=== PATIENT | male | born 1965 | race Caucasian/White ===

== ENCOUNTER 2017-08-28 10:12 | Outpatient (CLI) | payer MEDICARE ==
--- NOTE | 2017-08-28 11:58 | RAD ---
PA AND LATERAL CHEST: History: Hypertension. Date: 08-28-17 Comparison: 04-25-11 FINDINGS: The lungs are well aerated. No evidence of active intrathoracic disease seen. No evidence of effusio ns, pneumonia, or pneumothorax is seen. IMPRESSION: Normal two views chest. POS: [facility]
== END 2017-08-28 10:13 | disposition home or self-care (01) ==
LOC: RAD-FRANK 10:12
PROVIDERS: ATTEND Nurse Practitioner Family
DX: I10 Essential (primary) hypertension (principal)
CPT/HCPCS: 71020

== ENCOUNTER 2017-08-30 19:36 | Inpatient (IN) | payer MEDICARE ==
[~2017-08-30 19:36] MED LIST: ISOVUE-370 76%-LOCM 1 ML ONE
[2017-08-30 20:10] LABS: #Basophils 0.1 thou/uL (0.0-0.2); #Eosinphils 0.1 thou/uL (0.0-0.7); #Lymphocytes 1.5 thou/uL (1.20-3.40); #Monocytes 0.8 thou/uL (0.11-0.59); %Basophils 0.9 % (0.0-1.0); %Eosinophils 0.8 % (0.0-10.0); %Lymphocytes 17.5 % (21.0-51.0); %Monocytes 9.9 % (0.0-10.0); Hematocrit 47.3 % (42.0-52.0); Mean Platelet Volume 6.8 fL (7.4-10.4); Red Blood Cell (RBC) Count 5.05 mill/uL (4.70-6.10); White Blood Cell (WBC) Count 8.5 thou/uL (4.8-10.8)
[2017-08-30 20:23] LABS: Lactic Acid - Sepsis 2.8 mmol/L (0.5-2.2)
[2017-08-30 20:30] LABS: ALT (SGPT) 33 U/L (8-55); AST (SGOT) 36 U/L (5-34); Alkaline Phosphatase 67 U/L (40-150); Anion Gap 16 mmol/L (10-20); BUN (Urea Nitrogen) 12 mg/dL (8.4-25.7); Bilirubin, Total 1.2 mg/dL (0.2-1.2); Calc. Creatinine Clearance 0 mL/min (70-130); Calcium 9.1 mg/dL (7.8-10.44); Carbon Dioxide 24 mmol/L (22-29); Chloride 95 mmol/L (98-107); Estimated GFR-MDRD 61; Protein, Total 8.2 g/dL (6.0-8.3)
[2017-08-30] MEDS ORDERED: cefTRIAXone\\ROCEPHIN 1 GM VIAL ONE (20:38)
[2017-08-30] MEDS ORDERED: Azithromycin 500 MG VIAL ONE (20:38)
[2017-08-30] MEDS ORDERED: Sodium Chloride 0.9% 100 ML ONE (20:39)
[2017-08-30] MEDS ORDERED: Diltiazem HCl 125 MG, Admixture Fee 1 EACH in Sodium Chloride 0.9% 100 ML SLOW IVP SCH (21:00)
[2017-08-30] MEDS ORDERED: Acetaminophen 500 MG TAB ONE (21:13)
--- NOTE | 2017-08-30 21:55 | RAD ---
RADIOGRAPH CHEST 1 VIEW: HISTORY: A 52-year-old male with acute chest pain and chest congestion. FINDINGS: There is cardiomegaly. There is no evidence of air space density, pulmonary edema, or pneumothorax. The lateral costophrenic angles are sharp. IMPRESSION: 1) No acute pulmonary findings. 2) Cardiomegaly without congestive heart failure. riri [] POS: [facility]
[2017-08-30] MEDS ORDERED: Enoxaparin Sodium 100 MG/ML SYRINGE ONE (21:59)
[2017-08-30] MEDS ORDERED: Enoxaparin Sodium 40 MG/0.4 ML SYRINGE ONE (21:59)
[2017-08-30] MEDS ORDERED: Albuterol Sulfate 2.5 mg/3 ml Neb ONE (21:59)
[2017-08-30] MEDS ORDERED: Acetaminophen 325 MG TAB PO PRN (22:07)
[2017-08-30] MEDS ORDERED: Dextrose 50% Abboject 50 ML SYRINGE SLOW IVP PRN (22:11)
[2017-08-30] MEDS ORDERED: Dextrose 5% in Water 1,000 ML IV PRN (22:11)
--- NOTE | 2017-08-30 22:38 | HP ---
PRIMARY CARE PROVIDER: AYLIN Mahajan. CHIEF COMPLAINT: Shortness of breath. HISTORY OF PRESENT ILLNESS: Mr. Bradley is a pleasant 52-year-old gentleman, who was seen at [facility] on 08/30/2017 for shortness of breath. He reports that his symptoms star bethany yesterday. He had cough that was productive of woods sputum, fever, and wheezing. He also repor ts left-sided chest pain that was sharp, nonradiating, worse with coughing, not worse with exertion, associated with shortness of breath and fever. He reports that the chest pain has resolved. He denies any recent travel. He denies any sick contacts. He denies any nausea, vomiting or diarrhea. He denies any abdominal pain. REVIEW OF SYSTEMS: The following complete review of systems was negative, unless otherwise mentione d in the HPI or below: Constitutional: Weight loss or gain, sense of well-being, ability to conduct usual activities, exer cise tolerance. Skin/Breast: Rash, itching, changes in hair growth or loss, nail changes, breast lumps, tenderness, swelling, nipple discharge. Eyes: Vision, double vision, tearing, blind spots, pain. ENT/Mouth: Headaches (location, time of onset, duration, precipitating factors), vertigo, lighthead edness, injury. Vision, double vision, tearing, blind spots, pain, nose bleeding, colds, obstruction , discharge, dental difficulties, gingival bleeding, dentures, neck stiffness, pain, tenderness, mas ses in thyroid or other areas. Cardiovascular: Precordial pain, substernal distress, palpitations, syncope, dyspnea on exertion, o rthopnea, nocturnal paroxysmal dyspnea, edema, cyanosis, hypertension, heart murmurs, varicosities, phlebitis, claudication. Respiratory: Pain, shortness of breath, wheezing, stridor, cough, hemoptysis, fever or night sweats . Gastrointestinal: Poor appetite, dysphagia, indigestion, abdominal pain, heartburn, eructation, nick sea, vomiting, hematemesis, jaundice, constipation, or diarrhea, abnormal stools (soha-colored, micheal y, bloody, greasy, foul smelling), flatulence, hemorrhoids, recent changes in bowel habits. Genitourinary: Urgency, frequency, dysuria, nocturia, hematuria, polyuria, oliguria, unusual (or ch taya in) color of urine, stones, hesitancy, change in size of stream, dribbling, acute retention or incontinence, libido, potency. Musculoskeletal: Pain, swelling, redness or heat of muscles or joints, limitation, of motion, muscu lar weakness, atrophy, cramps. Neurologic/Psychiatric: Convulsions, paralyses, tremor, incoordination, paresthesias, difficulties with memory of speech, sensory or motor disturbances, or muscular coordination (ataxia, tremor), emo tional problems, anxiety, depression, previous psychiatric care, unusual perceptions, hallucinations . Allergy/Immunologic: Skin rash, anemia, bleeding tendency, polydipsia, polyuria, intolerance to hea t or cold. PAST MEDICAL HISTORY: Significant for diabetes mellitus, gout, hypertension, obstructive sleep apne a syndrome, for which he is not using a CPAP. PAST SURGICAL HISTORY: None. ALLERGIES: No known drug allergies. CURRENT MEDICATIONS: Metformin 500 mg daily, glipizide 5 mg daily, lisinopril/hydrochlorothiazide 2 0/12.5 mg daily, carvedilol 6.25 mg 2 times a day, Robitussin p.r.n. SOCIAL HISTORY: The patient denies tobacco use, alcohol use or recreational drug use. FAMILY HISTORY: Significant for hypertension and gout. PHYSICAL EXAMINATION: GENERAL: On examination, Mr. Bradley is awake and alert, in moderate respiratory distress. He is ob rubia. VITAL SIGNS: He is currently afebrile, although he had a temperature of 101.4 degrees Fahrenheit wh en he presented to the emergency room. Blood pressure is 98/81, pulse is 102, he is breathing at ra te of 27 and saturating 98% on nonrebreather mask. EYES: No scleral icterus. No conjunctival pallor. ENT: Moist mucosal membranes, no oropharyngeal erythema or exudates. NECK: Supple, nontender, normal range of movement. Trachea is midline. RESPIRATORY: Accessory muscles of breathing are active. Chest wall movements are symmetric bilater ally. He has diffuse expiratory wheezing. CARDIOVASCULAR: S1 and S2 are heard, tachycardic, irregular. Peripheral pulses are palpable. No c arotid bruit, no pericardial rub. ABDOMEN: Distended, nontender, bowel sounds heard, no hepatomegaly, no splenomegaly. MUSCULOSKELETAL: Power is 5/5 in all 4 extremities. Normal range of movement at all major extremit y joints. SKIN: No rashes or subcutaneous nodules. Extremities are cool. PSYCHIATRIC: The patient appears anxious, oriented to person, place and time. LYMPHATIC: No cervical lymphadenopathy. LABORATORY DATA AND IMAGING: Mr. Bradley's labs and investigations were reviewed. I reviewed his est x-ray, which appears to show perihilar infiltrates. I also reviewed his electrocardiogram, whic h shows atrial fibrillation with rapid ventricular response. No ST changes to suggest an acute danielle nary syndrome. Laboratory investigations show an unremarkable CBC, decreased sodium of 131, normal potassium, normal creatinine, elevated lactic acid of 2.8, elevated AST of 36. ASSESSMENT AND PLAN: Mr. Bradley is a pleasant 52-year-old gentleman who was seen at [facility] on 08/30/2017. His problem list includes: 1. Acute respiratory failure: Etiology unclear, most likely secondary to respiratory tract infecti on. The patient was briefly treated with bilevel positive airway pressure, but is currently on a no nrebreather mask. We will admit him to the hospital for further management. 2. Respiratory tract infection: Minimal infiltrates on chest x-ray, could be bronchitis. The deb ent has received intravenous antibiotics in the form of ceftriaxone and azithromycin, we will contin ue the same. 3. Atrial fibrillation with rapid ventricular response: He is currently on a diltiazem drip, which I will continue. Monitor for hypotension. He may need digoxin if he develops hypotension. 4. Diabetes mellitus. Start Accu-Cheks, insulin sliding scale. 5. Hyponatremia: Mild, likely asymptomatic, we will recheck. He is currently awaiting a CT scan to rule out pulmonary embolism. LEVEL OF RISK: High. LEVEL OF COMPLEXITY: High. Many thanks for allowing me to participate in your patient's care. Please feel free to contact me w ith any questions or concerns.
--- NOTE | 2017-08-30 23:43 | CT ---
CTA THORAX WITH CONTRAST: 08/30/2017 (Computed Tomographic Angiography, chest (noncoronary) with contrast material, and image post proces sing) (PE protocol) HISTORY: A 52-year-old male with severe dyspnea, fever, chest pain, and wheezing. TECHNIQUE: IV injection of iodinated contrast: Isovue. Scan acquisition timing attempted to coincide with iodinated contrast bolus reaching maximal density in pulmonary arteries. 3D MIP reconstructions. FINDINGS: There are numerous significantly enlarged mediastinal lymph nodes, especially in the subcarinal manoj on, but also in the right paratracheal region. There was milder mediastinal lymphadenopathy previou sly on a CT of 11/08/2014, and this has worsened. There is also a new finding of bilateral hilar ly mphadenopathy. There is a few finding of an approximately 2.5 x 2.5 x 5 cm soft tissue density lesi on in the superior segment of the right lower lobe (this is hidden by the enlarged right hilum on th e frontal chest radiograph obtained earlier today, and therefore, difficult to appreciate). This is surrounded by haziness and ground glass changes. Therefore, this is favored to represent a pneumoni a rather than primary lung cancer. There is no evidence of pulmonary thromboembolism. No thoracic aneurysm or dissection. No pleural effusion. Cardiomegaly. Mild hazy interstitial densities bilat erally. Trachea and bilateral mainstem bronchi are patent. Diffusely low hepatic attenuation repres ents fatty liver. Enlargement of the liver. IMPRESSION: 1. Focal consolidation in the superior segment of the right lower lobe is evidence for pneumonia. 2. Recommend follow-up CT in one month to exclude the possibility of an underlying primary lung can cer. 3. Mediastinal and bilateral hilar lymphadenopathy 4. Hepatomegaly and hepatic steatosis. 5. No pulmonary thromboembolism. 6. Cardiomegaly. riri[] POS: [facility]
[2017-08-31 00:13] VITALS: BMI 43.4
[2017-08-31] MEDS: HumaLOG 300 UNITS/3 ML VIAL SC PRN ×5 (00:51→20:51)
[2017-08-31 04:25] LABS: #Eosinphils 0.1 thou/uL (0.0-0.7); #Lymphocytes 2.2 thou/uL (1.20-3.40); #Monocytes 0.8 thou/uL (0.11-0.59); #Neutrophils 5.1 thou/uL (1.40-6.50); %Basophils 0.5 % (0.0-1.0); %Eosinophils 1.6 % (0.0-10.0); %Lymphocytes 26.5 % (21.0-51.0); %Monocytes 9.5 % (0.0-10.0); Hematocrit 41.5 % (42.0-52.0); Red Blood Cell (RBC) Count 4.36 mill/uL (4.70-6.10); White Blood Cell (WBC) Count 8.2 thou/uL (4.8-10.8)
[2017-08-31] MEDS ORDERED: Sodium Chloride 0.9% 1,000 ML IV SCH (04:30)
[2017-08-31 04:52] LABS: Anion Gap 15 mmol/L (10-20); BUN (Urea Nitrogen) 11 mg/dL (8.4-25.7); Calc. Creatinine Clearance 162 mL/min (70-130); Calcium 7.7 mg/dL (7.8-10.44); Carbon Dioxide 22 mmol/L (22-29); Chloride 102 mmol/L (98-107); Estimated GFR-MDRD 78
[2017-08-31] MEDS ORDERED: Furosemide 20 MG/2 ML VIAL SLOW IVP SCH (08:00)
--- NOTE | 2017-08-31 08:06 | PDOC.PN ---
- Subjective Encounter Start Date: 08/31/17 Encounter Start Time: 08:03 Mr. Bradley says he is breathing a little better this morning. He denies any chest pain at this time. - Objective MAR Reviewed: Yes Vital Signs & Weight: Vital Signs (12 hours) Temp Pulse Resp Pulse Ox 08/31/17 07:15 111 H 08/31/17 07:14 120 H 24 H 100 08/31/17 07:13 99.8 F H 111 H 16 100 08/31/17 04:00 98.8 F 08/31/17 01:17 109 H 08/31/17 01:15 112 H 27 H 100 08/31/17 00:00 99.5 F 111 H 23 H 100 08/30/17 23:40 99.5 F Weight Weight 294 lb 8 oz Most Recent Monitor Data Heart Rate from ECG 111 NIBP 154/110 NIBP BP-Mean 135 Respiration from ECG 28 SpO2 100 I&O: 08/30/17 08/31/17 09/01/17 06:59 06:59 06:59 Intake Total 292 261 Output Total 250 0 Balance 42 261 Result Diagrams: 08/31/17 03:44 08/31/17 03:44 Additional Labs: Accuchecks 08/31/17 08/31/17 04:40 00:47 POC Glucose 197 H 225 H Phys Exam - Physical Examination HEENT: PERRLA Respiratory: wheezing present + bilateral wheezing, Cardiovascular: irregular Tachycardic Gastrointestinal: soft, non-tender, positive bowel sounds Musculoskeletal: edema present trace pedal edema Dx/Plan (1) Acute respiratory failure Code(s): J96.00 - ACUTE RESPIRATORY FAILURE, UNSP W HYPOXIA OR HYPERCAPNIA Status: Acute (2) Acute on chronic systolic heart failure Code(s): I50.23 - ACUTE ON CHRONIC SYSTOLIC (CONGESTIVE) HEART FAILURE Status : Acute (3) Atrial fibrillation with RVR Code(s): I48.91 - UNSPECIFIED ATRIAL FIBRILLATION Status: Acute (4) Hypertension Code(s): I10 - ESSENTIAL (PRIMARY) HYPERTENSION Status: Acute (5) Lung mass Code(s): R91.8 - OTHER NONSPECIFIC ABNORMAL FINDING OF LUNG FIELD Status: Acute (6) Diabetes mellitus type 2 in obese Code(s): E11.69 - TYPE 2 DIABETES MELLITUS WITH OTHER SPECIFIED COMPLICATION; E66.9 - OBESITY, UNSPECIFIED Status: Acute (7) BRANDON (obstructive sleep apnea) Code(s): G47.33 - OBSTRUCTIVE SLEEP APNEA (ADULT) (PEDIATRIC) Status: Acute - Plan * Acute Respiratory failure on BiPAP- this is likey multi- factoral . Due to Upper Respiratory infection, AFIB with RVR, and acute on chronic systolic heart failure * Will continue BiPAP, * Continue Rocephin, and Azithromycin IV * In review of his previous records he has a history of heart failure, with an EF at that time, 2014, of around 25%. He also refused to undergo bth non- invasive, as well as invasive evaluation for ischemia.- will Diurese, and repeat his Echo * AFIB- he has a history of AFIB in 2014. at that time he opted for rate control only, and did not want to take coumadin or any of the new agents, due to cost. He says he may re-think this and consider full anticoagulation- will treat with full dose Lovenox for now. * Continue Cardizem drip, and will re-start Coreg * Cardiology has been consulted * HTN- blood pressure is elevated- -re-start Lisinopril, and titrate dose * Lung mass, and mediastinal adenopathy- Pulmonary Consult
[2017-08-31] MEDS ORDERED: Furosemide 100 MG/10 ML VIAL SLOW IVP SCH (08:15)
[2017-08-31] MEDS: Enoxaparin Sodium 120 MG/0.8 ML SYRINGE SC SCH ×2 (08:37→20:51)
[2017-08-31] MEDS: glipiZIDE 5 MG TAB PO SCH ×2 (08:39→20:51)
[2017-08-31] MEDS ORDERED: Lisinopril 2.5 MG TAB PO SCH (09:00)
[2017-08-31] MEDS ORDERED: Enoxaparin Sodium 40 MG/0.4 ML SYRINGE SC SCH (09:00)
[2017-08-31] MEDS ORDERED: Cefdinir 300 MG CAP PO SCH (11:30)
[2017-08-31] MEDS ORDERED: predniSONE 20 MG TAB PO SCH (11:30)
--- NOTE | 2017-08-31 14:42 | CON ---
DATE OF CONSULTATION: 08/31/2017 SERVICE: Pulmonary medicine. HISTORY OF PRESENT ILLNESS: The patient is a 52-year-old white male with past medical history signi ficant for atrial fibrillation. For the past several weeks, he has had slowly increasing dyspnea wi th exertion. Recently got the influenza vaccination. Multiple friends around him were sick recentl y with upper respiratory tract infections. He has a known obstructive sleep apnea, but is not curre ntly on any CPAP therapy. For the last 2-3 nights, he has been having significant dyspnea on exerti on, orthopnea, as well as paroxysmal nocturnal dyspnea. The last day, he started coughing up green sputum. He denies any current fevers, chills, nausea or vomiting. His appetite is poor; however. There have been no changes to his bowel habits. He presented to the emergency department and was di scovered to be in atrial fibrillation with a rapid rate. He was also hypotensive, prompting 5 liter s of fluid to be administered to him. He developed increasing difficulty in breathing and required BiPAP. He was tucked into the ICU. Overnight, his blood pressure improved after his heart rate was controlled. At that time, a dose of Lasix was provided and he has already had 2 liters out. He is starting to feel much improved. PAST MEDICAL HISTORY: 1. Atrial fibrillation. 2. Type 2 diabetes mellitus. 3. Hypertension. 4. Obstructive sleep apnea. 5. Gout. PAST SURGICAL HISTORY: None. ALLERGIES: No known drug allergies. MEDICATIONS: List of his inpatient medications were reviewed. Couple of small updates was made. SOCIAL HISTORY: Negative for alcohol, tobacco or illicit drug use. He denies any exposure to chemi cals, dust asbestos or tuberculosis. FAMILY HISTORY: Noncontributory. REVIEW OF SYSTEMS: General, head, ears, eyes, nose, throat, cardiovascular, respiratory, GI, , mu sculoskeletal, neurologic and skin is negative except as mentioned in the HPI. PHYSICAL EXAMINATION: VITAL SIGNS: Afebrile with a T-max of 99.8, pulse 122, blood pressure 134/90, respirations 30, satu ration 98% on 2 liters nasal cannula. GENERAL: The patient is awake and alert. No apparent distress. LUNGS: Excellent air entry. There is no prolonged expiratory phase. Crackles are present everywhe re. There is decreased air entry at the bibasilar region. There is inspiratory and expiratory whee zing present. HEART: Normal rate. Tachycardic, irregular. ABDOMEN: Soft. Distended. Nontender. Bowel sounds are positive. No rebound or guarding. MUSCULOSKELETAL: No cyanosis or clubbing. There is 1-2+ pitting throughout. GENITOURINARY: Powell catheter in place. NEUROLOGIC: Grossly nonfocal. LABORATORY DATA: WBC 8.2, hemoglobin 14.1, platelets 218,000. Creatinine down trained 1.01, sodium 134, potassium 4.7. Basic metabolic profile is otherwise unremarkable. Lactate has cleared to 1.9 . Blood cultures x2 is unremarkable. Influenza A and B are both negative. IMAGING: CT of the chest demonstrates no evidence of a pulmonary embolism. There is an infiltrate in the superior segment of the right lower lobe. I cannot really see the takeoff of the airway thou gh much at that segment is open. There could be an endobronchial lesion there, but my suspicion, we are just dealing with some mucus/plugging. The left atrium is enlarged and the left ventricle is g enerous. The right ventricle is fairly small. There is minimal reflux of contrast into the inferio r vena cava. ASSESSMENT: 1. Acute hypoxic respiratory failure. 2. Atrial fibrillation with rapid ventricular response. 3. Acute on chronic diastolic heart failure at the very least. 4. Acute bronchitis. 5. Community-acquired pneumonia. PLAN: We will switch over his antibiotics to p.o. medication. We will continue a daily dose of Las ix for the time being. Frequent nebulized medications will be provided. I will give him a 5-day co urse of steroids to help with his acute episode of bronchitis, likely exacerbated from volume overlo ad, and his pneumonia. He will remain in the ICU for the next 24 hours. Ultimately on discharge fr the hospital, he will need to follow up with me in the outpatient setting, so that we can get him arranged for a sleep study. I agree with echocardiogram.
[2017-08-31] MEDS: Carvedilol 6.25 MG TAB PO SCH ×2 (14:43→20:51)
--- NOTE | 2017-08-31 14:50 | CON ---
DATE OF CONSULTATION: 08/31/2017 REASON FOR CONSULTATION: Atrial fibrillation with rapid ventricular response. HISTORY OF PRESENT ILLNESS: Mr. Bradley is a 52-year-old gentleman who I saw and evaluated 2 years a go. He has been lost to follow up. He recently presented with increasing shortness of breath in ad dition to productive cough. No other ameliorating, exacerbating, or precipitating factors present e xcept for sharp discomfort that was worse with cough. He was found to be in AFIB with RVR. He was last seen and evaluated 2 years ago for similar symptoms. He converted to sinus rhythm prior to dis charge. PAST MEDICAL HISTORY: As above including diabetes, hypertension, BRANDON, gout. ALLERGIES: None. MEDICATIONS: Metformin, carvedilol, glipizide, lisinopril/hydrochlorothiazide. FAMILY HISTORY: Negative for CAD. SOCIAL HISTORY: No current tobacco or alcohol use. REVIEW OF SYSTEMS: Ten point review of systems is reviewed and is as above negative. PHYSICAL EXAMINATION: PHYSICAL EXAMINATION: GENERAL: He is morbidly obese. VITAL SIGNS: Heart rate 119, blood pressure 161/101, respirations 20. NEUROLOGIC: The patient is alert and oriented times 3 with no focal neurologic deficits. HEENT: Sclerae without icterus. Mouth has moist mucous membranes with normal pallor. NECK: No JVD. Carotid upstroke brisk. No bruits bilaterally. LUNGS: Coarse rhonchi and rales bilaterally. BACK: No scoliosis or kyphosis. CARDIAC: Irregularly irregular, tachycardic. ABDOMEN: Soft, nontender, nondistended. No peritoneal signs present. No hepatosplenomegaly. No a bnormal striae. EXTREMITIES: There is 1-2+ pitting edema. SKIN: No gross abnormalities. PERTINENT LABORATORY DATA: Hemoglobin 14.1 and creatinine 1.01. IMPRESSION: 1. Atrial fibrillation with rapid ventricular rate, 2. Pneumonia. 3. Obesity. 4. Diabetes mellitus. RECOMMENDATIONS: 1. Continue IV Cardizem. 2. Add Lovenox 3. Supplement with p.o. Cardizem in hopes of decreasing IV Cardizem. 4. Continue antibiotic therapy.
[2017-08-31] MEDS ORDERED: Carvedilol 6.25 MG TAB PO SCH (17:00)
[2017-08-31] MEDS ORDERED: cefTRIAXone\\ROCEPHIN 1 GM in Sodium Chloride 0.9% 100 ML IVPB SCH (20:00)
[2017-08-31] MEDS ORDERED: Azithromycin 500 MG in Sodium Chloride 0.9% 250 ML 250 ML IVPB SCH (21:00)
[2017-09-01 04:50] LABS: #Monocytes 0.7 thou/uL (0.11-0.59); #Neutrophils 7.6 thou/uL (1.40-6.50); %Basophils 0.2 % (0.0-1.0); %Eosinophils 0.2 % (0.0-10.0); %Lymphocytes 18.9 % (21.0-51.0); %Monocytes 7.2 % (0.0-10.0); Mean Platelet Volume 6.8 fL (7.4-10.4); Red Blood Cell (RBC) Count 4.43 mill/uL (4.70-6.10); White Blood Cell (WBC) Count 10.3 thou/uL (4.8-10.8)
[2017-09-01 05:56] LABS: Calcium 8.1 mg/dL (7.8-10.44); Chloride 101 mmol/L (98-107)
[2017-09-01 05:58] LABS: Anion Gap 19 mmol/L (10-20); Carbon Dioxide 17 mmol/L (22-29)
[2017-09-01 06:00] LABS: Calc. Creatinine Clearance 160 mL/min (70-130); Estimated GFR-MDRD 77
[2017-09-01 06:01] LABS: BUN (Urea Nitrogen) 17 mg/dL (8.4-25.7)
[2017-09-01] MEDS: Furosemide 40 MG/4 ML VIAL SLOW IVP SCH (06:21)
--- NOTE | 2017-09-01 07:45 | PDOC.PN ---
- Subjective Encounter Start Date: 09/01/17 Encounter Start Time: 07:43 Mr. Bradley appears dyspneic, but he says he feels fine. He denies feeling short of breath, and denies chest pain. He denies abdominal pain or distention, and says his abdomen is about the same size as it usually is. - Objective MAR Reviewed: Yes Vital Signs & Weight: Vital Signs (12 hours) Temp Pulse Resp BP Pulse Ox 09/01/17 07:35 92 L 09/01/17 07:33 110 H 24 H 92 L 09/01/17 07:19 98.5 F 108 H 19 94 L 09/01/17 07:00 98.5 F 09/01/17 04:00 98.4 F 09/01/17 00:22 80 14 93 L 09/01/17 00:00 98.6 F 08/31/17 20:51 161/101 H 08/31/17 20:00 98.5 F 100 21 H 92 L Weight Weight 293 lb 10.491 oz Most Recent Monitor Data Heart Rate from ECG 112 NIBP 154/94 NIBP BP-Mean 116 Respiration from ECG 29 SpO2 92 I&O: 08/31/17 09/01/17 09/02/17 06:59 06:59 06:59 Intake Total 292 1117.2 Output Total 250 4255 350 Balance 42 -3137.8 -350 Result Diagrams: 09/02/17 04:19 09/02/17 04:19 Additional Labs: Accuchecks 08/31/17 08/31/17 08/31/17 20:51 15:55 11:36 POC Glucose 224 H 245 H 219 H Phys Exam - Physical Examination HEENT: PERRLA Respiratory: wheezing present Cardiovascular: RRR, no significant murmur Gastrointestinal: soft, non-tender, positive bowel sounds Musculoskeletal: edema present Trace edema Neurological: non-focal Dx/Plan (1) Acute respiratory failure Code(s): J96.00 - ACUTE RESPIRATORY FAILURE, UNSP W HYPOXIA OR HYPERCAPNIA Status: Acute (2) Acute on chronic systolic heart failure Code(s): I50.23 - ACUTE ON CHRONIC SYSTOLIC (CONGESTIVE) HEART FAILURE Status : Acute (3) Atrial fibrillation with RVR Code(s): I48.91 - UNSPECIFIED ATRIAL FIBRILLATION Status: Acute (4) Hypertension Code(s): I10 - ESSENTIAL (PRIMARY) HYPERTENSION Status: Acute (5) Lung mass Code(s): R91.8 - OTHER NONSPECIFIC ABNORMAL FINDING OF LUNG FIELD Status: Acute (6) Diabetes mellitus type 2 in obese Code(s): E11.69 - TYPE 2 DIABETES MELLITUS WITH OTHER SPECIFIED COMPLICATION; E66.9 - OBESITY, UNSPECIFIED Status: Acute (7) BRANDON (obstructive sleep apnea) Code(s): G47.33 - OBSTRUCTIVE SLEEP APNEA (ADULT) (PEDIATRIC) Status: Acute - Plan * Acute on chronic systolic and diastolic heart failure- Patient is responding to Lasix well * Will increase Lisinopril, and monitor his potassium level closely * AFIB- heart rate is better, continue to wean the Cardizem drip as tolerated * Continue Lovenox for CVA prevention * DM- blood gucose is stable * HTN- blood pressure is trending down * Pneumonia- Community acquired- his antibiotics have been changed to Omnicef and Azithomycin oral- steroids have been added.
[2017-09-01] MEDS: predniSONE 20 MG TAB PO SCH (07:53)
[2017-09-01] MEDS: Cefdinir 300 MG CAP PO SCH (08:35)
[2017-09-01] MEDS: Azithromycin 250 MG TAB PO SCH (08:36)
[2017-09-01] MEDS: Carvedilol 6.25 MG TAB PO SCH ×3 (08:37→21:18)
[2017-09-01] MEDS: glipiZIDE 5 MG TAB PO SCH ×2 (08:39→21:18)
[2017-09-01] MEDS ORDERED: Azithromycin 250 MG TAB PO SCH (08:45)
[2017-09-01] MEDS: Enoxaparin Sodium 120 MG/0.8 ML SYRINGE SC SCH ×2 (08:49→21:18)
[2017-09-01] MEDS: Lisinopril 5 MG TAB PO SCH (08:51)
[2017-09-01] MEDS: HumaLOG 300 UNITS/3 ML VIAL SC PRN ×2 (10:54→18:16)
--- NOTE | 2017-09-01 11:22 | PRG ---
DATE OF SERVICE: 09/01/2017 SERVICE: Pulmonary Medicine. INTERVAL HISTORY: The patient indicates feeling much improved today. He still has a rhonchorous co ugh and went cough. It started to breakup and able to produce a significant amount of yellow sputum . He currently denies any current fevers, chills, nausea, vomiting or chest discomfort. His breath ing is much improved. He is yet to be out of bed. PHYSICAL EXAMINATION: VITAL SIGNS: Afebrile, pulse 98, blood pressure 132/90, respirations 28, saturation 92% on 4 liters nasal cannula. GENERAL: Patient is awake, alert, in no apparent distress. LUNGS: Decent air entry. Rhonchi and crackles are both present. There is a minimal expiratory whe ezing and a slightly prolonged expiratory phase. HEART: Normal rate, regular. ABDOMEN: Soft, nontender, nondistended. Bowel sounds positive. MUSCULOSKELETAL: No cyanosis or clubbing. There is trace pitting in the bilateral lower extremitie s. GENITOURINARY: Powell catheter in place. NEUROLOGIC: Grossly nonfocal. LABORATORY DATA: WBC 10.3, hemoglobin of 14.3, platelets 230,000. Neutrophil count is stable. Pot assium is 5.3, sodium 132 and roughly stable. Basic metabolic profile is otherwise unremarkable wit h stable creatinine of 1.02. Blood cultures x2 and Influenza A and B are unremarkable. IMAGING: Echocardiogram demonstrates 45% ejection fraction with likely diastolic dysfunction. Left atrium is moderately dilated. ASSESSMENT: 1. Acute hypoxic respiratory failure. 2. Atrial fibrillation with rapid ventricular response. 3. Acute on chronic systolic and diastolic heart failure. 4. Acute bronchitis. 5. Community-acquired pneumonia. PLAN: We will continue his p.o. antibiotics as well as steroids and nebulized medications. Daily d oses of Lasix will be provided until he returns to euvolemia. From my perspective, if we can get hi m off the drip, he will be stable for transition out of the hospital to the telemetry unit. I will continue to follow while he remains inhouse. We will work on mobilization efforts today on getting him out of bed into a chair.
--- NOTE | 2017-09-01 16:40 | PRG ---
DATE OF SERVICE: 09/01/2017 SUBJECTIVE: Mr. Bradley is doing better. He states he had less shortness of breath. His heart rate is better controlled off of IV Cardizem. PHYSICAL EXAMINATION: VITAL SIGNS: Blood pressure 141/93, pulse 101, respirations 20, temperature 98. LUNGS: Rhonchi, rales bilaterally. CARDIAC: irregularly irregular. No new rubs, murmurs, or gallops. ABDOMEN: Distended. EXTREMITIES: 1+ pitting edema. PERTINENT LABORATORY DATA: Hemoglobin 14.3 and creatinine 1.02. IMPRESSION: 1. Atrial fibrillation with rapid ventricular response. 2. Noncompliance. 3. Pneumonia. RECOMMENDATIONS: 1. Continue p.o. Cardizem. 2. Antibiotic therapy. 3. CPAP. 4. Quality Assurance Qa Lab Analyst on importance of compliance.
[2017-09-02 04:43] LABS: #Lymphocytes 2.8 thou/uL (1.20-3.40); #Monocytes 0.9 thou/uL (0.11-0.59); #Neutrophils 6.1 thou/uL (1.40-6.50); %Basophils 0.5 % (0.0-1.0); %Eosinophils 0.5 % (0.0-10.0); %Monocytes 8.6 % (0.0-10.0); Hematocrit 44.1 % (42.0-52.0); Mean Platelet Volume 6.7 fL (7.4-10.4); Red Blood Cell (RBC) Count 4.63 mill/uL (4.70-6.10); White Blood Cell (WBC) Count 9.8 thou/uL (4.8-10.8)
[2017-09-02] MEDS: Furosemide 40 MG/4 ML VIAL SLOW IVP SCH (05:00)
[2017-09-02 05:02] LABS: Anion Gap 13 mmol/L (10-20); BUN (Urea Nitrogen) 19 mg/dL (8.4-25.7); Calc. Creatinine Clearance 197 mL/min (70-130); Calcium 8.5 mg/dL (7.8-10.44); Carbon Dioxide 27 mmol/L (22-29); Chloride 97 mmol/L (98-107); Estimated GFR-MDRD Greater than 90
[2017-09-02] MEDS: HumaLOG 300 UNITS/3 ML VIAL SC PRN ×4 (05:07→21:42)
[2017-09-02] MEDS: Cefdinir 300 MG CAP PO SCH (08:54)
[2017-09-02] MEDS: Azithromycin 250 MG TAB PO SCH (08:55)
[2017-09-02] MEDS: predniSONE 20 MG TAB PO SCH (08:55)
[2017-09-02] MEDS: glipiZIDE 5 MG TAB PO SCH ×2 (08:57→20:08)
[2017-09-02] MEDS: Lisinopril 5 MG TAB PO SCH (08:57)
[2017-09-02] MEDS: Enoxaparin Sodium 120 MG/0.8 ML SYRINGE SC SCH (08:58)
[2017-09-02] MEDS: Carvedilol 3.125 MG TAB PO SCH ×3 (09:04→20:08)
--- NOTE | 2017-09-02 11:12 | PDOC.PN ---
- Subjective Encounter Start Date: 09/02/17 Encounter Start Time: 11:10 Mr. Bradley does not have any complaints. He says he is breathing better, and has not had any chest pain. - Objective MAR Reviewed: Yes Vital Signs & Weight: Vital Signs (12 hours) Temp Pulse Resp BP BP Pulse Ox 09/02/17 08:58 105 H 09/02/17 08:57 105 H 09/02/17 08:04 95 09/02/17 08:02 105 H 18 97 09/02/17 07:29 97.7 F 109 H 20 134/81 95 09/02/17 04:34 98.4 F 90 20 131/88 96 09/02/17 02:35 95 09/02/17 01:02 99 18 95 09/02/17 00:43 98.4 F 90 20 124/88 96 Weight Weight 291 lb 12.8 oz Most Recent Monitor Data Heart Rate from ECG 95 NIBP 127/86 NIBP BP-Mean 96 Respiration from ECG 23 SpO2 90 I&O: 09/01/17 09/02/17 09/03/17 06:59 06:59 06:59 Intake Total 1117.2 1158 Output Total 4255 1120 Balance -3137.8 38 Result Diagrams: 09/02/17 04:19 09/02/17 04:19 Additional Labs: Accuchecks 09/02/17 09/02/17 09/01/17 10:42 05:06 21:21 POC Glucose 308 H 194 H 243 H 09/01/17 17:17 POC Glucose 313 H Phys Exam - Physical Examination HEENT: PERRLA + wheezing bilaterally no rales Cardiovascular: irregular Gastrointestinal: soft, non-tender, positive bowel sounds Musculoskeletal: edema present trace edema Dx/Plan (1) Acute respiratory failure Code(s): J96.00 - ACUTE RESPIRATORY FAILURE, UNSP W HYPOXIA OR HYPERCAPNIA Status: Acute (2) Acute on chronic systolic heart failure Code(s): I50.23 - ACUTE ON CHRONIC SYSTOLIC (CONGESTIVE) HEART FAILURE Status : Acute (3) Atrial fibrillation with RVR Code(s): I48.91 - UNSPECIFIED ATRIAL FIBRILLATION Status: Acute (4) Hypertension Code(s): I10 - ESSENTIAL (PRIMARY) HYPERTENSION Status: Acute (5) Lung mass Code(s): R91.8 - OTHER NONSPECIFIC ABNORMAL FINDING OF LUNG FIELD Status: Acute (6) Diabetes mellitus type 2 in obese Code(s): E11.69 - TYPE 2 DIABETES MELLITUS WITH OTHER SPECIFIED COMPLICATION; E66.9 - OBESITY, UNSPECIFIED Status: Acute (7) BRANDON (obstructive sleep apnea) Code(s): G47.33 - OBSTRUCTIVE SLEEP APNEA (ADULT) (PEDIATRIC) Status: Acute - Plan * AFIB with RVR- patient is now off the Cardizem drip. and his heart rate has been right at 100. * Pneumonia- continue Omnicef and Azithromycin * CVA prophylaxis- this was discussed again. He now has Medicare Insurance, but does not have the Prescription benefit. However this is the enrollment period, and he plans to enroll. The risks and benefits of coumadin vs. the newer agents were discussed. He has decided on Eliquis, and a 30 day coupon was given * HTN- blood pressure is stable * DM- blood glucose is stable.
[2017-09-02] MEDS: Apixaban 5 MG TAB PO SCH (20:08)
--- NOTE | 2017-09-02 20:43 | PRG ---
DATE OF SERVICE: 09/02/2017 SUBJECTIVE: Mr. Bradley appears to be improving. His heart is controlled off of IV Cardizem. He is continued antibiotic therapy. OBJECTIVE: VITAL SIGNS: Blood pressure 116/71, pulse 104, temperature 97.6. LUNGS: Rhonchi and rales bilaterally. HEART: Irregular, irregular. ABDOMEN: Soft, nontender, nondistended. EXTREMITIES: 1+ pitting edema. LABORATORY DATA: Hemoglobin 14.9, creatinine 0.82. IMPRESSION: 1. Atrial fibrillation with rapid ventricular response. 2. Pneumonia. 3. Obesity. 4. Noncompliance. RECOMMENDATIONS: 1. Decrease Coreg due to rales and rhonchi. We will increase p.o. calcium channel blockade if need ed. 2. Continue antibiotic therapy. 3. Counseled on the importance of continuing medical therapy.
[2017-09-03] MEDS: Furosemide 40 MG/4 ML VIAL SLOW IVP SCH (05:24)
[2017-09-03] MEDS: Cefdinir 300 MG CAP PO SCH (09:03)
[2017-09-03] MEDS: Lisinopril 5 MG TAB PO SCH (09:03)
[2017-09-03] MEDS: Carvedilol 3.125 MG TAB PO SCH ×3 (09:04→20:12)
[2017-09-03] MEDS: Apixaban 5 MG TAB PO SCH ×2 (09:04→20:12)
[2017-09-03] MEDS: glipiZIDE 5 MG TAB PO SCH ×2 (09:04→20:12)
[2017-09-03] MEDS: predniSONE 20 MG TAB PO SCH (09:04)
[2017-09-03] MEDS: Azithromycin 250 MG TAB PO SCH (09:04)
--- NOTE | 2017-09-03 10:02 | PDOC.PN ---
- Subjective Encounter Start Date: 09/03/17 Encounter Start Time: 10:00 Mr. Bradley does not have any complaints. However his nurse notes that his heart rate was reaching close to 150's when he was up to go to the bathroom. He has also been hovering in the 110-120's at rest. He also appeared dyspneic and wheezy. - Objective MAR Reviewed: Yes Vital Signs & Weight: Vital Signs (12 hours) Temp Pulse Resp BP Pulse Ox 09/03/17 07:35 97.9 F 74 20 153/95 H 97 09/03/17 07:08 95 09/03/17 07:06 63 16 95 09/03/17 03:54 97.5 F L 90 28 H 148/76 H 92 L 09/03/17 00:55 88 16 94 L 09/03/17 00:01 98.4 F 83 24 H 106/78 94 L Weight Weight 286 lb 1.6 oz Most Recent Monitor Data Heart Rate from ECG 95 NIBP 127/86 NIBP BP-Mean 96 Respiration from ECG 23 SpO2 90 I&O: 09/02/17 09/03/17 09/04/17 06:59 06:59 06:59 Intake Total 1158 2340 Output Total 1120 Balance 38 2340 Result Diagrams: 09/02/17 04:19 09/02/17 04:19 Additional Labs: Accuchecks 09/03/17 09/02/17 09/02/17 05:25 21:23 17:12 POC Glucose 142 H 311 H 437 H 09/02/17 10:42 POC Glucose 308 H Phys Exam - Physical Examination HEENT: PERRLA Respiratory: wheezing present Wheezing throughout both lung rojas Cardiovascular: irregular Gastrointestinal: soft, non-tender, positive bowel sounds Musculoskeletal: edema present trace pedal edema Dx/Plan (1) Acute respiratory failure Code(s): J96.00 - ACUTE RESPIRATORY FAILURE, UNSP W HYPOXIA OR HYPERCAPNIA Status: Acute (2) Acute on chronic systolic heart failure Code(s): I50.23 - ACUTE ON CHRONIC SYSTOLIC (CONGESTIVE) HEART FAILURE Status : Acute (3) Atrial fibrillation with RVR Code(s): I48.91 - UNSPECIFIED ATRIAL FIBRILLATION Status: Acute (4) Hypertension Code(s): I10 - ESSENTIAL (PRIMARY) HYPERTENSION Status: Acute (5) Lung mass Code(s): R91.8 - OTHER NONSPECIFIC ABNORMAL FINDING OF LUNG FIELD Status: Acute (6) Diabetes mellitus type 2 in obese Code(s): E11.69 - TYPE 2 DIABETES MELLITUS WITH OTHER SPECIFIED COMPLICATION; E66.9 - OBESITY, UNSPECIFIED Status: Acute (7) BRANDON (obstructive sleep apnea) Code(s): G47.33 - OBSTRUCTIVE SLEEP APNEA (ADULT) (PEDIATRIC) Status: Acute - Plan * Acute respiratory failure- slowly improving * AFIB with RVR- he had been placed back on a Cardizem drip, and Cardiology has been notified * Continue Eliquis for CVA prevention * DM- blood glucose is elevated- likely from steroids * Community Acquired Pneumonia- continue Omnicef and Azithromycin
--- NOTE | 2017-09-03 10:46 | PRG ---
DATE OF SERVICE: 09/02/2017 SERVICE: Pulmonary Medicine. INTERVAL HISTORY: The patient is doing absolutely outstanding from a cardiovascular and respiratory perspective. He denies any current shortness of breath or chest discomfort. He has been weaned do wn to 1 liter nasal cannula and maintaining saturations quite well. Otherwise, there has been no in terval change to his condition. PHYSICAL EXAMINATION: VITAL SIGNS: Afebrile. Pulse 105, blood pressure 129/86, respirations 19, and saturation 96% on 1 liter nasal cannula. GENERAL: Patient is awake, alert, in no apparent distress. LUNGS: Decreased air entry with no prolonged expiratory phase, wheezing, rhonchi or crackles. HEART: Normal rate and regular. ABDOMEN: Soft, nontender, and nondistended. Bowel sounds are positive. MUSCULOSKELETAL: No cyanosis or clubbing. There is no pitting in the bilateral lower extremities. NEUROLOGIC: Grossly nonfocal. LABORATORY DATA: WBC 9.8, hemoglobin 14.9, and platelets 252,000. Sodium 133. Chloride 97. Basic metabolic profile is otherwise unremarkable. Blood sugar ranges from 142-437. Blood cultures x2 a nd influenza A and B are unremarkable. ASSESSMENT: 1. Acute hypoxic respiratory failure, persisting. 2. Atrial fibrillation with rapid ventricular response. 3. Acute on chronic systolic and diastolic heart failure. 4. Acute bronchitis. 5. Community-acquired pneumonia. PLAN: We will continue antibiotics, steroids, and nebulized medications, as well as other supportiv e care. I will have him get up and start walking around much more today. Hopefully, in the next 24 hours, the patient will be off of oxygen altogether and we can consider him for discharge home. An tibiotics can be discontinued after 5 and 7 days. I will continue to follow up for the time being kim sanchez he remains inhouse. Ultimately on discharge, he will need reevaluation for sleep apnea and a r epeat chest x-ray in 4-6 weeks to make certain the infiltrate resolves.
[2017-09-03] MEDS: HumaLOG 300 UNITS/3 ML VIAL SC PRN ×3 (11:24→21:02)
--- NOTE | 2017-09-03 14:57 | PRG ---
DATE OF SERVICE: 09/03/2017 SERVICE: Pulmonary Medicine. INTERVAL HISTORY: The patient actually looks quite poor today. He is diaphoretic. He does not hav e significant shortness of breath and he indicates that he is feeling a little bit better. That julian quintana said, he does not have very good color either. There were no significant events overnight so far as I am aware. He was put back on oxygen, however. PHYSICAL EXAMINATION: VITAL SIGNS: Afebrile, pulse increased to 109, blood pressure 149/74, respirations 22, and saturati on 92% on 3 liters nasal cannula. GENERAL: Patient is awake, alert, no apparent distress. LUNGS: There is slightly prolonged expiratory phase. Crackles are present throughout bilateral jose g rojas. Expiratory wheezing is minimal. Rhonchi are present and unchanged with cough. HEART: Normal rate, regular. ABDOMEN: Soft, nontender, nondistended. Bowel sounds are positive. MUSCULOSKELETAL: No cyanosis or clubbing. No pitting in the bilateral lower extremities. NEUROLOGIC: Grossly nonfocal. LABORATORY DATA: Blood sugars ranged from 142-437. Blood cultures x2 and influenza are unremarkabl e. ASSESSMENT: 1. Acute hypoxic respiratory failure. 2. Community-acquired pneumonia. 3. Acute bronchitis. 4. Acute on chronic systolic and diastolic heart failure. 5. Atrial fibrillation with rapid ventricular rate. 6. Obstructive sleep apnea. PLAN: Because the patient is diaphoretic, we will watch his vital signs fairly closely. Repeat CBC and basic metabolic profile will be done in the morning. I will get a 2-view chest x-ray at this t santa to make certain this infiltrate is not getting worse and/or an effusion has not developed. If s o, additional diagnostic studies may be considered. Ultimately on discharge, he will need reevaluat ion for sleep apnea and a chest x-ray to be performed in 4-6 weeks. I will continue to follow while the patient remains in the hospital for the time being.
[2017-09-03] MEDS ORDERED: Furosemide 20 MG/2 ML VIAL IVP SCH (17:30)
--- NOTE | 2017-09-03 17:43 | PRG ---
DATE OF SERVICE: 09/03/2017 SUBJECTIVE: Mr. Bradley last evening developed worsening shortness of breath. His heart rate increa sed. He required being placed back on IV Cardizem at 10 mg per hour. He states he currently has no issues except for mild shortness of breath. PHYSICAL EXAMINATION: VITAL SIGNS: Blood pressure 129/81, pulse 85, temperature 98.2. LUNGS: Rhonchi and rales noted bilaterally. HEART: Irregularly irregular. ABDOMEN: Soft, nontender, and nondistended. He is obese. EXTREMITIES: 1+ pitting edema. LABORATORY DATA: Pertinent laboratory data; hemoglobin 14.9, creatinine 0.8. IMPRESSION: 1. Atrial fibrillation. 2. Pneumonia. 3. Noncompliance. RECOMMENDATIONS: 1. Gave one dose of Lasix to 20 mg IV. 2. Increase p.o. Cardizem to 360 q.a.m. We will give an additional 180 now. 3. Decrease IV Cardizem to 5 mg per hour.
--- NOTE | 2017-09-03 20:12 | RAD ---
PA AND LATERAL CHEST X-RAY: 09/03/17 HISTORY: Follow up pneumonia. COMPARISON: 08/30/17. FINDINGS: The cardiac silhouette is magnified by projection but does appear mildly enlarged. Pulmonary vascula ture is within normal limits. A parenchymal opacity within the superior segment of the right lower l obe is less well appreciated on this exam due to overlying hilar structures on the frontal projectio n and overlying structures on the lateral projection but does appear less prominent than on the rece nt CTA chest on 08/30/17, but probably persists. Lungs are otherwise clear. No other interval change . IMPRESSION: Improvement in area of consolidation in most medial aspect of superior segment right lower lobe. Thi s is likely related to improvement in pneumonia. POS: TATIANA
[2017-09-04 05:21] LABS: #Basophils 0.1 thou/uL (0.0-0.2); #Eosinphils 0.1 thou/uL (0.0-0.7); #Monocytes 1.2 thou/uL (0.11-0.59); #Neutrophils 7.5 thou/uL (1.40-6.50); %Basophils 0.8 % (0.0-1.0); %Eosinophils 0.4 % (0.0-10.0); %Lymphocytes 25.5 % (21.0-51.0); %Monocytes 10.2 % (0.0-10.0); Hematocrit 45.3 % (42.0-52.0); Mean Platelet Volume 6.8 fL (7.4-10.4); Red Blood Cell (RBC) Count 4.78 mill/uL (4.70-6.10); White Blood Cell (WBC) Count 11.9 thou/uL (4.8-10.8)
[2017-09-04] MEDS: Furosemide 40 MG/4 ML VIAL SLOW IVP SCH (05:21)
[2017-09-04] MEDS: HumaLOG 300 UNITS/3 ML VIAL SC PRN ×4 (05:21→20:32)
[2017-09-04 05:47] LABS: Anion Gap 12 mmol/L (10-20); BUN (Urea Nitrogen) 20 mg/dL (8.4-25.7); Calc. Creatinine Clearance 183 mL/min (70-130); Calcium 8.7 mg/dL (7.8-10.44); Carbon Dioxide 31 mmol/L (22-29); Chloride 95 mmol/L (98-107); Estimated GFR-MDRD Greater than 90
[2017-09-04] MEDS: predniSONE 20 MG TAB PO SCH (09:29)
[2017-09-04] MEDS: Apixaban 5 MG TAB PO SCH ×2 (09:30→20:32)
[2017-09-04] MEDS: Azithromycin 250 MG TAB PO SCH (09:30)
[2017-09-04] MEDS: Cefdinir 300 MG CAP PO SCH (09:31)
[2017-09-04] MEDS: Carvedilol 3.125 MG TAB PO SCH (09:31)
[2017-09-04] MEDS: glipiZIDE 5 MG TAB PO SCH ×2 (09:33→20:32)
[2017-09-04] MEDS: Lisinopril 5 MG TAB PO SCH (09:33)
[2017-09-04] MEDS ORDERED: Diltiazem HCl SR 60 mg Capsule PO SCH (12:15)
--- NOTE | 2017-09-04 12:35 | PRG ---
DATE OF SERVICE: 09/04/2017 Mr. Bradley states he is doing better. He continues to be on IV Cardizem. I decreased his Cardizem from 10 mg IV to 5 mg IV. He is currently on p.o. Cardizem at 240 q.a.m. in addition to carvedilol 3.125 one p.o. t.i.d. PHYSICAL EXAMINATION: VITAL SIGNS: Blood pressure 116/81, pulse 97, temperature 97.6. LUNGS: Lungs are improved with decreased rales and rhonchi. HEART: Irregularly irregular. ABDOMEN: Obese, soft, nontender, nondistended. EXTREMITIES: 1+ pitting edema. IMPRESSION: 1. Atrial fibrillation with rapid ventricular response. 2. Pneumonia. RECOMMENDATIONS: 1. Increased Cardizem with additional dose today. 2. Decrease IV Cardizem to 2.5 mg per hour. 3. Hopefully discontinue IV Cardizem tomorrow in anticipation of potential discharge tomorrow or ov er the weekend.
--- NOTE | 2017-09-04 12:44 | PDOC.PN ---
- Subjective Encounter Start Date: 09/04/17 Encounter Start Time: 07:20 Pt seen for followup re: atrial fibrillation with rvr. Denies chest pain. Dyspnea is better. Cough is better. No nausea or vomiting. - Objective Vital Signs & Weight: Vital Signs (12 hours) Temp Pulse Resp BP Pulse Ox 09/04/17 11:20 97.6 F 97 20 116/81 92 L 09/04/17 08:50 98 F 101 H 26 H 92 L 09/04/17 08:00 98 F 101 H 26 H 143/89 H 92 L 09/04/17 07:49 48 L 18 95 09/04/17 03:53 98.3 F 94 22 H 124/84 97 09/04/17 00:46 109 H 18 93 L Weight Weight 290 lb Most Recent Monitor Data Heart Rate from ECG 95 NIBP 127/86 NIBP BP-Mean 96 Respiration from ECG 23 SpO2 90 I&O: 09/03/17 09/04/17 09/05/17 06:59 06:59 06:59 Intake Total 2340 2977 Output Total 1400 Balance 2340 1577 Result Diagrams: 09/04/17 04:41 09/04/17 04:41 Additional Labs: Accuchecks 09/04/17 09/04/17 09/03/17 10:48 05:21 20:23 POC Glucose 256 H 203 H 328 H 09/03/17 17:02 POC Glucose 277 H Phys Exam - Physical Examination Obese HEENT: moist MMs, oral pharynx no lesions Respiratory: no wheezing, no rales, no rhonchi, clear to auscultation bilateral Cardiovascular: no rub, irregular Gastrointestinal: soft, positive bowel sounds distended Neurological: moves all 4 limbs Psychiatric: normal affect Skin: no rash Dx/Plan (1) Atrial fibrillation with RVR Code(s): I48.91 - UNSPECIFIED ATRIAL FIBRILLATION Status: Acute (2) Acute on chronic systolic heart failure Code(s): I50.23 - ACUTE ON CHRONIC SYSTOLIC (CONGESTIVE) HEART FAILURE Status : Acute (3) Diabetes mellitus type 2 in obese Code(s): E11.69 - TYPE 2 DIABETES MELLITUS WITH OTHER SPECIFIED COMPLICATION; E66.9 - OBESITY, UNSPECIFIED Status: Chronic (4) Hypertension Code(s): I10 - ESSENTIAL (PRIMARY) HYPERTENSION Status: Chronic - Plan plan discussed w/ family, continue antibiotics, PT/OT, out of bed/ambulate * . Continue apixaban, cardizem (currently on drip). Continue furosemide. Continue cefdinir. Pt still on supplemental oxygen. Polysomnography as outpt. Monitor vital signs, titrate antihypertensives as needed. Review of Systems - Review of Systems Constitutional: negative: Fever, Chills, Sweats, Weakness, Malaise Respiratory: Cough, SOB with Excertion. negative: Dry, Shortness of Breath, Hemoptysis, Pleuritic Pain, Sputum, Wheezing Cardiovascular: negative: Chest Pain, Palpitations, Orthopnea, Paroxysmal Noc. Dyspnea, Edema, Light Headedness - Medications/Allergies Allergies/Adverse Reactions: Allergies Allergy/AdvReac Type Severity Reaction Status Date / Time No Known Drug Allergies Allergy Verified 01/10/15 22:44 Medications: Current Medications Acetaminophen (Tylenol) 650 mg PO Q4H PRN PRN Reason: Headache/Fever or Pain Albuterol/Ipratropium (Duoneb) 3 ml NEB Q6H PRN PRN Reason: SOB &/or Wheezing Albuterol/Ipratropium (Duoneb) 3 ml NEB [id number] Last Admin: 09/04/17 07:49 Dose: 3 ml Apixaban (Eliquis) 5 mg PO BID [facility] Last Admin: 09/04/17 09:30 Dose: 5 mg Cefdinir (Omnicef) 600 mg PO DAILY [facility] Stop: 09/07/17 09:01 Last Admin: 09/04/17 09:31 Dose: 600 mg Dextrose/Water (Dextrose 50%) 25 gm SLOW IVP PRN PRN PRN Reason: Hypoglycemia Diltiazem HCl (Cardizem Cd) 360 mg PO DAILY [facility] Diltiazem HCl (Cardizem Sr) 60 mg PO NOW [facility] Stop: 09/04/17 14:15 Last Admin: 09/04/17 12:32 Dose: 60 mg Furosemide (Lasix) 40 mg SLOW IVP 0600 [facility] Last Admin: 09/04/17 05:21 Dose: 40 mg Glipizide (Glucotrol) 5 mg PO BID [facility] Last Admin: 09/04/17 09:33 Dose: 5 mg Glucagon (Glucagon) 1 mg IM PRN PRN PRN Reason: Hypoglycemia Dextrose/Water (D5w) 1,000 mls @ 0 mls/hr IV .Q0M PRN; As Directed PRN Reason: Hypoglycemia Diltiazem HCl 125 mg/ Sodium (Chloride) 125 mls @ 2.5 mls/hr IVPB INF LEEANN PRN Reason: Protocol Insulin Human Lispro (Humalog) 0 units SC .MILD SLIDING SCALE PRN PRN Reason: Mild Correctional Scale Last Admin: 09/04/17 12:30 Dose: 6 unit Lisinopril (Zestril) 5 mg PO DAILY [facility] Last Admin: 09/04/17 09:33 Dose: 5 mg Metoprolol Tartrate (Lopressor) 25 mg PO BID [facility] Sodium Chloride (Flush - Normal Saline) 10 ml IVF Q12HR [facility] Last Admin: 09/04/17 09:38 Dose: Not Given Sodium Chloride (Flush - Normal Saline) 10 ml IVF PRN PRN PRN Reason: Saline Flush
--- NOTE | 2017-09-04 14:55 | PRG ---
DATE OF SERVICE: 09/04/2017 SERVICE: Pulmonary Medicine. INTERVAL HISTORY: The patient is actually doing quite well today. He denies any recurrent fevers, chills, nausea or vomiting. His dyspnea with exertion is much improved. He is on 1 liter nasal can nula and satting 92%. Otherwise, there has been no interval change to his condition. His diaphores is that was so apparent yesterday, has now resolved. PHYSICAL EXAMINATION: VITAL SIGNS: Afebrile, pulse 97, blood pressure 116/81, respirations 20, saturation 96% on 1 liter nasal cannula. GENERAL: Patient is awake, alert, in no apparent distress. LUNGS: Decreased air entry bilaterally. This is actually much improved. There is still a slightly prolonged expiratory phase and I heard both crackles, and expiratory wheezes present, particularly with forced exhalation at this time. HEART: Normal rate, irregular. ABDOMEN: Soft, nontender, nondistended. Bowel sounds positive. MUSCULOSKELETAL: No cyanosis or clubbing. No pitting in the bilateral lower extremities. NEUROLOGIC: Grossly nonfocal. LABORATORY DATA: WBC 11.9, hemoglobin 15.4, platelets 326,000. Potassium 135 and improving, potass ium 3.2. Basic metabolic profile is otherwise unremarkable. Bicarbonate is likely into the normal range of 31. Creatinine is stable at 0.88. Blood cultures x2 and Influenza A and B are unremarkabl e. IMAGING: Chest x-ray demonstrates interval improvement in the infiltrate. ASSESSMENT: 1. Acute hypoxic respiratory failure. 2. Community-acquired pneumonia. 3. Acute bronchitis, improving. 4. Atrial fibrillation with rapid ventricular response. 5. Acute on chronic systolic and diastolic heart failure. 6. Obstructive sleep apnea. PLAN: We will continue to wean oxygen as tolerated. P.o. antibiotics will be continued to finish a total duration of 7 days. Pulmonary Critical Care will continue to follow. Ultimately, on dischar , we will need a repeat chest x-ray in 4-6 weeks. I will continue to follow while the patient rem ains in the hospital for the time being.
[2017-09-04] MEDS: Potassium Chloride 20 MEQ TAB PO SCH ×2 (15:28→17:45)
[2017-09-04] MEDS: Metoprolol Tartrate 25 MG TAB PO SCH (20:32)
[2017-09-05] MEDS: Furosemide 40 MG/4 ML VIAL SLOW IVP SCH (05:45)
[2017-09-05 05:48] LABS: Anion Gap 14 mmol/L (10-20); BUN (Urea Nitrogen) 19 mg/dL (8.4-25.7); Calc. Creatinine Clearance 174 mL/min (70-130); Calcium 9.1 mg/dL (7.8-10.44); Carbon Dioxide 31 mmol/L (22-29); Chloride 93 mmol/L (98-107); Estimated GFR-MDRD 86
[2017-09-05] MEDS: HumaLOG 300 UNITS/3 ML VIAL SC PRN ×4 (05:48→21:23)
[2017-09-05 06:17] LABS: Hematocrit 45.5 % (42.0-52.0); Mean Platelet Volume 6.8 fL (7.4-10.4); Neutrophil 59 % (42-75); Reactive Lymphocytes 5 % (0-10); Red Blood Cell (RBC) Count 4.78 mill/uL (4.70-6.10); White Blood Cell (WBC) Count 13.3 thou/uL (4.8-10.8)
[2017-09-05] MEDS: Apixaban 5 MG TAB PO SCH ×2 (07:58→20:03)
[2017-09-05] MEDS: Cefdinir 300 MG CAP PO SCH (07:58)
[2017-09-05] MEDS: Metoprolol Tartrate 25 MG TAB PO SCH ×2 (08:01→20:03)
[2017-09-05] MEDS: Lisinopril 5 MG TAB PO SCH (08:01)
[2017-09-05] MEDS: glipiZIDE 5 MG TAB PO SCH ×2 (08:01→20:02)
--- NOTE | 2017-09-05 08:39 | PRG ---
DATE OF SERVICE: 09/05/2017 Mr. Bradley's heart rate continues to be elevated. He is currently on Cardizem 2.5 mg IV per hour. He is also on Cardizem 360 q.a.m. in addition to metoprolol. He states his breathing has markedly i mproved. PHYSICAL EXAMINATION: VITAL SIGNS: Blood pressure 120/68, pulse 80s to 100s, temperature afebrile. LUNGS: Mild rhonchi and rales, although improved. HEART: Irregularly irregular. ABDOMEN: Obese, soft, nontender, nondistended. EXTREMITIES: 1+ pitting edema. PERTINENT LABORATORY: Hemoglobin 15.5, creatinine 0.92. IMPRESSION: 1. Atrial fibrillation with rapid ventricular response. 2. Pneumonia. 3. Obesity. 4. Noncompliance. RECOMMENDATIONS: I am a little reluctant to go up further on his beta-contreras and calcium channel-b locker. I will stop his IV Cardizem and see how he progresses. I would anticipate as his pneumonia improves so will his rhythm. Continue Eliquis. Continue antibiotic therapy.
--- NOTE | 2017-09-05 12:00 | PDOC.PN ---
- Subjective Encounter Start Date: 09/05/17 Encounter Start Time: 07:20 Pt seen for followup re: hans leonard with rvr. No nausea, vomiting or diarrhea. Cough better, brown sputum+ - Objective MAR Reviewed: Yes Vital Signs & Weight: Vital Signs (12 hours) Temp Pulse Resp BP Pulse Ox 09/05/17 08:01 101 H 09/05/17 08:00 98.2 F 101 H 16 126/88 92 L 09/05/17 06:48 95 09/05/17 06:44 101 H 16 09/05/17 04:19 97.5 F L 88 22 H 128/68 98 09/05/17 01:07 95 Weight Weight 288 lb 11.2 oz Most Recent Monitor Data Heart Rate from ECG 95 NIBP 127/86 NIBP BP-Mean 96 Respiration from ECG 23 SpO2 90 I&O: 09/04/17 09/05/17 09/06/17 06:59 06:59 06:59 Intake Total 2977 2650 Output Total 1400 2750 Balance 1577 -100 Result Diagrams: 09/05/17 05:03 09/05/17 05:03 Additional Labs: Accuchecks 09/05/17 09/05/17 09/04/17 11:21 05:48 20:28 POC Glucose 199 H 196 H 378 H 09/04/17 17:20 POC Glucose 396 H EKG Reviewed by me: Yes (Tele: Hans LEONARD) Phys Exam - Physical Examination Constitutional: NAD HEENT: moist MMs Neck: no JVD, supple Respiratory: no wheezing, no rales, no rhonchi, clear to auscultation bilateral Cardiovascular: no rub, irregular Gastrointestinal: soft, non-tender Musculoskeletal: pulses present Neurological: moves all 4 limbs Psychiatric: normal affect Skin: no rash Dx/Plan (1) Atrial fibrillation with RVR Code(s): I48.91 - UNSPECIFIED ATRIAL FIBRILLATION Status: Acute (2) Acute on chronic systolic heart failure Code(s): I50.23 - ACUTE ON CHRONIC SYSTOLIC (CONGESTIVE) HEART FAILURE Status : Acute (3) Diabetes mellitus type 2 in obese Code(s): E11.69 - TYPE 2 DIABETES MELLITUS WITH OTHER SPECIFIED COMPLICATION; E66.9 - OBESITY, UNSPECIFIED Status: Chronic (4) Hypertension Code(s): I10 - ESSENTIAL (PRIMARY) HYPERTENSION Status: Chronic - Plan continue antibiotics, out of bed/ambulate * . Off of supplemental oxygen. Continue cefdinir. Still on Cardizem drip at 2.5 mg/hr. Continue apixaban. Review of Systems - Review of Systems Constitutional: negative: Fever, Chills, Sweats, Weakness, Malaise Respiratory: negative: Cough, Dry, Shortness of Breath, Hemoptysis, SOB with Excertion, Pleuritic Pain, Sputum, Wheezing Cardiovascular: negative: Chest Pain, Palpitations, Orthopnea, Paroxysmal Noc. Dyspnea, Edema, Light Headedness - Medications/Allergies Allergies/Adverse Reactions: Allergies Allergy/AdvReac Type Severity Reaction Status Date / Time No Known Drug Allergies Allergy Verified 01/10/15 22:44 Medications: Current Medications Acetaminophen (Tylenol) 650 mg PO Q4H PRN PRN Reason: Headache/Fever or Pain Albuterol/Ipratropium (Duoneb) 3 ml NEB Q6H PRN PRN Reason: SOB &/or Wheezing Albuterol/Ipratropium (Duoneb) 3 ml NEB [id number] [facility] Last Admin: 09/05/17 06:44 Dose: 3 ml Apixaban (Eliquis) 5 mg PO BID [facility] Last Admin: 09/05/17 07:58 Dose: 5 mg Cefdinir (Omnicef) 600 mg PO DAILY [facility] Stop: 09/07/17 09:01 Last Admin: 09/05/17 07:58 Dose: 600 mg Dextrose/Water (Dextrose 50%) 25 gm SLOW IVP PRN PRN PRN Reason: Hypoglycemia Diltiazem HCl (Cardizem Cd) 360 mg PO DAILY [facility] Last Admin: 09/05/17 08:01 Dose: 360 mg Furosemide (Lasix) 40 mg SLOW IVP 0600 [facility] Last Admin: 09/05/17 05:45 Dose: 40 mg Glipizide (Glucotrol) 5 mg PO BID [facility] Last Admin: 09/05/17 08:01 Dose: 5 mg Glucagon (Glucagon) 1 mg IM PRN PRN PRN Reason: Hypoglycemia Dextrose/Water (D5w) 1,000 mls @ 0 mls/hr IV .Q0M PRN; As Directed PRN Reason: Hypoglycemia Diltiazem HCl 125 mg/ Sodium (Chloride) 125 mls @ 2.5 mls/hr IVPB INF LEEANN PRN Reason: Protocol Insulin Human Lispro (Humalog) 0 units SC .MILD SLIDING SCALE PRN PRN Reason: Mild Correctional Scale Last Admin: 09/05/17 05:48 Dose: 2 unit Lisinopril (Zestril) 5 mg PO DAILY [facility] Last Admin: 09/05/17 08:01 Dose: 5 mg Metoprolol Tartrate (Lopressor) 25 mg PO BID [facility] Last Admin: 09/05/17 08:01 Dose: 25 mg Sodium Chloride (Flush - Normal Saline) 10 ml IVF Q12HR [facility] Last Admin: 09/05/17 08:01 Dose: Not Given Sodium Chloride (Flush - Normal Saline) 10 ml IVF PRN PRN PRN Reason: Saline Flush
--- NOTE | 2017-09-05 13:39 | PRG ---
DATE OF SERVICE: 09/05/2017 SERVICE: Pulmonary Medicine. INTERVAL HISTORY: The patient is doing fantastic from a cardiovascular and respiratory standpoint. He actually feels like he is returning to his usual state. He has been up and now walking the schwartz ways without great difficulty. He is on room air and saturations are fantastic. He is recovering v imani nicely from his pneumonia. PHYSICAL EXAMINATION: VITAL SIGNS: Afebrile, pulse 86, blood pressure 121/78, respirations 18, and saturation 92% on room air. GENERAL: The patient is awake and alert, in no apparent distress. LUNGS: Excellent air entry with no prolonged expiratory phase, wheezing, rhonchi, or crackles. HEART: Normal rate, regular. ABDOMEN: Soft, nontender, nondistended. Bowel sounds positive. MUSCULOSKELETAL: No cyanosis or clubbing. No pitting in the bilateral lower extremities. NEUROLOGIC: Grossly nonfocal. LABORATORY DATA: WBC 13.3, hemoglobin 15.5, and platelets 369,000. Creatinine 0.92, sodium 134. B asic metabolic profile is otherwise unremarkable. Blood cultures x2 were negative. ASSESSMENT: 1. Acute hypoxic respiratory failure. 2. Community-acquired pneumonia. 3. Obstructive sleep apnea, in need of repeat outpatient polysomnography. 4. Acute bronchitis, resolved. 5. Atrial fibrillation with rapid ventricular response, return to normal sinus rhythm. 6. Acute on chronic systolic and diastolic heart failure. 7. Obstructive sleep apnea. PLAN: The patient is doing absolutely fantastic from a respiratory and infectious standpoint. He w ill continue his antibiotics to complete a total duration of 7 days. Pulmonary will continue to fol low while he remains in house. Ultimately, he will need to be seen in the outpatient setting to arr taya for an outpatient polysomnogram. A chest x-ray also needs to be done in 4-6 weeks in the outpa tient setting to verify his infiltrate has resolved.
[2017-09-06] MEDS: Furosemide 40 MG/4 ML VIAL SLOW IVP SCH ×2 (05:41→05:57)
[2017-09-06] MEDS: Apixaban 5 MG TAB PO SCH (08:24)
[2017-09-06] MEDS: glipiZIDE 5 MG TAB PO SCH (08:24)
[2017-09-06] MEDS: Cefdinir 300 MG CAP PO SCH (08:24)
[2017-09-06] MEDS: Lisinopril 5 MG TAB PO SCH (08:25)
[2017-09-06] MEDS: Metoprolol Tartrate 25 MG TAB PO SCH (08:26)
--- NOTE | 2017-09-06 11:03 | PDOC.PN ---
- Subjective Encounter Start Date: 09/06/17 Encounter Start Time: 07:40 Pt seen for followup re: michelleAlan leonard with rvr. Denies chest pain, shortness of breath, fevers or chills. - Objective MAR Reviewed: Yes Vital Signs & Weight: Vital Signs (12 hours) Temp Pulse Resp BP BP Pulse Ox 09/06/17 08:25 101 H 141/77 H 09/06/17 08:00 97.8 F 101 H 18 09/06/17 07:37 97.8 F 77 18 141/77 H 88 L 09/06/17 06:24 92 L 09/06/17 06:22 81 16 09/06/17 03:51 98.1 F 93 20 138/84 94 L 09/06/17 00:15 98.1 F 95 26 H 133/100 H 92 L 09/05/17 23:36 92 L Weight Weight 287 lb 12.8 oz Most Recent Monitor Data Heart Rate from ECG 95 NIBP 127/86 NIBP BP-Mean 96 Respiration from ECG 23 SpO2 90 I&O: 09/05/17 09/06/17 09/07/17 06:59 06:59 06:59 Intake Total 2650 1000 300 Output Total 2750 1100 Balance -100 -100 300 Result Diagrams: 09/05/17 05:03 09/05/17 05:03 Additional Labs: Accuchecks 09/06/17 09/05/17 09/05/17 05:50 20:39 17:13 POC Glucose 161 H 363 H 240 H 09/05/17 11:21 POC Glucose 199 H EKG Reviewed by me: Yes (Tele: michelleAlan horacio with rvr) Phys Exam - Physical Examination Obese HEENT: moist MMs, oral pharynx no lesions Neck: supple Respiratory: clear to auscultation bilateral Cardiovascular: no rub, irregular Gastrointestinal: soft, positive bowel sounds Musculoskeletal: pulses present Neurological: moves all 4 limbs Psychiatric: normal affect Skin: no rash Dx/Plan (1) Atrial fibrillation with RVR Code(s): I48.91 - UNSPECIFIED ATRIAL FIBRILLATION Status: Acute (2) Acute on chronic systolic heart failure Code(s): I50.23 - ACUTE ON CHRONIC SYSTOLIC (CONGESTIVE) HEART FAILURE Status : Acute (3) Diabetes mellitus type 2 in obese Code(s): E11.69 - TYPE 2 DIABETES MELLITUS WITH OTHER SPECIFIED COMPLICATION; E66.9 - OBESITY, UNSPECIFIED Status: Chronic (4) Hypertension Code(s): I10 - ESSENTIAL (PRIMARY) HYPERTENSION Status: Chronic - Plan continue antibiotics, out of bed/ambulate * . Pt on oral diltiazem and metoprolol. Will give additional 25 mg metoprolol. Lasix changed to oral. Continue antibiotics. Monitor vital signs and titrate antihypertensives as needed. Review of Systems - Review of Systems Constitutional: negative: Fever, Chills, Sweats, Weakness, Malaise Respiratory: negative: Cough, Dry, Shortness of Breath, Hemoptysis, SOB with Excertion, Pleuritic Pain, Sputum, Wheezing Cardiovascular: negative: Chest Pain, Palpitations, Orthopnea, Paroxysmal Noc. Dyspnea, Edema, Light Headedness - Medications/Allergies Allergies/Adverse Reactions: Allergies Allergy/AdvReac Type Severity Reaction Status Date / Time No Known Drug Allergies Allergy Verified 01/10/15 22:44 Medications: Current Medications Acetaminophen (Tylenol) 650 mg PO Q4H PRN PRN Reason: Headache/Fever or Pain Albuterol/Ipratropium (Duoneb) 3 ml NEB Q6H PRN PRN Reason: SOB &/or Wheezing Albuterol/Ipratropium (Duoneb) 3 ml NEB [id number] [facility] Last Admin: 09/06/17 06:22 Dose: 3 ml Apixaban (Eliquis) 5 mg PO BID [facility] Last Admin: 09/06/17 08:24 Dose: 5 mg Cefdinir (Omnicef) 600 mg PO DAILY [facility] Stop: 09/07/17 09:01 Last Admin: 09/06/17 08:24 Dose: 600 mg Dextrose/Water (Dextrose 50%) 25 gm SLOW IVP PRN PRN PRN Reason: Hypoglycemia Diltiazem HCl (Cardizem Cd) 360 mg PO DAILY [facility] Last Admin: 09/06/17 08:26 Dose: 360 mg Furosemide (Lasix) 40 mg PO 0600,1400 [facility] Glipizide (Glucotrol) 5 mg PO BID [facility] Last Admin: 09/06/17 08:24 Dose: 5 mg Glucagon (Glucagon) 1 mg IM PRN PRN PRN Reason: Hypoglycemia Dextrose/Water (D5w) 1,000 mls @ 0 mls/hr IV .Q0M PRN; As Directed PRN Reason: Hypoglycemia Insulin Human Lispro (Humalog) 0 units SC .MILD SLIDING SCALE PRN PRN Reason: Mild Correctional Scale Last Admin: 09/05/17 21:23 Dose: 10 unit Lisinopril (Zestril) 5 mg PO DAILY [facility] Last Admin: 09/06/17 08:25 Dose: 5 mg Metoprolol Tartrate (Lopressor) 25 mg PO BID [facility] Last Admin: 09/06/17 08:26 Dose: 25 mg Sodium Chloride (Flush - Normal Saline) 10 ml IVF Q12HR [facility] Last Admin: 09/06/17 08:26 Dose: Not Given Sodium Chloride (Flush - Normal Saline) 10 ml IVF PRN PRN PRN Reason: Saline Flush
[2017-09-06] MEDS ORDERED: Metoprolol Tartrate 25 MG TAB PO SCH (11:15)
[2017-09-06] MEDS: HumaLOG 300 UNITS/3 ML VIAL SC PRN (11:49)
[2017-09-06 12:22] VITALS: BP 123/77; TEMP 98
[2017-09-06] MEDS ORDERED: Furosemide 40 MG TAB PO SCH (14:00)
--- NOTE | 2017-09-06 14:22 | PRG ---
DATE OF SERVICE: 09/06/2017 SUBJECTIVE: Vitor Bradley, this morning, he is better, less shortness of breath, less cough, wheezin g. OBJECTIVE: VITAL SIGNS: Sats are 91%, blood pressure 140/70, temperature 98, pulse 90. CHEST: Decreased breath sounds. No wheezing. CARDIAC: Normal S1 and S2. ABDOMEN: Soft, no masses. IMPRESSION: Morbidly obese, respiratory failure, pneumonia, and probably sleep apnea. Improved, he could be discharged home to follow up with Dr. Alonso for outpatient sleep study. In the meantime, continue antibiotics.
[2017-09-06] MEDS ORDERED: Potassium Chloride 20 MEQ TAB PO SCH (17:00)
--- NOTE | 2017-09-06 20:07 | PDOC.CTH ---
Cardiology Progress Note - Subjective Doing well. No new issues or concerns. - Objective Vital Signs Temp Pulse Resp BP BP Pulse Ox 09/06/17 13:43 94 16 09/06/17 11:11 98 F 90 18 123/77 91 L 09/06/17 08:25 101 H 141/77 H Weight 287 lb 12.8 oz 09/05/17 09/06/17 09/07/17 06:59 06:59 06:59 Intake Total 2650 1000 1540 Output Total 2750 1100 Balance -100 -100 1540 - Physical Examination General/Neuro: alert & oriented x3, NAD Neck: no JVD present Lungs: unlabored respirations Heart: other: (irreg) Abdomen: NT/ND Extremities: + edema B (trace) - Telemetry Telemetry Rhythm: Afib HR 80-105 - Labs Result Diagrams: 09/05/17 05:03 09/05/17 05:03 - Assessment/Plan 1. Afib RVR 2. Pneumonia PLAN: - Continue rate control - Eliquis for stroke prophylaxis. - march discharge home. Follow up with Sabina Villagomez in 2-4 weeks.
[2017-09-06] MEDS ORDERED: Metoprolol Tartrate 50 MG TAB PO SCH (21:00)
--- NOTE | 2017-09-06 21:38 | DIS ---
DATE OF ADMISSION: 08/30/2017 DATE OF DISCHARGE: 09/06/2017 PRIMARY CARE PROVIDER: AYLIN Mahajan. DISCHARGE DIAGNOSES: 1. Acute hypoxic respiratory failure. 2. Acute on chronic systolic congestive heart failure. 3. Atrial fibrillation with rapid ventricular response. CONDITION OF PATIENT AT THE TIME OF DISCHARGE: Stable. I assessed Mr. Bradley on the day of discharge. Please refer to my daily hospitalist progress note from 09/06/2017, for further details regarding this [id number] encounter. DISCHARGE MEDICATIONS: Apixaban 5 mg 2 times a day, Omnicef 600 mg daily for 2 more days, Cardizem CD 360 mg daily, Lasix 40 mg daily, Robitussin p.r.n., lisinopril dose increased to 5 mg daily, metoprolol 50 mg 2 times a day, potassium chloride 10 mEq daily, glipizide 5 mg 2 times a day, metformin 1000 mg 2 times a day. Carvedilol and aspirin have been discontinued. HOSPITAL COURSE: Mr. Bradley is a pleasant 52-year-old gentleman who was admitted to [facility] on 08/30/2017, for acute respiratory failure. He was briefly treated with bilevel positive airway pressure. He was also found to have pneumonia on CT angiogram of the chest on 08/30/2017, in the right lower lobe. He was seen by Pulmonology Service. He was also seen by Cardiology Service because of atrial fibrillation with rapid ventricular response. A 2D echocardiogram on 08/31/2017 was a technically difficult study, showing ejection fraction usually estimated at 45% to 50%. Diastolic function could not be assessed. He had mild mitral regurgitation, mild tricuspid regurgitation and moderately dilated left atrium. He was initially treated with a Cardizem drip, subsequently switched over to oral Cardizem. He was also started on metoprolol during this hospitalization and his carvedilol was discontinued. He was also started on apixaban for anticoagulation. He will need a sleep study as an outpatient. According to Pulmonology Service, he will also need a chest x-ray in 4-6 weeks in the outpatient setting to verify his infiltrate has resolved. On 09/05/2017, Mr. Bradley had sodium 134, potassium 3.5, creatinine 0.92. White count 13,300, hemoglobin 15.5 and platelet count 369,000. BNP was 42.9 on 09/06/2017. The side effects of the medications were discussed with him, and he expressed understanding. Many thanks for allowing me to participate in your patient's care. Please feel free to contact me with any questions or concerns. DISCHARGE DESTINATION: Home. TOTAL AMOUNT OF TIME SPENT COORDINATING THIS DISCHARGE: 38 minutes. ADDENDUM: Mr. Bradley was also diagnosed with acute on chronic systolic congestive heart failure. He was started on diuretics as well as potassium supplementation. CONSULTATIONS DURING THIS HOSPITALIZATION: Cardiology, Dr. Villagomez and Pulmonology, Dr. Alonso. MANOLO
[2017-09-07] MEDS ORDERED: Potassium Chloride 10 MEQ TAB PO SCH (08:00)
== END 2017-09-06 18:08 | disposition home or self-care (01) | DRG 189 ==
LOC: ERS 19:36 → CCU 21:25 → 2SE 09-01 14:36
PROVIDERS: ADMIT Internal Medicine; ATTEND Internal Medicine
PROC: 5A09357 Assistance with Respiratory Ventilation, Less than 24 Consecutive Hours, Continuous Positive Airway Pressure (ICD-10-PCS; principal; 2017-08-30)
DX: J96.01 Acute respiratory failure with hypoxia (principal); I50.43 Acute on chronic combined systolic (congestive) and diastolic (congestive) heart failure; J18.9 Pneumonia, unspecified organism; I11.0 Hypertensive heart disease with heart failure; I48.91 Unspecified atrial fibrillation; E87.1 Hypo-osmolality and hyponatremia; Z68.41 Body mass index [BMI] 40.0-44.9, adult; E66.01 Morbid (severe) obesity due to excess calories; E11.9 Type 2 diabetes mellitus without complications; Z79.84 Long term (current) use of oral hypoglycemic drugs; G47.33 Obstructive sleep apnea (adult) (pediatric); M10.9 Gout, unspecified; J20.9 Acute bronchitis, unspecified; Z91.19 Patient's noncompliance with other medical treatment and regimen; R91.8 Other nonspecific abnormal finding of lung field
CPT/HCPCS: 36415; 36416; 71010; 71020; 71275; 80048; 80053; 83605; 83880; 85025; 87040; 93005; 93306; 93798; 94640; 94660; 94760; 96360; 96365; 96367; 96372; 99292; A4216; G8978-GP-CI; G8979-GP-CH; J0456; J0696; J1650; J1940; J7050; J7506; J7611; J7620

== ENCOUNTER 2018-02-27 10:12 | Emergency (ER) | payer MEDICARE ==
[2018-02-27] MEDS ORDERED: predniSONE 20 MG TAB ONE (11:12)
[2018-02-27] MEDS ORDERED: Lidocaine 1% PF 5 ML VIAL FS SCH (11:45)
[2018-02-27] MEDS ORDERED: cefTRIAXone\\ROCEPHIN 1 GM VIAL IM SCH (11:45)
--- NOTE | 2018-02-27 11:48 | RAD ---
RADIOGRAPH CHEST 1 VIEW: Date: 02/27/18 Time: 1108 HOURS HISTORY: 53-year-old male with cough and chest congestion. COMPARISON: 09/03/17. FINDINGS: Again noted is the widening of the cardiomediastinal silhouette without pulmonary vascular engorgemen t or pulmonary edema. There is a small, focal, irregularly shaped, approximately 2.5 cm, nodular dens ity projecting over the left mid lung zone, which appears to represent a change compared to 09/03/17 and 08/30/17. No pneumothorax. Lateral costophrenic angles are sharp. IMPRESSION: 1. Cardiomegaly without congestive heart failure. 2. Focal, irregularly shaped, nodular opacity in the left perihilar lung. Recommend follow-up PA and lateral chest radiograph. If this persists, then a chest CT would be recommended to rule out lung ca ncer. Code T JN [] POS: [facility]
== END 2018-02-27 12:35 | disposition home or self-care (01) ==
LOC: ERS 10:12
DX: J18.9 Pneumonia, unspecified organism (principal); E11.9 Type 2 diabetes mellitus without complications; I10 Essential (primary) hypertension; M10.9 Gout, unspecified; Z79.899 Other long term (current) drug therapy; Z79.84 Long term (current) use of oral hypoglycemic drugs
CPT/HCPCS: 71045; 94640; 96372; J0696; J2001; J7506; J7620

== ENCOUNTER 2018-03-21 05:31 | Inpatient (IN) | payer MEDICARE ==
[2018-03-21] MEDS ORDERED: Furosemide 40 MG/4 ML VIAL ONE (05:44)
[2018-03-21] MEDS ORDERED: Diltiazem 125 MG/25 ML ONE (05:44)
[2018-03-21] MEDS ORDERED: Magnesium Sulfate 2 GM/100 ML BAG ONE (05:44)
[2018-03-21 05:57] LABS: #Basophils 0.1 thou/uL (0.0-0.2); #Eosinphils 0.2 thou/uL (0.0-0.7); #Lymphocytes 3.1 thou/uL (1.20-3.40); #Monocytes 0.9 thou/uL (0.11-0.59); #Neutrophils 8.2 thou/uL (1.40-6.50); %Basophils 0.7 % (0.0-1.0); %Eosinophils 1.5 % (0.0-10.0); %Lymphocytes 25.1 % (21.0-51.0); %Monocytes 6.9 % (0.0-10.0); %Neutrophils 65.8 % (42.0-75.0); Hemoglobin 15.5 g/dL (14.0-18.0); Mean Corpuscular HGB CONC 32.5 g/dL (32.0-36.0); Mean Corpuscular Hemoglobin 31.1 pg (27.0-31.0); Mean Platelet Volume 7.4 fL (7.4-10.4); Platelet Count 261 thou/uL (130-400); RBC Distribution Width 12.8 % (11.5-14.5); Red Blood Cell (RBC) Count 4.97 mill/uL (4.70-6.10); White Blood Cell (WBC) Count 12.4 thou/uL (4.8-10.8)
[2018-03-21] MEDS ORDERED: Ondansetron HCl/PF 4 MG/2 ML Vial IVP PRN (06:00)
[2018-03-21] MEDS ORDERED: Ondansetron ODT 4 MG TAB SL PRN (06:00)
[2018-03-21 06:04] LABS: INR-International Normal Ratio 1.1; PTT 27.3 SEC (22.9-36.1); Prothrombin Time 14.8 SEC (12.0-14.7)
[2018-03-21 06:18] LABS: ALT (SGPT) 40 U/L (8-55); AST (SGOT) 32 U/L (5-34); Albumin 4.4 g/dL (3.5-5.0); Alkaline Phosphatase 93 U/L (40-150); Anion Gap 15 mmol/L (10-20); BUN (Urea Nitrogen) 13 mg/dL (8.4-25.7); Bilirubin, Total 2.1 mg/dL (0.2-1.2); CK (CPK) 92 U/L (30-200); Calc. Creatinine Clearance 0 mL/min (70-130); Carbon Dioxide 28 mmol/L (22-29); Chloride 98 mmol/L (98-107); Estimated GFR-MDRD 67; Globulin 3.2 g/dL (2.4-3.5); Glucose 179 mg/dL (70-105); Lipase 35 U/L (8-78); Potassium 3.8 mmol/L (3.5-5.1); Protein, Total 7.6 g/dL (6.0-8.3); Sodium 137 mmol/L (136-145)
[2018-03-21] MEDS ORDERED: ISOVUE-370 76%-LOCM 1 ML ONE (06:23)
[2018-03-21 06:30] LABS: CKMB 1.8 ng/mL (0-6.6); Troponin I 0.108 ng/mL (< 0.028)
[2018-03-21] MEDS ORDERED: Diltiazem HCl 125 MG, Admixture Fee 1 EACH in Sodium Chloride 0.9% 100 ML IVPB SCH ×2 (06:30→10:00)
[2018-03-21 06:37] LABS: Bilirubin Negative (Negative); Blood, Urine Large (Negative); Clarity CLEAR (Clear); Glucose, Urine (Dipstick) Negative (Negative); Leukocyte Negative (Negative); Nitrite Negative (Negative); Protein, Urine (Dipstick) 30 mg/dL (Neg-Trace); Specific Gravity, Urine 1.015 (1.002-1.036); pH, Urine 5.5 (5.0-9.0)
[2018-03-21 06:39] LABS: Bacteria/HPF None Seen HPF (None Seen); Hyaline Casts/LPF 0-3 HYALINE CAST LPF (0-3 Hyaline); Pathc Cast-AUWi Flag 1.01 (0-2.49); RBC/HPF GREATER THAN 50-TNTC HPF (0-3); Squamous Epithelial None Seen HPF (0-3); WBC/HPF 0-3 HPF (0-3)
[2018-03-21] MEDS ORDERED: Enoxaparin Sodium 100 MG/ML SYRINGE ONE (07:03)
[2018-03-21] MEDS ORDERED: Enoxaparin Sodium 40 MG/0.4 ML SYRINGE ONE (07:03)
[2018-03-21 07:45] LABS: Troponin I 0.119 ng/mL (< 0.028)
[2018-03-21 08:24] VITALS: BMI 44.1
--- NOTE | 2018-03-21 08:52 | RAD ---
PORTABLE CHEST: Date: 03/21/18 HISTORY: Dyspnea. COMPARISON: 02/27/18. FINDINGS: Heart is mildly enlarged. Mild vascular engorgement. There is a small to moderate size right pleural effusion. IMPRESSION: Cardiomegaly with mild vascular engorgement. Right pleural effusion has occurred since the prior stud y. POS: [facility]
--- NOTE | 2018-03-21 09:55 | CT ---
PRELIMINARY REPORT/[facility]/EMERGENCY AFTER HOURS PROCEDURE: EXAM: CT Angiography Chest With Intravenous Contrast CLINICAL HISTORY: The patient is a 53 years male; Signs and symptoms; Shortness of breath and other: Tachycardia; Patient HX: M53 with HX of dm presents to ed C/O "feeling dehydrated". Pt reports not checking his bs . Pt has a HX of irregular heart rhythm at ed. Pt reports last ed visit being dx with pna and put on levaquin. Pt reports new onset ble swelling TECHNIQUE: Axial computed tomographic angiography images of the chest with intravenous contrast using pulmonary embolism protocol. MIP reconstructed images were created and reviewed. COMPARISON: No relevant prior studies available. FINDINGS: Pulmonary arteries: The pulmonary arteries are well opacified to the subsegmental level with no evide nce of filling defect. Aorta: No acute findings. No thoracic aortic aneurysm. Lungs: See below. Pleural space: Moderate volume dependently layering right pleural effusion with associated atelectasis. Small scattered atelectasis on the left. No focal consolidation. The central airways are normal in caliber and patent. Heart: Unremarkable. No cardiomegaly. No significant pericardial effusion. No evidence of RV dysfunct ion. Bones/joints: No acute or aggressive osseous lesion. No dislocation. Soft tissues: Unremarkable. Lymph nodes: Scattered mildly enlarged bilateral mediastinal and hilar nodes measuring up to approxim ately 12 mm in short axis. Upper abdomen: No acute findings. IMPRESSION: 1. No evidence of pulmonary embolism. 2. Moderate volume layering right pleural effusion with associated atelectasis. No evidence of pneumo jovan. 3. Nonspecific mild bilateral mediastinal and hilar adenopathy. Thank you for allowing us to participate in the care of your patient. Dictated and Authenticated by: Manpreet Pisano MD 03/21/2018 7:33 AM Central Time ([place] & [place]) FINAL REPORT CT PULMONARY ANGIO CHEST WITH IV CONTRAST: Date: 03/21/18 Multiplanar reconstruction and 3D postprocessing performed. FINDINGS: Pulmonary arteries are adequately enhanced. No evidence of pulmonary embolus identified. Moderate siz e right pleural effusion. Nonspecific mediastinal lymph nodes. I am in agreement with the preliminary report issued by [facility]. POS: [facility]
[2018-03-21] MEDS ORDERED: Metoprolol Tartrate 50 MG TAB PO SCH ×2 (10:00→21:00)
[2018-03-21 10:15] LABS: Lactic Acid 1.3 mmol/L (0.5-2.2)
[2018-03-21] MEDS ORDERED: Acetaminophen 325 MG TAB PO PRN (10:42)
[2018-03-21] MEDS ORDERED: Guaifenesin DM 100-10/5 ML UDCUP PO PRN (10:42)
[2018-03-21] MEDS ORDERED: HumaLOG 300 UNITS/3 ML VIAL SC PRN (10:42)
[2018-03-21] MEDS ORDERED: Dextrose 50% Abboject 50 ML SYRINGE SLOW IVP PRN (10:42)
[2018-03-21] MEDS ORDERED: Dextrose 5% in Water 1,000 ML IV PRN (10:42)
--- NOTE | 2018-03-21 11:34 | CON ---
DATE OF CONSULTATION: 03/21/2018 PRIMARY FORGE OPERATOR HELPER: Gustabo Villagomez M.D. REASON FOR CONSULTATION: Atrial fibrillation, rapid ventricular response and heart failure. HISTORY OF PRESENT ILLNESS: Mr. Bradley is a pleasant 53-year-old white gentleman who [facility] feeling short of breath. He was seen in the ER and was found to have atrial fibrillation and RVR. He has a history of chronic atrial fibrillation, rate controlled on Eliquis. He was also f ound to have some pulmonary engorgement and pleural effusion on chest x-ray. He was admitted and humera geetha on a Cardizem drip and given some doses of Lasix. He speaks some more now and he is feeling much better now, but his atrial fibrillation is now rate controlled. He states that he has been off of h is diltiazem. He is not sure why. He says that somebody took him off of it. Last note, he is a pat ient of Dr. Villagomez and last note back in September of last year says that he needed to continue Car tia 180. He also stopped taking the Lasix that he was supposed to be on as he noticed that he was pe eing a lot with this, so we decided not to take it as he was feeling so well. Otherwise, Mr. Bradley is doing much better now. He denies any chest pain, tightness, pressure. PAST MEDICAL HISTORY: History of cardiomyopathy, EF at 45%-50% on echo last year. This is compared to an echo back in 2014 when he was first diagnosed with atrial fibrillation. His EF was 25%-30%. PAST MEDICAL HISTORY: 1. Hypertension. 2. Type 2 diabetes. 3. Gout. 4. BRANDON. He is not using any CPAP. PAST SURGICAL HISTORY: None. OUTPATIENT MEDICATIONS: Include; 1. Metformin 1000 mg twice a day. 2. Glipizide 5 mg twice a day. 3. Cartia 180 mg daily. 4. Eliquis 5 mg b.i.d. 5. Metoprolol tartrate 50 mg b.i.d. 6. Potassium chloride 10 mEq a day. 7. Furosemide 40 mg daily. ALLERGIES: No known drug allergies. SOCIAL HISTORY: No alcohol, tobacco or drugs. FAMILY HISTORY: Noncontributory. REVIEW OF SYSTEMS: Twelve point review of systems was done and is all negative unless stated in the history of present illness. PHYSICAL EXAMINATION: VITAL SIGNS: Temperature 97.2, pulse 122, currently at 88, respirations of 18, satting 99% on 2 lite rs, blood pressure 149/77. GENERAL: Awake, alert, oriented x3, in no distress. HEENT: Normocephalic, atraumatic. NECK: Supple. LUNGS: Clear. CARDIOVASCULAR: Irregularly irregular. Heart rate in the 80s. ABDOMEN: Distended but nontender. EXTREMITIES: 2+ edema. SKIN: Warm and dry. There is erythema on the skin which is painless. LABORATORY DATA AND IMAGING DATA: Laboratory work was reviewed. CBC with white count of 12, hemoglo bin 15, hematocrit 47, and platelet count of 261. Coags were reviewed. Chemistries were reviewed un remarkable. GFR was 67. Glucose was 179. Lactic acid of 2.3 down to 1.3 now. Total bilirubin at 2 .1. AST, ALT and alkaline phosphatase are all normal. Troponins were 0.10 and 0.11. BNP of 301. U A was unremarkable except for large blood and greater than 50 red cells. EKG was reviewed, AFIB, RVR. CT of the chest, no pulmonary embolism. ASSESSMENT AND PLAN: 1. Atrial fibrillation with rapid ventricular response: He has chronic atrial fibrillation which malhotra s been rate controlled, but he has been off of his Cartia and his Lasix. RVR is much better controll ed now after addition of diltiazem. We will transition his IV drip to p.o. diltiazem tomorrow. Agre e with continued IV Lasix for at least one more day and then switch to p.o. 2. Acute on chronic systolic heart failure. Continue IV Lasix for now. We will repeat echocardiogr am to make sure that his LV function is not any lower than what it was back in August of last year a s this has been much lower in the distant past. 3. Obstructive sleep apnea. 4. Erythema on the skin on his legs, clinically does not feel like cellulitis as it is completely pa inless, could be just vascular engorgement. Continues to diurese to see if this makes a difference. Thank you for letting us to participate in the care of your patient. We will follow.
[2018-03-21] MEDS: HumaLOG 300 UNITS/3 ML VIAL SC PRN ×2 (12:46→17:23)
[2018-03-21] MEDS: Furosemide 40 MG/4 ML VIAL SLOW IVP SCH (14:52)
[2018-03-21] MEDS: metFORMIN 500 MG TAB PO SCH (17:22)
[2018-03-21] MEDS: glipiZIDE 5 MG TAB PO SCH (17:22)
[2018-03-21] MEDS ORDERED: Furosemide 40 MG/4 ML VIAL SLOW IVP SCH (18:00)
[2018-03-21] MEDS: Docusate 100 MG CAP PO SCH (20:55)
[2018-03-21] MEDS: Famotidine 20 MG TAB PO SCH (20:55)
[2018-03-21] MEDS: Metoprolol Tartrate 50 MG TAB PO SCH (20:56)
[2018-03-21] MEDS: Enoxaparin Sodium 120 MG/0.8 ML SYRINGE SC SCH (20:56)
--- NOTE | 2018-03-21 21:33 | HP ---
REASON FOR ADMISSION: Atrial fibrillation with rapid ventricular response, demand ischemia, and CHF exacerbation. HISTORY OF PRESENTING ILLNESS: The patient gives history of worsening lower extremity swelling from last 3 days. He started developing blistering. He was also unable to urinate and thought he was deh ydrated, hence came to emergency room. He does mention that he has been off medication for the last 2 days and has not been able to refill it. He has a followup appointment with Dr. Sisi Echevarria on Fri. He has no complaints of chest pain or palpitation. He normally ambulates only inside the house . No complaints of cough or expectoration. No complaints of fever. PAST MEDICAL AND SURGICAL HISTORY: History of CHF with ejection fraction of around 45%, history of p aroxysmal atrial fibrillation, likely obstructive sleep apnea, diabetes mellitus type 2, hypertension , and gout. CURRENT MEDICATIONS: Metformin 1000 mg p.o. twice daily, glipizide 5 mg twice daily, Centrum Silver 1 tab daily, Lopressor 50 mg twice daily, Lasix 40 mg daily, and albuterol inhaler q.6 hourly p.r.n. ALLERGIES: No known drug allergies. PERSONAL HISTORY: Does not abuse alcohol or drugs. No history of smoking. FAMILY HISTORY: Mother is living. She has one kidney. She also has hypertension and osteoarthritis . Father in his 60s and has had history of coronary artery disease. REVIEW OF SYSTEMS: The following complete review of systems was negative, unless otherwise mentioned in the HPI or below: Constitutional: Weight loss or gain, ability to conduct usual activities. Skin: Rash, itching. Eyes: Double vision, pain. ENT/Mouth: Nose bleeding, neck stiffness, pain, tenderness. Cardiovascular: Palpitations, dyspnea on exertion, orthopnea. Respiratory: Shortness of breath, wheezing, cough, hemoptysis, fever or night sweats. Gastrointestinal: Poor appetite, abdominal pain, heartburn, nausea, vomiting, constipation, or diarr hea. Genitourinary: Urgency, frequency, dysuria, nocturia. Musculoskeletal: Pain, swelling. Neurologic/Psychiatric: Anxiety, depression. Allergy/Immunologic: Skin rash, bleeding tendency. PHYSICAL EXAMINATION: GENERAL: The patient is a 53-year-old male who is currently not in any acute distress. VITAL SIGNS: Blood pressure 160/140, pulse 156 on arrival and is currently on Cardizem drip with hea rt rate around 90-110 per minute, respiratory rate is 20 per minute, temperature 98.4 degrees Fahrenh eit, saturating 93% on room air. NECK: Supple, no elevated JVD. EYES: Extraocular muscles intact. Pupils reacting to light. ORAL CAVITY: Mucous membranes are dry. No exudates or congestion. CARDIOVASCULAR SYSTEM: S1, S2 heard. Irregular rhythm. RESPIRATORY SYSTEM: Air entry 1+ bilateral. There are rales plus in the infrascapular area. ABDOMEN: Soft, bowel sounds heard. No tenderness, rigidity or guarding. EXTREMITIES: There is 2+ peripheral edema with blistering of both lower extremities. VASCULAR: Peripheral pulses are 1+. No calf tenderness, no ischemic ulcerations or gangrene. CENTRAL NERVOUS SYSTEM: No gross focal deficits seen. Patient is alert, awake, and oriented well. PSYCHIATRIC SYSTEM: The patient's mood is euthymic. No hallucinations or delusions. IMAGING DATA AND LABORATORY DATA: EKG done shows atrial fibrillation with ventricular rate of 136 be ats per minute. There is Q-wave seen in V1 and V2. White count of 12, hemoglobin and hematocrit 15 and 47, platelet count 261 with 65% neutrophils, MCV is 96. INR is 1.1, troponin I is indeterminate peaking up to 0.1, CK-MB 1.8, BNP is 301, BUN 13, creatinine 1.1. Liver enzymes are within normal li mits. Total bilirubin is 2.1, lipase is 35. CLINICAL IMPRESSION AND PLAN: The patient will be admitted to telemetry. He was initially placed in IMCU and can be downgraded to telemetry once his Cardizem drip is down to 5 mg an hour. We will con tinue him on his home medications of Lopressor 50 mg twice daily along with Lasix 40 mg q.12 hourly. We will also continue aspirin and full dose of Lovenox in view of atrial fibrillation at present. M etformin and glipizide for his diabetes. A small dose of lisinopril will be given as well. We will continue to closely monitor him and watch for his blood pressure in view of him being on Lopressor, l isinopril and IV diuresis at present. Cardiology consultation with Dr. Krishnamurthy will be requested. Th e patient appears to be noncompliant with his medications. He also will likely need outpatient sleep studies. He has not had one done. Code status is FULL and this was discussed with patient.
[2018-03-22] MEDS: Furosemide 40 MG/4 ML VIAL SLOW IVP SCH ×2 (05:58→14:00)
[2018-03-22 06:30] LABS: #Basophils 0.1 thou/uL (0.0-0.2); #Eosinphils 0.3 thou/uL (0.0-0.7); #Lymphocytes 2.7 thou/uL (1.20-3.40); #Monocytes 0.8 thou/uL (0.11-0.59); %Basophils 0.9 % (0.0-1.0); %Lymphocytes 31.2 % (21.0-51.0); %Monocytes 8.5 % (0.0-10.0); %Neutrophils 56.4 % (42.0-75.0); Hemoglobin 13.9 g/dL (14.0-18.0); Mean Corpuscular HGB CONC 32.6 g/dL (32.0-36.0); Mean Corpuscular Hemoglobin 31.4 pg (27.0-31.0); Mean Corpuscular Volume 96.3 fl (80.0-94.0); Mean Platelet Volume 7.4 fL (7.4-10.4); Platelet Count 245 thou/uL (130-400); RBC Distribution Width 12.7 % (11.5-14.5); Red Blood Cell (RBC) Count 4.42 mill/uL (4.70-6.10); White Blood Cell (WBC) Count 8.8 thou/uL (4.8-10.8)
[2018-03-22 06:36] LABS: Anion Gap 14 mmol/L (10-20); BUN (Urea Nitrogen) 13 mg/dL (8.4-25.7); Calc. Creatinine Clearance 170 mL/min (70-130); Calcium 8.7 mg/dL (7.8-10.44); Carbon Dioxide 29 mmol/L (22-29); Chloride 98 mmol/L (98-107); Estimated GFR-MDRD 82; Glucose 153 mg/dL (70-105); Potassium 3.9 mmol/L (3.5-5.1); Sodium 137 mmol/L (136-145)
[2018-03-22] MEDS: Famotidine 20 MG TAB PO SCH ×2 (07:42→21:20)
[2018-03-22] MEDS: glipiZIDE 5 MG TAB PO SCH ×2 (07:42→16:43)
[2018-03-22] MEDS: Metoprolol Tartrate 50 MG TAB PO SCH (07:42)
[2018-03-22] MEDS: metFORMIN 500 MG TAB PO SCH ×2 (07:42→16:43)
[2018-03-22] MEDS: Lisinopril 2.5 MG TAB PO SCH (07:42)
[2018-03-22] MEDS: Docusate 100 MG CAP PO SCH ×2 (07:43→21:20)
[2018-03-22] MEDS: Enoxaparin Sodium 120 MG/0.8 ML SYRINGE SC SCH ×2 (07:43→21:21)
[2018-03-22] MEDS: HumaLOG 300 UNITS/3 ML VIAL SC PRN (11:44)
--- NOTE | 2018-03-22 11:48 | PDOC.PN ---
- Subjective Encounter Start Date: 03/22/18 Encounter Start Time: 07:40 Pt seen for followup re: cellulitis. Denies chest pain, shortness of breath, fevers or chills. - Objective Resuscitation Status: Resuscitation Status FULL:Full Resuscitation MAR Reviewed: Yes Vital Signs & Weight: Vital Signs (12 hours) Temp Pulse Resp BP Pulse Ox 03/22/18 11:12 98 03/22/18 07:40 97.6 F 84 16 139/88 99 03/22/18 04:00 98.2 F 81 20 133/72 93 L 03/22/18 00:00 97.8 F 72 20 132/106 H 94 L Weight Weight 297 lb 3 oz I&O: 03/21/18 03/22/18 03/23/18 06:59 06:59 06:59 Intake Total 840 Output Total 2375 Balance -1535 Result Diagrams: 03/22/18 06:08 03/22/18 06:08 Additional Labs: Accuchecks 03/22/18 03/22/18 03/21/18 10:45 05:40 20:17 POC Glucose 175 H 144 H 119 H 03/21/18 03/21/18 16:42 12:37 POC Glucose 234 H 187 H EKG Reviewed by me: Yes (Tele: a. horacio) Phys Exam - Physical Examination Morbid obesity HEENT: moist MMs, sclera anicteric, oral pharynx no lesions, 2+ tonsils Neck: no nodes, no JVD, supple, full ROM Respiratory: no wheezing, no rales, no rhonchi, clear to auscultation bilateral Cardiovascular: no rub S1, S2, irreg Gastrointestinal: soft, non-tender, positive bowel sounds distended Musculoskeletal: edema present Neurological: moves all 4 limbs Psychiatric: normal affect, A&O x 3 Deviation from normal: Erythema over both shins, worse on right, mildly elevated temperature Dx/Plan (1) Cellulitis Code(s): L03.90 - CELLULITIS, UNSPECIFIED Status: Acute Comment: start ancef (2) Atrial fibrillation with RVR Code(s): I48.91 - UNSPECIFIED ATRIAL FIBRILLATION Status: Acute Comment: on Cardizem drip at 5 mg/hr, rate is controlled now (3) Acute on chronic systolic heart failure Code(s): I50.23 - ACUTE ON CHRONIC SYSTOLIC (CONGESTIVE) HEART FAILURE Status : Acute Comment: ACC AHA Class C Continue furosemide (4) Bacteremia Code(s): R78.81 - BACTEREMIA Status: Resolved Comment: with coag negative staph, likely contaminant (5) Diabetes mellitus type 2 in obese Code(s): E11.69 - TYPE 2 DIABETES MELLITUS WITH OTHER SPECIFIED COMPLICATION; E66.9 - OBESITY, UNSPECIFIED Status: Chronic Comment: Continue accuchecks, insulin sliding scale (6) Hypertension Code(s): I10 - ESSENTIAL (PRIMARY) HYPERTENSION Status: Chronic Comment: Monitor vital signs, titrate antihypertensives as needed (7) BRANDON (obstructive sleep apnea) Code(s): G47.33 - OBSTRUCTIVE SLEEP APNEA (ADULT) (PEDIATRIC) Status: Suspected - Plan * . Review of Systems - Review of Systems Constitutional: negative: fever, chills, sweats, weakness, malaise Respiratory: negative: Cough, Shortness of Breath, SOB with Excertion, Pleuritic Pain, Wheezing Cardiovascular: negative: chest pain, palpitations, orthopnea, paroxysmal nocturnal dyspnea, edema, light headedness Gastrointestinal: negative: Nausea, Vomiting, Abdominal Pain, Diarrhea, Constipation, Melena, Hematochezia Genitourinary: negative: Dysuria, Frequency, Incontinence, Hematuria, Retention - Medications/Allergies Allergies/Adverse Reactions: Allergies Allergy/AdvReac Type Severity Reaction Status Date / Time No Known Drug Allergies Allergy Verified 01/10/15 22:44 Medications: Current Medications Acetaminophen (Tylenol) 650 mg PO Q4H PRN PRN Reason: Headache/Fever or Pain Aspirin (Aspirin Chewable) 81 mg PO DAILY [facility] Last Admin: 03/22/18 07:43 Dose: 81 mg Dextrose/Water (Dextrose 50%) 25 gm SLOW IVP PRN PRN PRN Reason: Hypoglycemia Docusate Sodium (Colace) 100 mg PO BID [facility] Last Admin: 03/22/18 07:43 Dose: Not Given Enoxaparin Sodium (Lovenox) 120 mg SC 0900,2100 [facility] Last Admin: 03/22/18 07:43 Dose: 120 mg Famotidine (Pepcid) 20 mg PO BID [facility] Last Admin: 03/22/18 07:42 Dose: 20 mg Furosemide (Lasix) 40 mg SLOW IVP 0600,1400 [facility] Last Admin: 03/22/18 05:58 Dose: 40 mg Glipizide (Glucotrol) 5 mg PO BID-AC [facility] Last Admin: 03/22/18 07:42 Dose: 5 mg Glucagon (Glucagon) 1 mg IM PRN PRN PRN Reason: Hypoglycemia Guaifenesin/Dextromethorphan (Robitussin Dm) 15 ml PO Q4H PRN PRN Reason: Cough Diltiazem HCl 125 mg/Miscellaneous Medication 1 each/ Sodium Chloride 125 mls @ 5 mls/hr IVPB INF [facility] PRN Reason: Protocol Last Admin: 03/21/18 23:55 Dose: 125 mls Dextrose/Water (D5w) 1,000 mls @ 0 mls/hr IV .Q0M PRN; As Directed PRN Reason: Hypoglycemia Insulin Human Lispro (Humalog) 0 units SC .MODERATE SLIDING SC PRN PRN Reason: Moderate Correctional Scale Last Admin: 03/21/18 17:23 Dose: 4 unit Insulin Human Lispro (Humalog) 0 units SC .BEDTIME SLIDING SC PRN PRN Reason: Bedtime Correctional Scale Lisinopril (Zestril) 2.5 mg PO DAILY [facility] Last Admin: 03/22/18 07:42 Dose: 2.5 mg Metformin HCl (Glucophage) 1,000 mg PO BID-[facility] Last Admin: 03/22/18 07:42 Dose: 1,000 mg Metoprolol Tartrate (Lopressor) 50 mg PO BID [facility] Last Admin: 03/22/18 07:42 Dose: 50 mg
[2018-03-22] MEDS ORDERED: CEFAZOLIN 1 GM VIAL SLOW IVP SCH (14:00)
[2018-03-22] MEDS ORDERED: CEFAZOLIN 1 GM in Sodium Chloride 0.9% 100 ML IVPB SCH (14:00)
--- NOTE | 2018-03-22 15:58 | PDOC.CTH ---
Cardiology Progress Note - Subjective He is diuresing well. no chest pain, SOB improving. - Objective Vital Signs Temp Pulse Pulse Pulse Resp BP BP 03/22/18 12:25 71 79 115/75 112/73 03/22/18 11:12 03/22/18 11:00 97.6 F 76 18 03/22/18 07:40 97.6 F 84 16 03/22/18 04:00 98.2 F 81 20 BP Pulse Ox Pulse Ox Pulse Ox 03/22/18 12:25 97 97 03/22/18 11:12 98 03/22/18 11:00 102/76 94 L 03/22/18 07:40 139/88 99 03/22/18 04:00 133/72 93 L Weight 297 lb 3 oz 03/21/18 03/22/18 03/23/18 06:59 06:59 06:59 Intake Total 840 Output Total 2375 Balance -1535 - Physical Examination General/Neuro: alert & oriented x3, NAD Neck: no JVD present Lungs: unlabored respirations Heart: other: (Irreg) Abdomen: NT/ND Extremities: + edema B (2+) - Telemetry Telemetry Rhythm: Afib HR 70's - Labs Result Diagrams: 03/22/18 06:08 03/22/18 06:08 Troponin/CKMB CK-MB (CK-2) 1.8 ng/mL (0-6.6) 03/21/18 05:52 Troponin I 0.119 ng/mL (< 0.028) H 03/21/18 07:08 - Assessment/Plan 1. Afib RVRm rate controlled. 2. Acute on chronic sytolic hear tfailure 3. BRANDON PLAN: - Continue IV lasix - Will stop IV diltiazem and will up titrate PO metoprolol. - Continue full anticoagulation with SQ lovenox.
[2018-03-22] MEDS: Metoprolol Tartrate 100 MG TAB PO SCH (21:20)
[2018-03-22] MEDS: CEFAZOLIN 1 GM, Syringe 2.5 ML in Sterile Water 7.5 ML SLOW IVP SCH (21:21)
[2018-03-23] MEDS: Furosemide 40 MG/4 ML VIAL SLOW IVP SCH ×2 (05:40→14:24)
[2018-03-23] MEDS: CEFAZOLIN 1 GM, Syringe 2.5 ML in Sterile Water 7.5 ML SLOW IVP SCH ×3 (05:40→21:09)
[2018-03-23 05:56] LABS: Hemoglobin 14.4 g/dL (14.0-18.0); Platelet Count 251 thou/uL (130-400)
[2018-03-23] MEDS ORDERED: Iopamidol 370 76% 100 ML VIAL ONE (06:48)
[2018-03-23] MEDS: metFORMIN 500 MG TAB PO SCH ×2 (08:06→16:37)
[2018-03-23] MEDS: Metoprolol Tartrate 100 MG TAB PO SCH ×2 (08:06→21:09)
[2018-03-23] MEDS: Enoxaparin Sodium 120 MG/0.8 ML SYRINGE SC SCH (08:06)
[2018-03-23] MEDS: Lisinopril 2.5 MG TAB PO SCH (08:07)
[2018-03-23] MEDS: glipiZIDE 5 MG TAB PO SCH ×2 (08:07→16:37)
[2018-03-23] MEDS: Famotidine 20 MG TAB PO SCH ×2 (08:07→21:09)
[2018-03-23] MEDS: Docusate 100 MG CAP PO SCH ×2 (08:07→21:09)
[2018-03-23] MEDS ORDERED: Communication Order-Pharmacy FS SCH (09:15)
[2018-03-23] MEDS ORDERED: Sodium Chloride 0.9% 1,000 ML IV SCH ×2 (09:15→13:30)
--- NOTE | 2018-03-23 09:22 | PRG ---
DATE OF SERVICE: 03/23/2018 HISTORY OF PRESENT ILLNESS: Mr. Bradley is doing much better. Less shortness of breath and lower ext remity edema. Mr. Bradley states he has not been taking his Eliquis. He also stopped his Lasix and Cardizem. PHYSICAL EXAMINATION: VITAL SIGNS: Blood pressure 132/75, pulse 80, temperature 98.5. LUNGS: Mild rhonchi and rales bilaterally. CARDIAC: Irregularly irregular. ABDOMEN: Soft, nontender, nondistended. EXTREMITIES: 3+ pitting edema. PERTINENT LABS: Hemoglobin 14.4, creatinine 0.96. IMPRESSION: 1. New onset systolic heart failure. 2. Noncompliance. 3. Diabetes mellitus. RECOMMENDATIONS: Mr. Bradley was scheduled for a noninvasive stress study in 2017. He canceled the a ppointment. I am concerned about his LVEF of 30-35%. His last echo suggested LVEF 40-45%. Given hi s risk factors, would recommend coronary angiography versus a noninvasive stress study. I have discu ssed risks and benefits of both, he decided to proceed with a more aggressive approach. Would procee d with angiography. I discussed in full detail with Mr. Bradley, the risks included, but not limited to the following: , stroke, VT, need for emergency surgery, loss of limb, bleeding, and infecti on, as well as a reaction to the dye causing kidney failure and needing long-term dialysis. I also d iscussed the risks of PCI to include all of the above including coronary dissection and perforation i n addition to acute stent thrombosis and restenosis. All questions about the procedure were answered . Given the above, the patient agreed to proceed with coronary angiography and possible PCI. All questions were answered. Given compliance issues would proceed with a bare metal stent if needed . Depending on the findings on the angio he will likely benefit from a LifeVest. Continue Lasix in addition to rate control. He is off IV Cardizem.
[2018-03-23] MEDS ORDERED: Lidocaine 1% (PF) 30 ML VIAL ONE (09:56)
[2018-03-23] MEDS ORDERED: Nitroglycerin 100MG/250ML BOT 250 ML ONE (12:07)
[2018-03-23] MEDS ORDERED: Verapamil 5 MG/2 ML VIAL ONE (12:07)
[2018-03-23] MEDS ORDERED: Heparin 10,000 UNITS/1 ML VIAL ONE (12:07)
--- NOTE | 2018-03-23 12:52 | PDOC.PN ---
- Subjective Encounter Start Date: 03/23/18 Encounter Start Time: 08:40 Pt seen for followup re: cellulitis. feels better. No chest pain or palpitations. No shortness of breath. - Objective Resuscitation Status: Resuscitation Status FULL:Full Resuscitation MAR Reviewed: Yes Vital Signs & Weight: Vital Signs (12 hours) Temp Pulse Pulse Pulse Resp BP BP 03/23/18 11:42 97.9 F 71 18 03/23/18 09:30 77 89 120/82 103/65 03/23/18 08:07 80 03/23/18 08:00 98.5 F 80 16 03/23/18 07:52 98.5 F 80 16 03/23/18 04:00 98.7 F 92 20 BP BP Pulse Ox Pulse Ox Pulse Ox 03/23/18 11:42 116/80 96 03/23/18 09:30 99 98 03/23/18 08:07 03/23/18 08:00 03/23/18 07:52 123/75 93 L 03/23/18 04:00 117/74 95 Weight Weight 288 lb 6.4 oz I&O: 03/22/18 03/23/18 03/24/18 06:59 06:59 06:59 Intake Total 840 1080 90 Output Total 3484 8704 2007 Balance -1535 -4255 -1480 Result Diagrams: 03/23/18 04:38 03/23/18 04:38 Additional Labs: Accuchecks 03/23/18 03/22/18 03/22/18 11:26 21:13 16:27 POC Glucose 129 H 104 130 H EKG Reviewed by me: Yes (Tele: hans leonard) Phys Exam - Physical Examination Morbid obesity HEENT: moist MMs, sclera anicteric, oral pharynx no lesions, 2+ tonsils Neck: no nodes, supple, full ROM JVD+ Respiratory: no wheezing, no rhonchi Braden crackles Cardiovascular: RRR, no rub S1, S2, reg Gastrointestinal: soft, non-tender, positive bowel sounds distention Musculoskeletal: edema present Neurological: non-focal, moves all 4 limbs Psychiatric: normal affect, A&O x 3 Deviation from normal: Braden barlow cellulitis Dx/Plan (1) Cellulitis Code(s): L03.90 - CELLULITIS, UNSPECIFIED Status: Acute Comment: continue ancef (2) Atrial fibrillation with RVR Code(s): I48.91 - UNSPECIFIED ATRIAL FIBRILLATION Status: Acute Comment: On oral beta contreras now, rate-controlled. Continue anticoagulation. (3) Acute on chronic systolic heart failure Code(s): I50.23 - ACUTE ON CHRONIC SYSTOLIC (CONGESTIVE) HEART FAILURE Status : Acute Comment: ACC AHA Class C Continue IV furosemide (4) Bacteremia Code(s): R78.81 - BACTEREMIA Status: Resolved Comment: with coag negative staph, likely contaminant (5) Diabetes mellitus type 2 in obese Code(s): E11.69 - TYPE 2 DIABETES MELLITUS WITH OTHER SPECIFIED COMPLICATION; E66.9 - OBESITY, UNSPECIFIED Status: Chronic Comment: On accuchecks, insulin sliding scale (6) Hypertension Code(s): I10 - ESSENTIAL (PRIMARY) HYPERTENSION Status: Chronic Comment: titrate antihypertensives as needed (7) BRANDON (obstructive sleep apnea) Code(s): G47.33 - OBSTRUCTIVE SLEEP APNEA (ADULT) (PEDIATRIC) Status: Suspected - Plan * . Review of Systems - Review of Systems Constitutional: negative: fever, chills, sweats, weakness, malaise Cardiovascular: negative: chest pain, palpitations, orthopnea, paroxysmal nocturnal dyspnea, edema, light headedness, other Gastrointestinal: negative: Nausea, Vomiting, Abdominal Pain, Diarrhea, Constipation, Melena, Hematochezia Genitourinary: negative: Dysuria, Frequency, Incontinence, Hematuria, Retention Musculoskeletal: negative: Neck Pain, Shoulder Pain, Arm Pain, Back Pain, Hand Pain, Leg Pain, Foot Pain Skin: Rash Neurological: negative: Weakness, Numbness, Incoordination, Change in Speech, Confusion, Seizures - Medications/Allergies Allergies/Adverse Reactions: Allergies Allergy/AdvReac Type Severity Reaction Status Date / Time No Known Drug Allergies Allergy Verified 01/10/15 22:44 Medications: Current Medications Acetaminophen (Tylenol) 650 mg PO Q4H PRN PRN Reason: Headache/Fever or Pain Aspirin (Aspirin Chewable) 81 mg PO DAILY [facility] Last Admin: 03/23/18 08:07 Dose: 81 mg Dextrose/Water (Dextrose 50%) 25 gm SLOW IVP PRN PRN PRN Reason: Hypoglycemia Docusate Sodium (Colace) 100 mg PO BID [facility] Last Admin: 03/23/18 08:07 Dose: 100 mg Famotidine (Pepcid) 20 mg PO BID [facility] Last Admin: 03/23/18 08:07 Dose: 20 mg Furosemide (Lasix) 40 mg SLOW IVP 0600,1400 [facility] Last Admin: 03/23/18 05:40 Dose: 40 mg Glipizide (Glucotrol) 5 mg PO BID-AC [facility] Last Admin: 03/23/18 08:07 Dose: 5 mg Glucagon (Glucagon) 1 mg IM PRN PRN PRN Reason: Hypoglycemia Guaifenesin/Dextromethorphan (Robitussin Dm) 15 ml PO Q4H PRN PRN Reason: Cough Dextrose/Water (D5w) 1,000 mls @ 0 mls/hr IV .Q0M PRN; As Directed PRN Reason: Hypoglycemia Cefazolin Sodium 1 gm/ Syringe (2.5 ml/ Sterile Water) 10 mls @ 120 mls/hr SLOW IVP Q8HR [facility] Last Admin: 03/23/18 05:40 Dose: 10 mls Sodium Chloride (Normal Saline 0.9%) 1,000 mls @ 100 mls/hr IV .Q10H [facility] Last Admin: 03/23/18 09:33 Dose: 1,000 mls Insulin Human Lispro (Humalog) 0 units SC .MODERATE SLIDING SC PRN PRN Reason: Moderate Correctional Scale Last Admin: 03/22/18 11:44 Dose: 2 unit Insulin Human Lispro (Humalog) 0 units SC .BEDTIME SLIDING SC PRN PRN Reason: Bedtime Correctional Scale Lisinopril (Zestril) 2.5 mg PO DAILY [facility] Last Admin: 03/23/18 08:07 Dose: 2.5 mg Metformin HCl (Glucophage) 1,000 mg PO BID-WM [facility] Last Admin: 03/23/18 08:06 Dose: 1,000 mg Metoprolol Tartrate (Lopressor) 100 mg PO BID [facility] Last Admin: 03/23/18 08:06 Dose: 100 mg Miscellaneous Information (Communication Order-Pharmacy) 0 each FS ASDIR [facility] Sodium Chloride (Flush - Normal Saline) 10 ml IVF Q12HR [facility] Sodium Chloride (Flush - Normal Saline) 10 ml IVF PRN PRN PRN Reason: Saline Flush
[2018-03-23] MEDS ORDERED: Nitroglycerin 0.4 MG TAB (25 Tab Bottle) SL PRN (13:18)
[2018-03-23] MEDS ORDERED: traMADol HCl 50 MG TAB PO PRN (13:18)
[2018-03-23] MEDS ORDERED: Acetaminophen/Codeine 30-300mg Tablet PO PRN ×2 (13:18)
[2018-03-23] MEDS ORDERED: Sodium Chloride 0.9% 200 ML IV PRN (13:30)
[2018-03-24] MEDS: CEFAZOLIN 1 GM, Syringe 2.5 ML in Sterile Water 7.5 ML SLOW IVP SCH (06:36)
[2018-03-24] MEDS: Furosemide 40 MG/4 ML VIAL SLOW IVP SCH ×2 (06:36→15:20)
[2018-03-24] MEDS: Famotidine 20 MG TAB PO SCH ×2 (09:44→20:25)
[2018-03-24] MEDS: Docusate 100 MG CAP PO SCH ×2 (09:44→20:26)
[2018-03-24] MEDS: glipiZIDE 5 MG TAB PO SCH ×2 (09:44→17:34)
[2018-03-24] MEDS: metFORMIN 500 MG TAB PO SCH ×2 (09:44→17:34)
[2018-03-24] MEDS: Lisinopril 2.5 MG TAB PO SCH (09:44)
[2018-03-24] MEDS: Rivaroxaban 10 MG TAB PO SCH (09:45)
[2018-03-24] MEDS: Metoprolol Tartrate 100 MG TAB PO SCH ×2 (09:45→20:26)
[2018-03-24] MEDS ORDERED: Rivaroxaban 10 MG TAB ONE (09:55)
[2018-03-24] MEDS ORDERED: Lisinopril 2.5 MG TAB PO SCH (10:15)
[2018-03-24] MEDS: HumaLOG 300 UNITS/3 ML VIAL SC PRN (12:09)
--- NOTE | 2018-03-24 12:15 | PDOC.PN ---
- Subjective Encounter Start Date: 03/24/18 Encounter Start Time: 07:40 Pt seen for followup re: atrial fibrillation. Denies chest pain, shortness of breath, fevers or chills. - Objective Resuscitation Status: Resuscitation Status FULL:Full Resuscitation MAR Reviewed: Yes Vital Signs & Weight: Vital Signs (12 hours) Temp Pulse Resp BP BP Pulse Ox 03/24/18 12:04 97.7 F 81 18 144/81 H 93 L 03/24/18 10:16 81 03/24/18 08:03 97.9 F 81 18 166/104 H 95 03/24/18 04:00 97.7 F 80 18 130/76 92 L Weight Weight 286 lb 6.4 oz I&O: 03/23/18 03/24/18 03/25/18 06:59 06:59 06:59 Intake Total 1080 1014 Output Total 3040 4880 Balance -7455 -4480 Result Diagrams: 03/23/18 04:38 03/23/18 04:38 Additional Labs: Accuchecks 03/24/18 03/24/18 03/23/18 10:56 05:59 20:14 POC Glucose 181 H 127 H 94 03/23/18 17:09 POC Glucose 159 H EKG Reviewed by me: Yes (Tele: a. horacio) Phys Exam - Physical Examination Morbid obesity HEENT: moist MMs, sclera anicteric, oral pharynx no lesions, 2+ tonsils Neck: supple Respiratory: no wheezing, no rales, no rhonchi, clear to auscultation bilateral Cardiovascular: no rub, irregular S1, S2 Musculoskeletal: edema present Neurological: moves all 4 limbs Psychiatric: normal affect, A&O x 3 Deviation from normal: evelina barlow rash, improving Dx/Plan (1) Cellulitis Code(s): L03.90 - CELLULITIS, UNSPECIFIED Status: Acute Comment: Switch to oral antibiotics (2) Atrial fibrillation with RVR Code(s): I48.91 - UNSPECIFIED ATRIAL FIBRILLATION Status: Acute Comment: Continue metoprolol and rivaroxaban. (3) Acute on chronic systolic heart failure Code(s): I50.23 - ACUTE ON CHRONIC SYSTOLIC (CONGESTIVE) HEART FAILURE Status : Acute Comment: ACC AHA Class C Continue IV furosemide 40 mg daily (4) Diabetes mellitus type 2 in obese Code(s): E11.69 - TYPE 2 DIABETES MELLITUS WITH OTHER SPECIFIED COMPLICATION; E66.9 - OBESITY, UNSPECIFIED Status: Chronic Comment: continue accuchecks, insulin sliding scale (5) Hypertension Code(s): I10 - ESSENTIAL (PRIMARY) HYPERTENSION Status: Chronic Comment: titrate antihypertensives as needed (6) BRANDON (obstructive sleep apnea) Code(s): G47.33 - OBSTRUCTIVE SLEEP APNEA (ADULT) (PEDIATRIC) Status: Suspected (7) Bacteremia Code(s): R78.81 - BACTEREMIA Status: Resolved Comment: with coag negative staph, likely contaminant - Plan * . Pt had cath yesterday, may need Life Vest. Review of Systems - Review of Systems Constitutional: negative: fever, chills, sweats, weakness, malaise Respiratory: negative: Cough, Shortness of Breath, SOB with Excertion, Pleuritic Pain, Wheezing Cardiovascular: negative: chest pain, palpitations, orthopnea, paroxysmal nocturnal dyspnea, edema, light headedness Gastrointestinal: negative: Nausea, Vomiting, Abdominal Pain, Melena, Hematochezia Musculoskeletal: negative: Neck Pain, Shoulder Pain, Arm Pain, Back Pain, Hand Pain, Leg Pain, Foot Pain Neurological: negative: Weakness, Numbness, Incoordination, Change in Speech, Confusion, Seizures - Medications/Allergies Allergies/Adverse Reactions: Allergies Allergy/AdvReac Type Severity Reaction Status Date / Time No Known Drug Allergies Allergy Verified 01/10/15 22:44 Medications: Current Medications Acetaminophen (Tylenol) 650 mg PO Q4H PRN PRN Reason: Headache/Fever or Pain Acetaminophen/Codeine Phosphate (Tylenol #3) 1 tab PO Q4H PRN PRN Reason: Mild Pain (1-3) Acetaminophen/Codeine Phosphate (Tylenol #3) 2 tab PO Q4H PRN PRN Reason: Moderate Pain (4-6) Aspirin (Aspirin Chewable) 81 mg PO DAILY [facility] Last Admin: 03/24/18 09:44 Dose: 81 mg Atorvastatin Calcium (Lipitor) 40 mg PO HS [facility] Dextrose/Water (Dextrose 50%) 25 gm SLOW IVP PRN PRN PRN Reason: Hypoglycemia Docusate Sodium (Colace) 100 mg PO BID [facility] Last Admin: 03/24/18 09:44 Dose: 100 mg Famotidine (Pepcid) 20 mg PO BID [facility] Last Admin: 03/24/18 09:44 Dose: 20 mg Furosemide (Lasix) 40 mg SLOW IVP 0600,1400 [facility] Last Admin: 03/24/18 06:36 Dose: 40 mg Glipizide (Glucotrol) 5 mg PO BID-AC [facility] Last Admin: 03/24/18 09:44 Dose: 5 mg Glucagon (Glucagon) 1 mg IM PRN PRN PRN Reason: Hypoglycemia Guaifenesin/Dextromethorphan (Robitussin Dm) 15 ml PO Q4H PRN PRN Reason: Cough Dextrose/Water (D5w) 1,000 mls @ 0 mls/hr IV .Q0M PRN; As Directed PRN Reason: Hypoglycemia Cefazolin Sodium 1 gm/ Syringe (2.5 ml/ Sterile Water) 10 mls @ 120 mls/hr SLOW IVP Q8HR [facility] Last Admin: 03/24/18 06:36 Dose: 10 mls Sodium Chloride (Normal Saline 0.9%) 200 mls @ 0 mls/hr IV ONE PRN; As Directed PRN Reason: Bolus PRN SBP < 90 mm Hg Stop: 03/26/18 13:31 Insulin Human Lispro (Humalog) 0 units SC .MODERATE SLIDING SC PRN PRN Reason: Moderate Correctional Scale Last Admin: 03/24/18 12:09 Dose: 2 unit Insulin Human Lispro (Humalog) 0 units SC .BEDTIME SLIDING SC PRN PRN Reason: Bedtime Correctional Scale Lisinopril (Zestril) 2.5 mg PO DAILY [facility] Last Admin: 03/24/18 09:44 Dose: 2.5 mg Metformin HCl (Glucophage) 1,000 mg PO BID-WM [facility] Last Admin: 03/24/18 09:44 Dose: 1,000 mg Metoprolol Tartrate (Lopressor) 100 mg PO BID [facility] Last Admin: 03/24/18 09:45 Dose: 100 mg Miscellaneous Information (Communication Order-Pharmacy) 0 each FS ASDIR [facility] Nitroglycerin (Nitrostat) 0.4 mg SL Q5MIN PRN PRN Reason: Chest Pain Rivaroxaban (Xarelto) 20 mg PO DAILY [facility] Last Admin: 03/24/18 09:45 Dose: 20 mg Sodium Chloride (Flush - Normal Saline) 10 ml IVF Q12HR [facility] Last Admin: 03/24/18 09:45 Dose: 10 ml Sodium Chloride (Flush - Normal Saline) 10 ml IVF PRN PRN PRN Reason: Saline Flush Tramadol HCl (Ultram) 50 mg PO Q6H PRN PRN Reason: Moderate Pain (4-6)
--- NOTE | 2018-03-24 14:09 | PDOC.CTH ---
Cardiology Progress Note - Subjective Patient without complaints. Feeling much better. Sitting up in chair. - Objective Vital Signs Temp Pulse Resp BP BP Pulse Ox 03/24/18 12:04 97.7 F 81 18 144/81 H 93 L 03/24/18 10:16 81 03/24/18 08:05 97.7 F 81 18 95 03/24/18 08:03 97.9 F 81 18 166/104 H 95 03/24/18 04:00 97.7 F 80 18 130/76 92 L Weight 286 lb 6.4 oz 03/23/18 03/24/18 03/25/18 06:59 06:59 06:59 Intake Total 1080 1014 Output Total 2321 6060 Balance -5678 -6373 - Physical Examination General/Neuro: alert & oriented x3 Neck: no JVD present Lungs: CTA Heart: other: (IRR) Abdomen: NT/ND Extremities: other: (chronic venous stasis changes bilaterally) - Telemetry Telemetry Rhythm: AF, rate-controlled - Labs Result Diagrams: 03/23/18 04:38 03/23/18 04:38 Troponin/CKMB CK-MB (CK-2) 1.8 ng/mL (0-6.6) 03/21/18 05:52 Troponin I 0.119 ng/mL (< 0.028) H 03/21/18 07:08 - Assessment/Plan 1. Acute on chronic systolic CHF - continue IV lasix and transition to PO with discharge planning. He asked me why he has the swelling to his legs. When I explained it was due to his CHF he proceeded to tell me that's why he watches his fluids so much at home "to make sure I don't have fluid on my heart." Clearly he does not understand his disease or the extent. CHF education ordered. 2. NICMO 3. AF with RVR - improved with resuming meds. On Xarelto. Improved overall, but high risk for readmission and noncompliance.
[2018-03-24] MEDS: Cephalexin 250 MG CAP PO SCH ×2 (17:34→23:18)
[2018-03-24] MEDS: Atorvastatin Calcium 40 MG TAB PO SCH (20:26)
[2018-03-25] MEDS: Furosemide 40 MG/4 ML VIAL SLOW IVP SCH ×2 (05:03→14:57)
[2018-03-25] MEDS: Cephalexin 250 MG CAP PO SCH ×4 (05:03→23:14)
[2018-03-25 05:18] LABS: Hemoglobin 14.3 g/dL (14.0-18.0); Platelet Count 237 thou/uL (130-400)
[2018-03-25 05:44] LABS: Calc. Creatinine Clearance 176 mL/min (70-130); Estimated GFR-MDRD Greater than 90
[2018-03-25] MEDS: glipiZIDE 5 MG TAB PO SCH ×2 (08:37→17:04)
[2018-03-25] MEDS: Docusate 100 MG CAP PO SCH ×2 (08:37→21:07)
[2018-03-25] MEDS: metFORMIN 500 MG TAB PO SCH ×2 (08:37→17:04)
[2018-03-25] MEDS: Famotidine 20 MG TAB PO SCH ×2 (08:37→21:07)
[2018-03-25] MEDS: Lisinopril 2.5 MG TAB PO SCH (08:37)
[2018-03-25] MEDS: Metoprolol Tartrate 100 MG TAB PO SCH ×2 (08:38→21:07)
[2018-03-25] MEDS: Rivaroxaban 10 MG TAB PO SCH (08:38)
--- NOTE | 2018-03-25 11:25 | PDOC.PN ---
- Subjective Encounter Start Date: 03/25/18 Encounter Start Time: 07:40 Pt seen for followup re: cellulitis. Denies chest pain, shortness of breath, fevers or chills. - Objective Resuscitation Status: Resuscitation Status FULL:Full Resuscitation MAR Reviewed: Yes Vital Signs & Weight: Vital Signs (12 hours) Temp Pulse Resp BP Pulse Ox 03/25/18 08:32 97.8 F 77 18 122/74 94 L 03/25/18 08:00 97.8 F 77 18 92 L 03/25/18 04:00 98.4 F 81 18 122/88 93 L 03/25/18 02:51 92 L 03/25/18 00:12 97.9 F 82 18 121/91 H 95 Weight Weight 282 lb I&O: 03/24/18 03/25/18 03/26/18 06:59 06:59 06:59 Intake Total 1014 1480 Output Total 2280 2200 Balance -9176 -720 Result Diagrams: 03/25/18 03:48 03/25/18 03:48 Additional Labs: Accuchecks 03/25/18 03/24/18 03/24/18 06:04 20:39 16:37 POC Glucose 164 H 94 91 EKG Reviewed by me: Yes (Tele: a. horacio) Phys Exam - Physical Examination Morbid obesity HEENT: moist MMs, sclera anicteric, oral pharynx no lesions, 2+ tonsils Neck: no nodes, supple, full ROM JVD Respiratory: no wheezing, no rhonchi Braden crackles Cardiovascular: no rub, irregular S1, S2 Gastrointestinal: soft, non-tender, positive bowel sounds distention Musculoskeletal: edema present Neurological: moves all 4 limbs Psychiatric: normal affect, A&O x 3 Deviation from normal: cellulitis improving Dx/Plan (1) Cellulitis Code(s): L03.90 - CELLULITIS, UNSPECIFIED Status: Acute Comment: On Keflex, improving (2) Atrial fibrillation with RVR Code(s): I48.91 - UNSPECIFIED ATRIAL FIBRILLATION Status: Acute Comment: on metoprolol and rivaroxaban. (3) Acute on chronic systolic heart failure Code(s): I50.23 - ACUTE ON CHRONIC SYSTOLIC (CONGESTIVE) HEART FAILURE Status : Acute Comment: ACC AHA Class C Continue IV furosemide 40 mg daily (4) Diabetes mellitus type 2 in obese Code(s): E11.69 - TYPE 2 DIABETES MELLITUS WITH OTHER SPECIFIED COMPLICATION; E66.9 - OBESITY, UNSPECIFIED Status: Chronic Comment: continue accuchecks, insulin sliding scale (5) Hypertension Code(s): I10 - ESSENTIAL (PRIMARY) HYPERTENSION Status: Chronic Comment: titrate antihypertensives as needed (6) NICM (nonischemic cardiomyopathy) Code(s): I42.8 - OTHER CARDIOMYOPATHIES Status: Chronic Comment: await cardiology recommendations. Minimal CAD on cath. - Plan * . Review of Systems - Review of Systems Respiratory: negative: Cough, Shortness of Breath, SOB with Excertion, Pleuritic Pain, Wheezing Cardiovascular: negative: chest pain, palpitations, orthopnea, paroxysmal nocturnal dyspnea, edema, light headedness Genitourinary: negative: Dysuria, Frequency, Incontinence, Hematuria, Retention Musculoskeletal: negative: Neck Pain, Shoulder Pain, Arm Pain, Back Pain, Hand Pain, Leg Pain, Foot Pain Skin: Rash Neurological: negative: Weakness, Numbness, Incoordination, Change in Speech, Confusion, Seizures - Medications/Allergies Allergies/Adverse Reactions: Allergies Allergy/AdvReac Type Severity Reaction Status Date / Time No Known Drug Allergies Allergy Verified 01/10/15 22:44 Medications: Current Medications Acetaminophen (Tylenol) 650 mg PO Q4H PRN PRN Reason: Headache/Fever or Pain Acetaminophen/Codeine Phosphate (Tylenol #3) 1 tab PO Q4H PRN PRN Reason: Mild Pain (1-3) Acetaminophen/Codeine Phosphate (Tylenol #3) 2 tab PO Q4H PRN PRN Reason: Moderate Pain (4-6) Aspirin (Aspirin Chewable) 81 mg PO DAILY [facility] Last Admin: 03/25/18 08:37 Dose: 81 mg Atorvastatin Calcium (Lipitor) 40 mg PO HS [facility] Last Admin: 03/24/18 20:26 Dose: 40 mg Cephalexin (Keflex) 500 mg PO Q6HR [facility] Last Admin: 03/25/18 05:03 Dose: 500 mg Dextrose/Water (Dextrose 50%) 25 gm SLOW IVP PRN PRN PRN Reason: Hypoglycemia Docusate Sodium (Colace) 100 mg PO BID [facility] Last Admin: 03/25/18 08:37 Dose: 100 mg Famotidine (Pepcid) 20 mg PO BID [facility] Last Admin: 03/25/18 08:37 Dose: 20 mg Furosemide (Lasix) 40 mg SLOW IVP 0600,1400 [facility] Last Admin: 03/25/18 05:03 Dose: 40 mg Glipizide (Glucotrol) 5 mg PO BID-AC [facility] Last Admin: 03/25/18 08:37 Dose: 5 mg Glucagon (Glucagon) 1 mg IM PRN PRN PRN Reason: Hypoglycemia Guaifenesin/Dextromethorphan (Robitussin Dm) 15 ml PO Q4H PRN PRN Reason: Cough Dextrose/Water (D5w) 1,000 mls @ 0 mls/hr IV .Q0M PRN; As Directed PRN Reason: Hypoglycemia Sodium Chloride (Normal Saline 0.9%) 200 mls @ 0 mls/hr IV ONE PRN; As Directed PRN Reason: Bolus PRN SBP < 90 mm Hg Stop: 03/26/18 13:31 Insulin Human Lispro (Humalog) 0 units SC .MODERATE SLIDING SC PRN PRN Reason: Moderate Correctional Scale Last Admin: 03/24/18 12:09 Dose: 2 unit Insulin Human Lispro (Humalog) 0 units SC .BEDTIME SLIDING SC PRN PRN Reason: Bedtime Correctional Scale Lisinopril (Zestril) 2.5 mg PO DAILY [facility] Last Admin: 03/25/18 08:37 Dose: 2.5 mg Metformin HCl (Glucophage) 1,000 mg PO BID[facility] Last Admin: 03/25/18 08:37 Dose: 1,000 mg Metoprolol Tartrate (Lopressor) 100 mg PO BID [facility] Last Admin: 03/25/18 08:38 Dose: 100 mg Miscellaneous Information (Communication Order-Pharmacy) 0 each FS ASDIR [facility] Nitroglycerin (Nitrostat) 0.4 mg SL Q5MIN PRN PRN Reason: Chest Pain Rivaroxaban (Xarelto) 20 mg PO DAILY [facility] Last Admin: 03/25/18 08:38 Dose: 20 mg Sodium Chloride (Flush - Normal Saline) 10 ml IVF Q12HR [facility] Last Admin: 03/25/18 08:38 Dose: 10 ml Sodium Chloride (Flush - Normal Saline) 10 ml IVF PRN PRN PRN Reason: Saline Flush Last Admin: 03/25/18 05:03 Dose: 10 ml Tramadol HCl (Ultram) 50 mg PO Q6H PRN PRN Reason: Moderate Pain (4-6)
--- NOTE | 2018-03-25 13:47 | PDOC.CTH ---
Cardiology Progress Note - Subjective Feels ok. No overnight events. Denies any CP, SOB or GAITAN. Still with TIFFANY. - Objective Vital Signs Temp Pulse Resp BP Pulse Ox 03/25/18 12:28 97.6 F 87 18 121/85 94 L 03/25/18 08:32 97.8 F 77 18 122/74 94 L 03/25/18 08:00 97.8 F 77 18 92 L 03/25/18 04:00 98.4 F 81 18 122/88 93 L 03/25/18 02:51 92 L Weight 282 lb 03/24/18 03/25/18 03/26/18 06:59 06:59 06:59 Intake Total 1014 1480 Output Total 2280 2200 Balance -4497 -836 - Physical Examination General/Neuro: alert & oriented x3 Neck: no JVD present Lungs: CTA Heart: other: (IRR) Extremities: + edema B - Telemetry Telemetry Rhythm: AF - Labs Result Diagrams: 03/25/18 03:48 03/25/18 03:48 Troponin/CKMB CK-MB (CK-2) 1.8 ng/mL (0-6.6) 03/21/18 05:52 Troponin I 0.119 ng/mL (< 0.028) H 03/21/18 07:08 - Assessment/Plan 1. Acute on chronic systolic CHF - improved and still diuresing. Patient ready for discharge. Ok, but discussed LifeVest and risk of SCD. He wants to speak further to a rep about it, but does agree to wear. Will order and then ok for discharge. 2. NICMO - see above. Encouraged compliance with CHF plan. 3. AF with RVR - Rate-controlled. On Xarelto.
[2018-03-25] MEDS: Atorvastatin Calcium 40 MG TAB PO SCH (21:06)
[2018-03-26] MEDS: Cephalexin 250 MG CAP PO SCH ×2 (05:45→11:39)
[2018-03-26] MEDS: Furosemide 40 MG/4 ML VIAL SLOW IVP SCH ×2 (05:45→14:11)
[2018-03-26] MEDS: glipiZIDE 5 MG TAB PO SCH ×2 (07:39→16:42)
[2018-03-26] MEDS: metFORMIN 500 MG TAB PO SCH ×2 (07:39→16:42)
[2018-03-26] MEDS: Docusate 100 MG CAP PO SCH (08:53)
[2018-03-26] MEDS: Famotidine 20 MG TAB PO SCH (08:53)
[2018-03-26] MEDS: Metoprolol Tartrate 100 MG TAB PO SCH (08:54)
[2018-03-26] MEDS: Lisinopril 2.5 MG TAB PO SCH (08:54)
[2018-03-26] MEDS: Rivaroxaban 10 MG TAB PO SCH (08:54)
[2018-03-26 12:09] LABS: %Lymphocytes 25.3 % (21.0-51.0); %Neutrophils 60.4 % (42.0-75.0); Hemoglobin 15.3 g/dL (14.0-18.0); Mean Corpuscular HGB CONC 32.9 g/dL (32.0-36.0); Mean Corpuscular Hemoglobin 31.3 pg (27.0-31.0); Mean Corpuscular Volume 95.2 fl (80.0-94.0); Mean Platelet Volume 7.8 fL (7.4-10.4); Platelet Count 245 thou/uL (130-400); RBC Distribution Width 12.5 % (11.5-14.5); Red Blood Cell (RBC) Count 4.89 mill/uL (4.70-6.10); White Blood Cell (WBC) Count 8.4 thou/uL (4.8-10.8)
[2018-03-26 12:10] LABS: #Basophils 0.1 thou/uL (0.0-0.2); #Eosinphils 0.3 thou/uL (0.0-0.7); #Lymphocytes 2.1 thou/uL (1.20-3.40); #Monocytes 0.8 thou/uL (0.11-0.59); #Neutrophils 5.1 thou/uL (1.40-6.50); %Basophils 0.9 % (0.0-1.0); %Eosinophils 3.4 % (0.0-10.0)
[2018-03-26 12:38] LABS: Anion Gap 16 mmol/L (10-20); BUN (Urea Nitrogen) 17 mg/dL (8.4-25.7); Calc. Creatinine Clearance 159 mL/min (70-130); Calcium 9.7 mg/dL (7.8-10.44); Carbon Dioxide 28 mmol/L (22-29); Chloride 96 mmol/L (98-107); Cholesterol 132 mg/dl (< 200 Desired); Estimated GFR-MDRD 82; Glucose 117 mg/dL (70-105); Potassium 3.8 mmol/L (3.5-5.1); Sodium 136 mmol/L (136-145)
--- NOTE | 2018-03-26 14:58 | DIS ---
DATE OF ADMISSION: 03/21/2018 DATE OF DISCHARGE: 03/26/2018 PRIMARY CARE PROVIDER: AYLIN Mahajan DISCHARGE DIAGNOSES: 1. Atrial fibrillation with rapid ventricular response. 2. Acute on chronic systolic congestive heart failure. 3. Nonischemic cardiomyopathy. 4. Cellulitis. CONDITION OF PATIENT ON THE DAY OF DISCHARGE: Stable. I assessed Mr. Bradley on the day of discharge . He denies any chest pain or shortness of breath. Vital signs are stable. S1 and S2 are heard, ir regular. Lungs are clear to auscultation bilaterally. DISCHARGE MEDICATIONS: Metoprolol succinate 100 mg 2 times a day, patient's metoprolol tartrate was discontinued, potassium chloride 10 mEq daily, rivaroxaban 20 mg daily, Lipitor 40 mg at bedtime, Kef fernando 500 mg every 6 hours for 1 more week, furosemide 40 mg 2 times a day, glipizide 5 mg 2 times a da y, lisinopril 2.5 mg daily, and metformin 1000 mg 2 times a day. CONSULTATIONS DURING THIS HOSPITALIZATION: Cardiology, Dr. Krishnamurthy. HOSPITAL COURSE: Mr. Bradley is a pleasant 53-year-old gentleman who was admitted to [facility] for acute systolic congestive heart failure and atrial fibrillation with rapid vent ricular response on 03/21/2018. He was initially treated with a Cardizem drip, subsequently stepped down to beta blockers. A 2D echocardiogram showed left ventricular ejection fraction of 30%-35%. He also had mild concentric left ventricular hypertrophy, mild mitral regurgitation, mild tricuspid reg urgitation and dilated inferior vena cava. He was started on rivaroxaban. He was also started on st atin. He underwent a cardiac catheterization. At the time of this dictation, catheterization report is not available. He reportedly had minimal coronary artery disease. He will follow up with Cardio logy Service for the cath report. Because of his low ejection fraction, he was also fitted with a LifeVest. He continued to improve clinically. He was also found to have a rash over both his shins. He was initially treated with intravenous Ance f, subsequently stepped down to cephalexin. He has been advised to be compliant with his medications. He has also been advised to follow up with his primary care provider and have his creatinine and electrolytes checked. He will also likely need his fasting lipid profile checked. Random cholesterol level checked during the hospital was 132 on the day of discharge. Many thanks for allowing me to participate in your patient's care. Please feel free to contact me wi th any questions or concerns. On the day of discharge, he has white count 8400, hemoglobin 15.3, platelet count 245,000. Sodium 13 6, potassium 3.8, chloride 96 and creatinine 0.96. DISCHARGE DESTINATION: Home. TOTAL AMOUNT OF TIME SPENT COORDINATING THIS DISCHARGE: 38 minutes.
[2018-03-26 16:00] VITALS: BP 119/83; TEMP 97.4
== END 2018-03-26 17:05 | disposition home or self-care (01) | DRG 286 ==
LOC: ERS 05:31 → IMCU/EMU 06:49 → 2NO 20:52
PROVIDERS: ADMIT Internal Medicine; ATTEND Internal Medicine
PROC: 4A023N7 Measurement of Cardiac Sampling and Pressure, Left Heart, Percutaneous Approach (ICD-10-PCS; principal; 2018-03-24)
PROC: B2111ZZ Fluoroscopy of Multiple Coronary Arteries using Low Osmolar Contrast (ICD-10-PCS; 2018-03-24)
DX: I48.0 Paroxysmal atrial fibrillation (principal); I50.23 Acute on chronic systolic (congestive) heart failure; L03.116 Cellulitis of left lower limb; L03.115 Cellulitis of right lower limb; I11.0 Hypertensive heart disease with heart failure; G47.33 Obstructive sleep apnea (adult) (pediatric); I42.8 Other cardiomyopathies; E11.9 Type 2 diabetes mellitus without complications; Z91.14 Patient's other noncompliance with medication regimen; Z79.84 Long term (current) use of oral hypoglycemic drugs; Z79.899 Other long term (current) drug therapy; I08.1 Rheumatic disorders of both mitral and tricuspid valves; M10.9 Gout, unspecified
CPT/HCPCS: 36415; 36416; 71045; 71275; 76942; 80048; 80053; 81003; 81015; 82465; 82553; 82565; 83605; 83690; 83880; 84484; 85014; 85018; 85025; 85049; 85610; 85730; 87040; 87149; 93005; 93306; 93458; 93798; 94660; 94760; 96365; 96372; 96375; 96376; A4216; C1769; J0690; J1644; J1650; J1940; J2001; J3475; J7050

== ENCOUNTER 2018-12-03 10:29 | Observation (INO) | payer MEDICARE ==
[2018-12-03 11:48] LABS: #Basophils 0.1 thou/uL (0.0-0.2); #Eosinphils 0.2 thou/uL (0.0-0.7); #Lymphocytes 2.7 thou/uL (1.20-3.40); #Monocytes 0.8 thou/uL (0.11-0.59); #Neutrophils 6.4 thou/uL (1.40-6.50); %Basophils 0.8 % (0.0-1.0); %Eosinophils 1.8 % (0.0-10.0); %Lymphocytes 26.4 % (21.0-51.0); %Monocytes 7.9 % (0.0-10.0); %Neutrophils 63.2 % (42.0-75.0); Hemoglobin 14.1 g/dL (14.0-18.0); Mean Corpuscular HGB CONC 33.6 g/dL (32.0-36.0); Mean Corpuscular Hemoglobin 31.2 pg (27.0-31.0); Mean Corpuscular Volume 92.7 fL (78.0-98.0); Mean Platelet Volume 7.6 fL (7.4-10.4); Platelet Count 224 thou/uL (130-400); RBC Distribution Width 12.4 % (11.5-14.5); Red Blood Cell (RBC) Count 4.52 mill/uL (4.70-6.10)
[2018-12-03 11:54] LABS: INR-International Normal Ratio 1.1
[2018-12-03 12:07] LABS: Anion Gap 15 mmol/L (10-20); BUN (Urea Nitrogen) 15 mg/dL (8.4-25.7); Calc. Creatinine Clearance 114 mL/min (70-130); Calcium 8.8 mg/dL (7.8-10.44); Carbon Dioxide 24 mmol/L (22-29); Chloride 97 mmol/L (98-107); Estimated GFR-MDRD 55; Glucose 183 mg/dL (70-105); Potassium 4.2 mmol/L (3.5-5.1); Sodium 132 mmol/L (136-145)
[2018-12-03 12:34] LABS: Prothrombin Time 15.4 SEC (12.0-14.7)
[2018-12-03] MEDS ORDERED: Heparin 10,000 UNITS/1 ML VIAL ONE ×2 (12:36→14:50)
[2018-12-03] MEDS ORDERED: PROPOFOL 200 MG/20 ML VIAL ONE (13:26)
[2018-12-03] MEDS ORDERED: Succinylcholine Chloride 20 MG/ML 10 ml SYRINGE FS ONE (13:26)
[2018-12-03] MEDS ORDERED: Ondansetron PF 4 MG/2 ML Vial ONE (13:26)
[2018-12-03] MEDS ORDERED: Rocuronium Bromide 10 MG/ML (10ML VIAL) ONE (13:26)
[2018-12-03] MEDS ORDERED: Lidocaine 1% PF 5 ML VIAL ONE (13:26)
[2018-12-03] MEDS ORDERED: Glycopyrrolate 0.2 MG/ML 5 ML SYRINGE ONE (13:26)
[2018-12-03] MEDS ORDERED: Dexamethasone 20 MG/5 ML VIAL ONE (13:26)
[2018-12-03] MEDS ORDERED: Fentanyl 100 MCG/2 ML VIAL ONE (13:35)
[2018-12-03] MEDS ORDERED: CEFAZOLIN 1 GM VIAL ONE (14:13)
[2018-12-03] MEDS ORDERED: Protamine Sulfate 50 MG/5 ML VIAL ONE (15:21)
[2018-12-03] MEDS ORDERED: Acetaminophen/Codeine 30-300mg Tablet PO PRN ×2 (16:45)
[2018-12-03] MEDS ORDERED: Atorvastatin Calcium 40 MG TAB PO SCH (21:00)
[2018-12-03] MEDS: Sucralfate 1 GM TAB PO SCH ×2 (21:57→22:50)
--- NOTE | 2018-12-03 22:37 | OP ---
DATE OF PROCEDURE: 12/03/2018 PROCEDURE PERFORMED: Radiofrequency ablation for atrial fibrillation. PREOPERATIVE DIAGNOSIS: Atrial fibrillation. DESCRIPTION OF PROCEDURE: The patient came to the EP lab in the postobstructive state. Informed consent was obtained. A time-out was called. The patient was sedated by member of the anesthesia staff. Once the patient was adequately sedated, the left and right femoral regions as well as internal jugular regions were prepped and draped in the usual sterile fashion. Using a modified Seldinger technique and with ultrasound-guidance access, access was obtained x2 in the right femoral vein, x1 in the left femoral vein, and x1 in the right IJ. A 20-pole catheter was advanced in the right IJ with distal 10 poles placed in the coronary sinus for left atrial pacing and recording. An intracardiac echocardiogram was advanced from the left femoral vein to the right atrium for imaging and procedural guidance. Transseptal puncture was performed x2 in the right femoral vein. A 20-mm 10-pole catheter was advanced as well as F-curve ablation catheter. A 3-dimensional geometry was made with the Carto system and radiofrequency ablation was delivered in the left atrium around the pulmonary veins with target wattage of approximately 40 durand. A total of 38 minutes of RF was required for isolation of pulmonary vein as well as ablation of the posterior wall with titration of energy close to the esophagus being monitored with temperature probe. Heparin was given prior to transseptal puncture. Afterwards, isoproterenol was given and no evidence of pulmonary vein firing or extra pulmonary vein firing. Thus, catheters were removed, sheaths were removed and hemostasis obtained with manual pressures as well as with placement of the Vascade sheath. Prior to discharge of the patient, catheter was advanced to the left ventricle and left ventricular pacing was commenced as was left atrial pacing and His recording was made. The HV interval was approximately 50 milliseconds. The patient tolerated the procedure well and was discharged to the EP lab in stable condition. COMPLICATIONS: None acute. ESTIMATED BLOOD LOSS: Less than 30 mL. CONCLUSIONS: Successful isolation of pulmonary vein through atrial fibrillation. RECOMMENDATIONS: The patient will be at bedrest, will continue with anticoagulant therapy and will follow up with in 4 to 6 weeks. Job ID: [id number]
[2018-12-03] MEDS: metFORMIN 500 MG TAB PO SCH (22:48)
[2018-12-03 22:51] VITALS: BMI 43.5
[2018-12-04 07:58] VITALS: TEMP 97.7
[2018-12-04] MEDS ORDERED: Potassium Chloride 10 MEQ TAB PO SCH (08:00)
[2018-12-04] MEDS: metFORMIN 500 MG TAB PO SCH (08:01)
[2018-12-04] MEDS: Sucralfate 1 GM TAB PO SCH (08:01)
[2018-12-04] MEDS ORDERED: Furosemide 40 MG TAB PO SCH (09:00)
[2018-12-04] MEDS ORDERED: Lisinopril 5 MG TAB PO SCH (09:00)
[2018-12-04] MEDS ORDERED: Rivaroxaban 10 MG TAB PO SCH (09:00)
[2018-12-04 11:45] VITALS: BP 133/68
--- NOTE | 2018-12-04 21:09 | EKG ---
Test Reason : POSTOP Blood Pressure : / mmHG Vent. Rate : 065 BPM Atrial Rate : 065 BPM P-R Int : 216 ms QRS Dur : 110 ms QT Int : 502 ms P-R-T Axes : 026 023 061 degrees QTc Int : 522 ms Sinus rhythm with 1st degree A-V block Low voltage QRS Incomplete left bundle branch block Nonspecific ST and T wave abnormality Abnormal ECG When compared with ECG of 21-MAR-2018 05:40, Sinus rhythm has replaced Atrial fibrillation Vent. rate has decreased BY 71 BPM Incomplete left bundle branch block is now Present Confirmed by Kendell SHAH ([id number]) on 12/04/2018 9:09:03 PM Referred By: KARISHMA Confirmed By:Kendell SHAH
--- NOTE | 2018-12-04 21:14 | EKG ---
Test Reason : Blood Pressure : / mmHG Vent. Rate : 063 BPM Atrial Rate : 063 BPM P-R Int : 224 ms QRS Dur : 100 ms QT Int : 502 ms P-R-T Axes : 092 043 123 degrees QTc Int : 513 ms Electronic atrial pacemaker Prolonged QT Abnormal ECG When compared with ECG of 03-DEC-2018 16:39, (Unconfirmed) Electronic atrial pacemaker has replaced Sinus rhythm T wave inversion now evident in Anterior leads Confirmed by Kendell SHAH ([id number]) on 12/04/2018 9:14:18 PM Referred By: KARISHMA Confirmed By:Kendell SHAH
--- NOTE | 2018-12-05 10:13 | DIS ---
DATE OF ADMISSION: 12/03/2018 DATE OF DISCHARGE: 12/04/2018 SURGEON: Suraj Colón MD DIAGNOSIS: Persistent atrial fibrillation, refractory to amiodarone PROCEDURES PERFORMED: Include a pulmonary venous isolation and electrophysiology study with mapping. HISTORY OF PRESENT ILLNESS: Mr. Bradley is a pleasant 53-year-old gentleman known to our practice for a history of cardiomyopathy with a dual-chamber ICD and also for persistent atrial fibrillation that was diagnosed in March of 2018. He was placed on amiodarone, but his atrial fibrillation has persisted, refractory to amiodarone therapy since that time. He was taken to the EP lab by Dr. Colón for an elective electrophysiology study and atrial fibrillation ablation on 12/03/2018. He received a total of 30 minutes energy delivered. He was noninducible both on and off Isuprel post ablation and underwent successful isolation of pulmonary veins for atrial fibrillation. He has had an uneventful recovery and is ambulating and tolerating p.o. intake well. His Powell has been removed post ablation. SUBJECTIVE: The patient denies heart racing, palpitations, chest pain, pressure, syncope, near syncope, stroke, or stroke-like symptoms. OBJECTIVE: VITAL SIGNS: Most recent vital signs; temperature 97.7, pulse 62, blood pressure 133/68, respirations 18, and oxygen is 95% on room air. Euvolemic by I's and O's. Recorded weight suggestive of 15 pounds of weight gain, which is inaccuracy. The patient shows no signs of fluid overload and weight was verified this morning at 295 pounds. GENERAL: The patient is alert and oriented. Speech is clear. Affect is appropriate. NEUROLOGIC: Grossly intact and nonfocal. NECK: His neck is obese, but supple. Cannot distinguish JVD given his body habitus. There is a dressing over the right IJ area that is clean, dry, and intact. HEART: His heart rate is irregularly irregular with crisp S1 and S2. PMI is nondisplaced. There are no pericardial friction rubs or concern for tamponade. LUNGS: Clear to auscultation bilaterally without wheezes, crackles, or rhonchi. ABDOMEN: Obese and nontender without palpable masses. Hepatojugular reflux could not be assessed given his habitus. EXTREMITIES: Warm and dry to touch without clubbing or cyanosis. There is chronic edema to bilateral lower extremities, which the patient endorses as no worse than his usual amount of edema. It is 1+ pitting to the mid tibia. Gait is stable without any assistive devices. Bilateral groin sites dressings are clean, dry, and intact without any underlying hematoma palpable. DISCHARGE MEDICATIONS: We will resume home medications of; 1. Xarelto 20 mg daily. 2. Potassium chloride 10 mEq daily. 3. Toprol-XL 100 mg p.o. b.i.d. 4. Metformin 1000 mg p.o. b.i.d. 5. Glucotrol 5 mg p.o. b.i.d. 6. Zestril 5 mg p.o. daily. 7. Furosemide 40 mg p.o. b.i.d. 8. Lipitor 40 mg p.o. at bedtime. New prescriptions; 1. Carafate 1 g p.o. q.i.d. x2 weeks. 2. Protonix 40 mg p.o. daily. 3. Potassium chloride 10 mEq p.o. q.a.m. with meals as needed if taking additional Lasix. DISCONTINUED MEDICATIONS: Amiodarone. DISCHARGE INSTRUCTIONS: The patient was given a detailed post ablation discharge instruction packet from [facility]. He understands not to lift more than 5 to 10 pounds the next week and no soaking baths. Light duty for the next 1 week. 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 He will have a followup appointment in 6 weeks. He has an event monitor at home for post ablation monitoring for the next 6 months. He understands not to stop his Xarelto or any medications without discussing with [facility] in the post ablation course. CONDITION AT DISCHARGE: Stable. Job ID: [id number]
== END 2018-12-04 12:53 | disposition home or self-care (01) ==
LOC: CCL 10:29 → 2SW 15:00
PROVIDERS: ADMIT Specialist; ATTEND Specialist
PROC: 02583ZZ Destruction of Conduction Mechanism, Percutaneous Approach (ICD-10-PCS; principal; 2018-12-03)
PROC: 02K83ZZ Map Conduction Mechanism, Percutaneous Approach (ICD-10-PCS; 2018-12-03)
PROC: 4A023FZ Measurement of Cardiac Rhythm, Percutaneous Approach (ICD-10-PCS; 2018-12-03)
PROC: 4A0234Z Measurement of Cardiac Electrical Activity, Percutaneous Approach (ICD-10-PCS; 2018-12-03)
DX: I48.1 Persistent atrial fibrillation (principal); I48.92 Unspecified atrial flutter; I42.8 Other cardiomyopathies; I11.0 Hypertensive heart disease with heart failure; I50.22 Chronic systolic (congestive) heart failure; E11.9 Type 2 diabetes mellitus without complications; G47.30 Sleep apnea, unspecified; E66.01 Morbid (severe) obesity due to excess calories; Z68.41 Body mass index [BMI] 40.0-44.9, adult; Z79.01 Long term (current) use of anticoagulants; Z79.84 Long term (current) use of oral hypoglycemic drugs; Z79.899 Other long term (current) drug therapy; Z95.810 Presence of automatic (implantable) cardiac defibrillator
CPT/HCPCS: 76942; 80048; 82962; 85025; 85347 ×2; 85610; 85730; 93005 ×2; 93613; 93623; 93656; 93662; C1731; C1759; C1769; G0378; 36415; 36416; 93010; J0690; J1100; J1644; J2001; J2405; J2704; J2720; J3010

== ENCOUNTER 2019-11-26 02:17 | Inpatient (IN) | payer MEDICARE ==
[2019-11-26 03:09] LABS: Hemoglobin 12.9 g/dL (14.0-18.0); Mean Corpuscular HGB CONC 34.3 g/dL (32.0-36.0); Mean Corpuscular Hemoglobin 30.7 pg (27.0-31.0); Mean Corpuscular Volume 89.6 fL (78.0-98.0); Mean Platelet Volume 7.6 fL (7.4-10.4); Platelet Count 131 thou/uL (130-400); RBC Distribution Width 11.9 % (11.5-14.5); Red Blood Cell (RBC) Count 4.21 mill/uL (4.70-6.10)
[2019-11-26 03:14] LABS: ALT (SGPT) 43 U/L (8-55); AST (SGOT) 109 U/L (5-34); Albumin 3.4 g/dL (3.5-5.0); Alkaline Phosphatase 67 U/L (40-110); Anion Gap 22 mmol/L (10-20); BUN (Urea Nitrogen) 23 mg/dL (8.4-25.7); Bilirubin, Total 1.5 mg/dL (0.2-1.2); CK (CPK) 3216 U/L (30-200); Calc. Creatinine Clearance 0 mL/min (70-130); Calcium 7.5 mg/dL (7.8-10.44); Carbon Dioxide 15 mmol/L (22-29); Chloride 95 mmol/L (98-107); Estimated GFR-MDRD 22; Globulin 3.3 g/dL (2.4-3.5); Glucose 457 mg/dL (70-105); Potassium 3.8 mmol/L (3.5-5.1); Protein, Total 6.7 g/dL (6.0-8.3); Sodium 128 mmol/L (136-145)
[2019-11-26] MEDS ORDERED: Cefepime 2 GM VIAL ONE (03:16)
[2019-11-26 03:18] LABS: Band 12 % (5-11); Eosinophils 1 % (0-10); Lymphocytes 5 % (21-51); MDiff Complete? YES; Monocytes 6 % (0-10); Neutrophil 76 % (42-75); Platelet Morphology Comment Appears Adequate
[2019-11-26 03:19] LABS: Lactic Acid 4.5 mmol/L (0.5-2.2)
[2019-11-26 03:39] LABS: CKMB 7.5 ng/mL (0-6.6)
[2019-11-26] MEDS ORDERED: NS 0.9% w/ 20 MEQ KCL 1,000 ML IV SCH (04:00)
[2019-11-26] MEDS ORDERED: Insulin Regular 100 units/100 ml in NS IVPB SCH (04:00)
[2019-11-26 04:02] LABS: Bilirubin Negative (Negative); Blood, Urine 3+ (Negative); Clarity Extra Turbid (Clear); Glucose, Urine (Dipstick) Greater than 1000 mg/dL (Negative); Leukocyte Negative Leu/uL (Negative); Nitrite Negative (Negative); Protein, Urine (Dipstick) 100 mg/dL (Neg-Trace); RBC/HPF 0-3 HPF (0-3); Squamous Epithelial 0-3 HPF (0-3); Urobilinogen Normal mg/dL (Less than 2)
[2019-11-26 04:06] LABS: Bacteria/HPF 1+ HPF (None Seen); Unclassified Crystals 2+ HPF (None Seen)
[2019-11-26] MEDS ORDERED: Sodium Chloride 0.9% 1,000 ML IV PRN ×4 (06:09)
[2019-11-26] MEDS ORDERED: Dextrose 5 %-0.45 % NaCl 1,000 ML IV PRN (06:09)
[2019-11-26] MEDS ORDERED: CCU Electrolyte Replacement 1 EACH IVPB ONE (06:09)
[2019-11-26] MEDS ORDERED: NS 0.9% w/ 20 MEQ KCL 1,000 ML IV PRN ×2 (06:09)
[2019-11-26] MEDS ORDERED: PHOS-NAK 1 PKT PACK PO PRN ×2 (06:14)
[2019-11-26] MEDS ORDERED: Potassium Phosphate 15 MMOL in Sodium Chloride 0.9% 250 ML 250 ML IV PRN (06:14)
[2019-11-26] MEDS ORDERED: CCU ELECTROLYTE REPLACEMENT PROTOCOL FS PRN (06:14)
[2019-11-26] MEDS ORDERED: Potassium Chloride 40 MEQ in Premix Bag 1 BAG IVPB PRN (06:14)
[2019-11-26] MEDS ORDERED: Potassium Chloride 40 MEQ in Sodium Chloride 0.9% 250 ML 250 ML IVPB PRN (06:14)
[2019-11-26] MEDS ORDERED: Potassium Phosphate 9 MMOL in Sodium Chloride 0.9% 100 ML IVPB PRN (06:14)
[2019-11-26] MEDS ORDERED: Magnesium Oxide 400 MG TAB PO PRN ×2 (06:14)
[2019-11-26] MEDS ORDERED: Magnesium 2 GM/50 ML 2 GM in Premix Bag 1 BAG IVPB PRN (06:14)
[2019-11-26] MEDS ORDERED: Potassium Chloride 20 MEQ TAB PO PRN (06:14)
[2019-11-26] MEDS ORDERED: Potassium Phosphate 12 MMOL in Sodium Chloride 0.9% 250 ML 250 ML IV PRN (06:14)
--- NOTE | 2019-11-26 06:31 | HP ---
PRIMARY CARE PHYSICIAN: None. PLANETARIUM TECHNICIAN: César Krishnamurthy MD MATERIALS BUYER: Tacos Bravo MD CHIEF COMPLAINT: Altered mental status, immobility, syncope. HISTORY OF PRESENT ILLNESS: This is a 54-year-old male, type 2 diabetic on metformin, coronary artery disease, cardiomyopathy status post AICD, atrial fibrillation, status post prior ablation, hypertension, morbid obesity, dyslipidemia, who was brought into [facility] ER via EMS after having a syncopal episode in the bathroom and lying immobile for several hours. Eventually found by his brother, prompting evaluation. History is limited and obtained from ER physician and from the patient. The patient reports over the past several days, he has been feeling dizzy and weak and lightheaded, and states he fell to the ground, but is unclear if he lost consciousness. He also states he received a call from his principal security architect's office sometime in the last day, stating that his device had discharge, although he does not recall event and was instructed to come to the ER for further evaluation. In the emergency room, the patient was noted to have initial systolic blood pressure in the 70s and was administered multiple IV fluid boluses with improvement in blood pressures to 90s to 100s systolic with MAP greater than 70. Initial chemistry suggested BUN and creatinine 23/2.97 with a GFR of 22, and troponin I of 0.200. Labs revealed anion gap metabolic acidosis with lactic acidosis of 4.5 and elevated beta-hydroxybutyrate levels. The patient was administered IV vancomycin and cefepime, and initiated on IV regular insulin drip. CBC did reveal leukocytosis with bandemia and CPK was elevated at 3216. Urinalysis was negative for nitrites and leukocyte esterase, but did show some bacteria. At bedside, the patient is somnolent, but arousable to verbal stimuli. He is oriented to person and place. He answers questions appropriately, but does not remember all the specific details. He denies any prior history of AICD discharge. He denies any anginal complaints. He does note feeling weak and dizzy for several days. He denies any recent illnesses or antibiotic use. He denies any illicit drug use. PAST MEDICAL HISTORY: Morbid obesity, coronary artery disease per March 2018 cardiac catheterization, cardiomyopathy status post AICD placement, prior ablation for atrial fibrillation, hypertension, dyslipidemia, type 2 diabetes mellitus. PAST SURGICAL HISTORY: AICD placement, EP ablation for atrial fibrillation, cardiac catheterization. SOCIAL HISTORY: The patient lives at home with his mother. He denies tobacco, alcohol, or illicit drug use. ALLERGIES: NONE DOCUMENTED. REVIEW OF SYSTEMS: Pertinent positives as per HPI. Remainder of review of systems negative. MEDICATIONS: Reviewed as per admission medication reconciliation. FAMILY HISTORY: The patient denies any premature family history of sudden cardiac. PHYSICAL EXAMINATION: VITAL SIGNS: T-max 100.4, pulse 115, sinus tachycardia, blood pressure initially 70s systolic with most recent blood pressure 100s/60s. Oxygen saturation 80s to 96%, respirations 20 to 24, labored. GENERAL APPEARANCE: This is a middle-aged, morbidly obese male, who is somnolent, but arousable to verbal stimuli and oriented to person, place, and time. HEENT: Normocephalic, atraumatic. No facial asymmetry. Pupils equally round. Extraocular muscles are intact. Dry oral mucous membranes with chapped lips and tongue noted. NECK: Supple. CARDIOVASCULAR: S1, S2. Tachycardic. No harsh murmurs. No chest wall tenderness to palpation. Left chest wall, AICD pocket noted. LUNGS: Increased work of breathing noted with tachypnea. Bilateral equal air entry on anterior auscultation. No audible wheezing or rales identified. ABDOMEN: Soft, obese, nontender, nondistended. EXTREMITIES: No appreciable edema, cyanosis, or deformities. SKIN: Warm to touch without abrasion or pallor. There is erythematous area overlying face and neck. LABORATORY VALUES: Sodium 128, potassium 3.8, chloride 95, bicarb 15, glucose 457, BUN and creatinine 23/2.97, calcium 7.5, total bilirubin 1.5, AST 109, CK 3216. Lactic acid 4.5, troponin I 0.200. BNP 328.5. Urinalysis reveals extra turbid appearance with proteinuria, glycosuria, ketonuria, hematuria, 11 to 20 white blood cells with 1+ bacteria, and rare amorphous crystals. Beta-hydroxybutyrate levels elevated at 1.87. IMAGING: One view chest x-ray done in the ER; official results, which are still pending. ASSESSMENT: 1. Severe sepsis of unspecified etiology. The patient will be admitted as inpatient status to [facility]. He has received early goal-directed therapy with IV fluid boluses, broad-spectrum antibiotics, and we will await microbiology cultures. We will trend serial lactic acid levels. We will monitor for any occult infection. 2. Diabetic ketoacidosis. The patient has received IV fluid boluses, IV regular insulin drip. We will continue empiric IV antibiotics as well as trend serial cardiac biomarkers to evaluate for any etiology of DKA. We will obtain serial BMP to evaluate for anion gap closure. 3. Possible syncope unspecified etiology. We will need to exclude cardiogenic etiologies. The patient's AICD will need to be interrogated once many factor type is determined. The patient's post splitter will be consulted to help assess this. We will trend serial cardiac biomarkers. Noted mild troponin elevation in the setting of rhabdomyolysis. 4. Acute kidney injury, likely secondary to multifactorial etiologies including rhabdomyolysis. Continue IV fluid resuscitation. Monitor serial BMP to evaluate for improvement in renal function. Avoid nephrotoxin use. 5. Acute rhabdomyolysis. Continue IV fluid resuscitation. The patient was noted to have possible syncopal episode and prolonged immobility on the ground of unspecified duration. Continue IV fluid resuscitation. Monitor renal function and metabolic acidosis. 6. History of cardiomyopathy, status post AICD placement. 7. Coronary artery disease, noted per March 2018 cardiac catheterization. 8. History of atrial fibrillation, requiring ablation in 2019. 9. History of hypertension. The patient is currently hypotensive, but maintaining appropriate mean arterial pressure. 10. Lactic acidosis of unspecified etiology. Possibly infection or secondary to supply demand mismatch from tissue hypoxia. 11. Deep venous thrombosis prophylaxis: Unclear if the patient is anticoagulated at home. We will avoid any chemical anticoagulation. 12. Check a.m. labs. 13. Guarded prognosis. 14. Disposition: Inpatient admission to [facility]. Job ID: [id number]
[2019-11-26 06:33] LABS: Troponin I 0.228 ng/mL (< 0.028)
[2019-11-26 06:38] LABS: Magnesium 0.9 mg/dL (1.6-2.6); Phosphorus 1.2 mg/dL (2.3-4.7)
[2019-11-26 07:14] LABS: Anion Gap 16 mmol/L (10-20); BUN (Urea Nitrogen) 25 mg/dL (8.4-25.7); Calc. Creatinine Clearance 0 mL/min (70-130); Calcium 7.1 mg/dL (7.8-10.44); Carbon Dioxide 18 mmol/L (22-29); Chloride 99 mmol/L (98-107); Estimated GFR-MDRD 20; Glucose 442 mg/dL (70-105); Potassium 3.5 mmol/L (3.5-5.1); Sodium 129 mmol/L (136-145)
[2019-11-26] MEDS ORDERED: Magnesium 2 GM/50 ML BAG (IN WATER) ONE (07:21)
[2019-11-26] MEDS ORDERED: Magnesium 2 GM/50 ML 2 GM in Premix Bag 1 BAG IVPB SCH (08:00)
[2019-11-26] MEDS ORDERED: Potassium Phosphate 15 MMOL in Sodium Chloride 0.9% 250 ML 250 ML IVPB SCH (08:00)
--- NOTE | 2019-11-26 08:51 | RAD ---
CHEST 1 VIEW: COMPARISON: 03/21/2018. HISTORY: Syncope. Hyperglycemia. FINDINGS: Left-sided transvenous defibrillator with lead position in the right atrium and right ventricle. Nor mal cardiac silhouette. The pulmonary vessels and hilum are normal. No masses or consolidation. No pneumothorax or osseous abnormalities. IMPRESSION: No acute cardiopulmonary process. POS: CET
[2019-11-26 08:55] LABS: Actual Bicarbonate (HCO3a) 15.5 mEq/L (22-28); Analyzer IN Cardio ER; Base Excess (BEa) -10.4 mEq/L (-2.0 to +3.0); CO2 Tension 34.4 mmHg (35.0-45.0); Calcium, Ionized 1.03 mmol/L (1.12-1.30); Carboxyhemoglobin (COHb) 0.3 gm% (0.0-3.0); Hemoglobin (Hb) 13.1 g/dL (14.0-18.0); pH, Arterial 7.27 (7.35-7.45)
[2019-11-26 08:56] LABS: Puncture Site RR
[2019-11-26 09:30] LABS: Lactic Acid 4.1 mmol/L (0.5-2.2)
[2019-11-26 09:36] LABS: Troponin I 0.303 ng/mL (< 0.028)
[2019-11-26] MEDS ORDERED: Midazolam HCl 2 mg/2 ml Vial ONE (11:04)
[2019-11-26] MEDS ORDERED: Fentanyl 100 MCG/2 ML VIAL ONE (11:11)
[2019-11-26] MEDS ORDERED: Propofol 1,000 MG/100 ML VIAL IV ONE (11:14)
[2019-11-26] MEDS ORDERED: Fentanyl 100 MCG/2 ML VIAL SLOW IVP SCH (11:15)
[2019-11-26 11:17] LABS: Actual Bicarbonate (HCO3a) 16.8 mEq/L (22-28); Base Excess (BEa) -7.5 mEq/L (-2.0 to +3.0); CO2 Tension 30.2 mmHg (35.0-45.0); Carboxyhemoglobin (COHb) 0.5 gm% (0.0-3.0); Hemoglobin (Hb) 12.3 g/dL (14.0-18.0); O2 Tension (PaO2) 108.5 mmHg (80.0-100.0); pH, Arterial 7.36 (7.35-7.45)
[2019-11-26 11:18] LABS: Puncture Site RRAD
[2019-11-26] MEDS ORDERED: Fentanyl BOLUS 250 ML IVPB PRN (11:28)
[2019-11-26] MEDS ORDERED: DISCONTINUE PREVIOUS NARCOTIC PAIN MEDICATIONS AND BENZODIAZEPINES FS SCH (11:28)
[2019-11-26] MEDS ORDERED: Morphine 2 MG/ML SYRINGE SLOW IVP PRN (11:28)
[2019-11-26] MEDS ORDERED: Propofol BOLUS 1,000 MG/100 ML VIAL IV PRN (11:28)
[2019-11-26] MEDS ORDERED: fentaNYL Citrate/PF 2,000 MCG in Sodium Chloride 0.9% 60 ML IV SCH (11:28)
[2019-11-26] MEDS ORDERED: Ventilator Sedation Protocol 1 EACH FS SCH (11:30)
[2019-11-26 11:33] LABS: Anion Gap 16 mmol/L (10-20); BUN (Urea Nitrogen) 27 mg/dL (8.4-25.7); Calc. Creatinine Clearance 47 mL/min (70-130); Calcium 7.4 mg/dL (7.8-10.44); Carbon Dioxide 19 mmol/L (22-29); Chloride 102 mmol/L (98-107); Estimated GFR-MDRD 19; Glucose 333 mg/dL (70-105); Potassium 4.4 mmol/L (3.5-5.1); Sodium 133 mmol/L (136-145)
[2019-11-26] MEDS ORDERED: Midazolam HCl 2 mg/2 ml Vial IVP SCH (11:42)
--- NOTE | 2019-11-26 12:15 | CON ---
DATE OF CONSULTATION: HISTORY OF PRESENT ILLNESS: Vitor Bradley is a 54-year-old, morbidly obese gentleman, whom we were consulted on the emergency basis. Vitals in the ER, he is 125 kg, presented with syncopal episode, mental status change, confusion at 2 o'clock in the morning. His blood pressure was 76/34, pulse was 124, respiratory rate was 36. He was placed on a noninvasive ventilation. His sats were after that 95%. His temperature is 100.6. I spoke to him briefly, he appeared to be appropriate, but clearly encephalopathic, clearly lethargic. Denies any chest pain, chills, or sweats. He is able to give a history, but somewhat unclear. He has a history in the previous medical records of sleep apnea, but he says he has never been treated. PAST MEDICAL HISTORY: Otherwise, past medical history pertinent for diabetes; SVT, status post AICD; cardiomyopathy; morbid obesity; musculoskeletal problems. He apparently lives at home with his mother. History of gout. Apparently, no alcohol or drug abuse. No tobacco abuse. According to previous notes, he has one kidney. HOME MEDICATIONS: Include; 1. Metformin 1000 twice a day. 2. Glucotrol 5 twice a day. 3. Xarelto 20. 4. Potassium. 5. Protonix 40. 6. Metoprolol 100 twice a day. 7. Zestril. 8. Lasix. 9. Atorvastatin. ALLERGIES: NONE. SOCIAL HISTORY: Otherwise unremarkable. FAMILY HISTORY: Otherwise unremarkable. REVIEW OF SYSTEMS: Otherwise, difficult to get. It was felt he needed to be intubated. Therefore, a 7.5 endotracheal tube was placed about the bronchoscope, bite block in place. He was intubated without difficulty. He was given 2 mg of Versed. His blood gases show severe metabolic acidosis with a pH of 7.16. PHYSICAL EXAMINATION: VITAL SIGNS: Post intubation, pulse 128, blood pressure 113/80, sats are 90%, respirations 33. CHEST: Decreased breath sounds. No wheezing. CARDIAC: Normal S1, S2. No gallop. ABDOMEN: No masses. LABORATORY DATA: His creatinine is 3.2, sodium 129. Lactic acid is elevated at 4. Troponin is mildly elevated. BNP was 328. Chest x-ray shows no acute infiltrates. IMPRESSIONS: 1. Severe metabolic acidosis, rule out sepsis syndrome. 2. Diabetes, respiratory failure, morbid obesity, sleep apnea, renal failure probably appears to be secondary to sepsis syndrome, supraventricular tachycardia. PLAN: Agree with broad-spectrum antibiotics, IV hydration, insulin protocol. Post intubation, neb treatments, supportive care. DVT prophylaxis once his renal function improves. This is a 45-minute critical care time exclusive of the intubation. Brief intubation note. After informed consent for the patient, bite block placed and. 7.5 endotracheal tube was placed with a bronchoscope placed above vocal cords, placed above the fernandez, it was backed. Once the oxygen saturation improved, bronchoscope was repassed again to reinspect both lungs which were inspected without any issues. No blood, pus, or endobronchial disease seen. He has now been placed on low-dose Diprivan sedation protocol. The patient tolerated the procedure well. Job ID: [id number]
[2019-11-26 12:23] LABS: Phosphorus 2.1 mg/dL (2.3-4.7)
[2019-11-26 12:32] LABS: Actual Bicarbonate (HCO3a) 17.2 mEq/L (22-28); Base Excess (BEa) -8.2 mEq/L (-2.0 to +3.0); Carboxyhemoglobin (COHb) 0.4 gm% (0.0-3.0); Hemoglobin (Hb) 12.1 g/dL (14.0-18.0); O2 Tension (PaO2) 62.6 mmHg (80.0-100.0); Potassium - ABG Lab 4.46 mmol/L (3.70-5.30); pH, Arterial 7.31 (7.35-7.45)
[2019-11-26 12:34] LABS: Puncture Site RRAD
[2019-11-26] MEDS: Heparin 5,000 UNITS/ML VIAL SC SCH ×2 (13:15→19:50)
--- NOTE | 2019-11-26 13:33 | CON ---
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 REASON FOR CONSULTATION: CHF. HISTORY OF PRESENT ILLNESS: Mr. Bradley is a very pleasant 54-year-old white gentleman, who comes to the hospital for altered mental status and possibly a syncopal spell. He has a history of nonischemic cardiomyopathy. EF has been as low as 30%. He has an AICD in place from this. He has had a heart catheterization about a year and a half ago which showed just moderate single-vessel disease, not enough to account for the amount of LV dysfunction. Most likely, he had tachycardia-mediated systolic dysfunction. He underwent an atrial fibrillation ablation in November 2018 and has been in sinus ever since, currently in sinus tachycardia. He is sedated and intubated and cannot provide any history, but looking at his records, apparently he came in as he was found down in his bathroom, unclear as to how long he was down, unclear if this was syncope or just him being sick from other situations. His blood pressure was low in the 70s over 50s when he was found and tachycardic. He was given fluid resuscitation and his blood pressure picked up to the 90s to low 100s. He got a total of 3 L. His breathing became an issue, so he had to be intubated for this. PAST MEDICAL HISTORY: 1. Nonischemic cardiomyopathy. 2. Moderate single-vessel coronary artery disease, on heart catheterization in 2017. 3. Chronic atrial fibrillation, status post atrial fibrillation ablation in November 2018, in sinus. 4. AICD in place. 5. Type 2 diabetes. 6. Hyperlipidemia. 7. Hypertension. PAST SURGICAL HISTORY: 1. AICD placement. 2. Atrial fibrillation ablation in November 2018. 3. Cardiac catheterization in March 2018. OUTPATIENT MEDICATIONS: 1. Metformin. 2. Glipizide. 3. Sucralfate. 4. Xarelto 20 mg a day. 5. Potassium chloride. 6. Protonix 40 mg a day. 7. Metoprolol succinate 100 mg a day. 8. Lisinopril. 9. Furosemide 40 mg b.i.d. 10. Atorvastatin 40 mg at bedtime. ALLERGIES: NO KNOWN DRUG ALLERGIES. SOCIAL HISTORY: No alcohol, tobacco, or drugs per chart review. REVIEW OF SYSTEMS: Unobtainable as the patient is sedated and intubated. FAMILY HISTORY: Noncontributory. PHYSICAL EXAMINATION: VITAL SIGNS: Temperature 97.2, respiratory rate 20, saturating 96% on 40% FiO2, blood pressure 96/70, heart rate 118, in sinus tach. GENERAL: Sedated and intubated. LUNGS: Coarse breath sounds bilaterally. CARDIOVASCULAR: S1 and S2. No S3 or S4. Tachycardic in the 110s to 120s. No murmurs. ABDOMEN: Soft. Positive bowel sounds. EXTREMITIES: Trace edema. SKIN: Warm and dry. NECK: Supple. LABORATORY DATA: Laboratory work was reviewed. White count of 6, hemoglobin of 12, hematocrit of 37, platelet count of 131. ABG was reviewed. Chemistries were reviewed. Creatinine at 3.42, up from 2.97. His baseline is certainly not bad. He had a creatinine in November 2018 that was 1.35. Lactic acid was 4.1. TSH was normal. Mag and phos are low. UA; 3+ blood and 1+ bacteria. Beta-hydroxybutyrate was elevated. Flu titers are both negative for A and B. IMAGING STUDIES: Chest x-ray was reviewed. ASSESSMENT: 1. Acute on chronic systolic heart failure. 2. Diabetic ketoacidosis with likely hyperosmotic hyperosmolar ketotic coma. 3. Respiratory insufficiency requiring mechanical ventilation. 4. Nonischemic cardiomyopathy. 5. History of atrial fibrillation, remains in sinus rhythm. 6. Question of recent AICD therapy delivered, we will interrogate the device. PLAN: 1. Interrogate AICD to make sure he is not having any arrhythmias causing him to be hypotensive and passed out and subsequently give him an aspiration pneumonia that may have caused him to have a septic like picture with elevated glucose. 2. Echocardiogram pending. 3. We will discuss with Dr. Ruelas and primary team about the fluid resuscitation. If the LV function remains abnormal, we may have to cut back on some of these fluids. Thank you for letting us participate in the care of your patient. TIME SPENT: 45 minutes was spent of critical care. Job ID: [id number]
[2019-11-26] MEDS ORDERED: Albumin 5% 500 ML ONE (13:39)
[2019-11-26 13:50] LABS: Chloride 104 mmol/L (98-107); Potassium 4.8 mmol/L (3.5-5.1); Sodium 134 mmol/L (136-145)
[2019-11-26 13:51] LABS: Calcium 7.3 mg/dL (7.8-10.44); Glucose 288 mg/dL (70-105)
[2019-11-26 13:53] LABS: Anion Gap 18 mmol/L (10-20); Carbon Dioxide 17 mmol/L (22-29)
[2019-11-26 13:55] LABS: Calc. Creatinine Clearance 43 mL/min (70-130); Estimated GFR-MDRD 17
[2019-11-26 13:56] LABS: BUN (Urea Nitrogen) 28 mg/dL (8.4-25.7)
[2019-11-26] MEDS ORDERED: Vancomycin HCl 1 GM in Premix Bag 1 BAG IVPB SCH (14:00)
[2019-11-26] MEDS: Lorazepam 2 MG/ML VIAL SLOW IVP PRN ×5 (14:11→18:33)
--- NOTE | 2019-11-26 14:28 | PRG ---
DATE OF SERVICE: 11/26/2019 I was called by the ER nurse to come and evaluate the patient who had episode of sudden onset of diaphoresis and increased shortness of breath. In the meantime, he was placed on BiPAP by the emergency room physician who was in there. The patient is currently on BiPAP mask. ABGs are being done. We will discuss the case with sanitation truck cleaner and see whether he recommends intubation at this point after ABGs results are back. Also, we will continue with cardiac enzymes and electrocardiogram and echocardiogram and we will re-evaluate the patient after those results are back. Job ID: [id number]
[2019-11-26 14:30] LABS: Anion Gap 15 mmol/L (10-20); BUN (Urea Nitrogen) 28 mg/dL (8.4-25.7); Calc. Creatinine Clearance 43 mL/min (70-130); Calcium 7.2 mg/dL (7.8-10.44); Carbon Dioxide 20 mmol/L (22-29); Chloride 105 mmol/L (98-107); Estimated GFR-MDRD 17; Glucose 268 mg/dL (70-105); Potassium 4.5 mmol/L (3.5-5.1); Sodium 135 mmol/L (136-145)
[2019-11-26] MEDS: Acetaminophen 650 MG/20.3 ML UDCUP PO PRN (15:43)
--- NOTE | 2019-11-26 15:52 | RAD ---
Portable frontal chest radiograph: 11/26/2019 at 3:43 pm COMPARISON: 11/26/2019 at 2:36 AM HISTORY: Short of breath FINDINGS: Supine imaging is provided, limiting assessment for pneumothorax and pleural fluid. New end otracheal tube and nasogastric tube in proper position. Stable multilead transvenous AICD. Stable prominence of the cardiac silhouette and widening of the superior mediastinum, nonspecific. There is a new right-sided vascular catheter, extending into the neck, distal tip incompletely imaged. Nonspecific hazy increased density in the left perihilar region and left lung base noted which may si gnify infiltrate, volume loss, or aspiration. IMPRESSION: Malpositioned right-sided vascular catheter extending into the neck, incompletely imaged on this exam. Nonspecific opacity in the left perihilar region and left lung base noted.
[2019-11-26] MEDS: Hydrocortisone Sod Succ/PF 100 mg/2 ml Vial IVP SCH ×2 (17:33→23:51)
--- NOTE | 2019-11-26 18:25 | RAD ---
CHEST ONE VIEW: 11/26/19 HISTORY: Central line adjustment. COMPARISON: Radiographs same day. FINDINGS: A wire projects over the SVC/right atrium. IMPRESSION: Wire projects over the right atrium. POS: HOME
--- NOTE | 2019-11-26 18:26 | RAD ---
CHEST ONE VIEW: 11/26/19 HISTORY: Central line adjustment. COMPARISON: Radiograph same day. FINDINGS: Wire and catheter projects over the right atrium. IMPRESSION: Wire projects over the right atrium with catheter projecting in the mid SVC. POS: HOME
--- NOTE | 2019-11-26 18:33 | RAD ---
CHEST ONE VIEW: 11/26/19 HISTORY: Central line adjustment. COMPARISON: Radiograph same day. FINDINGS: The right subclavian central venous catheter tip is poorly seen due to the overlying leads although is directed downward towards the SVC. The remainder of the findings are similar. IMPRESSION: Right subclavian central venous catheter tip projecting downward and likely projecting over the right atrium/inferior SVC although obscured by the overlying extrinsic leads and cardiac leads. POS: HOME
[2019-11-26] MEDS ORDERED: Norepinephrine 8 MG/0.9% NS 250 ML ONE (18:34)
[2019-11-26 18:49] LABS: Anion Gap 14 mmol/L (10-20); BUN (Urea Nitrogen) 30 mg/dL (8.4-25.7); Calc. Creatinine Clearance 39 mL/min (70-130); Calcium 7.2 mg/dL (7.8-10.44); Carbon Dioxide 17 mmol/L (22-29); Chloride 106 mmol/L (98-107); Estimated GFR-MDRD 15; Glucose 266 mg/dL (70-105); Potassium 4.1 mmol/L (3.5-5.1); Sodium 133 mmol/L (136-145)
[2019-11-26] MEDS: Amiodarone HCl 450 MG in Dextrose 5% in Water 250 ML IVPB SCH (19:44)
[2019-11-26] MEDS: Propofol 1,000 MG/100 ML VIAL IV PRN (19:44)
[2019-11-26] MEDS ORDERED: Amiodarone HCl 150 MG in Dextrose 5% in Water 100 ML IVPB SCH (19:45)
--- NOTE | 2019-11-26 20:07 | CON ---
DATE OF CONSULTATION: 11/26/2019 CONSULTING PHYSICIAN: Dr. Donaldson. REASON FOR CONSULTATION: Acute kidney injury. REASON FOR ADMISSION: Altered mentation. HISTORY OF PRESENT ILLNESS: This is a 54-year-old male with history of coronary artery disease, cardiomyopathy, atrial fibrillation, hypertension, CKD, came to the hospital with syncope, lightheadedness, and fall. He is found to have rhabdomyolysis, elevated creatinine, and is currently intubated, seen in ICU, with blood pressure in the 70s and no urine output. Nephrology consulted for acute kidney injury and further management of renal disease. PAST MEDICAL HISTORY: Positive for; 1. Morbid obesity. 2. Coronary artery disease. 3. Cardiomyopathy. 4. Atrial fibrillation. 5. Hypertension. 6. Hyperlipidemia. 7. Type-2 diabetes. PAST SURGICAL HISTORY: 1. AICD placement. 2. EP ablation. 3. Cardiac cath. HOME MEDICATIONS: Reviewed. ALLERGIES: NO KNOWN DRUG ALLERGIES. SOCIAL HISTORY: No smoking, alcohol, or illicit drugs. FAMILY HISTORY: No history of any kidney disease. REVIEW OF SYSTEMS: CONSTITUTIONAL: Negative for weight loss or gain, ability to conduct usual activities. SKIN: Negative for rash, itching. EYES: Negative for double vision, pain. ENT/MOUTH: Negative for nose bleeding, neck stiffness, pain, tenderness. CARDIOVASCULAR: Negative for palpitations, dyspnea on exertion, orthopnea. RESPIRATORY: Negative for shortness of breath, wheezing, cough, hemoptysis, fever or night sweats. GASTROINTESTINAL: Negative for poor appetite, abdominal pain, heartburn, nausea , vomiting, constipation, or diarrhea. GENITOURINARY: Negative for urgency, frequency, dysuria, nocturia. MUSCULOSKELETAL: Negative for pain, swelling. NEUROLOGIC/PSYCHIATRIC: Negative for anxiety, depression. ALLERGY/IMMUNOLOGIC: Negative for skin rash, bleeding tendency. PHYSICAL EXAMINATION: GENERAL: This is an obese male, seen in ICU, intubated. VITAL SIGNS: Temperature 98.6, pulse 122, respiratory rate 20, blood pressure noted HEENT: Intubated. CV: S1, S2 heard. Rate and rhythm regular. RESPIRATORY: Clear. GASTROINTESTINAL: Abdomen is soft. EXTREMITIES: 1+ edema. DERMATOLOGIC: No skin rash. NEUROLOGIC: Intubated. LABORATORY DATA: Potassium is 4.8, BUN is 28, creatinine is 3.7. Creatinine on admission was 1.35. ASSESSMENT AND PLAN: 1. Acute kidney injury with hypotension and oliguric acute kidney injury, most likely ATN. No acute indication for dialysis. We will continue to follow. 2. Anemia. 3. Edema. 4. Acute hypoxic respiratory failure. 5. History of hypertension. 6. Morbid obesity. Prognosis is guarded. No acute indication for dialysis. We will continue to follow. Avoid nephrotoxins, and we will follow the renal function. Job ID: [id number] MTDD
[2019-11-26] MEDS: D5 1/2 NS w/20 mEq KCL 1,000 ML IV PRN ×2 (20:19→23:51)
[2019-11-26] MEDS: HUMULIN R 100 UNITS in Sodium Chloride 0.9% 100 ML IVPB SCH (21:56)
[2019-11-27] MEDS: HUMULIN R 100 UNITS in Sodium Chloride 0.9% 100 ML IVPB SCH ×3 (02:25→09:23)
[2019-11-27] MEDS ORDERED: Cefepime 1 GM in Sodium Chloride 0.9% 100 ML IVPB SCH (03:00)
[2019-11-27 03:54] LABS: Anion Gap 14 mmol/L (10-20); BUN (Urea Nitrogen) 34 mg/dL (8.4-25.7); Calc. Creatinine Clearance 33 mL/min (70-130); Calcium 7.2 mg/dL (7.8-10.44); Carbon Dioxide 15 mmol/L (22-29); Chloride 107 mmol/L (98-107); Estimated GFR-MDRD 13; Glucose 377 mg/dL (70-105); Potassium 4.1 mmol/L (3.5-5.1); Sodium 132 mmol/L (136-145)
[2019-11-27] MEDS: Propofol 1,000 MG/100 ML VIAL IV PRN ×4 (04:25→23:45)
[2019-11-27 04:30] LABS: Band 21 % (5-11); Hemoglobin 11.6 g/dL (14.0-18.0); Lymphocytes 4 % (21-51); MDiff Complete? YES; Mean Corpuscular HGB CONC 33.9 g/dL (32.0-36.0); Mean Corpuscular Hemoglobin 30.5 pg (27.0-31.0); Mean Platelet Volume 8.9 fL (7.4-10.4); Metamyelocyte 1 % (0-0); Monocytes 1 % (0-10); Neutrophil 73 % (42-75); Platelet Count 98 thou/uL (130-400); Platelet Morphology Comment Appears Decreased; RBC Distribution Width 12.3 % (11.5-14.5); RBC Morphology Normal; Red Blood Cell (RBC) Count 3.79 mill/uL (4.70-6.10); White Blood Cell (WBC) Count 14.7 thou/uL (4.8-10.8)
[2019-11-27] MEDS: Amiodarone HCl 450 MG in Dextrose 5% in Water 250 ML IVPB SCH ×2 (04:40→17:52)
[2019-11-27] MEDS ORDERED: D5 1/2 NS w/20 mEq KCL 1,000 ML IV PRN (05:29)
[2019-11-27] MEDS ORDERED: Dextrose 5 %-0.45 % NaCl 1,000 ML IV SCH (05:30)
[2019-11-27] MEDS: Hydrocortisone Sod Succ/PF 100 mg/2 ml Vial IVP SCH ×2 (06:03→19:56)
[2019-11-27 06:48] LABS: Actual Bicarbonate (HCO3a) 15.9 mEq/L (22-28); Base Excess (BEa) -9.7 mEq/L (-2.0 to +3.0); CO2 Tension 33.8 mmHg (35.0-45.0); Calcium, Ionized 1.03 mmol/L (1.12-1.30); Carboxyhemoglobin (COHb) 0.8 gm% (0.0-3.0); Hemoglobin (Hb) 12.2 g/dL (14.0-18.0); O2 Tension (PaO2) 71.6 mmHg (80.0-100.0); Potassium - ABG Lab 4.03 mmol/L (3.70-5.30); pH, Arterial 7.29 (7.35-7.45)
[2019-11-27] MEDS: Heparin 5,000 UNITS/ML VIAL SC SCH ×3 (07:36→19:56)
--- NOTE | 2019-11-27 08:13 | RAD ---
XR Chest 1 View Portable History: Ventilated patient Comparison: Radiograph prior day Findings: Patient is intubated endotracheal tube tip 3 cm above the fernandez. Subclavian central venous catheter tip projects over the right atrium. Heart size is enlarged. Mild pulmonary edema. Enteric tube tip below diaphragm although out of field of view. Impression: Similar examination of the chest.
[2019-11-27] MEDS ORDERED: FLU VACC QS2019-20(6MOS UP)/PF 60 MCG/0.5 ML SYRINGE IM ONE (09:00)
[2019-11-27] MEDS: Norepinephrine 8 MG/0.9% NS 250 ML IVPB SCH (09:13)
[2019-11-27] MEDS ORDERED: Albumin 25% 25 GM/100 ML BOT IVPB SCH (10:16)
[2019-11-27] MEDS: Lorazepam 2 MG/ML VIAL SLOW IVP PRN ×3 (10:52→20:50)
--- NOTE | 2019-11-27 11:00 | PRG ---
DATE OF SERVICE: 11/27/2019 SUBJECTIVE: This morning, he is intubated on the vent. He is sedated with Diprivan. He is on amiodarone for SVT as well as Levophed. OBJECTIVE: VITAL SIGNS: Blood pressure remains low at 92/74, pulse 134, saturations 96%, respiratory rate 23. His I's and O's have been consistently ahead. NEUROLOGIC: He is sedated. CHEST: Decreased breath sounds. No wheezing. CARDIAC: Normal S1 and S2. No gallops. ABDOMEN: No masses. LABORATORY DATA: Blood sugar is slightly elevated. IMAGING STUDIES: X-ray shows no acute infiltrates. IMPRESSION: Respiratory failure, sepsis syndrome, renal failure. PLAN: Antibiotics adjusted for his renal failure. PT, supportive care. At this stage, he is not weanable. We will follow. One-half hour of critical time. Job ID: [id number]
--- NOTE | 2019-11-27 12:28 | PDOC.CPN ---
- Subjective Date: 11/27/19 Time: 12:26 Interval history: Remains sedated intubated. - Review of Systems ROS unobtainable: due to endotracheal tube - Objective Allergies/Adverse Reactions: Allergies Allergy/AdvReac Type Severity Reaction Status Date / Time No Known Drug Allergies Allergy Verified 11/26/19 22:51 Visit Medications: Current Medications Acetaminophen (Tylenol Elixir) 1,000 mg PO Q6H PRN PRN Reason: Headache/Fever or Pain Last Admin: 11/26/19 15:43 Dose: 1,000 mg Albumin Human (Albumin 25%) 25 gm IVPB NOW LEEANN Stop: 11/27/19 14:00 Albuterol/Ipratropium (Duoneb) 3 ml NEB [id number] LEEANN Last Admin: 11/27/19 12:07 Dose: 3 ml Famotidine (Pepcid) 20 mg SLOW IVP DAILY [facility] Heparin Sodium (Porcine) (Heparin) 5,000 units SC TID [facility] Last Admin: 11/27/19 07:36 Dose: 5,000 units Hydrocortisone Sodium Succinate (Solu-Cortef) 25 mg IVP BID [facility] Cefepime HCl 1 gm/ Sodium (Chloride) 100 mls @ 200 mls/hr IVPB Q24HR LEEANN Last Admin: 11/27/19 02:25 Dose: 100 mls Insulin Human Regular 100 (units/ Sodium Chloride) 101 mls @ 0 mls/hr IVPB INF LEEANN; Protocol Last Admin: 11/27/19 09:23 Dose: 101 mls Dextrose/Sodium Chloride (D5 1/2 Ns) 1,000 mls @ 250 mls/hr IV .Q4H PRN; Protocol PRN Reason: Step 4 of DKA Protocol Sodium Chloride (Normal Saline 0.9%) 1,000 mls @ 500 mls/hr IV .Q2H PRN; Protocol PRN Reason: Step 1 of DKA Protocol Sodium Chloride (Normal Saline 0.9%) 1,000 mls @ 1,000 mls/hr IV .Q1H PRN; Protocol PRN Reason: Step 1 of DKA Protocol Sodium Chloride (Normal Saline 0.9%) 1,000 mls @ 250 mls/hr IV .Q4H PRN; Protocol PRN Reason: SEE STEP 3 OF DKA PROTOCOL Sodium Chloride (Normal Saline 0.9%) 1,000 mls @ 500 mls/hr IV .Q2H PRN; Protocol PRN Reason: Step 2 of DKA Protocol Potassium Chloride/Sodium Chloride (Ns 0.9% W/ 20 Meq Kcl) 1,000 mls @ 500 mls/ hr IV .Q2H PRN; Protocol PRN Reason: Step 2 of DKA Protocol Potassium Chloride/Sodium Chloride (Ns 0.9% W/ 20 Meq Kcl) 1,000 mls @ 250 mls/ hr IV .Q4H PRN; Protocol PRN Reason: SEE STEP 3 OF DKA PROTOCOL Potassium Chloride 40 meq/ (Sodium Chloride) 270 mls @ 135 mls/hr IVPB ASDIR PRN PRN Reason: FOR SERUM K+ 2.5 - 3.5 Potassium Chloride 40 meq/ (Device) 100 mls @ 50 mls/hr IVPB ASDIR PRN PRN Reason: FOR SERUM K+ 2.5 - 3.5 Magnesium Sulfate 1 gm/ Sodium (Chloride) 102 mls @ 102 mls/hr IV PRN PRN PRN Reason: MAG LEVEL 1.4 - 2.0 Magnesium Sulfate 2 gm/ Device 50 mls @ 50 mls/hr IVPB ASDIR PRN PRN Reason: MAGNESIUM < 1.4 Potassium Phosphate 9 mmol/ (Sodium Chloride) 103 mls @ 25.75 mls/hr IVPB ASDIR PRN PRN Reason: Phosphate 1.0-1.8 Potassium Phosphate 12 mmol/ (Sodium Chloride) 254 mls @ 63.5 mls/hr IV ASDIR PRN PRN Reason: Serum phosphate 0.5-0.9 Potassium Phosphate 15 mmol/ (Sodium Chloride) 255 mls @ 63.75 mls/hr IV ASDIR PRN PRN Reason: Serum Phos < 0.5 Fentanyl Citrate 2,000 mcg/ (Sodium Chloride) 100 mls @ 0 mls/hr IV INF LEEANN; Protocol Stop: 12/26/19 11:28 Fentanyl Citrate (Fentanyl Bolus) 250 mls @ 0 mls/hr IVPB PRN PRN PRN Reason: Breakthrough pain/agitation Stop: 12/26/19 11:28 Vancomycin HCl 2 gm/ Sodium (Chloride) 500 mls @ 250 mls/hr IVPB 1400 LEEANN Amiodarone HCl 450 mg/Miscellaneous Medication 1 each/ Dextrose/Water 259 mls @ 0 mls/hr IVPB INF LEEANN; Protocol Last Admin: 11/27/19 04:40 Dose: 259 mls Norepinephrine Bitartrate (Levophed) 250 mls @ 0 mls/hr IVPB INF LEEANN; Protocol Last Admin: 11/27/19 09:13 Dose: 250 mls Insulin Glargine 10 units/ (Miscellaneous Medication) 0.1 mls @ 0 mls/hr SC BID LEEANN Sodium Chloride (Normal Saline 0.9%) 1,000 mls @ 100 mls/hr IV .Q10H LEEANN Lorazepam (Ativan) 2 mg SLOW IVP Q1H PRN PRN Reason: Breakthrough agitation Stop: 12/26/19 11:28 Last Admin: 11/27/19 10:52 Dose: 2 mg Magnesium Oxide (Magnesium Oxide) 400 mg PO BIDPRN PRN PRN Reason: FOR SERUM MAG 1.4 - 2.0 Magnesium Oxide (Magnesium Oxide) 800 mg PO PRN PRN PRN Reason: FOR SERUM MAG < 1.4 Miscellaneous Medication (Phos-Nak) 1 pkt PO TIDPRN PRN PRN Reason: FOR PHOS LEVEL 1.0 - 1.8 Miscellaneous Medication (Phos-Nak) 2 pkt PO TIDPRN PRN PRN Reason: FOR PHOS LEVEL 0.5 - 1.0 Miscellaneous Medication (Pharmacy To Dose) 1 each IVPB PRN PRN PRN Reason: Pharmacy to dose Morphine Sulfate (Morphine) 2 mg SLOW IVP Q1H PRN PRN Reason: BREAKTHROUGH PAIN/Agitation Stop: 12/26/19 11:28 Ccu Electrolyte (Replacement Protocol) 0 each FS PRN PRN PRN Reason: FOR ELECTROLYTE REPLACEMENT Discontinue Previous Narcotic Pain Medications And Benzodiazepines 1 each FS .ONE LEEANN Stop: 12/26/19 11:28 Potassium Chloride (K-Dur) 40 meq PO ASDIR PRN PRN Reason: FOR SERUM K+ 2.5 - 3.5 Potassium Chloride (Klor-Con) 40 meq PER TUBE ASDIR PRN PRN Reason: FOR SERUM K+ 2.5-3.5 Propofol (Diprivan) 1,000 mg IV INF PRN; Protocol PRN Reason: TO ACHIEVE GOAL RASS Stop: 12/26/19 11:28 Last Admin: 11/27/19 09:13 Dose: 1,000 mg Propofol (Diprivan Bolus) 20 mg IV Q5MIN PRN PRN Reason: BREAKTHROUGH AGITATION Stop: 12/26/19 11:28 Vital Signs & Weight: Vital Signs Temp Pulse Resp Pulse Ox 11/27/19 12:07 119 H 31 H 99 11/27/19 11:05 130 H 11/27/19 07:49 100 F H 11/27/19 07:03 26 H 96 11/27/19 07:00 100 F H 11/27/19 06:59 121 H 11/27/19 06:58 112 H 27 H 96 11/27/19 05:54 28 H 11/27/19 04:00 97.6 F 28 H 11/27/19 03:50 144 H 11/27/19 02:00 28 H 11/27/19 00:47 120 H 29 H 99 11/27/19 00:45 120 H Admit Weight 295 lb Weight 295 lb 6.711 oz - Physical Exam General: other (S/I) HEENT: mucus membranes moist Neck: supple neck Cardiac: irregularly regular, tachycardia Lungs: scattered rhonchi Neuro: no lateralizing findings Abdomen: active bowel sounds Extremities: 1+ LE edema Skin: clear Musculoskeletal: no pain - Labs Result Diagrams: 11/28/19 04:00 11/28/19 04:00 Troponin/CKMB CK-MB (CK-2) 7.5 ng/mL (0-6.6) H* 11/26/19 02:47 Troponin I 0.303 ng/mL (< 0.028) H* 11/26/19 09:00 - Telemetry Supraventricular conduction: atrial fibrillation - Assessment/Plan Assessment/Plan: 1. Acute on chronic systolic CHF 2. Hyperglycemia 3. Sepsis 4. Non ischemic CM 5. Partoxysmal afib, currently sinus tach. 6. AICD in place PLAN; - EF at 40-45% - Continue amiodarone for now. HR improved. - Continue supportive care. - Will need CELIA eventually to evaluate AICD for endocarditis. - No tachy arrhythmias prior to admisison on monitor - Critical Care Time Critical care time (mins): 30
[2019-11-27] MEDS: Sodium Chloride 0.9% 1,000 ML IV SCH ×2 (13:03→16:53)
--- NOTE | 2019-11-27 13:47 | PRG ---
DATE OF SERVICE: 11/27/2019 SUBJECTIVE: The patient is seen at bedside. Orally intubated. Family also present in the room. The patient is currently on pressors and on sedation. SYSTEMIC REVIEW: Could not be obtained due to the patient's condition. OBJECTIVE: VITAL SIGNS: Blood pressure 91/70, pulse 110, and oxygen saturation 99%. GENERAL: The patient is orally intubated, nonverbal, and noncommunicative. HEENT: Conjunctivae normal. Oral mucosa dry. CHEST: Decreased air entry in bilateral lower lung rojas. Heart rate 110. ABDOMEN: Mildly distended. EXTREMITIES: Bilaterally had mild edema of feet positive. No rash. No cyanosis. LABORATORY DATA: CBC unremarkable with a white blood cell 14.7 and hemoglobin 11.6. Blood glucose 157. BMP unremarkable except creatinine of 4.86 and sodium 132. UA white blood cells 11 to 20. Beta-hydroxybutyrate 1.87, high on admission. Blood culture positive for Staph aureus. Urine culture negative for growth. DIAGNOSTIC DATA: Chest x-ray; heart size is enlarged, mild pulmonary edema, enteric tube tip below the diaphragm through out of field of view. Echocardiogram, ejection fraction 40% to 45%, septal bounce, pacer wire visualized in the right ventricle , mild mitral regurgitation, mild tricuspid regurgitation. IMPRESSION: 1. Acute hypoxemic respiratory failure, status post intubation, possibly secondary to fluid overload with acute on chronic systolic congestive heart failure. Continue vent management per ICU team. The patient is currently on pressors and sedations. 2. Acute renal failure, possible secondary to acute tubular necrosis with Nephrology on board. Creatinine 4.86 today. May need the patient temporary dialysis to observe kidney function improvement. 3. Acute on chronic systolic congestive heart failure, status post automated implantable cardioverter-defibrillator placement. Cardiology on board. Echo with ejection fraction 40% to 45%. 4. Atrial fibrillation with rapid ventricular response, on amiodarone. 5. Possible severe sepsis secondary to Staph bacteremia and blood culture positive for staph. Infection Disease consulted. Continue currently broad-spectrum antibiotics. 6. HTN Continue monitoring blood pressure. 7. Possible syncope. The patient was found on the floor of the house. Pending AICD interrogation. 8. Deep venous thrombosis and gastrointestinal prophylaxis. Plan discussed with the daughter who is present at bedside and nursing staff. Job ID: [id number] [facility]
--- NOTE | 2019-11-27 16:27 | CON ---
DATE OF CONSULTATION: 11/27/2019 REASON FOR CONSULTATION: Bacteremia. HISTORY OF PRESENT ILLNESS: A 54-year-old with history of type 1 diabetes mellitus, obesity, ischemic cardiomyopathy, and atrial fibrillation, who had a previous ablation and then AICD placed. The AICD was inserted a few months ago. Since then, he has noticed improvement in his overall functional capacity and was doing well until about 2 or 3 days before admission when he noticed a general malaise. On the day of admission, he was found unconscious in the bathroom by his brother. EMS was called and was admitted and in the emergency room, he reported weakness. He did not have any headaches. No vomiting or cough. No chest pain. No back pain. No genitourinary symptoms. His initial findings included a temperature 100.6, pulse 124, and BP 76/34. He appeared diaphoretic and abdomen was moderately distended. Heart and lung examination was described as normal. In the emergency room, he developed respiratory failure, had to be intubated and admitted to the ICU. His initial findings included white cell count 16,000 with 12% bands and hemoglobin 12.9 and initial creatinine was 2.97, bilirubin 1.5, AST 109, ALT 43, and alkaline phosphatase 67. BNP was 328. Cortisol 22. Initial imaging study on admission, the right subclavian central venous catheter, cardiomegaly, the AICD wire, some interstitial markings at the bases. The patient was started on cefepime and vancomycin and now 2 out of 2 sets of blood cultures with methicillin-sensitive Staph aureus identified. The patient is orotracheally intubated and sedated. PAST MEDICAL HISTORY: Type 1 diabetes, obesity, cardiomyopathy probably ischemic with AICD, and atrial fibrillation status post ablation. He had a cardiac catheterization performed in 2018, which showed a 60% proximal LAD lesion. The other arteries were normal. The patient has a history of sleep apnea as well. SOCIAL HISTORY: Lives in [place] mother. Has one child. Never smoker. No drug use. No alcoholic beverage use. ALLERGIES: NONE. FAMILY HISTORY: Type 2 diabetes. PHYSICAL EXAMINATION: VITAL SIGNS: T-max 100.9 and currently 99.5, blood pressure 113/78, pulse 128, respirations 34, and O2 saturation 96. SKIN: The patient has a right subclavian central line, areas of intertriginous maceration in the groin, has a Powell catheter. Output is minimal with positive balance of 4000 and 2600 over the past 2 days. HEENT: Not able to test ocular movements. Pupils are as expected constricted and equal. Orotracheal intubation. LUNGS: Symmetric air entry. Diminished breath sounds at the bases. HEART: S1 and S2 without obvious murmurs, AICD pocket site is normal. ABDOMEN: Protuberant abdomen, but soft. No guarding. EXTREMITIES: The right knee has a space between the patella and the suprapatellar notch almost as if the tendon was not intact, but there is no evidence of knee effusion in any of the joints that was examined. 1+ edema in lower extremities. Pulses 1+ in dorsalis pedis. Could not test his motility or cognitive function due to sedation. LABORATORY STUDIES: White cell count down to 14.7, hemoglobin 11.6, and platelets 98. Creatinine is up to 4.86. Urinalysis with 11 to 20 wbc's. Microbiology as noted with MSSA. Two sets of blood cultures, influenza A and B was negative. Urine culture, no growth at 36 hours. Echocardiogram with EF of 40% to 45%, mild mitral regurg, mild tricuspid regurg. ASSESSMENT: 1. Diabetes mellitus type 2 or 1 not clear since he did have an episode of DKA in the past. 2. Cardiomyopathy with 60% left anterior descending in 2018, but no interventions. 3. Atrial fibrillation with ablation and automatic implantable cardioverter-defibrillator placed recently. 4. Staph aureus bacteremia, methicillin-susceptible Staphylococcus aureus of uncertain primary site. DISCUSSION: The differential diagnosis includes colonization of the automatic implantable cardioverter-defibrillator lead as the main concern. Other sites of involvement including lungs not ruled out yet. Switch him to oxacillin. We will eventually need a transesophageal echocardiography to rule out involvement of the leads. If there is a clear-cut vegetation, then the lead would have to be removed with the automatic implantable cardioverter-defibrillator. If not, then treat with a beta-lactam and antimicrobial for 6 weeks. Areas to be concerned with include spine and lungs, in addition to the valves and the automatic implantable cardioverter-defibrillator leads. Other bone and joint sites not apparently involved at this moment. The patient has developed acute renal failure and hopefully will turn around and recover his function but may need dialytic replacement. Job ID: [id number]
[2019-11-27] MEDS: Oxacillin 2 GM in Sodium Chloride 0.9% 100 ML IVPB SCH ×2 (16:53→19:55)
[2019-11-27 17:06] LABS: Puncture Site RRAD
[2019-11-27] MEDS: Insulin Glargine 10 UNITS in Pre-Filled Syringe 1 EACH SC SCH (19:56)
[2019-11-28] MEDS: Oxacillin 2 GM in Sodium Chloride 0.9% 100 ML IVPB SCH ×6 (00:46→20:04)
[2019-11-28] MEDS: HUMULIN R 100 UNITS in Sodium Chloride 0.9% 100 ML IVPB SCH (01:51)
[2019-11-28] MEDS: Norepinephrine 8 MG/0.9% NS 250 ML IVPB SCH (01:51)
[2019-11-28 04:37] LABS: Anion Gap 16 mmol/L (10-20); BUN (Urea Nitrogen) 44 mg/dL (8.4-25.7); Band 11 % (5-11); Calc. Creatinine Clearance 25 mL/min (70-130); Calcium 7.5 mg/dL (7.8-10.44); Carbon Dioxide 17 mmol/L (22-29); Chloride 108 mmol/L (98-107); Estimated GFR-MDRD 9; Glucose 220 mg/dL (70-105); Hemoglobin 11.3 g/dL (14.0-18.0); Lymphocytes 8 % (21-51); MDiff Complete? YES; Mean Corpuscular Hemoglobin 30.4 pg (27.0-31.0); Mean Corpuscular Volume 89.4 fL (78.0-98.0); Mean Platelet Volume 9.7 fL (7.4-10.4); Monocytes 4 % (0-10); Neutrophil 77 % (42-75); Platelet Count 98 thou/uL (130-400); Platelet Morphology Comment Appears Decreased; Potassium 4.3 mmol/L (3.5-5.1); RBC Distribution Width 12.7 % (11.5-14.5); RBC Morphology Normal; Red Blood Cell (RBC) Count 3.72 mill/uL (4.70-6.10); Sodium 137 mmol/L (136-145); Vacuoles SLIGHT; White Blood Cell (WBC) Count 12.8 thou/uL (4.8-10.8)
[2019-11-28] MEDS: Propofol 1,000 MG/100 ML VIAL IV PRN ×2 (05:02→21:53)
[2019-11-28] MEDS: Sodium Chloride 0.9% 1,000 ML IV SCH ×2 (05:02→15:12)
[2019-11-28 06:41] LABS: Actual Bicarbonate (HCO3a) 14.4 mEq/L (22-28); Base Excess (BEa) -10.2 mEq/L (-2.0 to +3.0); Calcium, Ionized 1.03 mmol/L (1.12-1.30); Carboxyhemoglobin (COHb) 0.2 gm% (0.0-3.0); Hemoglobin (Hb) 10.8 g/dL (14.0-18.0); O2 Tension (PaO2) 112.7 mmHg (80.0-100.0); pH, Arterial 7.33 (7.35-7.45)
[2019-11-28 06:49] LABS: Puncture Site RRAD
[2019-11-28] MEDS: Famotidine/PF 20 mg/2ml Vial SLOW IVP SCH (07:22)
[2019-11-28] MEDS: Hydrocortisone Sod Succ/PF 100 mg/2 ml Vial IVP SCH ×2 (07:23→20:06)
[2019-11-28] MEDS: Heparin 5,000 UNITS/ML VIAL SC SCH ×3 (07:25→20:03)
[2019-11-28] MEDS: Insulin Glargine 10 UNITS in Pre-Filled Syringe 1 EACH SC SCH (07:25)
--- NOTE | 2019-11-28 08:34 | RAD ---
XR Chest 1 View Portable History: Ventilated patient Comparison: Radiograph prior day Findings: Heart size is enlarged. AICD/pacer is similar. Endotracheal tube tip is above the fernandez ap proximately 3.3 cm. Enteric tube tip below diaphragm although out of field of view. Pulmonary edema is slightly improving. Right subclavian central venous catheter is similar. Impression: Slight interval improvement of pulmonary edema.
--- NOTE | 2019-11-28 09:33 | PRG ---
DATE OF SERVICE: 11/28/2019 SUBJECTIVE: Kirk remains intubated on the vent, sedated on Diprivan. OBJECTIVE: VITAL SIGNS: Pulse 119, blood pressure 118/58, saturations 90%, respiratory rate 16, NEUROLOGIC: He is sedated. CHEST: Decreased breath sounds. Minimal rhonchi. CARDIAC: Normal S1 and S2. No gallops. ABDOMEN: No masses. LABORATORY DATA: PO2 is 112, pCO2 of 20%, 40%, PEEP of 5, glucose 151. Staph aureus, it is not MRSA. Sensitive to present antibiotics. Renal function is somewhat worse with a creatinine elevated at 6.53. His white count has improved and platelet count is low at 98,000. IMPRESSION: 1. Supraventricular tachycardia. 2. Respiratory failure. 3. Staphylococcus sepsis. 4. Hypertension. 5. Acute renal failure. 6. Morbid obesity. 7. Probably sleep apnea. PLAN: Switch over to Diabetisource. As his blood sugar is elevated, increase his Lantus to 20 twice a day. Otherwise, continue slow hydration, PT, supportive care. One half hour critical time. Job ID: [id number]
[2019-11-28] MEDS: Amiodarone HCl 450 MG in Dextrose 5% in Water 250 ML IVPB SCH (10:40)
[2019-11-28] MEDS: Lorazepam 2 MG/ML VIAL SLOW IVP PRN ×2 (10:40→12:52)
--- NOTE | 2019-11-28 12:15 | PRG ---
DATE OF SERVICE: 11/28/2019 SUBJECTIVE: The patient was seen and examined daughter was at the bedside and updated about the situation. The patient is not making any urine. Remains intubated and fluid overloaded, but blood pressure is slightly better. OBJECTIVE: GENERAL: Obese male, seen in ICU, intubated. VITAL SIGNS: Temperature 100.4, pulse 133, respiratory rate 33, blood pressure 120/91. HEENT: Intubated. CV: S1, S2 heard. RESPIRATORY: Clear. GI: Abdomen is obese. MUSCULOSKELETAL: 1 to 2+ edema. DERMATOLOGIC: No skin rash. NEUROLOGICAL: Intubated. LABORATORY DATA: Potassium 4.3, bicarb 17, BUN is 44, creatinine is 6.5, pH is 7.33. ASSESSMENT AND PLAN: 1. Acute kidney injury on chronic kidney disease stage 3. Renal parameters continue to get worse, but no acute indication for dialysis, but if it continues to worse with no significant urine output, might need dialysis may be in next 24 to 48 hours. 2. Acute hypoxic respiratory failure. 3. Septic shock and anemia. 4. Morbid obesity. 5. Edema. 6. Fluid overload. 7. Acute tubular necrosis. No significant improvement in renal function with . Anticipated renal replacement therapy in next 24 to 48 hours. We will follow. Job ID: [id number]
--- NOTE | 2019-11-28 12:37 | PDOC.CPN ---
- Subjective Date: 11/28/19 Time: 12:35 Interval history: Remains intubated sedated. - Review of Systems ROS unobtainable: due to endotracheal tube - Objective Allergies/Adverse Reactions: Allergies Allergy/AdvReac Type Severity Reaction Status Date / Time No Known Drug Allergies Allergy Verified 11/26/19 22:51 Visit Medications: Current Medications Acetaminophen (Tylenol Elixir) 1,000 mg PO Q6H PRN PRN Reason: Headache/Fever or Pain Last Admin: 11/26/19 15:43 Dose: 1,000 mg Albumin Human (Albumin 5%) 12.5 gm IVPB NOW LEEANN Stop: 11/28/19 13:00 Last Admin: 11/28/19 09:32 Dose: 12.5 gm Albuterol/Ipratropium (Duoneb) 3 ml NEB [id number] [facility] Last Admin: 11/28/19 06:48 Dose: 3 ml Famotidine (Pepcid) 20 mg SLOW IVP DAILY [facility] Last Admin: 11/28/19 07:22 Dose: 20 mg Heparin Sodium (Porcine) (Heparin) 5,000 units SC TID [facility] Last Admin: 11/28/19 07:25 Dose: 5,000 units Hydrocortisone Sodium Succinate (Solu-Cortef) 25 mg IVP BID [facility] Last Admin: 11/28/19 07:23 Dose: 25 mg Insulin Human Regular 100 (units/ Sodium Chloride) 101 mls @ 0 mls/hr IVPB INF LEEANN; Protocol Last Admin: 11/28/19 01:51 Dose: 101 mls Dextrose/Sodium Chloride (D5 1/2 Ns) 1,000 mls @ 250 mls/hr IV .Q4H PRN; Protocol PRN Reason: Step 4 of DKA Protocol Sodium Chloride (Normal Saline 0.9%) 1,000 mls @ 500 mls/hr IV .Q2H PRN; Protocol PRN Reason: Step 1 of DKA Protocol Sodium Chloride (Normal Saline 0.9%) 1,000 mls @ 1,000 mls/hr IV .Q1H PRN; Protocol PRN Reason: Step 1 of DKA Protocol Sodium Chloride (Normal Saline 0.9%) 1,000 mls @ 250 mls/hr IV .Q4H PRN; Protocol PRN Reason: SEE STEP 3 OF DKA PROTOCOL Sodium Chloride (Normal Saline 0.9%) 1,000 mls @ 500 mls/hr IV .Q2H PRN; Protocol PRN Reason: Step 2 of DKA Protocol Potassium Chloride/Sodium Chloride (Ns 0.9% W/ 20 Meq Kcl) 1,000 mls @ 500 mls/ hr IV .Q2H PRN; Protocol PRN Reason: Step 2 of DKA Protocol Potassium Chloride/Sodium Chloride (Ns 0.9% W/ 20 Meq Kcl) 1,000 mls @ 250 mls/ hr IV .Q4H PRN; Protocol PRN Reason: SEE STEP 3 OF DKA PROTOCOL Potassium Chloride 40 meq/ (Sodium Chloride) 270 mls @ 135 mls/hr IVPB ASDIR PRN PRN Reason: FOR SERUM K+ 2.5 - 3.5 Potassium Chloride 40 meq/ (Device) 100 mls @ 50 mls/hr IVPB ASDIR PRN PRN Reason: FOR SERUM K+ 2.5 - 3.5 Magnesium Sulfate 1 gm/ Sodium (Chloride) 102 mls @ 102 mls/hr IV PRN PRN PRN Reason: MAG LEVEL 1.4 - 2.0 Magnesium Sulfate 2 gm/ Device 50 mls @ 50 mls/hr IVPB ASDIR PRN PRN Reason: MAGNESIUM < 1.4 Potassium Phosphate 9 mmol/ (Sodium Chloride) 103 mls @ 25.75 mls/hr IVPB ASDIR PRN PRN Reason: Phosphate 1.0-1.8 Potassium Phosphate 12 mmol/ (Sodium Chloride) 254 mls @ 63.5 mls/hr IV ASDIR PRN PRN Reason: Serum phosphate 0.5-0.9 Potassium Phosphate 15 mmol/ (Sodium Chloride) 255 mls @ 63.75 mls/hr IV ASDIR PRN PRN Reason: Serum Phos < 0.5 Fentanyl Citrate 2,000 mcg/ (Sodium Chloride) 100 mls @ 0 mls/hr IV INF LEEANN; Protocol Stop: 12/26/19 11:28 Fentanyl Citrate (Fentanyl Bolus) 250 mls @ 0 mls/hr IVPB PRN PRN PRN Reason: Breakthrough pain/agitation Stop: 12/26/19 11:28 Amiodarone HCl 450 mg/Miscellaneous Medication 1 each/ Dextrose/Water 259 mls @ 0 mls/hr IVPB INF LEEANN; Protocol Last Admin: 11/28/19 10:40 Dose: 259 mls Norepinephrine Bitartrate (Levophed) 250 mls @ 0 mls/hr IVPB INF LEEANN; Protocol Last Admin: 11/28/19 01:51 Dose: 250 mls Sodium Chloride (Normal Saline 0.9%) 1,000 mls @ 100 mls/hr IV .Q10H [facility] Last Admin: 11/28/19 05:02 Dose: 1,000 mls Oxacillin Sodium 2 gm/ Sodium (Chloride) 100 mls @ 200 mls/hr IVPB Q4HR [facility] Last Admin: 11/28/19 07:49 Dose: 100 mls Insulin Glargine 20 units/ (Miscellaneous Medication) 0.2 mls @ 0 mls/hr SC Q12HR [facility] Lorazepam (Ativan) 2 mg SLOW IVP Q1H PRN PRN Reason: Breakthrough agitation Stop: 12/26/19 11:28 Last Admin: 11/28/19 10:40 Dose: 2 mg Magnesium Oxide (Magnesium Oxide) 400 mg PO BIDPRN PRN PRN Reason: FOR SERUM MAG 1.4 - 2.0 Magnesium Oxide (Magnesium Oxide) 800 mg PO PRN PRN PRN Reason: FOR SERUM MAG < 1.4 Miscellaneous Medication (Phos-Nak) 1 pkt PO TIDPRN PRN PRN Reason: FOR PHOS LEVEL 1.0 - 1.8 Miscellaneous Medication (Phos-Nak) 2 pkt PO TIDPRN PRN PRN Reason: FOR PHOS LEVEL 0.5 - 1.0 Morphine Sulfate (Morphine) 2 mg SLOW IVP Q1H PRN PRN Reason: BREAKTHROUGH PAIN/Agitation Stop: 12/26/19 11:28 Ccu Electrolyte (Replacement Protocol) 0 each FS PRN PRN PRN Reason: FOR ELECTROLYTE REPLACEMENT Discontinue Previous Narcotic Pain Medications And Benzodiazepines 1 each FS .ONE LEEANN Stop: 12/26/19 11:28 Potassium Chloride (K-Dur) 40 meq PO ASDIR PRN PRN Reason: FOR SERUM K+ 2.5 - 3.5 Potassium Chloride (Klor-Con) 40 meq PER TUBE ASDIR PRN PRN Reason: FOR SERUM K+ 2.5-3.5 Propofol (Diprivan) 1,000 mg IV INF PRN; Protocol PRN Reason: TO ACHIEVE GOAL RASS Stop: 12/26/19 11:28 Last Admin: 11/28/19 05:02 Dose: 1,000 mg Propofol (Diprivan Bolus) 20 mg IV Q5MIN PRN PRN Reason: BREAKTHROUGH AGITATION Stop: 12/26/19 11:28 Vital Signs & Weight: Vital Signs Temp Pulse Pulse Resp BP BP BP 11/28/19 10:21 146 H 11/28/19 09:05 116 H 118/78 115/81 11/28/19 09:00 100.4 F H 11/28/19 08:00 100.4 F H 11/28/19 07:10 27 H 11/28/19 06:48 123 H 19 11/28/19 06:32 117 H 11/28/19 06:00 28 H 11/28/19 04:00 98.9 F 28 H 11/28/19 02:59 130 H 114/75 11/28/19 01:57 29 H Pulse Ox 11/28/19 10:21 11/28/19 09:05 11/28/19 09:00 11/28/19 08:00 11/28/19 07:10 99 11/28/19 06:48 99 11/28/19 06:32 11/28/19 06:00 11/28/19 04:00 11/28/19 02:59 11/28/19 01:57 Admit Weight 295 lb Weight 295 lb 6.711 oz - Physical Exam General: other (S/I) HEENT: normocephaly Neck: midline trachea Cardiac: irregularly regular Lungs: normal breath sounds Neuro: no lateralizing findings Abdomen: active bowel sounds Extremities: 1+ LE edema Skin: clear Musculoskeletal: no pain - Labs Result Diagrams: 11/28/19 04:00 11/28/19 04:00 Troponin/CKMB CK-MB (CK-2) 7.5 ng/mL (0-6.6) H* 11/26/19 02:47 Troponin I 0.303 ng/mL (< 0.028) H* 11/26/19 09:00 - Telemetry Supraventricular conduction: atrial fibrillation - Assessment/Plan Assessment/Plan: 1. Acute on chronic systolic CHF 2. Hyperglycemia 3. Sepsis, MSSA bacteremia. 4. Non ischemic CM 5. Paroxysmal afib 6. AICD in place PLAN; - EF at 40-45% - Continue amiodarone drip. - Continue supportive care. - Will need CELIA eventually to evaluate AICD for endocarditis. - Normal AICD interrogation other than afib with this admission. - Critical Care Time Critical care time (mins): 30
--- NOTE | 2019-11-28 12:59 | PRG ---
DATE OF SERVICE: 11/28/2019 SUBJECTIVE: The patient is seen at bedside, orally intubated. Daughter is also present in the room. Systemic review could not be obtained due to the patient's condition. OBJECTIVE: VITAL SIGNS: Blood pressure 146/82, pulse 130, and oxygen saturation 97%. LABORATORY DATA: BMP unremarkable except creatinine of 6.53, bicarb of 17, calcium of 7.5, blood glucose of 178 on Gluco Cheks. ABG; 7.33, 28, and 112. CBC unremarkable except white blood cells of 12.8 and hemoglobin of 11.3. Chest x-ray, slightly interval improvement of pulmonary edema. IMPRESSION: 1. Acute hypoxemic respiratory failure, status post intubation, possible secondary to fluid overload with acute on chronic systolic congestive heart failure. Continue vent management as per ICU team. 2. Acute renal failure. Creatinine is trending up. 6.53 creatinine today. Follow up Nephrology. 3. Acute on chronic systolic congestive heart failure, status post automated implantable cardioverter-defibrillator placement in the past. Cardiology on board. Ejection fraction of 40% to 45%. 4. Atrial fibrillation with rapid ventricular response. Continue on amiodarone. 5. Sepsis secondary to Staphylococcus bacteremia, unclear source. Continue antibiotics as per Infectious Disease. 6. Hypertension. We will continue monitoring blood pressure. 7. Deep venous thrombosis and gastrointestinal prophylaxis. PLAN: Plan discussed with the daughter and the nursing staff. Job ID: [id number]
[2019-11-28] MEDS: Insulin Glargine 20 UNITS in Pre-Filled Syringe 1 EACH SC SCH (20:05)
[2019-11-29] MEDS: Oxacillin 2 GM in Sodium Chloride 0.9% 100 ML IVPB SCH ×6 (00:45→20:13)
[2019-11-29 04:24] LABS: Anion Gap 17 mmol/L (10-20); BUN (Urea Nitrogen) 56 mg/dL (8.4-25.7); Calc. Creatinine Clearance 20 mL/min (70-130); Calcium 7.3 mg/dL (7.8-10.44); Carbon Dioxide 16 mmol/L (22-29); Chloride 109 mmol/L (98-107); Estimated GFR-MDRD 7; Glucose 215 mg/dL (70-105); Potassium 4.9 mmol/L (3.5-5.1); Sodium 137 mmol/L (136-145)
[2019-11-29 04:34] LABS: Band 3 % (5-11); Hemoglobin 10.2 g/dL (14.0-18.0); Hypochromia SLIGHT = 6-15 cells (100X) (0-5/hpf); Lymphocytes 13 % (21-51); MDiff Complete? YES; Mean Corpuscular HGB CONC 34.3 g/dL (32.0-36.0); Mean Corpuscular Volume 90.4 fL (78.0-98.0); Mean Platelet Volume 10.1 fL (7.4-10.4); Monocytes 5 % (0-10); Neutrophil 79 % (42-75); Platelet Count 97 thou/uL (130-400); Platelet Morphology Comment Appears Decreased; Red Blood Cell (RBC) Count 3.27 mill/uL (4.70-6.10); White Blood Cell (WBC) Count 8.6 thou/uL (4.8-10.8)
[2019-11-29] MEDS: Sodium Chloride 0.9% 1,000 ML IV SCH ×3 (04:38→22:38)
[2019-11-29] MEDS: HUMULIN R 100 UNITS in Sodium Chloride 0.9% 100 ML IVPB SCH (04:38)
[2019-11-29] MEDS: Amiodarone HCl 450 MG in Dextrose 5% in Water 250 ML IVPB SCH (04:39)
[2019-11-29] MEDS: Propofol 1,000 MG/100 ML VIAL IV PRN ×2 (04:42→22:36)
[2019-11-29 06:54] LABS: Actual Bicarbonate (HCO3a) 13.4 mEq/L (22-28); Base Excess (BEa) -11.5 mEq/L (-2.0 to +3.0); CO2 Tension 27.6 mmHg (35.0-45.0); Calcium, Ionized 1.04 mmol/L (1.12-1.30); Carboxyhemoglobin (COHb) 0.4 gm% (0.0-3.0); Hemoglobin (Hb) 11.1 g/dL (14.0-18.0); O2 Tension (PaO2) 110.2 mmHg (80.0-100.0)
[2019-11-29 07:24] LABS: Puncture Site RRAD
[2019-11-29] MEDS ORDERED: Albumin 25% 25 GM/100 ML BOT IVPB SCH (08:14)
[2019-11-29] MEDS: Famotidine/PF 20 mg/2ml Vial SLOW IVP SCH (08:17)
[2019-11-29] MEDS: Heparin 5,000 UNITS/ML VIAL SC SCH ×3 (08:18→20:12)
[2019-11-29] MEDS: Insulin Glargine 20 UNITS in Pre-Filled Syringe 1 EACH SC SCH ×2 (08:19→20:12)
[2019-11-29] MEDS: Hydrocortisone Sod Succ/PF 100 mg/2 ml Vial IVP SCH (08:20)
--- NOTE | 2019-11-29 08:29 | RAD ---
FRONTAL RADIOGRAPH OF CHEST: Date: 11/29/2019 COMPARISON: 11/28/2019. HISTORY: Ventilated patient. FINDINGS: Stable endotracheal tube, nasogastric tube, and right vascular catheter. Stable transvenous pacing de vice. There is pulmonary vascular congestion. There is mild increased linear density in both lung bas es, left greater than right, unchanged when compared to the prior exam. IMPRESSION: Stable appearance of the chest as detailed above. POS: [facility]
--- NOTE | 2019-11-29 08:36 | PRG ---
DATE OF SERVICE: 11/29/2019 SUBJECTIVE: A 54-year-old morbidly obese gentleman, who is intubated on the vent. OBJECTIVE: VITAL SIGNS: Pulse 100, blood pressure 84/65, saturations 100%. I's and O's have been 289 in, 58 out. CHEST: Decreased breath sounds. Bilateral rhonchi. CARDIAC: Normal S1, S2. No gallops. ABDOMEN: No masses. LABORATORY DATA: Glucose 199, he is still on insulin drip. For Staph aureus in his blood, seen by Infectious Disease. Otherwise, his creatinine is 7.8, BUN is 56. His white count is 8000, H and H are 10 and 29, platelet count is 97. ASSESSMENT AND PLAN: 1. Multiorgan failure. 2. Sepsis syndrome. 3. Renal failure. 4. Morbid obesity. 5. Diabetes. Continue to slow hydration. Require dialysis. Insulin continue. I am going to discontinue the hydrocortisone, antibiotics, amiodarone and both. One half hour critical time. Job ID: [id number]
--- NOTE | 2019-11-29 08:52 | PRG ---
DATE OF SERVICE: 11/29/2019 SUBJECTIVE: Mr. Bradley is currently intubated and sedated. He was recently admitted for sepsis and pneumonia. He has underlying nonischemic cardiomyopathy. OBJECTIVE: VITAL SIGNS: Blood pressure 96/60, respirations 20. LUNGS: Rhonchi and rales bilaterally. HEART: Irregularly irregular. ABDOMEN: Soft, nontender, and nondistended. He is obese. EXTREMITIES: 3+ pitting edema. PERTINENT LABORATORY DATA: Hemoglobin 10.0, hematocrit 29.6. Creatinine 7.84. IMPRESSION: 1. Sepsis with methicillin-resistant Staphylococcus aureus bacteremia. 2. Renal failure. 3. Nonischemic cardiomyopathy. 4. New onset atrial fibrillation. RECOMMENDATIONS: At this point, we will continue with supportive care. The patient has continued to be in atrial fibrillation over the weekend and continues to be on amiodarone IV. He is also on subcu heparin. The patient will likely need dialysis. Continue antibiotic therapy and pressure support. He is currently on norepinephrine. Prognosis appears guarded. May need a CELIA once the patient is more stable. At this point, may not change current management. Job ID: [id number]
--- NOTE | 2019-11-29 10:50 | PRG ---
DATE OF SERVICE: 11/27/2019 SUBJECTIVE: The patient was seen and examined at bedside. Remains intubated. OBJECTIVE: GENERAL: This is an obese male, intubated, and seen in ICU. VITAL SIGNS: Temperature 100, pulse 101, respiratory rate 38, and blood pressure 91/70. HEENT: Intubated. CV: S1-S2 heard. RESPIRATORY: Clear. GI: Abdomen is distended. Soft. MUSCULOSKELETAL: 1+ edema. DERMATOLOGIC: No skin rash. NEUROLOGIC: Intubated. LABORATORY DATA: Potassium 4.0, BUN is 34, creatinine is 4.8. ASSESSMENT AND PLAN: 1. Acute kidney injury on chronic kidney disease. Creatinine with worsening and no significant urine output. No acute indication for dialysis. 2. HTN 3. EDema 4. Anemia 5. Resp failure We will continue to monitor. Continue supportive care including IV fluids and antibiotics, and we will follow. If no significant improvement in renal function, might need renal replacement in next 24 to 48 hours, we will follow. Job ID: [id number] MTDD
--- NOTE | 2019-11-29 11:11 | PRG ---
DATE OF SERVICE: 11/29/2019 SUBJECTIVE: A 54-year-old gentleman, being seen for acute kidney injury. The patient remains intubated. OBJECTIVE: See above. The patient is resting. VITAL SIGNS: Afebrile, pulse 71, breathing 16, blood pressure 121/81. GENERAL APPEARANCE AND MENTAL STATUS: Fair. HEAD/NECK: Normocephalic. Atraumatic. EYES: EOMI. No deformity. EARS: Clear. No ulcers. NOSE: Intact. No lesions. MOUTH: Clear. No discharge. THROAT: Clear. No exudate. LUNGS: Clear. No crackles. CARDIAC: S1, S2. No rub. ABDOMEN: Benign. Bowel sounds positive. GENITALIA/RECTUM: Powell absent. BACK/EXTREMITIES: Edema 4+. NEUROLOGICAL: The patient is resting. SKIN: LYMPHATICS: LABORATORY DATA: Reviewed. ASSESSMENT AND PLAN: 1. Stage 5 chronic kidney disease with anuria. We will plan renal replacement therapy for uremia. 2. Hypertension, stable. 3. Anemia, stable. 4. Medication based on GFR appropriate. 5. We will plan for dialysis in the morning and we will consult Surgery for catheter placement. Job ID: [id number]
--- NOTE | 2019-11-29 11:19 | OP ---
DATE OF PROCEDURE: 11/26/2019 PREOPERATIVE DIAGNOSES: Sepsis and respiratory failure, poor IV access. POSTOPERATIVE DIAGNOSES: Sepsis and respiratory failure, poor IV access. PROCEDURE PERFORMED: Right subclavian vein triple-lumen catheter. ANESTHESIA: 1% Xylocaine. DESCRIPTION OF PROCEDURE: With the patient at bedside, right periclavicular area, prepared with ChloraPrep and draped in routine fashion. Seldinger technique used to cannulate the right subclavian vein. J-wire threaded with some difficulty. Dilator was placed and removed, and distal port of the triple-lumen catheter was placed over the J-wire and into the subclavian vein, and catheter was secured with 2 interrupted suture 3-0 silk. J-wire was removed. Each port was aspirated with blood and flushed with saline solution. Postoperative chest x-ray revealed line to be in the right IJ. I would recommend using the line as it is. If this is a difficult line placement, it could be repositioned if necessary, but there is no reason it cannot be used as it is. Job ID: [id number]
--- NOTE | 2019-11-29 11:21 | OP ---
DATE OF PROCEDURE: 11/26/2019 PREOPERATIVE DIAGNOSES: Sepsis, respiratory failure, malposition of right subclavian vein central line into the right IJ. POSTOPERATIVE DIAGNOSES: Sepsis, respiratory failure, malposition of right subclavian vein central line into the right IJ. PROCEDURE PERFORMED: Removal the right subclavian vein catheter and replacement. ANESTHESIA: 1% Xylocaine. DESCRIPTION OF PROCEDURE: With the patient at bedside, the dressings were removed from the recently placed subclavian catheter right. Sutures were removed. The catheter was transected sharply after the area was prepared with ChloraPrep and draped in routine fashion. J-wire threaded access. Trocar catheter induced into the subclavian vein again and J-wire threaded and x-ray at bedside taken and J-wire noted to be in the superior vena cava at this time. Seldinger technique used to place a new central line, secured with 3-0 silk suture. Sterile dressing applied. Each port aspirated blood, flushed with saline solution. Final x-rays revealed good line placement. Job ID: [id number]
--- NOTE | 2019-11-29 13:23 | PDOC.HOSPP ---
- Subjective Encounter Date: 11/29/19 Encounter Time: 12:00 Subjective: On vent, tries to move all extremities - Objective Vital Signs & Weight: Vital Signs (12 hours) Temp Pulse Pulse Pulse Resp BP BP 11/29/19 10:53 99.1 F 11/29/19 10:49 120 H 11/29/19 10:25 110 H 115 H 132/87 11/29/19 08:00 100 F H 11/29/19 07:25 104 H 29 H 11/29/19 07:04 25 H 11/29/19 06:43 116 H 11/29/19 05:56 26 H 11/29/19 04:00 99 F 26 H 11/29/19 02:01 107 H 93/67 11/29/19 01:55 30 H BP Pulse Ox Pulse Ox Pulse Ox 11/29/19 10:53 11/29/19 10:49 11/29/19 10:25 99/70 98 96 11/29/19 08:00 11/29/19 07:25 100 11/29/19 07:04 100 11/29/19 06:43 11/29/19 05:56 11/29/19 04:00 11/29/19 02:01 11/29/19 01:55 Weight Admit Weight 295 lb Weight 295 lb 6.711 oz Most Recent Monitor Data Heart Rate from ECG 118 NIBP 113/67 NIBP BP-Mean 82 Respiration from ECG 26 SpO2 97 I&O: 11/28/19 11/29/19 11/30/19 06:59 06:59 06:59 Intake Total 6750 2899.6 0 Output Total 94 58 10 Balance 6656 2841.6 -10 Result Diagrams: 11/29/19 03:50 11/29/19 03:50 Additional Labs: Accuchecks 11/29/19 11/29/19 11/29/19 12:54 11:52 09:55 POC Glucose 124 H 108 124 H 11/29/19 11/29/19 11/29/19 09:06 08:10 06:50 POC Glucose 140 H 149 H 199 H 11/29/19 11/29/19 11/29/19 05:57 05:15 03:55 POC Glucose 216 H 251 H 215 H 11/29/19 11/29/19 11/29/19 02:58 01:55 00:52 POC Glucose 240 H 219 H 180 H 11/28/19 11/28/19 11/28/19 23:53 22:54 21:58 POC Glucose 195 H 158 H 173 H 11/28/19 11/28/19 11/28/19 20:52 20:04 18:51 POC Glucose 123 H 131 H 139 H 11/28/19 11/28/19 11/28/19 17:48 16:56 16:13 POC Glucose 164 H 151 H 161 H 11/28/19 11/28/19 15:05 13:49 POC Glucose 166 H 176 H Hospitalist ROS - Medication Medications: Active Medications Generic Name Dose Route Start Last Admin Trade Name Freq PRN Reason Stop Dose Admin Acetaminophen 1,000 mg 11/26/19 14:59 11/26/19 15:43 Tylenol Elixir PO 1,000 mg Q6H PRN Administration Headache/Fever or Pain Albuterol/Ipratropium 3 ml 11/26/19 13:00 11/29/19 07:25 Duoneb NEB 3 ml [id number] LEEANN Administration Famotidine 20 mg 11/28/19 09:00 11/29/19 08:17 Pepcid SLOW IVP 20 mg DAILY LEEANN Administration Heparin Sodium (Porcine) 5,000 units 11/26/19 15:00 11/29/19 08:18 Heparin SC 5,000 units TID LEEANN Administration Insulin Human Regular 100 101 mls @ 0 mls/hr 11/26/19 06:15 11/29/19 04:38 units/ Sodium Chloride IVPB 101 mls INF LEEANN Administration Protocol Titrate Amiodarone HCl 450 mg/ 259 mls @ 0 mls/hr 11/26/19 19:45 11/29/19 04:39 Miscellaneous Medication 1 IVPB 259 mls each/ Dextrose/Water INF LEEANN Administration Protocol As Directed Norepinephrine Bitartrate 250 mls @ 0 mls/hr 11/26/19 21:20 11/28/19 01:51 Levophed IVPB 250 mls INF LEEANN Administration Protocol Titrate Sodium Chloride 1,000 mls @ 100 mls/hr 11/27/19 10:30 11/29/19 08:28 Normal Saline 0.9% IV 1,000 mls .Q10H LEEANN Administration Oxacillin Sodium 2 gm/ Sodium 100 mls @ 200 mls/hr 11/27/19 17:00 11/29/19 12 :16 Chloride IVPB 100 mls Q4HR LEEANN Administration Insulin Glargine 20 units/ 0.2 mls @ 0 mls/hr 11/28/19 21:00 11/29/19 08:19 Miscellaneous Medication SC 0.2 mls Q12HR LEEANN Administration Lorazepam 2 mg 11/26/19 11:28 11/28/19 12:52 Ativan SLOW IVP 12/26/19 11:28 2 mg Q1H PRN Administration Breakthrough agitation Propofol 1,000 mg 11/26/19 11:28 11/29/19 04:42 Diprivan IV 12/26/19 11:28 1,000 mg INF PRN Administration TO ACHIEVE GOAL RASS Protocol - Exam General Appearance: ill appearing Eye: PERRL, anicteric sclera ENT: no oropharyngeal lesions, moist mucosa Neck: supple, no JVD Heart: no murmur, irregular Respiratory: no wheezes, rales, rhonchi Gastrointestinal: soft, non-tender, non-distended, normal bowel sounds Extremities: no cyanosis, 2+ LE edema Neurological: cranial nerve grossly intact, no focal deficits Hosp A/P (1) MSSA bacteremia Code(s): R78.81 - BACTEREMIA Status: Acute (2) Sepsis Code(s): A41.9 - SEPSIS, UNSPECIFIED ORGANISM Status: Acute Qualifiers: Sepsis type: methicillin susceptible Staphylococcus aureus Sepsis acute organ dysfunction status: with acute organ dysfunction Severe sepsis acute organ dysfunction type: acute renal failure Severe sepsis shock status: unspecified (3) Acute renal failure Status: Acute (4) Acute on chronic systolic heart failure Code(s): I50.23 - ACUTE ON CHRONIC SYSTOLIC (CONGESTIVE) HEART FAILURE Status : Acute (5) Acute respiratory failure Code(s): J96.00 - ACUTE RESPIRATORY FAILURE, UNSP W HYPOXIA OR HYPERCAPNIA Status: Acute Qualifiers: Respiratory failure complication: hypoxia and hypercapnia Qualified Code(s) : J96.01 - Acute respiratory failure with hypoxia; J96.02 - Acute respiratory failure with hypercapnia (6) Atrial fibrillation with RVR Code(s): I48.91 - UNSPECIFIED ATRIAL FIBRILLATION Status: Acute (7) Diabetes mellitus type 2 in obese Code(s): E11.69 - TYPE 2 DIABETES MELLITUS WITH OTHER SPECIFIED COMPLICATION; E66.9 - OBESITY, UNSPECIFIED Status: Chronic (8) Hypertension Code(s): I10 - ESSENTIAL (PRIMARY) HYPERTENSION Status: Chronic Qualifiers: Hypertension type: essential hypertension Qualified Code(s): I10 - Essential (primary) hypertension (9) NICM (nonischemic cardiomyopathy) Code(s): I42.8 - OTHER CARDIOMYOPATHIES Status: Chronic (10) BRANDON (obstructive sleep apnea) Code(s): G47.33 - OBSTRUCTIVE SLEEP APNEA (ADULT) (PEDIATRIC) Status: Suspected - Plan is on oxacillin for bacteremia will start HD once access is obtained, d/w had multiple organ failures, prognosis guarded morbid obesity with bmi of 43 on amiodarone iv, lantus, nebs prognosis guarded is getting PT on bed weaning per pulm adv
[2019-11-29] MEDS: Lorazepam 2 MG/ML VIAL SLOW IVP PRN (13:42)
[2019-11-29] MEDS ORDERED: Dextrose 50% Abboject 50 ML SYRINGE SLOW IVP PRN (13:57)
[2019-11-29] MEDS ORDERED: Dextrose 5% in Water 1,000 ML IV PRN (13:57)
--- NOTE | 2019-11-29 16:51 | PRG ---
DATE OF SERVICE: 11/29/2019 SUBJECTIVE: Mr. Bradley is mildly sedated, intubated in the ICU. He is starting dialysis tomorrow, has a Trialysis catheter inserted in the right groin region. OBJECTIVE: VITAL SIGNS: T-max 100 recently, blood pressure 130/70, and pulse 109. HEENT: Pupils are constricted and symmetric. Sclerae are white. LUNGS: Coarse breath sounds. HEART: S1 and S2. Regular rate. ABDOMEN: Soft, moderately distended. Powell catheter in place. I's and O's positive until today. Indwelling catheter. Urine output is minimal. LABORATORY DATA: White cell count is down to 8.6, hemoglobin 10.2, and platelets 97,000. Creatinine 7.82 and sodium 137. Methicillin sensitive Staph aureus as noted before. Chest x-ray with stable appearance of chest as detailed and pulmonary vascular congestion noted. Linear densities at the bases. ASSESSMENT AND DISCUSSION: Type 2 diabetes, although it could be type 1 with one prior episode of diabetic ketoacidosis. Cardiomyopathy with atrial fibrillation, automatic implantable cardioverter-defibrillator in place, and methicillin-sensitive Staphylococcus aureus bacteremia with concern for an automatic implantable cardioverter-defibrillator colonization/endocarditis. Sepsis syndrome and acute renal failure, currently on oxacillin, and starting dialysis. Eventual transesophageal echocardiography will be required. Continue monitoring for other sites of involvement including lungs, spine, and joints. Job ID: [id number]
[2019-11-29] MEDS: HumaLOG 300 UNITS/3 ML VIAL SC PRN (17:15)
--- NOTE | 2019-11-29 21:44 | OP ---
DATE OF PROCEDURE: 11/29/2019 PREOPERATIVE DIAGNOSIS: Acute renal failure. POSTOPERATIVE DIAGNOSIS: Acute renal failure. PROCEDURE PERFORMED: Placement of right femoral triple-lumen Trialysis catheter for hemodialysis. ANESTHESIA: Local. INDICATIONS FOR PROCEDURE: This is a 54-year-old man, who was admitted with acute renal failure requiring emergent hemodialysis. I was asked to place a temporary dialysis access to facilitate therapeutics. DESCRIPTION OF PROCEDURE: Informed consent was obtained from the patient's power of billing control clerk. The patient was placed in supine position. The right groin sterilely prepped and draped in usual fashion. The right femoral artery was palpated at the groin. Skin medial to this was anesthetized with 1% lidocaine. An 18-gauge introducer needle was used to cannulate the right femoral vein, returning dark venous blood. Guidewire was passed through the needle and advanced into the right femoral vein without resistance. Needle was withdrawn over the guidewire. A stab incision was made adjacent to the guidewire using 11 scalpel. A dilator was passed over the guidewire dilating the subcutaneous tissues. Dilator was removed and a triple-lumen Trialysis catheter was advanced over the guidewire and placed in the right femoral vein without resistance and advanced down to the hub. The guidewire was removed. Dark venous blood was aspirated from all three ports, which were flushed first with saline followed by heparin. The catheter was secured to the right groin using 3-0 nylon suture at two points. Sterile dressings were applied. The patient tolerated procedure without any apparent complication and remains hemodynamically stable following completion of procedure. No hematoma is noted at the site. Job ID: [id number]
[2019-11-30] MEDS: Oxacillin 2 GM in Sodium Chloride 0.9% 100 ML IVPB SCH ×6 (00:36→20:45)
[2019-11-30] MEDS: Amiodarone HCl 450 MG in Dextrose 5% in Water 250 ML IVPB SCH ×2 (00:38→17:07)
[2019-11-30] MEDS: HumaLOG 300 UNITS/3 ML VIAL SC PRN ×5 (00:41→23:46)
[2019-11-30] MEDS: Propofol 1,000 MG/100 ML VIAL IV PRN ×5 (03:05→21:37)
[2019-11-30 04:50] LABS: #Eosinphils 0.1 thou/uL (0.0-0.7); #Lymphocytes 1.2 thou/uL (1.20-3.40); #Monocytes 0.7 thou/uL (0.11-0.59); %Basophils 0.2 % (0.0-1.0); %Eosinophils 0.8 % (0.0-10.0); %Lymphocytes 16.6 % (21.0-51.0); %Monocytes 9.7 % (0.0-10.0); %Neutrophils 72.7 % (42.0-75.0); Hemoglobin 10.1 g/dL (14.0-18.0); Mean Corpuscular HGB CONC 34.5 g/dL (32.0-36.0); Mean Corpuscular Hemoglobin 31.7 pg (27.0-31.0); Mean Corpuscular Volume 91.8 fL (78.0-98.0); Mean Platelet Volume 9.1 fL (7.4-10.4); Platelet Count 105 thou/uL (130-400); RBC Distribution Width 13.2 % (11.5-14.5); Red Blood Cell (RBC) Count 3.19 mill/uL (4.70-6.10); White Blood Cell (WBC) Count 6.9 thou/uL (4.8-10.8)
[2019-11-30 05:11] LABS: Anion Gap 17 mmol/L (10-20); BUN (Urea Nitrogen) 69 mg/dL (8.4-25.7); Calc. Creatinine Clearance 18 mL/min (70-130); Calcium 7.2 mg/dL (7.8-10.44); Carbon Dioxide 15 mmol/L (22-29); Chloride 109 mmol/L (98-107); Estimated GFR-MDRD 6; Glucose 212 mg/dL (70-105); Potassium 5.2 mmol/L (3.5-5.1); Sodium 136 mmol/L (136-145)
[2019-11-30 06:52] LABS: Actual Bicarbonate (HCO3a) 14.1 mEq/L (22-28); Base Excess (BEa) -12.5 mEq/L (-2.0 to +3.0); CO2 Tension 34.8 mmHg (35.0-45.0); Calcium, Ionized 1.02 mmol/L (1.12-1.30); Carboxyhemoglobin (COHb) 0.5 gm% (0.0-3.0); Hemoglobin (Hb) 10.4 g/dL (14.0-18.0); O2 Tension (PaO2) 85.7 mmHg (80.0-100.0); Potassium - ABG Lab 5.27 mmol/L (3.70-5.30)
[2019-11-30 08:08] LABS: Puncture Site RRA; pH, Arterial 7.23 (7.35-7.45)
--- NOTE | 2019-11-30 10:03 | PRG ---
DATE OF SERVICE: 11/30/2019 SUBJECTIVE: A 54-year-old gentleman, being seen for acute kidney injury. The patient remains anuric and intubated. OBJECTIVE: CONSTITUTIONAL: The patient is resting. VITAL SIGNS: Pulse 78, breathing 16, and blood pressure 110/65. GENERAL APPEARANCE AND MENTAL STATUS: Fair. HEAD/NECK: Normocephalic. Atraumatic. EYES: EOMI. No deformity. EARS: Clear. No ulcers. NOSE: Intact. No lesions. MOUTH: Clear. No discharge. THROAT: Clear. No exudate. LUNGS: Clear. No crackles. CARDIAC: S1, S2. No rub. ABDOMEN: Benign. Bowel sounds positive. GENITALIA/RECTUM: Powell absent. BACK/EXTREMITIES: Edema 0+. NEUROLOGICAL: The patient is intubated. SKIN: LYMPHATICS: LABORATORY DATA: Labs reviewed. ASSESSMENT AND PLAN: Chronic kidney disease stage 6, plan dialysis. Acidosis, plan dialysis. Hyperkalemia, plan dialysis. Anuria and volume overload with hypotension, we will hold off on ultrafiltration as blood pressure tolerates. Overall prognosis is poor. This was discussed with the patient's daughter. Job ID: [id number]
[2019-11-30] MEDS: Insulin Glargine 20 UNITS in Pre-Filled Syringe 1 EACH SC SCH ×2 (10:09→20:45)
[2019-11-30] MEDS: Sodium Chloride 0.9% 1,000 ML IV SCH ×2 (10:09→20:11)
[2019-11-30] MEDS: Heparin 5,000 UNITS/ML VIAL SC SCH ×3 (10:09→20:45)
[2019-11-30] MEDS: Famotidine/PF 20 mg/2ml Vial SLOW IVP SCH (10:09)
--- NOTE | 2019-11-30 10:17 | PRG ---
DATE OF SERVICE: 11/30/2019 SUBJECTIVE: This morning, he is sedated, ventilated, worsening renal function. OBJECTIVE: VITAL SIGNS: Temperature 98, pulse 78, blood pressure 110/65, respirations 30. Sats 97%. His I's and O's have been 4041 in and 83 out. Positive balance. He has a generalized anasarca. CHEST: Decreased breath sounds. No wheezing. CARDIAC: Normal S1, S2, no gallops. ABDOMEN: No masses. LABORATORY DATA: Creatinine is 8, potassium 5.2, BUN 65, PO2 is 85, pCO2 34, pH 7.23, rate of 14. White count 6000, platelet count normal. IMPRESSION: Sepsis syndrome, staphylococcus, respiratory failure, renal failure, morbid obesity, sleep apnea, diabetes. PLAN: Antibiotics as per Infectious Disease. He is going to be dialyzed today. Hopefully, we can then slowly wean him off the vent. Otherwise, he is going to require a trach and a PEG. In the meantime, continue nutrition PT. One-half hour of critical time. Job ID: [id number]
[2019-11-30 12:38] LABS: HBSAB Concentration 1.64 mIU/mL; HBSAg Index 0.23 S/CO (0-0.99); Hep B Core Total Ab Non-Reactive (NonReactive); Hep B Core Total Index 0.12 S/CO (0-0.79); Hep B Surf AB Non-Reactive (NonReactive); Hep B Surf Ag Non-Reactive S/CO (NonReactive)
[2019-11-30] MEDS ORDERED: Heparin 10,000 UNITS/ 10 ML VIAL ONE (13:15)
--- NOTE | 2019-11-30 15:11 | PDOC.HOSPP ---
- Subjective Encounter Date: 11/30/19 Encounter Time: 13:00 Subjective: is getting initiated on HD sedated, on vent - Objective Vital Signs & Weight: Vital Signs (12 hours) Temp Pulse Resp BP Pulse Ox 11/30/19 14:00 26 H 11/30/19 12:00 25 H 11/30/19 11:00 98.2 F 11/30/19 10:30 80 104/63 11/30/19 10:00 26 H 11/30/19 08:00 28 H 97 11/30/19 07:00 98.3 F 11/30/19 06:42 81 108/62 11/30/19 06:37 80 30 H 96 11/30/19 06:00 28 H 11/30/19 04:00 98.2 F 26 H Weight Admit Weight 295 lb Weight 298 lb 1.039 oz Most Recent Monitor Data Heart Rate from ECG 83 NIBP 105/65 NIBP BP-Mean 78 Respiration from ECG 26 SpO2 98 I&O: 11/29/19 11/30/19 12/01/19 06:59 06:59 06:59 Intake Total 2899.6 4041 200 Output Total 58 83 25 Balance 2841.6 3958 175 Result Diagrams: 11/30/19 04:00 11/30/19 04:00 Additional Labs: Accuchecks 11/30/19 11/30/19 11/30/19 12:14 05:30 00:43 POC Glucose 224 H 180 H 211 H 11/29/19 17:16 POC Glucose 171 H Hospitalist ROS - Medication Medications: Active Medications Generic Name Dose Route Start Last Admin Trade Name Zehra PRN Reason Stop Dose Admin Acetaminophen 1,000 mg 11/26/19 14:59 11/26/19 15:43 Tylenol Elixir PO 1,000 mg Q6H PRN Administration Headache/Fever or Pain Albuterol/Ipratropium 3 ml 11/26/19 13:00 11/30/19 06:37 Duoneb NEB 3 ml [id number] LEEANN Administration Famotidine 20 mg 11/28/19 09:00 11/30/19 10:09 Pepcid SLOW IVP 20 mg DAILY LEEANN Administration Heparin Sodium (Porcine) 5,000 units 11/26/19 15:00 11/30/19 10:09 Heparin SC 5,000 units TID LEEANN Administration Amiodarone HCl 450 mg/ 259 mls @ 0 mls/hr 11/26/19 19:45 11/30/19 00:38 Miscellaneous Medication 1 IVPB 259 mls each/ Dextrose/Water INF LEEANN Administration Protocol As Directed Norepinephrine Bitartrate 250 mls @ 0 mls/hr 11/26/19 21:20 11/28/19 01:51 Levophed IVPB 250 mls INF LEEANN Administration Protocol Titrate Sodium Chloride 1,000 mls @ 100 mls/hr 11/27/19 10:30 11/30/19 10:09 Normal Saline 0.9% IV 1,000 mls .Q10H LEEANN Administration Oxacillin Sodium 2 gm/ Sodium 100 mls @ 200 mls/hr 11/27/19 17:00 11/30/19 13 :08 Chloride IVPB 100 mls Q4HR LEEANN Administration Insulin Glargine 20 units/ 0.2 mls @ 0 mls/hr 11/28/19 21:00 11/30/19 10:09 Miscellaneous Medication SC 0.2 mls Q12HR LEEANN Administration Insulin Human Lispro 0 units 11/29/19 13:57 11/30/19 12:15 Humalog SC 4 units .MODERATE SLIDING SC PRN Administration Moderate Correctional Scale Lorazepam 2 mg 11/26/19 11:28 11/29/19 13:42 Ativan SLOW IVP 12/26/19 11:28 2 mg Q1H PRN Administration Breakthrough agitation Propofol 1,000 mg 11/26/19 11:28 11/30/19 12:43 Diprivan IV 12/26/19 11:28 1,000 mg INF PRN Administration TO ACHIEVE GOAL RASS Protocol - Exam General Appearance: ill appearing Eye: PERRL, anicteric sclera ENT: no oropharyngeal lesions, moist mucosa Neck: supple, no JVD Heart: RRR, no murmur Respiratory: no wheezes, rales, rhonchi Gastrointestinal: soft, normal bowel sounds, no guarding, no rigidity, distended Extremities: no cyanosis, 2+ LE edema Neurological: cranial nerve grossly intact, no focal deficits Hosp A/P (1) MSSA bacteremia Code(s): R78.81 - BACTEREMIA Status: Acute (2) Sepsis Code(s): A41.9 - SEPSIS, UNSPECIFIED ORGANISM Status: Acute Qualifiers: Sepsis type: methicillin susceptible Staphylococcus aureus Sepsis acute organ dysfunction status: with acute organ dysfunction Severe sepsis acute organ dysfunction type: acute renal failure Severe sepsis shock status: unspecified (3) Acute renal failure Status: Acute (4) Acute on chronic systolic heart failure Code(s): I50.23 - ACUTE ON CHRONIC SYSTOLIC (CONGESTIVE) HEART FAILURE Status : Acute (5) Acute respiratory failure Code(s): J96.00 - ACUTE RESPIRATORY FAILURE, UNSP W HYPOXIA OR HYPERCAPNIA Status: Acute Qualifiers: Respiratory failure complication: hypoxia and hypercapnia Qualified Code(s) : J96.01 - Acute respiratory failure with hypoxia; J96.02 - Acute respiratory failure with hypercapnia (6) Atrial fibrillation with RVR Code(s): I48.91 - UNSPECIFIED ATRIAL FIBRILLATION Status: Acute (7) Diabetes mellitus type 2 in obese Code(s): E11.69 - TYPE 2 DIABETES MELLITUS WITH OTHER SPECIFIED COMPLICATION; E66.9 - OBESITY, UNSPECIFIED Status: Chronic (8) Hypertension Code(s): I10 - ESSENTIAL (PRIMARY) HYPERTENSION Status: Chronic Qualifiers: Hypertension type: essential hypertension Qualified Code(s): I10 - Essential (primary) hypertension (9) NICM (nonischemic cardiomyopathy) Code(s): I42.8 - OTHER CARDIOMYOPATHIES Status: Chronic (10) BRANDON (obstructive sleep apnea) Code(s): G47.33 - OBSTRUCTIVE SLEEP APNEA (ADULT) (PEDIATRIC) Status: Suspected - Plan is on oxacillin for bacteremia Has started on HD, has right femoral trialysis cath has multiple organ failures, prognosis guarded morbid obesity with bmi of 43 on amiodarone iv, lantus, nebs prognosis guarded is getting PT on bed weaning per pulm adv CELIA prior to exutabation to r/o veg on valves/aicd leads.
[2019-12-01] MEDS: Oxacillin 2 GM in Sodium Chloride 0.9% 100 ML IVPB SCH ×6 (00:27→20:19)
[2019-12-01] MEDS: Propofol 1,000 MG/100 ML VIAL IV PRN ×6 (02:20→22:39)
[2019-12-01 03:14] LABS: #Eosinphils 0.2 thou/uL (0.0-0.7); #Lymphocytes 0.7 thou/uL (1.20-3.40); #Monocytes 0.7 thou/uL (0.11-0.59); #Neutrophils 5.4 thou/uL (1.40-6.50); %Basophils 0.6 % (0.0-1.0); %Eosinophils 2.1 % (0.0-10.0); %Lymphocytes 9.5 % (21.0-51.0); %Monocytes 10.1 % (0.0-10.0); %Neutrophils 77.5 % (42.0-75.0); Hemoglobin 9.9 g/dL (14.0-18.0); Mean Corpuscular HGB CONC 34.2 g/dL (32.0-36.0); Mean Corpuscular Volume 90.8 fL (78.0-98.0); Mean Platelet Volume 8.9 fL (7.4-10.4); Platelet Count 146 thou/uL (130-400); RBC Distribution Width 13.6 % (11.5-14.5)
[2019-12-01 03:38] LABS: Anion Gap 20 mmol/L (10-20); BUN (Urea Nitrogen) 66 mg/dL (8.4-25.7); Calc. Creatinine Clearance 20 mL/min (70-130); Calcium 7.5 mg/dL (7.8-10.44); Carbon Dioxide 15 mmol/L (22-29); Chloride 107 mmol/L (98-107); Estimated GFR-MDRD 7; Glucose 179 mg/dL (70-105); Potassium 4.7 mmol/L (3.5-5.1); Sodium 137 mmol/L (136-145)
[2019-12-01] MEDS: Sodium Chloride 0.9% 1,000 ML IV SCH ×3 (04:58→23:39)
[2019-12-01] MEDS: HumaLOG 300 UNITS/3 ML VIAL SC PRN ×2 (05:03→11:40)
[2019-12-01 07:26] LABS: Base Excess (BEa) -9.9 mEq/L (-2.0 to +3.0); CO2 Tension 35.1 mmHg (35.0-45.0); Calcium, Ionized 1.01 mmol/L (1.12-1.30); Carboxyhemoglobin (COHb) 0.5 gm% (0.0-3.0); Hemoglobin (Hb) 10.7 g/dL (14.0-18.0); O2 Tension (PaO2) 79.1 mmHg (80.0-100.0); Potassium - ABG Lab 5.08 mmol/L (3.70-5.30); pH, Arterial 7.28 (7.35-7.45)
[2019-12-01 07:27] LABS: ALV-art Gradient 162.225 (0-20); Puncture Site RRA
[2019-12-01] MEDS: Famotidine/PF 20 mg/2ml Vial SLOW IVP SCH (08:01)
[2019-12-01] MEDS: Insulin Glargine 20 UNITS in Pre-Filled Syringe 1 EACH SC SCH ×2 (08:02→20:18)
[2019-12-01] MEDS: Heparin 5,000 UNITS/ML VIAL SC SCH ×3 (08:02→20:19)
--- NOTE | 2019-12-01 08:05 | RAD ---
Portable frontal chest radiograph: 12/01/2019 COMPARISON: 11/29/2019 HISTORY: Ventilated patient FINDINGS: Stable endotracheal tube, nasogastric tube, and multilead transvenous pacing device. Stable enlargement of the cardiac silhouette. Stable right vascular catheter. Pulmonary vascular congestion is again noted with perihilar linear interstitial density, unchanged. H azy nonspecific left basilar airspace disease again noted. Linear density in the right base persists, which may signify infiltrate or volume loss. IMPRESSION: No significant interval change.
[2019-12-01] MEDS ORDERED: Heparin 10,000 UNITS/ 10 ML VIAL ONE (08:24)
--- NOTE | 2019-12-01 08:36 | PRG ---
DATE OF SERVICE: 12/01/2019 SUBJECTIVE: A 54-year-old gentleman being seen for acute kidney injury. The patient remains anuric. OBJECTIVE: CONSTITUTIONAL: The patient is resting. VITAL SIGNS: Afebrile, pulse 75, breathing 16, blood pressure 130/75. GENERAL APPEARANCE AND MENTAL STATUS: Fair. HEAD/NECK: Normocephalic. Atraumatic. EYES: EOMI. No deformity. EARS: Clear. No ulcers. NOSE: Intact. No lesions. MOUTH: Clear. No discharge. THROAT: Clear. No exudate. LUNGS: Clear. No crackles. CARDIAC: S1, S2. No rub. ABDOMEN: Benign. Bowel sounds positive. GENITALIA/RECTUM: Powell absent. BACK/EXTREMITIES: Edema 0+. NEUROLOGICAL: Alert and motor intact. SKIN: LYMPHATICS: LABORATORY DATA: Hemoglobin 9.5. ASSESSMENT AND PLAN: 1. Stage 6 chronic kidney disease, plan dialysis. 2. Hypertension, stable. 3. Anemia, stable. 4. Medication based on GFR appropriate. 5. Sepsis. The patient is off pressors. Job ID: [id number]
--- NOTE | 2019-12-01 08:54 | PRG ---
DATE OF SERVICE: 12/01/2019 SUBJECTIVE: Vitor Bradley, this morning, remains intubated in the vent, though when his sedation was withheld, nurse said it is appropriate. OBJECTIVE: VITAL SIGNS: Temperature 98, pulse 90, blood pressure 123\76 saturations 100%. I's and O's have been positive with minimal urine output. CHEST: Anterior rhonchi. CARDIAC: Normal S1 and S2. No gallops. ABDOMEN: No masses. LABORATORY DATA: White count 7000, H and H 9 and 29, platelet count is normal. PO2 is 79, pCO2 41 ph7.43. Creatinine is elevated. ASSESSMENT: 1. Acute renal failure. 2. Hypotension, shock. 3. Sepsis. 4. Respiratory failure. 5. Morbid obesity. 6. Sleep apnea. 7. Diabetes. PLAN: Continue aggressive dialysis. Supportive care, Nutrition, PT. Still not weanable, therefore on the vent. We will follow. One-half hour critical time. Job ID: [id number] MTDD
--- NOTE | 2019-12-01 09:33 | PRG ---
DATE OF SERVICE: 12/01/2019 SUBJECTIVE: Mr. Bradley's status is unchanged. He remains intubated sedated. He is not on pressors. Blood pressure and heart rate appear stable. OBJECTIVE: VITAL SIGNS: Blood pressure 126/65, pulse 93, temperature afebrile. LUNGS: Minimal crackles bilaterally. HEART: Regular rate and rhythm. ABDOMEN: Distended. Decreased bowel sounds. EXTREMITIES: 2 to 3+ pitting edema. Mild livedo reticularis present. PERTINENT LABORATORY DATA: Hemoglobin 9.9, creatinine 8.1, which is down from 8.87. IMPRESSION: 1. Sepsis. 2. Nonischemic cardiomyopathy. 3. Renal failure. 4. Respiratory failure. RECOMMENDATIONS: 1. Continue current support. 2. Currently undergoing dialysis. 3. Recommended CELIA when the patient appears more stable. We would recommend CELIA once the patient is close to extubation. 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 4. Continue IV amiodarone; atrial fibrillation likely due to underlying condition. Job ID: [id number]
[2019-12-01] MEDS: Amiodarone HCl 450 MG in Dextrose 5% in Water 250 ML IVPB SCH (10:19)
--- NOTE | 2019-12-01 13:07 | PDOC.HOSPP ---
- Subjective Encounter Date: 12/01/19 Encounter Time: 10:45 Subjective: Patient seen and examined. pt is on ventilator, getting HD,. No overnight events - Objective Vital Signs & Weight: Vital Signs (12 hours) Temp Pulse Resp BP Pulse Ox 12/01/19 12:03 92 127/70 12/01/19 12:00 27 H 12/01/19 11:00 99.0 F 12/01/19 10:00 23 H 12/01/19 08:00 34 H 98 12/01/19 07:00 98.9 F 12/01/19 06:45 86 109/73 12/01/19 06:40 86 26 H 97 12/01/19 06:00 23 H 12/01/19 04:00 98.7 F 25 H 12/01/19 02:00 33 H Weight Admit Weight 295 lb Weight 294 lb 15.656 oz Most Recent Monitor Data Heart Rate from ECG 93 NIBP 127/70 NIBP BP-Mean 89 Respiration from ECG 32 SpO2 96 I&O: 11/30/19 12/01/19 12/02/19 06:59 06:59 06:59 Intake Total 4041 4469.9 130 Output Total 83 120 5 Balance 3958 4349.9 125 Result Diagrams: 12/01/19 03:11 12/01/19 03:11 Additional Labs: Accuchecks 12/01/19 12/01/19 11/30/19 11:41 05:06 23:47 POC Glucose 173 H 173 H 177 H 11/30/19 17:08 POC Glucose 163 H Radiology Reviewed by me: Yes EKG Reviewed by me: Yes Hospitalist ROS - Review of Systems ROS unobtainable: due to endotracheal tube - Medication Medications: Active Medications Generic Name Dose Route Start Last Admin Trade Name Freq PRN Reason Stop Dose Admin Acetaminophen 1,000 mg 11/26/19 14:59 11/26/19 15:43 Tylenol Elixir PO 1,000 mg Q6H PRN Administration Headache/Fever or Pain Albuterol/Ipratropium 3 ml 11/26/19 13:00 12/01/19 06:40 Duoneb NEB 3 ml [id number] LEEANN Administration Famotidine 20 mg 11/28/19 09:00 12/01/19 08:01 Pepcid SLOW IVP 20 mg DAILY LEEANN Administration Heparin Sodium (Porcine) 5,000 units 11/26/19 15:00 12/01/19 08:02 Heparin SC 5,000 units TID LEEANN Administration Amiodarone HCl 450 mg/ 259 mls @ 0 mls/hr 11/26/19 19:45 12/01/19 10:19 Miscellaneous Medication 1 IVPB 259 mls each/ Dextrose/Water INF LEEANN Administration Protocol As Directed Norepinephrine Bitartrate 250 mls @ 0 mls/hr 11/26/19 21:20 11/28/19 01:51 Levophed IVPB 250 mls INF LEEANN Administration Protocol Titrate Sodium Chloride 1,000 mls @ 100 mls/hr 11/27/19 10:30 12/01/19 11:43 Normal Saline 0.9% IV 1,000 mls .Q10H LEEANN Administration Oxacillin Sodium 2 gm/ Sodium 100 mls @ 200 mls/hr 11/27/19 17:00 12/01/19 12 :03 Chloride IVPB 100 mls Q4HR LEEANN Administration Insulin Glargine 20 units/ 0.2 mls @ 0 mls/hr 11/28/19 21:00 12/01/19 08:02 Miscellaneous Medication SC 0.2 mls Q12HR LEEANN Administration Insulin Human Lispro 0 units 11/29/19 13:57 12/01/19 11:40 Humalog SC 2 units .MODERATE SLIDING SC PRN Administration Moderate Correctional Scale Lorazepam 2 mg 11/26/19 11:28 11/29/19 13:42 Ativan SLOW IVP 12/26/19 11:28 2 mg Q1H PRN Administration Breakthrough agitation Propofol 1,000 mg 11/26/19 11:28 12/01/19 10:02 Diprivan IV 12/26/19 11:28 1,000 mg INF PRN Administration TO ACHIEVE GOAL RASS Protocol - Exam General Appearance: NAD General - other findings: intubated Eye: PERRL ENT: normocephalic atraumatic Neck: supple, symmetric Heart: no murmur, irregular Respiratory - other findings: coarse sound Gastrointestinal: soft Gastrointestinal - other findings: morbid obesity+ Extremities: 2+ LE edema Skin: normal turgor Hosp A/P (1) Acute respiratory failure with hypoxia Code(s): J96.01 - ACUTE RESPIRATORY FAILURE WITH HYPOXIA Status: Acute (2) Acute renal failure Status: Acute Qualifiers: Acute renal failure type: with acute tubular necrosis Qualified Code(s): N17.0 - Acute kidney failure with tubular necrosis (3) MSSA bacteremia Code(s): R78.81 - BACTEREMIA Status: Acute (4) Sepsis Code(s): A41.9 - SEPSIS, UNSPECIFIED ORGANISM Status: Acute Qualifiers: Sepsis type: methicillin susceptible Staphylococcus aureus Sepsis acute organ dysfunction status: with acute organ dysfunction Severe sepsis acute organ dysfunction type: acute renal failure Severe sepsis shock status: unspecified (5) Acute on chronic systolic heart failure Code(s): I50.23 - ACUTE ON CHRONIC SYSTOLIC (CONGESTIVE) HEART FAILURE Status : Acute (6) Atrial fibrillation with RVR Code(s): I48.91 - UNSPECIFIED ATRIAL FIBRILLATION Status: Acute (7) Diabetes mellitus type 2 in obese Code(s): E11.69 - TYPE 2 DIABETES MELLITUS WITH OTHER SPECIFIED COMPLICATION; E66.9 - OBESITY, UNSPECIFIED Status: Chronic (8) Hypertension Code(s): I10 - ESSENTIAL (PRIMARY) HYPERTENSION Status: Chronic Qualifiers: Hypertension type: essential hypertension Qualified Code(s): I10 - Essential (primary) hypertension (9) NICM (nonischemic cardiomyopathy) Code(s): I42.8 - OTHER CARDIOMYOPATHIES Status: Chronic (10) BRANDON (obstructive sleep apnea) Code(s): G47.33 - OBSTRUCTIVE SLEEP APNEA (ADULT) (PEDIATRIC) Status: Suspected (11) Anemia, normocytic normochromic Code(s): D64.9 - ANEMIA, UNSPECIFIED Status: Chronic - Plan old records reviewed/req, continue antibiotics, respiratory therapy 12/01/19 HD initiated, today day 2nd continue IV antibiotic for MSSA bacteremia pt is fluid overloaded, remove fluid as tolerated, now off levophed on amiodaron and rate controlled ventilator as per pulmonary medication reviewed and continue to provide symptomatic care and supportive care
[2019-12-01] MEDS ORDERED: Sterile Water 10 ML VIAL IVP SCH (17:45)
[2019-12-01] MEDS ORDERED: Activase 2 MG VIAL CATH SCH (17:45)
--- NOTE | 2019-12-01 18:02 | PRG ---
DATE OF SERVICE: 12/01/2019 SUBJECTIVE: The patient is still intubated in the ICU. OBJECTIVE: VITAL SIGNS: He has been afebrile of late. Blood pressure 117/72, pulse 87, sedated. I's and O's are still quite positive. : Indwelling Powell catheter. HEENT: Periorbital edema. Pupils are constricted. LUNGS: With coarse breath sounds. HEART: S1 and S2. Regular rate. ABDOMEN: Moderately distended. LABORATORY DATA: Chest x-ray with ET tube and NG tube, transvenous pacer device, cardiac silhouette enlargement, pulmonary vascular congestion, hazy left basilar airspace disease. White cell count is down to 7.0, hemoglobin 9.9, platelets 146. Creatinine is up to 8.18. ASSESSMENT AND DISCUSSION: Type 2 diabetes, cardiomyopathy with atrial fibrillation, automatic implantable cardioverter-defibrillator implantation, methicillin-sensitive Staphylococcus aureus bacteremia and concern for automatic implantable cardioverter-defibrillator lead colonization/endocarditis. The patient has started hemodialysis for management of volume overload and uremia in view of his acute renal failure. He will continue on oxacillin, which does not require adjustment for renal function. Hopefully, we will see turnaround in his renal function. Job ID: [id number]
[2019-12-02] MEDS: Amiodarone HCl 450 MG in Dextrose 5% in Water 250 ML IVPB SCH ×2 (01:24→16:01)
[2019-12-02] MEDS: Oxacillin 2 GM in Sodium Chloride 0.9% 100 ML IVPB SCH ×7 (01:24→20:33)
[2019-12-02 04:39] LABS: #Eosinphils 0.3 thou/uL (0.0-0.7); #Monocytes 1.1 thou/uL (0.11-0.59); #Neutrophils 7.3 thou/uL (1.40-6.50); %Basophils 0.5 % (0.0-1.0); %Eosinophils 3.3 % (0.0-10.0); %Lymphocytes 10.6 % (21.0-51.0); %Monocytes 11.3 % (0.0-10.0); %Neutrophils 74.3 % (42.0-75.0); Hemoglobin 10.1 g/dL (14.0-18.0); Mean Corpuscular HGB CONC 34.1 g/dL (32.0-36.0); Mean Corpuscular Hemoglobin 30.8 pg (27.0-31.0); Mean Corpuscular Volume 90.2 fL (78.0-98.0); Mean Platelet Volume 8.4 fL (7.4-10.4); Platelet Count 254 thou/uL (130-400); RBC Distribution Width 13.7 % (11.5-14.5); Red Blood Cell (RBC) Count 3.29 mill/uL (4.70-6.10); White Blood Cell (WBC) Count 9.9 thou/uL (4.8-10.8)
[2019-12-02 05:00] LABS: Anion Gap 21 mmol/L (10-20); BUN (Urea Nitrogen) 65 mg/dL (8.4-25.7); Calc. Creatinine Clearance 22 mL/min (70-130); Calcium 7.6 mg/dL (7.8-10.44); Carbon Dioxide 17 mmol/L (22-29); Chloride 103 mmol/L (98-107); Estimated GFR-MDRD 8; Glucose 161 mg/dL (70-105); Potassium 4.7 mmol/L (3.5-5.1); Sodium 136 mmol/L (136-145)
[2019-12-02] MEDS: Propofol 1,000 MG/100 ML VIAL IV PRN ×3 (05:46→22:05)
[2019-12-02] MEDS: HumaLOG 300 UNITS/3 ML VIAL SC PRN (06:44)
[2019-12-02 07:00] LABS: Actual Bicarbonate (HCO3a) 18.5 mEq/L (22-28); CO2 Tension 37.1 mmHg (35.0-45.0); Calcium, Ionized 0.99 mmol/L (1.12-1.30); Carboxyhemoglobin (COHb) 0.2 gm% (0.0-3.0); Hemoglobin (Hb) 10.4 g/dL (14.0-18.0); O2 Tension (PaO2) 71.7 mmHg (80.0-100.0); Potassium - ABG Lab 4.72 mmol/L (3.70-5.30); pH, Arterial 7.32 (7.35-7.45)
[2019-12-02 07:13] LABS: ALV-art Gradient 167.125 (0-20); Puncture Site RRA
--- NOTE | 2019-12-02 08:14 | RAD ---
XR Chest 1 View Portable HISTORY: Respiratory failure COMPARISON: Previous day FINDINGS: There is minimal improvement in the aeration of the right lung since the previous day's exa m. The remainder the exam is otherwise stable.
--- NOTE | 2019-12-02 09:00 | PRG ---
DATE OF SERVICE: 12/02/2019 SUBJECTIVE: Vitor Bradley remains intubated in the vent, day #6, has been dialyzed. OBJECTIVE: VITAL SIGNS: His pulse is 87, blood pressure 131/71, saturations 100%, and respirations 28. GENERAL: He is sedated. CHEST: Decreased breath sounds. No wheezing. CARDIAC: Normal S1 and S2. No gallops. ABDOMEN: No masses. LABORATORY DATA: White count is 9,000, H and H 10 and 29, and platelet count 254. A pO2 of 71, pCO2 of 30, and pH of 7.32, rate 40%. Creatinine is 7.3. ASSESSMENT: 1. Acute tubular necrosis, sepsis syndrome, and staph. 2. Respiratory failure, morbid obesity, and diabetes. PLAN: Consideration for therapeutic bronchoscopy will be made today. He has had significant amount of coughing spells. Lot of secretions. I am going to add a little bit of Pulmicort to his present neb treatment. Otherwise; nutrition, PT, and supportive care. Hopefully, we can try and wean him off the vent in the next several days. One-half hour of critical care time. Job ID: [id number]
--- NOTE | 2019-12-02 09:16 | PRG ---
DATE OF SERVICE: 12/02/2019 SUBJECTIVE: Mr. Bradley's status is unchanged. He remains intubated and sedated. He is currently undergoing dialysis. OBJECTIVE: VITAL SIGNS: Blood pressure 144/81, pulse 92, and temperature afebrile. LUNGS: Clear to auscultation. HEART: Regular rate and rhythm. ABDOMEN: Obese, decreased bowel sounds. EXTREMITIES: 2 to 3+ pitting edema. PERTINENT LABORATORY DATA: Hemoglobin 10.0. Creatinine 7.34. IMPRESSION: 1. Sepsis. 2. Renal failure. 3. Bacteremia. 4. Nonischemic cardiomyopathy. 5. Status post implantable cardiac defibrillator. RECOMMENDATIONS: 1. Continue supportive care. 2. Recommend CELIA just prior to extubation. We would like to have more fluid withdrawn prior to proceeding with intubation. We would like to assess his leads for infection. Job ID: [id number]
[2019-12-02] MEDS: Sodium Chloride 0.9% 1,000 ML IV SCH ×2 (09:30→17:19)
[2019-12-02] MEDS: Famotidine/PF 20 mg/2ml Vial SLOW IVP SCH (09:43)
[2019-12-02] MEDS: Heparin 5,000 UNITS/ML VIAL SC SCH ×3 (09:44→20:32)
[2019-12-02] MEDS: Insulin Glargine 20 UNITS in Pre-Filled Syringe 1 EACH SC SCH ×2 (09:45→20:32)
--- NOTE | 2019-12-02 10:00 | PRG ---
DATE OF SERVICE: 12/02/2019 SUBJECTIVE: A 54-year-old gentleman, being seen for end-stage renal disease. The patient is intubated. OBJECTIVE: The patient is resting. VITAL SIGNS: Afebrile. Pulse 75, breathing 16, blood pressure 144/81. Awake, alert, in no acute distress. GENERAL APPEARANCE AND MENTAL STATUS: Fair. HEAD/NECK: Normocephalic. Atraumatic. EYES: EOMI. No deformity. EARS: Clear. No ulcers. NOSE: Intact. No lesions. MOUTH: Clear. No discharge. THROAT: Clear. No exudate. LUNGS: Clear. No crackles. CARDIAC: S1, S2. No rub. ABDOMEN: Benign. Bowel sounds positive. GENITALIA/RECTUM: Powell absent. BACK/EXTREMITIES: Edema 0+. NEUROLOGICAL: Alert and motor intact. SKIN: LYMPHATICS: LABORATORY DATA: Hemoglobin 10.1. Bicarb 17. ASSESSMENT AND PLAN: 1. Stage 6 chronic kidney disease, plan dialysis. 2. Volume overload, plan dialysis. 3. Anemia, stable. 4. Metabolic acidosis, plan dialysis. 5. Prognosis is poor. Job ID: [id number]
--- NOTE | 2019-12-02 10:04 | OP ---
DATE OF PROCEDURE: 12/02/2019 PROCEDURE PERFORMED: Bronchoscopy with lavage. INDICATION FOR PROCEDURE: Retained secretions and persistent cough. DESCRIPTION OF PROCEDURE: After informed consent from the daughter, adapter placed on the endotracheal tube. The flexible bronchoscope was passed. Distal trachea was normal. Soraya was sharp. The right lung was inspected initially. There was minimal amount of relatively clear mucoid secretions. No endobronchial disease was seen. There was mild edema of the entire right bronchial tree, but right upper and right lower and middle lobes were all inspected without any obvious endobronchial obstruction or gross pus. The left lung was inspected thereafter which also had mild amount of edema involving the entire left lung without any obvious endobronchial obstruction or gross pus. Minimal mucoid secretion was seen. This was also lavaged until completely clear. The patient tolerated the procedure well. Washings will be sent for Gram stain and HE[facility]IT COORDINATOR. Total amount of lavage 40 mL of saline. Job ID: [id number] MTDD
[2019-12-02] MEDS ORDERED: Heparin 10,000 UNITS/ 10 ML VIAL ONE (11:42)
--- NOTE | 2019-12-02 14:47 | PDOC.HOSPP ---
- Subjective Encounter Date: 12/02/19 Encounter Time: 07:00 Subjective: Patient seen and examined. pt is on ventilator, getting HD, No overnight events - Objective Vital Signs & Weight: Vital Signs (12 hours) Temp Pulse Pulse Pulse Resp BP BP 12/02/19 14:32 100 157/92 H 12/02/19 12:46 99 138/92 H 12/02/19 12:45 100 28 H 12/02/19 11:45 99 100 137/88 12/02/19 11:32 100 172/93 H 12/02/19 11:00 99.1 F 12/02/19 10:00 28 H 12/02/19 08:00 98.6 F 28 H 12/02/19 06:51 82 151/82 H 12/02/19 06:49 82 27 H 12/02/19 06:00 28 H 12/02/19 04:00 98.6 F 29 H BP Pulse Ox Pulse Ox Pulse Ox 12/02/19 14:32 12/02/19 12:46 12/02/19 12:45 97 12/02/19 11:45 156/91 H 96 96 12/02/19 11:32 12/02/19 11:00 12/02/19 10:00 12/02/19 08:00 12/02/19 06:51 12/02/19 06:49 95 12/02/19 06:00 12/02/19 04:00 Weight Admit Weight 295 lb Weight 318 lb 12.615 oz Most Recent Monitor Data Heart Rate from ECG 101 NIBP 172/93 NIBP BP-Mean 119 Respiration from ECG 29 SpO2 97 I&O: 12/01/19 12/02/19 12/03/19 06:59 06:59 06:59 Intake Total 4469.9 4631 Output Total 120 88 23 Balance 4349.9 4543 -23 Result Diagrams: 12/02/19 04:30 12/02/19 04:30 Additional Labs: Accuchecks 12/02/19 12/02/19 12/01/19 11:39 05:48 20:12 POC Glucose 111 H 176 H 128 H 12/01/19 16:52 POC Glucose 136 H Radiology Reviewed by me: Yes EKG Reviewed by me: Yes Hospitalist ROS - Review of Systems ROS unobtainable: due to endotracheal tube - Medication Medications: Active Medications Generic Name Dose Route Start Last Admin Trade Name Freq PRN Reason Stop Dose Admin Acetaminophen 1,000 mg 11/26/19 14:59 11/26/19 15:43 Tylenol Elixir PO 1,000 mg Q6H PRN Administration Headache/Fever or Pain Albuterol/Ipratropium 3 ml 11/26/19 13:00 12/02/19 12:45 Duoneb NEB 3 ml [id number] LEEANN Administration Famotidine 20 mg 11/28/19 09:00 12/02/19 09:43 Pepcid SLOW IVP 20 mg DAILY LEEANN Administration Heparin Sodium (Porcine) 5,000 units 11/26/19 15:00 12/02/19 09:44 Heparin SC 5,000 units TID LEEANN Administration Amiodarone HCl 450 mg/ 259 mls @ 0 mls/hr 11/26/19 19:45 12/02/19 01:24 Miscellaneous Medication 1 IVPB 259 mls each/ Dextrose/Water INF LEEANN Administration Protocol As Directed Norepinephrine Bitartrate 250 mls @ 0 mls/hr 11/26/19 21:20 11/28/19 01:51 Levophed IVPB 250 mls INF LEEANN Administration Protocol Titrate Oxacillin Sodium 2 gm/ Sodium 100 mls @ 200 mls/hr 11/27/19 17:00 12/02/19 13 :32 Chloride IVPB 100 mls Q4HR LEEANN Administration Insulin Glargine 20 units/ 0.2 mls @ 0 mls/hr 11/28/19 21:00 12/02/19 09:45 Miscellaneous Medication SC 0.2 mls Q12HR LEEANN Administration Sodium Chloride 1,000 mls @ 50 mls/hr 12/02/19 08:11 12/02/19 09:30 Normal Saline 0.9% IV Not Given .Q20H LEEANN Insulin Human Lispro 0 units 11/29/19 13:57 12/02/19 06:44 Humalog SC 2 units .MODERATE SLIDING SC PRN Administration Moderate Correctional Scale Lorazepam 2 mg 11/26/19 11:28 11/29/19 13:42 Ativan SLOW IVP 12/26/19 11:28 2 mg Q1H PRN Administration Breakthrough agitation Propofol 1,000 mg 11/26/19 11:28 12/02/19 05:46 Diprivan IV 12/26/19 11:28 1,000 mg INF PRN Administration TO ACHIEVE GOAL RASS Protocol - Exam General Appearance: NAD Eye: PERRL, anicteric sclera Eye - other findings: intubated ENT: normocephalic atraumatic Neck: supple, symmetric, no JVD Heart: no murmur, irregular Respiratory - other findings: coarse breath sound Gastrointestinal: soft, non-distended, normal bowel sounds Extremities: no cyanosis, 2+ LE edema Skin: normal turgor Hosp A/P (1) Acute respiratory failure with hypoxia Code(s): J96.01 - ACUTE RESPIRATORY FAILURE WITH HYPOXIA Status: Acute (2) Acute renal failure Status: Acute Qualifiers: Acute renal failure type: with acute tubular necrosis Qualified Code(s): N17.0 - Acute kidney failure with tubular necrosis (3) MSSA bacteremia Code(s): R78.81 - BACTEREMIA Status: Acute (4) Sepsis Code(s): A41.9 - SEPSIS, UNSPECIFIED ORGANISM Status: Acute Qualifiers: Sepsis type: methicillin susceptible Staphylococcus aureus Sepsis acute organ dysfunction status: with acute organ dysfunction Severe sepsis acute organ dysfunction type: acute renal failure Severe sepsis shock status: unspecified (5) Acute on chronic systolic heart failure Code(s): I50.23 - ACUTE ON CHRONIC SYSTOLIC (CONGESTIVE) HEART FAILURE Status : Acute (6) Atrial fibrillation with RVR Code(s): I48.91 - UNSPECIFIED ATRIAL FIBRILLATION Status: Acute (7) Diabetes mellitus type 2 in obese Code(s): E11.69 - TYPE 2 DIABETES MELLITUS WITH OTHER SPECIFIED COMPLICATION; E66.9 - OBESITY, UNSPECIFIED Status: Chronic (8) Hypertension Code(s): I10 - ESSENTIAL (PRIMARY) HYPERTENSION Status: Chronic Qualifiers: Hypertension type: essential hypertension Qualified Code(s): I10 - Essential (primary) hypertension (9) NICM (nonischemic cardiomyopathy) Code(s): I42.8 - OTHER CARDIOMYOPATHIES Status: Chronic (10) BRANDON (obstructive sleep apnea) Code(s): G47.33 - OBSTRUCTIVE SLEEP APNEA (ADULT) (PEDIATRIC) Status: Suspected (11) Anemia, normocytic normochromic Code(s): D64.9 - ANEMIA, UNSPECIFIED Status: Chronic - Plan old records reviewed/req, continue antibiotics 12/01/19 HD initiated, today day 2nd continue IV antibiotic for MSSA bacteremia pt is fluid overloaded, remove fluid as tolerated, now off levophed on amiodaron and rate controlled ventilator as per pulmonary medication reviewed and continue to provide symptomatic care and supportive care 12/02/19 medication reviewed, examined , continue HD, continue IV antibiotic, s/p bronchoscopy today and BAL for mucus still volume overloaded
[2019-12-02] MEDS: Budesonide 0.5 MG/2 ML NEB INH SCH (18:43)
[2019-12-03] MEDS ORDERED: Aspirin 325 MG TAB ONE (01:47)
[2019-12-03] MEDS: Propofol 1,000 MG/100 ML VIAL IV PRN ×5 (01:52→23:54)
[2019-12-03] MEDS: Oxacillin 2 GM in Sodium Chloride 0.9% 100 ML IVPB SCH ×6 (01:53→20:17)
[2019-12-03 05:12] LABS: #Basophils 0.1 thou/uL (0.0-0.2); #Eosinphils 0.4 thou/uL (0.0-0.7); #Lymphocytes 1.3 thou/uL (1.20-3.40); #Monocytes 1.3 thou/uL (0.11-0.59); #Neutrophils 10.1 thou/uL (1.40-6.50); %Basophils 0.4 % (0.0-1.0); %Lymphocytes 9.8 % (21.0-51.0); %Monocytes 10.1 % (0.0-10.0); %Neutrophils 76.6 % (42.0-75.0); Hemoglobin 9.9 g/dL (14.0-18.0); Mean Corpuscular HGB CONC 33.9 g/dL (32.0-36.0); Mean Corpuscular Hemoglobin 30.5 pg (27.0-31.0); Mean Platelet Volume 7.8 fL (7.4-10.4); Platelet Count 355 thou/uL (130-400); RBC Distribution Width 13.8 % (11.5-14.5); Red Blood Cell (RBC) Count 3.25 mill/uL (4.70-6.10); White Blood Cell (WBC) Count 13.2 thou/uL (4.8-10.8)
[2019-12-03 05:39] LABS: Anion Gap 21 mmol/L (10-20); BUN (Urea Nitrogen) 52 mg/dL (8.4-25.7); Calc. Creatinine Clearance 25 mL/min (70-130); Carbon Dioxide 20 mmol/L (22-29); Chloride 100 mmol/L (98-107); Estimated GFR-MDRD 9; Glucose 128 mg/dL (70-105); Potassium 5.1 mmol/L (3.5-5.1); Sodium 136 mmol/L (136-145)
[2019-12-03 06:38] LABS: Actual Bicarbonate (HCO3a) 19.4 mEq/L (22-28); Base Excess (BEa) -5.5 mEq/L (-2.0 to +3.0); CO2 Tension 35.6 mmHg (35.0-45.0); Calcium, Ionized 0.99 mmol/L (1.12-1.30); Carboxyhemoglobin (COHb) 0.3 gm% (0.0-3.0); Hemoglobin (Hb) 10.1 g/dL (14.0-18.0); Potassium - ABG Lab 5.17 mmol/L (3.70-5.30); pH, Arterial 7.35 (7.35-7.45)
[2019-12-03 06:39] LABS: Puncture Site RRA
[2019-12-03] MEDS: Budesonide 0.5 MG/2 ML NEB INH SCH ×2 (07:24→18:23)
--- NOTE | 2019-12-03 08:49 | PRG ---
DATE OF SERVICE: 12/03/2019 SUBJECTIVE: This morning his sedation is withheld. He has had coughing. He is back on . OBJECTIVE: VITAL SIGNS: Pulse 92, blood pressure 134/92, sats 92%, respiratory rate 23. His I's and O'S 4469 in, 120 out. CHEST: No wheezing, no crackles. CARDIAC: Normal S1, S2. No gallops. ABDOMEN: No masses. LABORATORY DATA: Creatinine is 6.7. X-ray is clear. PO2 is 74, pO2 of 74, pCO2 of 35. PH 7.35, rate 40%. White count 13,000, platelet count normal. IMPRESSION: 1. Respiratory failure, sepsis, Staph. 2. Renal failure. 3. Morbid obesity, probably sleep apnea. 4. diabetes. PLAN: He is still not ready to be weaned off the vent. We will continue nutrition, PT, supportive care. Antibiotics as per Infectious Disease. We will follow. Job ID: [id number]
--- NOTE | 2019-12-03 09:12 | PRG ---
DATE OF SERVICE: 12/03/2019 SUBJECTIVE: Mr. Bradley did have 3 L removed yesterday. He is a little bit more awake, but not following commands. OBJECTIVE: VITAL SIGNS: Blood pressure 148/91, pulse 87, and temperature afebrile. LUNGS: Clear to auscultation. HEART: Regular rate and rhythm. ABDOMEN: Soft, nontender. EXTREMITIES: 2+ pitting edema. PERTINENT LABORATORY DATA: Hemoglobin 9.9, white blood cell count 13.2. IMPRESSION: 1. Sepsis. 2. Nonischemic cardiomyopathy. 3. Renal failure. RECOMMENDATIONS: Mr. Bradley does not appear to be close to extubation. I did discuss with Dr. Joshua Ruelas. He has continued to receive tube feeds. Once he is closer to extubation, we would recommend a CELIA while still intubated. Continue antibiotic therapy. I will be out of the office on Friday. The patient may be ready for extubation by Friday. I still have one my partners to proceed with CELIA on Friday. Otherwise, we will perform CELIA Friday or Friday of next week if needed. We would recommend stopping tube feeds the night before. Job ID: [id number]
[2019-12-03] MEDS ORDERED: Heparin 10,000 UNITS/ 10 ML VIAL ONE (09:34)
--- NOTE | 2019-12-03 09:50 | PRG ---
DATE OF SERVICE: 12/03/2019 SUBJECTIVE: A 54-year-old male, being seen for end-stage renal disease. The patient is intubated. OBJECTIVE: GENERAL: The patient is resting. VITAL SIGNS: Afebrile, pulse 75, breathing 16, blood pressure 160/89. GENERAL APPEARANCE AND MENTAL STATUS: Fair. HEAD/NECK: Normocephalic. Atraumatic. EYES: EOMI. No deformity. EARS: Clear. No ulcers. NOSE: Intact. No lesions. MOUTH: Clear. No discharge. THROAT: Clear. No exudate. LUNGS: Clear. No crackles. CARDIAC: S1, S2. No rub. ABDOMEN: Benign. Bowel sounds positive. GENITALIA/RECTUM: Powell absent. BACK/EXTREMITIES: Edema 0+. NEUROLOGICAL: Alert and motor intact. SKIN: LYMPHATICS: LABORATORY DATA: Reviewed. ASSESSMENT AND PLAN: 1. Stage 6 chronic kidney disease. Plan dialysis. 2. Hypertension, stable. 3. Anemia, stable. 4. Hyperkalemia, stable. Job ID: [id number]
--- NOTE | 2019-12-03 09:51 | RAD ---
PORTABLE CHEST: DATE: 12/03/2019. PROVIDED CLINICAL HISTORY: Respiratory insufficiency. FINDINGS: Comparison 12/02/2019. Significant interval change with respect to the prior examination is not appar ent. IMPRESSION: As above. POS: OFF
--- NOTE | 2019-12-03 09:56 | PDOC.HOSPP ---
- Subjective Encounter Date: 12/03/19 Encounter Time: 09:50 Subjective: Patient seen and examined. On ventilator, getting HD, No overnight events - Objective Vital Signs & Weight: Vital Signs (12 hours) Temp Pulse Resp BP Pulse Ox 12/03/19 09:10 92 12/03/19 07:24 87 148/91 H 12/03/19 06:00 28 H 12/03/19 04:00 98.7 F 30 H 12/03/19 03:23 92 12/03/19 02:00 28 H 12/03/19 01:16 91 135/84 96 12/03/19 00:00 98.7 F 28 H 12/02/19 22:00 29 H Weight Admit Weight 295 lb Weight 315 lb 14.758 oz Most Recent Monitor Data Heart Rate from ECG 91 NIBP 160/89 NIBP BP-Mean 112 Respiration from ECG 29 SpO2 96 I&O: 12/02/19 12/03/19 12/04/19 06:59 06:59 06:59 Intake Total 4631 3438 Output Total 88 156 Balance 4543 3282 Result Diagrams: 12/03/19 05:00 12/03/19 05:00 Additional Labs: Accuchecks 12/02/19 12/02/19 20:30 11:39 POC Glucose 102 111 H Radiology Reviewed by me: Yes EKG Reviewed by me: Yes Hospitalist ROS - Review of Systems ROS unobtainable: due to endotracheal tube - Medication Medications: Active Medications Generic Name Dose Route Start Last Admin Trade Name Freq PRN Reason Stop Dose Admin Acetaminophen 1,000 mg 11/26/19 14:59 11/26/19 15:43 Tylenol Elixir PO 1,000 mg Q6H PRN Administration Headache/Fever or Pain Albuterol/Ipratropium 3 ml 11/26/19 13:00 12/03/19 07:24 Duoneb NEB 3 ml [id number] LEEANN Administration Budesonide 0.5 mg 12/02/19 18:30 12/03/19 07:24 Pulmicort Neb Solution INH 0.5 mg BID-RT LEEANN Administration Famotidine 20 mg 11/28/19 09:00 12/02/19 09:43 Pepcid SLOW IVP 20 mg DAILY LEEANN Administration Heparin Sodium (Porcine) 5,000 units 11/26/19 15:00 12/02/19 20:32 Heparin SC 5,000 units TID LEEANN Administration Amiodarone HCl 450 mg/ 259 mls @ 0 mls/hr 11/26/19 19:45 12/02/19 16:01 Miscellaneous Medication 1 IVPB 259 mls each/ Dextrose/Water INF LEEANN Administration Protocol As Directed Norepinephrine Bitartrate 250 mls @ 0 mls/hr 11/26/19 21:20 11/28/19 01:51 Levophed IVPB 250 mls INF LEEANN Administration Protocol Titrate Oxacillin Sodium 2 gm/ Sodium 100 mls @ 200 mls/hr 11/27/19 17:00 12/03/19 05 :07 Chloride IVPB 100 mls Q4HR LEEANN Administration Insulin Glargine 20 units/ 0.2 mls @ 0 mls/hr 11/28/19 21:00 12/02/19 20:32 Miscellaneous Medication SC Not Given Q12HR LEEANN Sodium Chloride 1,000 mls @ 50 mls/hr 12/02/19 08:11 12/02/19 17:19 Normal Saline 0.9% IV 1,000 mls .Q20H LEEANN Administration Insulin Human Lispro 0 units 11/29/19 13:57 12/02/19 06:44 Humalog SC 2 units .MODERATE SLIDING SC PRN Administration Moderate Correctional Scale Lorazepam 2 mg 11/26/19 11:28 11/29/19 13:42 Ativan SLOW IVP 12/26/19 11:28 2 mg Q1H PRN Administration Breakthrough agitation Propofol 1,000 mg 11/26/19 11:28 12/03/19 06:07 Diprivan IV 12/26/19 11:28 1,000 mg INF PRN Administration TO ACHIEVE GOAL RASS Protocol - Exam General Appearance: NAD Eye: PERRL, anicteric sclera ENT: normocephalic atraumatic Neck: supple, symmetric, no JVD Neck - other findings: intubated, Heart: no gallops, irregular Respiratory: CTAB, no wheezes, no rales Gastrointestinal: soft, normal bowel sounds Extremities: 2+ LE edema Skin: normal turgor Hosp A/P (1) Acute respiratory failure with hypoxia Code(s): J96.01 - ACUTE RESPIRATORY FAILURE WITH HYPOXIA Status: Acute (2) Acute renal failure Status: Acute Qualifiers: Acute renal failure type: with acute tubular necrosis Qualified Code(s): N17.0 - Acute kidney failure with tubular necrosis (3) MSSA bacteremia Code(s): R78.81 - BACTEREMIA Status: Acute (4) Sepsis Code(s): A41.9 - SEPSIS, UNSPECIFIED ORGANISM Status: Acute Qualifiers: Sepsis type: methicillin susceptible Staphylococcus aureus Sepsis acute organ dysfunction status: with acute organ dysfunction Severe sepsis acute organ dysfunction type: acute renal failure Severe sepsis shock status: unspecified (5) Acute on chronic systolic heart failure Code(s): I50.23 - ACUTE ON CHRONIC SYSTOLIC (CONGESTIVE) HEART FAILURE Status : Acute (6) Atrial fibrillation with RVR Code(s): I48.91 - UNSPECIFIED ATRIAL FIBRILLATION Status: Acute (7) Diabetes mellitus type 2 in obese Code(s): E11.69 - TYPE 2 DIABETES MELLITUS WITH OTHER SPECIFIED COMPLICATION; E66.9 - OBESITY, UNSPECIFIED Status: Chronic (8) Hypertension Code(s): I10 - ESSENTIAL (PRIMARY) HYPERTENSION Status: Chronic Qualifiers: Hypertension type: essential hypertension Qualified Code(s): I10 - Essential (primary) hypertension (9) NICM (nonischemic cardiomyopathy) Code(s): I42.8 - OTHER CARDIOMYOPATHIES Status: Chronic (10) BRANDON (obstructive sleep apnea) Code(s): G47.33 - OBSTRUCTIVE SLEEP APNEA (ADULT) (PEDIATRIC) Status: Suspected (11) Anemia, normocytic normochromic Code(s): D64.9 - ANEMIA, UNSPECIFIED Status: Chronic - Plan old records reviewed/req, continue antibiotics 12/01/19 HD initiated, today day 2nd continue IV antibiotic for MSSA bacteremia pt is fluid overloaded, remove fluid as tolerated, now off levophed on amiodaron and rate controlled ventilator as per pulmonary medication reviewed and continue to provide symptomatic care and supportive care 12/02/19 medication reviewed, examined , continue HD, continue IV antibiotic, s/p bronchoscopy today and BAL for mucus still volume overloaded 12/03/19 central line right subclavian, right femoral groin HD catheter care ventilator as per pulmonary HD and remove fluid as tolerated continue amiodaron continue antibiotics as per ID medication reviewed, continue to provide symptomatic care and supportive care
[2019-12-03] MEDS: Heparin 5,000 UNITS/ML VIAL SC SCH ×3 (10:00→20:17)
[2019-12-03] MEDS: Famotidine/PF 20 mg/2ml Vial SLOW IVP SCH (10:00)
[2019-12-03] MEDS: Amiodarone HCl 450 MG in Dextrose 5% in Water 250 ML IVPB SCH ×2 (10:02→23:55)
[2019-12-03] MEDS: Insulin Glargine 20 UNITS in Pre-Filled Syringe 1 EACH SC SCH ×2 (10:04→20:17)
[2019-12-03] MEDS: Sodium Chloride 0.9% 1,000 ML IV SCH (17:15)
[2019-12-03] MEDS: HumaLOG 300 UNITS/3 ML VIAL SC PRN (17:54)
[2019-12-04] MEDS: Oxacillin 2 GM in Sodium Chloride 0.9% 100 ML IVPB SCH ×6 (00:56→20:50)
[2019-12-04] MEDS: Sodium Chloride 0.9% 1,000 ML IV SCH ×2 (01:35→16:52)
[2019-12-04] MEDS: Propofol 1,000 MG/100 ML VIAL IV PRN ×6 (04:04→23:14)
[2019-12-04 04:54] LABS: #Eosinphils 0.3 thou/uL (0.0-0.7); #Lymphocytes 1.3 thou/uL (1.20-3.40); #Monocytes 1.2 thou/uL (0.11-0.59); #Neutrophils 10.5 thou/uL (1.40-6.50); %Basophils 0.4 % (0.0-1.0); %Eosinophils 2.1 % (0.0-10.0); %Lymphocytes 9.6 % (21.0-51.0); %Monocytes 9.1 % (0.0-10.0); %Neutrophils 78.8 % (42.0-75.0); Hemoglobin 9.7 g/dL (14.0-18.0); Mean Corpuscular HGB CONC 35.1 g/dL (32.0-36.0); Mean Corpuscular Hemoglobin 31.8 pg (27.0-31.0); Mean Corpuscular Volume 90.4 fL (78.0-98.0); Mean Platelet Volume 7.5 fL (7.4-10.4); Platelet Count 394 thou/uL (130-400); RBC Distribution Width 13.7 % (11.5-14.5); Red Blood Cell (RBC) Count 3.05 mill/uL (4.70-6.10); White Blood Cell (WBC) Count 13.3 thou/uL (4.8-10.8)
[2019-12-04 05:20] LABS: Anion Gap 20 mmol/L (10-20); BUN (Urea Nitrogen) 51 mg/dL (8.4-25.7); Calc. Creatinine Clearance 28 mL/min (70-130); Calcium 8.2 mg/dL (7.8-10.44); Carbon Dioxide 22 mmol/L (22-29); Chloride 99 mmol/L (98-107); Estimated GFR-MDRD 10; Glucose 172 mg/dL (70-105); Potassium 4.9 mmol/L (3.5-5.1); Sodium 136 mmol/L (136-145)
[2019-12-04] MEDS: HumaLOG 300 UNITS/3 ML VIAL SC PRN ×3 (05:38→20:50)
[2019-12-04 06:46] LABS: Actual Bicarbonate (HCO3a) 21.1 mEq/L (22-28); Base Excess (BEa) -2.8 mEq/L (-2.0 to +3.0); CO2 Tension 33.3 mmHg (35.0-45.0); Calcium, Ionized 1.03 mmol/L (1.12-1.30); Carboxyhemoglobin (COHb) 0.8 gm% (0.0-3.0); Hemoglobin (Hb) 10.1 g/dL (14.0-18.0); O2 Tension (PaO2) 66.1 mmHg (80.0-100.0); Potassium - ABG Lab 5.04 mmol/L (3.70-5.30); pH, Arterial 7.42 (7.35-7.45)
[2019-12-04 06:48] LABS: ALV-art Gradient 177.475 (0-20); Puncture Site RRA
[2019-12-04] MEDS: Budesonide 0.5 MG/2 ML NEB INH SCH ×2 (07:26→18:32)
--- NOTE | 2019-12-04 09:50 | PRG ---
DATE OF SERVICE: 12/04/2019 SUBJECTIVE: This is a 54-year-old gentleman, being seen for acute kidney injury, dialysis dependent. The patient remains intubated. OBJECTIVE: GENERAL: The patient is resting. VITAL SIGNS: Afebrile. Pulse 94, breathing 16, blood pressure 121/82. GENERAL APPEARANCE AND MENTAL STATUS: Fair. HEAD/NECK: Normocephalic. Atraumatic. EYES: EOMI. No deformity. EARS: Clear. No ulcers. NOSE: Intact. No lesions. MOUTH: Clear. No discharge. THROAT: Clear. No exudate. LUNGS: Clear. No crackles. CARDIAC: S1, S2. No rub. ABDOMEN: Benign. Bowel sounds positive. GENITALIA/RECTUM: Powell absent. BACK/EXTREMITIES: 4+ edema. NEUROLOGICAL: The patient is resting. SKIN: LYMPHATICS: LABORATORY DATA: Showed hemoglobin 9.7, creatinine 6.09. ASSESSMENT AND PLAN: 1. Stage 6 chronic kidney disease, plan dialysis. 2. Hypertension, stable. 3. Anemia, stable. 4. Medication based on GFR, appropriate. We will plan dialysis tomorrow as the patient is tachycardic today. Job ID: [id number]
[2019-12-04] MEDS: Famotidine/PF 20 mg/2ml Vial SLOW IVP SCH (10:00)
[2019-12-04] MEDS: Insulin Glargine 20 UNITS in Pre-Filled Syringe 1 EACH SC SCH ×2 (10:00→20:50)
[2019-12-04] MEDS: Heparin 5,000 UNITS/ML VIAL SC SCH ×3 (10:00→20:50)
--- NOTE | 2019-12-04 11:17 | EKG ---
Test Reason : Blood Pressure : / mmHG Vent. Rate : 115 BPM Atrial Rate : 115 BPM P-R Int : 174 ms QRS Dur : 100 ms QT Int : 324 ms P-R-T Axes : 059 032 072 degrees QTc Int : 448 ms Sinus tachycardia Low voltage QRS Nonspecific T wave abnormality Abnormal ECG Confirmed by MARLENE PENA M.D. ([id number]), editorial director JERE MENDOZA ([id number]) on 12/04/2019 11:17:10 AM Referred By: Confirmed By:MARLENE PENA M.D.
--- NOTE | 2019-12-04 12:36 | PDOC.HOSPP ---
- Subjective Encounter Date: 12/04/19 Encounter Time: 10:45 Subjective: Patient seen and examined. on vent, No overnight events - Objective Vital Signs & Weight: Vital Signs (12 hours) Temp Pulse Resp BP 12/04/19 11:19 92 12/04/19 10:00 31 H 12/04/19 08:00 31 H 12/04/19 07:26 94 121/82 12/04/19 06:00 30 H 12/04/19 04:00 98.4 F 29 H 12/04/19 03:40 108 H 145/93 H 12/04/19 02:00 27 H 12/04/19 01:54 88 Weight Admit Weight 295 lb Weight 306 lb 14.135 oz Most Recent Monitor Data Heart Rate from ECG 92 NIBP 163/89 NIBP BP-Mean 113 Respiration from ECG 31 SpO2 96 I&O: 12/03/19 12/04/19 12/05/19 06:59 06:59 06:59 Intake Total 3438 3228 Output Total 156 132 Balance 3282 3096 Result Diagrams: 12/04/19 04:30 12/04/19 04:30 Additional Labs: Accuchecks 12/04/19 12/04/19 12/03/19 05:39 00:19 17:50 POC Glucose 168 H 128 H 155 H 12/03/19 13:25 POC Glucose 135 H Radiology Reviewed by me: Yes EKG Reviewed by me: Yes Hospitalist ROS - Review of Systems ROS unobtainable: due to endotracheal tube - Medication Medications: Active Medications Generic Name Dose Route Start Last Admin Trade Name Freq PRN Reason Stop Dose Admin Acetaminophen 1,000 mg 11/26/19 14:59 11/26/19 15:43 Tylenol Elixir PO 1,000 mg Q6H PRN Administration Headache/Fever or Pain Albuterol/Ipratropium 3 ml 11/26/19 13:00 12/04/19 07:26 Duoneb NEB 3 ml [id number] LEEANN Administration Budesonide 0.5 mg 12/02/19 18:30 12/04/19 07:26 Pulmicort Neb Solution INH 0.5 mg BID-RT LEEANN Administration Famotidine 20 mg 11/28/19 09:00 12/04/19 10:00 Pepcid SLOW IVP 20 mg DAILY LEEANN Administration Heparin Sodium (Porcine) 5,000 units 11/26/19 15:00 12/04/19 10:00 Heparin SC 5,000 units TID LEEANN Administration Amiodarone HCl 450 mg/ 259 mls @ 0 mls/hr 11/26/19 19:45 12/03/19 23:55 Miscellaneous Medication 1 IVPB 259 mls each/ Dextrose/Water INF LEEANN Administration Protocol As Directed Norepinephrine Bitartrate 250 mls @ 0 mls/hr 11/26/19 21:20 11/28/19 01:51 Levophed IVPB 250 mls INF LEEANN Administration Protocol Titrate Oxacillin Sodium 2 gm/ Sodium 100 mls @ 200 mls/hr 11/27/19 17:00 12/04/19 10 :02 Chloride IVPB 100 mls Q4HR LEEANN Administration Insulin Glargine 20 units/ 0.2 mls @ 0 mls/hr 11/28/19 21:00 12/04/19 10:00 Miscellaneous Medication SC 0.2 mls Q12HR LEEANN Administration Sodium Chloride 1,000 mls @ 50 mls/hr 12/02/19 08:11 12/04/19 01:35 Normal Saline 0.9% IV Not Given .Q20H LEEANN Insulin Human Lispro 0 units 11/29/19 13:57 12/04/19 05:38 Humalog SC 2 units .MODERATE SLIDING SC PRN Administration Moderate Correctional Scale Lorazepam 2 mg 11/26/19 11:28 11/29/19 13:42 Ativan SLOW IVP 12/26/19 11:28 2 mg Q1H PRN Administration Breakthrough agitation Propofol 1,000 mg 11/26/19 11:28 12/04/19 12:20 Diprivan IV 12/26/19 11:28 1,000 mg INF PRN Administration TO ACHIEVE GOAL RASS Protocol - Exam General Appearance: NAD Eye: PERRL ENT: normocephalic atraumatic, no oropharyngeal lesions ENT - other findings: intubated Neck: supple, symmetric Heart: RRR, no murmur, no gallops Respiratory: CTAB, no wheezes Gastrointestinal: soft, normal bowel sounds Extremities: no cyanosis, no clubbing, 2+ LE edema Hosp A/P (1) Acute respiratory failure with hypoxia Code(s): J96.01 - ACUTE RESPIRATORY FAILURE WITH HYPOXIA Status: Acute (2) Acute renal failure Status: Acute Qualifiers: Acute renal failure type: with acute tubular necrosis Qualified Code(s): N17.0 - Acute kidney failure with tubular necrosis (3) MSSA bacteremia Code(s): R78.81 - BACTEREMIA Status: Acute (4) Sepsis Code(s): A41.9 - SEPSIS, UNSPECIFIED ORGANISM Status: Acute Qualifiers: Sepsis type: methicillin susceptible Staphylococcus aureus Sepsis acute organ dysfunction status: with acute organ dysfunction Severe sepsis acute organ dysfunction type: acute renal failure Severe sepsis shock status: unspecified (5) Acute on chronic systolic heart failure Code(s): I50.23 - ACUTE ON CHRONIC SYSTOLIC (CONGESTIVE) HEART FAILURE Status : Acute (6) Atrial fibrillation with RVR Code(s): I48.91 - UNSPECIFIED ATRIAL FIBRILLATION Status: Acute (7) Diabetes mellitus type 2 in obese Code(s): E11.69 - TYPE 2 DIABETES MELLITUS WITH OTHER SPECIFIED COMPLICATION; E66.9 - OBESITY, UNSPECIFIED Status: Chronic (8) Hypertension Code(s): I10 - ESSENTIAL (PRIMARY) HYPERTENSION Status: Chronic Qualifiers: Hypertension type: essential hypertension Qualified Code(s): I10 - Essential (primary) hypertension (9) NICM (nonischemic cardiomyopathy) Code(s): I42.8 - OTHER CARDIOMYOPATHIES Status: Chronic (10) BRANDON (obstructive sleep apnea) Code(s): G47.33 - OBSTRUCTIVE SLEEP APNEA (ADULT) (PEDIATRIC) Status: Suspected (11) Anemia, normocytic normochromic Code(s): D64.9 - ANEMIA, UNSPECIFIED Status: Chronic - Plan old records reviewed/req, plan discussed w/ family, continue antibiotics, respiratory therapy 12/01/19 HD initiated, today day 2nd continue IV antibiotic for MSSA bacteremia pt is fluid overloaded, remove fluid as tolerated, now off levophed on amiodaron and rate controlled ventilator as per pulmonary medication reviewed and continue to provide symptomatic care and supportive care 12/02/19 medication reviewed, examined , continue HD, continue IV antibiotic, s/p bronchoscopy today and BAL for mucus still volume overloaded 12/03/19 central line right subclavian, right femoral groin HD catheter care ventilator as per pulmonary HD and remove fluid as tolerated continue amiodaron continue antibiotics as per ID medication reviewed, continue to provide symptomatic care and supportive care 12/04/19 discussed with family bedside and updated plan of care medication reviewed and continue to provide symptomatic care and supportive care continue ventilator support, antibiotics, amiodarone
--- NOTE | 2019-12-04 15:36 | PRG ---
DATE OF SERVICE: 12/04/2019 SUBJECTIVE: Mr. Bradley remains mechanically ventilated. He is sedated for ventilation. OBJECTIVE: VITAL SIGNS: Heart rate is in 80s, blood pressure 143/84, FiO2 is at 40%, respiratory rates in the low 30s to high 20s. LUNGS: Remarkable for coarse equal breath sounds. HEART: Regular rhythm. ABDOMEN: Soft. EXTREMITIES: Without asymmetry. LABORATORY DATA: White count 13.3, hemoglobin 9.7, platelets 394. Sodium 136, potassium 4.9, chloride 99, bicarb 22, BUN 51, creatinine 6.09. PH 7.42, CO2 of 33, PO2 of 66. Chest x-ray yesterday showed no new infiltrates. IMPRESSION: 1. Respiratory failure, currently not weanable. 2. Renal failure for dialysis. 3. Morbid obesity. 4. Probable sleep apnea. 5. Diabetes. PLAN: Continue supportive antimicrobial therapy for two blood cultures that have grown oxacillin sensitive Staph aureus. Job ID: [id number]
[2019-12-04] MEDS: Amiodarone HCl 450 MG in Dextrose 5% in Water 250 ML IVPB SCH (16:37)
--- NOTE | 2019-12-04 16:51 | PRG ---
DATE OF SERVICE: 12/04/2019 SUBJECTIVE: The patient was seen by me today in the intensive care unit. He is still undergoing dialysis on a routine basis. He is still intubated. The patient is somewhat sedated, at least he is calm. He is arousable, but otherwise appears to be relatively comfortable. His family is at the bedside. OBJECTIVE: VITAL SIGNS: Today show at this time the blood pressure of 143/84, heart rate is in the 80s, FiO2 is on 40%, respiratory rate is about 32, and O2 saturation is 96%. GENERAL: He still remains edematous. CARDIOVASCULAR: Regular rate and rhythm at this time. CHEST: Clear anteriorly. ABDOMEN: Distended, it is tympanic. Minimal bowel sounds are present. EXTREMITIES: He is edematous on all 4 extremities. LABORATORY DATA: WBC of 13.3, hemoglobin was 9.7, hematocrit was 27.6, and platelet count was 394,000. His sodium was 136, potassium of 4.9, BUN was 51 with a creatinine of 6.09, and blood sugar was 172. IMPRESSION: 1. Sepsis of uncertain etiology. He is on antibiotics and we will continue this. 2. History of end-stage renal disease, he is on hemodialysis. Acute renal failure, for which he is on dialysis. 3. Nonischemic cardiomyopathy. We will continue his present medications. 4. Respiratory failure, until he is diuresed and more stable. He is not able to be extubated. His white blood cell count actually is elevated more today. 5. He has had some episodes of atrial fibrillation and he is remaining on IV amiodarone. 6. Diabetes. He will continue with insulin sliding scale. 7. Chronic anemia. He feels relatively stable. We will continue to follow the patient with you. He does have what appears to be multiorgan dysfunction and hopefully this will resolve with the antibiotics and dialysis. There was some concern of some question that he may undergo a transesophageal echocardiogram on Friday to determine whether or not there may be vegetations on the valvular structures that may be causing some of this overall sepsis. Job ID: [id number]
[2019-12-05] MEDS: Oxacillin 2 GM in Sodium Chloride 0.9% 100 ML IVPB SCH ×6 (01:06→20:42)
[2019-12-05] MEDS: Propofol 1,000 MG/100 ML VIAL IV PRN ×6 (03:27→22:53)
[2019-12-05] MEDS: Amiodarone HCl 450 MG in Dextrose 5% in Water 250 ML IVPB SCH ×2 (04:31→22:53)
[2019-12-05 06:16] LABS: #Basophils 0.1 thou/uL (0.0-0.2); #Eosinphils 0.3 thou/uL (0.0-0.7); #Lymphocytes 1.3 thou/uL (1.20-3.40); #Monocytes 1.3 thou/uL (0.11-0.59); #Neutrophils 12.1 thou/uL (1.40-6.50); %Basophils 0.6 % (0.0-1.0); %Eosinophils 2.2 % (0.0-10.0); %Lymphocytes 8.3 % (21.0-51.0); %Monocytes 8.8 % (0.0-10.0); %Neutrophils 80.2 % (42.0-75.0); Hemoglobin 9.6 g/dL (14.0-18.0); Mean Corpuscular HGB CONC 34.4 g/dL (32.0-36.0); Mean Corpuscular Hemoglobin 31.6 pg (27.0-31.0); Mean Platelet Volume 7.3 fL (7.4-10.4); Platelet Count 442 thou/uL (130-400); RBC Distribution Width 13.9 % (11.5-14.5); Red Blood Cell (RBC) Count 3.03 mill/uL (4.70-6.10); White Blood Cell (WBC) Count 15.2 thou/uL (4.8-10.8)
[2019-12-05 06:41] LABS: Anion Gap 24 mmol/L (10-20); BUN (Urea Nitrogen) 74 mg/dL (8.4-25.7); Calc. Creatinine Clearance 23 mL/min (70-130); Calcium 8.2 mg/dL (7.8-10.44); Carbon Dioxide 19 mmol/L (22-29); Chloride 98 mmol/L (98-107); Estimated GFR-MDRD 8; Glucose 118 mg/dL (70-105); Potassium 5.6 mmol/L (3.5-5.1); Sodium 135 mmol/L (136-145)
[2019-12-05 06:58] LABS: Actual Bicarbonate (HCO3a) 20.3 mEq/L (22-28); Base Excess (BEa) -3.7 mEq/L (-2.0 to +3.0); Calcium, Ionized 1.01 mmol/L (1.12-1.30); Carboxyhemoglobin (COHb) 0.8 gm% (0.0-3.0); Hemoglobin (Hb) 10.7 g/dL (14.0-18.0); O2 Tension (PaO2) 70.2 mmHg (80.0-100.0); Potassium - ABG Lab 5.66 mmol/L (3.70-5.30); pH, Arterial 7.41 (7.35-7.45)
[2019-12-05 07:02] LABS: Puncture Site RRA
[2019-12-05] MEDS: Budesonide 0.5 MG/2 ML NEB INH SCH ×2 (07:49→18:31)
[2019-12-05] MEDS: Famotidine/PF 20 mg/2ml Vial SLOW IVP SCH (08:40)
[2019-12-05] MEDS: Heparin 5,000 UNITS/ML VIAL SC SCH ×3 (08:41→20:42)
[2019-12-05] MEDS: Insulin Glargine 20 UNITS in Pre-Filled Syringe 1 EACH SC SCH ×2 (08:42→20:41)
[2019-12-05] MEDS ORDERED: Heparin 10,000 UNITS/ 10 ML VIAL ONE (09:32)
--- NOTE | 2019-12-05 12:43 | PRG ---
DATE OF SERVICE: 12/05/2019 OBJECTIVE: Mr. Bradley is afebrile. Blood pressure 148/88, heart rate is in the 90s, FiO2 is at 40%, respiratory rate is in the high 20s to low 30s. LUNGS: Remarkable for distant breath sounds. HEART: Regular rhythm. ABDOMEN: Soft. EXTREMITIES: Without asymmetry. Remarkable for four extremity significant pitting edema. LABORATORY DATA: White count 15.2, hemoglobin 9.6, platelets 442. Sodium 135, potassium 5.6, chloride , bicarb 19, BUN 74, creatinine 7.32. PH 7.41 , CO2 of 33, PO2 of 70. Intake and output, positive 3083 mL. Intake and output shows that he gained 5 pounds from 306 to 311, but intake and output the previous day shows that he went from 315 to 306, so these do not really make sense. IMPRESSION: 1. Volume overload, probably needs daily dialysis for now. 2. Metabolic acidosis. 3. Respiratory failure. He is certainly not weanable with this degree of volume overload. 4. Probable sleep apnea. 5. Diabetes. 6. Nonischemic cardiomyopathy. 7. Anemia of chronic disease. PLAN: We will continue to follow. Critical care time is 35 minutes. Job ID: [id number] MTDD
--- NOTE | 2019-12-05 13:01 | PDOC.HOSPP ---
- Subjective Encounter Date: 12/05/19 Encounter Time: 11:00 Subjective: Patient seen and examined. on vent No overnight events - Objective Vital Signs & Weight: Vital Signs (12 hours) Temp Pulse Resp BP Pulse Ox 12/05/19 11:18 98 148/88 H 12/05/19 11:00 98.5 F 12/05/19 10:00 35 H 93 L 12/05/19 08:00 33 H 12/05/19 07:40 89 164/96 H 12/05/19 07:00 99.2 F 12/05/19 06:00 31 H 12/05/19 04:00 30 H 12/05/19 03:39 86 12/05/19 03:00 98.2 F 12/05/19 02:00 29 H Weight Admit Weight 295 lb Weight 311 lb 11.738 oz Most Recent Monitor Data Heart Rate from ECG 97 NIBP 148/88 NIBP BP-Mean 108 Respiration from ECG 33 SpO2 93 I&O: 12/04/19 12/05/19 12/06/19 06:59 06:59 06:59 Intake Total 3228 3392 Output Total 132 309 95 Balance 3096 3083 -95 Result Diagrams: 12/05/19 05:52 12/05/19 05:52 Additional Labs: Accuchecks 12/05/19 12/05/19 12/04/19 05:22 00:16 20:52 POC Glucose 120 H 119 H 150 H 12/04/19 12/04/19 18:08 14:49 POC Glucose 124 H 160 H Radiology Reviewed by me: Yes EKG Reviewed by me: Yes Hospitalist ROS - Review of Systems ROS unobtainable: due to endotracheal tube - Medication Medications: Active Medications Generic Name Dose Route Start Last Admin Trade Name Freq PRN Reason Stop Dose Admin Acetaminophen 1,000 mg 11/26/19 14:59 11/26/19 15:43 Tylenol Elixir PO 1,000 mg Q6H PRN Administration Headache/Fever or Pain Albuterol/Ipratropium 3 ml 11/26/19 13:00 12/05/19 07:39 Duoneb NEB 3 ml [id number] LEEANN Administration Budesonide 0.5 mg 12/02/19 18:30 12/05/19 07:49 Pulmicort Neb Solution INH 0.5 mg BID-RT LEEANN Administration Famotidine 20 mg 11/28/19 09:00 12/05/19 08:40 Pepcid SLOW IVP 20 mg DAILY LEEANN Administration Heparin Sodium (Porcine) 5,000 units 11/26/19 15:00 12/05/19 08:41 Heparin SC 5,000 units TID LEEANN Administration Amiodarone HCl 450 mg/ 259 mls @ 0 mls/hr 11/26/19 19:45 12/05/19 04:31 Miscellaneous Medication 1 IVPB 259 mls each/ Dextrose/Water INF LEEANN Administration Protocol As Directed Norepinephrine Bitartrate 250 mls @ 0 mls/hr 11/26/19 21:20 11/28/19 01:51 Levophed IVPB 250 mls INF LEEANN Administration Protocol Titrate Oxacillin Sodium 2 gm/ Sodium 100 mls @ 200 mls/hr 11/27/19 17:00 12/05/19 08 :42 Chloride IVPB 100 mls Q4HR LEEANN Administration Insulin Glargine 20 units/ 0.2 mls @ 0 mls/hr 11/28/19 21:00 12/05/19 08:42 Miscellaneous Medication SC 0.2 mls Q12HR LEEANN Administration Sodium Chloride 1,000 mls @ 50 mls/hr 12/02/19 08:11 12/04/19 16:52 Normal Saline 0.9% IV 1,000 mls .Q20H LEEANN Administration Insulin Human Lispro 0 units 11/29/19 13:57 12/04/19 20:50 Humalog SC 2 units .MODERATE SLIDING SC PRN Administration Moderate Correctional Scale Lorazepam 2 mg 11/26/19 11:28 11/29/19 13:42 Ativan SLOW IVP 12/26/19 11:28 2 mg Q1H PRN Administration Breakthrough agitation Propofol 1,000 mg 11/26/19 11:28 12/05/19 11:41 Diprivan IV 12/26/19 11:28 1,000 mg INF PRN Administration TO ACHIEVE GOAL RASS Protocol - Exam General Appearance: NAD, awake alert Eye: PERRL, anicteric sclera ENT: normocephalic atraumatic, no oropharyngeal lesions Neck: supple, symmetric, no JVD Heart: no murmur, no gallops, irregular Respiratory: CTAB, no wheezes, no rales Gastrointestinal: soft, non-distended Gastrointestinal - other findings: obesity with abdominal wall edema Extremities: 2+ LE edema Hosp A/P (1) Acute respiratory failure with hypoxia Code(s): J96.01 - ACUTE RESPIRATORY FAILURE WITH HYPOXIA Status: Acute (2) Acute renal failure Status: Acute Qualifiers: Acute renal failure type: with acute tubular necrosis Qualified Code(s): N17.0 - Acute kidney failure with tubular necrosis (3) MSSA bacteremia Code(s): R78.81 - BACTEREMIA Status: Acute (4) Sepsis Code(s): A41.9 - SEPSIS, UNSPECIFIED ORGANISM Status: Acute Qualifiers: Sepsis type: methicillin susceptible Staphylococcus aureus Sepsis acute organ dysfunction status: with acute organ dysfunction Severe sepsis acute organ dysfunction type: acute renal failure Severe sepsis shock status: unspecified (5) Acute on chronic systolic heart failure Code(s): I50.23 - ACUTE ON CHRONIC SYSTOLIC (CONGESTIVE) HEART FAILURE Status : Acute (6) Atrial fibrillation with RVR Code(s): I48.91 - UNSPECIFIED ATRIAL FIBRILLATION Status: Acute (7) Diabetes mellitus type 2 in obese Code(s): E11.69 - TYPE 2 DIABETES MELLITUS WITH OTHER SPECIFIED COMPLICATION; E66.9 - OBESITY, UNSPECIFIED Status: Chronic (8) Hypertension Code(s): I10 - ESSENTIAL (PRIMARY) HYPERTENSION Status: Chronic Qualifiers: Hypertension type: essential hypertension Qualified Code(s): I10 - Essential (primary) hypertension (9) NICM (nonischemic cardiomyopathy) Code(s): I42.8 - OTHER CARDIOMYOPATHIES Status: Chronic (10) BRANDON (obstructive sleep apnea) Code(s): G47.33 - OBSTRUCTIVE SLEEP APNEA (ADULT) (PEDIATRIC) Status: Suspected (11) Anemia, normocytic normochromic Code(s): D64.9 - ANEMIA, UNSPECIFIED Status: Chronic (12) Volume overload Code(s): E87.70 - FLUID OVERLOAD, UNSPECIFIED Status: Acute - Plan old records reviewed/req, plan discussed w/ family, continue antibiotics 12/01/19 HD initiated, today day 2nd continue IV antibiotic for MSSA bacteremia pt is fluid overloaded, remove fluid as tolerated, now off levophed on amiodaron and rate controlled ventilator as per pulmonary medication reviewed and continue to provide symptomatic care and supportive care 12/02/19 medication reviewed, examined , continue HD, continue IV antibiotic, s/p bronchoscopy today and BAL for mucus still volume overloaded 12/03/19 central line right subclavian, right femoral groin HD catheter care ventilator as per pulmonary HD and remove fluid as tolerated continue amiodaron continue antibiotics as per ID medication reviewed, continue to provide symptomatic care and supportive care 12/04/19 discussed with family bedside and updated plan of care medication reviewed and continue to provide symptomatic care and supportive care continue ventilator support, antibiotics, amiodarone 12/05/19 not weanable yet due to volume overload status HD today continue antibiotics supportive care
--- NOTE | 2019-12-05 13:08 | PRG ---
DATE OF SERVICE: 12/05/2019 SUBJECTIVE: A 54-year-old gentleman being seen for end-stage kidney disease. OBJECTIVE: VITAL SIGNS: Afebrile, pulse 75, breathing 16, and blood pressure 158/88. GENERAL APPEARANCE AND MENTAL STATUS: Fair. HEAD/NECK: Normocephalic. Atraumatic. EYES: EOMI. No deformity. EARS: Clear. No ulcers. NOSE: Intact. No lesions. MOUTH: Clear. No discharge. THROAT: Clear. No exudate. LUNGS: Clear. No crackles. CARDIAC: S1, S2. No rub. ABDOMEN: Benign. Bowel sounds positive. GENITALIA/RECTUM: Powell absent. BACK/EXTREMITIES: Edema 0+. NEUROLOGICAL: The patient is resting. SKIN: LYMPHATICS: LABORATORY DATA: Hemoglobin 9.6, potassium 5.6. ASSESSMENT AND PLAN: 1. Stage 6 chronic kidney disease. Plan dialysis. 2. Hyperkalemia. Plan dialysis. 3. Anemia. Plan dialysis. 4. Volume overload. Plan dialysis and removed fluid. We could not remove fluid yesterday as though the patient was tachycardic. Job ID: [id number]
[2019-12-05] MEDS: Sodium Chloride 0.9% 1,000 ML IV SCH (16:04)
--- NOTE | 2019-12-05 16:42 | PRG ---
DATE OF SERVICE: 12/05/2019 SUBJECTIVE: The patient is being dialyzed at the moment, still with quite a bit of volume overload and trying to remove fluid from him. The patient had a temperature elevation to 100 yesterday, it is now 99.2. BP 148/100, and an FiO2 of 40, with heart rate 110, O2 saturations are 94. He is a little bit more swollen today than I had seen him before. He has some periorbital edema. Orotracheal intubation. The lines are the same. Urine output went up a little bit to 309 yesterday and now is up to 190, so maybe he is picking up a little bit his urine output. OBJECTIVE: LUNGS: Symmetric, coarse breath sounds. HEART: S1 and S2 with diminished heart sounds. No obvious murmurs. ABDOMEN: Distended, but no ascites noted on physical exam. : Scrotum edema is noted. EXTREMITIES: 1 to 2+ edema in lower extremities. Extremities are warm to touch. Cap refill is normal. GENERAL: He is sedated at the moment. LABORATORY DATA: White cell count is up to 15,000, hemoglobin 9.6, platelets 442 with 80% neutrophils. Creatinine 7.32. The last liver tests were from admission and have not been repeated these since. The blood cultures need to be repeated. The last chest x-ray from 2 days ago with no change with some interstitial prominence. ASSESSMENT AND DISCUSSION: Type 2 diabetes, cardiomyopathy with atrial fibrillation, automatic implantable cardioverter-defibrillator with MSSA bacteremia, possibility of AICD lead colonization/endocarditis. Continues on hemodialysis for management of acute renal failure associated with his sepsis, eventually to undergo CELIA. Repeat blood cultures 2 sets to verify resolution of bacteremia. Job ID: [id number]
[2019-12-06] MEDS: Oxacillin 2 GM in Sodium Chloride 0.9% 100 ML IVPB SCH ×6 (00:12→20:29)
[2019-12-06] MEDS: HumaLOG 300 UNITS/3 ML VIAL SC PRN ×4 (00:12→17:45)
[2019-12-06] MEDS: Propofol 1,000 MG/100 ML VIAL IV PRN ×2 (03:30→07:33)
[2019-12-06 04:04] LABS: #Basophils 0.1 thou/uL (0.0-0.2); #Eosinphils 0.2 thou/uL (0.0-0.7); #Lymphocytes 1.4 thou/uL (1.20-3.40); #Monocytes 1.1 thou/uL (0.11-0.59); #Neutrophils 11.2 thou/uL (1.40-6.50); %Basophils 0.6 % (0.0-1.0); %Eosinophils 1.8 % (0.0-10.0); %Lymphocytes 9.9 % (21.0-51.0); %Monocytes 8.1 % (0.0-10.0); %Neutrophils 79.6 % (42.0-75.0); Mean Corpuscular HGB CONC 33.9 g/dL (32.0-36.0); Mean Corpuscular Hemoglobin 30.7 pg (27.0-31.0); Mean Corpuscular Volume 90.6 fL (78.0-98.0); Mean Platelet Volume 7.6 fL (7.4-10.4); Platelet Count 421 thou/uL (130-400); RBC Distribution Width 13.8 % (11.5-14.5); Red Blood Cell (RBC) Count 2.94 mill/uL (4.70-6.10)
[2019-12-06 04:25] LABS: Anion Gap 21 mmol/L (10-20); BUN (Urea Nitrogen) 48 mg/dL (8.4-25.7); Calc. Creatinine Clearance 32 mL/min (70-130); Calcium 8.3 mg/dL (7.8-10.44); Carbon Dioxide 22 mmol/L (22-29); Chloride 98 mmol/L (98-107); Estimated GFR-MDRD 11; Glucose 168 mg/dL (70-105); Potassium 4.9 mmol/L (3.5-5.1); Sodium 136 mmol/L (136-145)
[2019-12-06 04:28] LABS: Band 5 % (5-11); Eosinophils 2 % (0-10); Lymphocytes 7 % (21-51); MDiff Complete? YES; Mean Corpuscular HGB CONC 33.6 g/dL (32.0-36.0); Mean Corpuscular Hemoglobin 30.4 pg (27.0-31.0); Mean Corpuscular Volume 90.7 fL (78.0-98.0); Mean Platelet Volume 7.5 fL (7.4-10.4); Monocytes 4 % (0-10); Neutrophil 82 % (42-75); Platelet Count 424 thou/uL (130-400); RBC Distribution Width 13.9 % (11.5-14.5); Red Blood Cell (RBC) Count 2.96 mill/uL (4.70-6.10); Toxic Granulation SLIGHT
[2019-12-06 06:40] LABS: Actual Bicarbonate (HCO3a) 23.6 mEq/L (22-28); Base Excess (BEa) -0.6 mEq/L (-2.0 to +3.0); CO2 Tension 36.8 mmHg (35.0-45.0); Calcium, Ionized 1.05 mmol/L (1.12-1.30); Carboxyhemoglobin (COHb) 1.2 gm% (0.0-3.0); Hemoglobin (Hb) 9.1 g/dL (14.0-18.0); O2 Tension (PaO2) 81.7 mmHg (80.0-100.0); pH, Arterial 7.43 (7.35-7.45)
[2019-12-06 06:50] LABS: Puncture Site RRAD
[2019-12-06] MEDS: Budesonide 0.5 MG/2 ML NEB INH SCH ×2 (06:51→18:32)
[2019-12-06] MEDS ORDERED: Metoprolol Tartrate 25 MG TAB PO SCH (09:00)
[2019-12-06] MEDS: Famotidine/PF 20 mg/2ml Vial SLOW IVP SCH (09:01)
[2019-12-06] MEDS: Insulin Glargine 20 UNITS in Pre-Filled Syringe 1 EACH SC SCH ×2 (09:02→20:29)
[2019-12-06] MEDS: Heparin 5,000 UNITS/ML VIAL SC SCH ×3 (09:02→20:28)
--- NOTE | 2019-12-06 09:17 | PRG ---
DATE OF SERVICE: SUBJECTIVE: This morning, he is intubated in the vent, sedated on Diprivan. When his sedation is withheld, he opens his eyes. Still very weak. OBJECTIVE: VITAL SIGNS: His pulse is 123, blood pressure 126/86, sats are 95%, respiratory rate 19. CHEST: Decreased breath sounds. No wheezing. CARDIAC: SVT. ABDOMEN: Massive distended, but soft. NEUROLOGIC: He is still pretty much encephalopathic. LABORATORY DATA: His pO2 is 81, pCO2 of 36, pH 7.43, rate of 20, 40%. BUN and creatinine are 48 and 5.3. His x-ray is normal. No acute infiltrate is seen. I's and O's have been consistently ahead. He is not making much urine. White count 14,000, H and H 9 and 26, and platelet count is normal. IMPRESSION: Multiorgan failure, sepsis syndrome, morbid obesity, sleep apnea, renal failure, severe deconditioning, and diabetes. Discussed with his family if unable to get him off the vent, he is going to very well require a trach and a PEG. Otherwise, continue nutrition and supportive care. This is one-half hour of critical care time. Job ID: [id number]
--- NOTE | 2019-12-06 09:22 | RAD ---
PORTABLE AP CHEST: Date: 12/06/2019 HISTORY: On ventilator. Follow-up evaluation. COMPARISON: 12/03/2019. FINDINGS: Dual lead left subclavian AICD device remains in place. Right subclavian central venous catheter, end otracheal tube, and nasogastric tube remain in place. The cardiac silhouette is magnified by patient rotation and portable technique, but does appear mildly enlarged. There is suggestion of mild increas ed density in the left perihilar region, but this could be a factor of patient rotation to the right. There is atelectasis seen in the left mid lung zone. Right lung appears clear. No other interval elisabeth nge. IMPRESSION: 1. Lines and tubes stable in position. 2. Suggestion of mild increased density left perihilar region, also seen on prior study and may be r elated to either asymmetric pulmonary edema or infectious process. Continued follow-up is recommended . POS: OFF
[2019-12-06] MEDS ORDERED: Heparin 10,000 UNITS/ 10 ML VIAL ONE (10:18)
--- NOTE | 2019-12-06 11:11 | PRG ---
DATE OF SERVICE: 12/06/2019 SUBJECTIVE: A 54-year-old male, being seen for acute kidney injury. The patient is intubated. OBJECTIVE: On exam, the patient is resting. VITAL SIGNS: Afebrile. Pulse 134, breathing 16, blood pressure 138/99. See above. Awake, alert, in no acute distress. GENERAL APPEARANCE AND MENTAL STATUS: Fair. HEAD/NECK: Normocephalic. Atraumatic. EYES: EOMI. No deformity. EARS: Clear. No ulcers. NOSE: Intact. No lesions. MOUTH: Clear. No discharge. THROAT: Clear. No exudate. LUNGS: Clear. No crackles. CARDIAC: S1, S2. No rub. ABDOMEN: Benign. Bowel sounds positive. GENITALIA/RECTUM: Powell absent. BACK/EXTREMITIES: Edema 0+. NEUROLOGICAL: Alert and motor intact. SKIN: LYMPHATICS: LABORATORY DATA: Show hemoglobin is 9.0. ASSESSMENT AND PLAN: 1. Stage 6 chronic kidney disease, plan dialysis with ultrafiltration. 2. Volume overload, plan dialysis. 3. Anemia, stable. 4. Medication based on GFR, appropriate. 5. Respiratory failure, management per Pulmonary Team. Job ID: [id number]
--- NOTE | 2019-12-06 11:22 | PDOC.CPN ---
- Subjective Date: 12/06/19 Time: 12:21 Interval history: The pt seen and examined. No overnight events. Still on Vent with sedation - Objective Allergies/Adverse Reactions: Allergies Allergy/AdvReac Type Severity Reaction Status Date / Time No Known Drug Allergies Allergy Verified 11/26/19 22:51 Visit Medications: Current Medications Acetaminophen (Tylenol Elixir) 1,000 mg PO Q6H PRN PRN Reason: Headache/Fever or Pain Last Admin: 11/26/19 15:43 Dose: 1,000 mg Albuterol/Ipratropium (Duoneb) 3 ml NEB [id number] [facility] Last Admin: 12/06/19 06:51 Dose: 3 ml Alteplase, Recombinant (Cathflo) 2 mg CATH WILLCALL [facility] Budesonide (Pulmicort Neb Solution) 0.5 mg INH BID-RT [facility] Last Admin: 12/06/19 06:51 Dose: 0.5 mg Dextrose/Water (Dextrose 50%) 25 gm SLOW IVP PRN PRN PRN Reason: Hypoglycemia Famotidine (Pepcid) 20 mg SLOW IVP DAILY [facility] Last Admin: 12/06/19 09:01 Dose: 20 mg Glucagon (Glucagon) 1 mg IM PRN PRN PRN Reason: Hypoglycemia Heparin Sodium (Porcine) (Heparin) 5,000 units SC TID [facility] Last Admin: 12/06/19 09:02 Dose: 5,000 units Dextrose/Sodium Chloride (D5 1/2 Ns) 1,000 mls @ 250 mls/hr IV .Q4H PRN; Protocol PRN Reason: Step 4 of DKA Protocol Sodium Chloride (Normal Saline 0.9%) 1,000 mls @ 500 mls/hr IV .Q2H PRN; Protocol PRN Reason: Step 1 of DKA Protocol Sodium Chloride (Normal Saline 0.9%) 1,000 mls @ 1,000 mls/hr IV .Q1H PRN; Protocol PRN Reason: Step 1 of DKA Protocol Sodium Chloride (Normal Saline 0.9%) 1,000 mls @ 250 mls/hr IV .Q4H PRN; Protocol PRN Reason: SEE STEP 3 OF DKA PROTOCOL Sodium Chloride (Normal Saline 0.9%) 1,000 mls @ 500 mls/hr IV .Q2H PRN; Protocol PRN Reason: Step 2 of DKA Protocol Potassium Chloride/Sodium Chloride (Ns 0.9% W/ 20 Meq Kcl) 1,000 mls @ 500 mls/ hr IV .Q2H PRN; Protocol PRN Reason: Step 2 of DKA Protocol Potassium Chloride/Sodium Chloride (Ns 0.9% W/ 20 Meq Kcl) 1,000 mls @ 250 mls/ hr IV .Q4H PRN; Protocol PRN Reason: SEE STEP 3 OF DKA PROTOCOL Fentanyl Citrate 2,000 mcg/ (Sodium Chloride) 100 mls @ 0 mls/hr IV INF LEEANN; Protocol Stop: 12/26/19 11:28 Fentanyl Citrate (Fentanyl Bolus) 250 mls @ 0 mls/hr IVPB PRN PRN PRN Reason: Breakthrough pain/agitation Stop: 12/26/19 11:28 Amiodarone HCl 450 mg/Miscellaneous Medication 1 each/ Dextrose/Water 259 mls @ 0 mls/hr IVPB INF LEEANN; Protocol Last Admin: 12/05/19 22:53 Dose: 259 mls Norepinephrine Bitartrate (Levophed) 250 mls @ 0 mls/hr IVPB INF LEEANN; Protocol Last Admin: 11/28/19 01:51 Dose: 250 mls Oxacillin Sodium 2 gm/ Sodium (Chloride) 100 mls @ 200 mls/hr IVPB Q4HR LEEANN Last Admin: 12/06/19 09:02 Dose: 100 mls Insulin Glargine 20 units/ (Miscellaneous Medication) 0.2 mls @ 0 mls/hr SC Q12HR LEEANN Last Admin: 12/06/19 09:02 Dose: 0.2 mls Dextrose/Water (D5w) 1,000 mls @ 0 mls/hr IV .Q0M PRN PRN Reason: Hypoglycemia Sodium Chloride (Normal Saline 0.9%) 1,000 mls @ 50 mls/hr IV .Q20H LEEANN Last Admin: 12/05/19 16:04 Dose: 1,000 mls Dexmedetomidine HCl 200 mcg/ (Sodium Chloride) 50 mls @ 0 mls/hr IVPB INF LEEANN; Protocol Last Admin: 12/06/19 10:20 Dose: 50 mls Insulin Human Lispro (Humalog) 0 units SC .MODERATE SLIDING SC PRN PRN Reason: Moderate Correctional Scale Last Admin: 12/06/19 05:31 Dose: 2 units Morphine Sulfate (Morphine) 2 mg SLOW IVP Q1H PRN PRN Reason: BREAKTHROUGH PAIN/Agitation Stop: 12/26/19 11:28 Discontinue Previous Narcotic Pain Medications And Benzodiazepines 1 each FS .ONE LEEANN Stop: 12/26/19 11:28 Propofol (Diprivan) 1,000 mg IV INF PRN; Protocol PRN Reason: TO ACHIEVE GOAL RASS Stop: 12/26/19 11:28 Last Admin: 12/06/19 07:33 Dose: 1,000 mg Propofol (Diprivan Bolus) 20 mg IV Q5MIN PRN PRN Reason: BREAKTHROUGH AGITATION Stop: 12/26/19 11:28 Sodium Chloride (Flush - Normal Saline) 10 ml IVF PRN PRN PRN Reason: Saline Flush Sterile Water (Water For Injection) 10 ml IVP WILLCALL LEEANN Vital Signs & Weight: Vital Signs Temp Pulse Resp BP Pulse Ox 12/06/19 10:10 134 H 12/06/19 10:00 32 H 12/06/19 09:00 92 L 12/06/19 08:00 98.6 F 33 H 12/06/19 06:51 104 H 31 H 96 12/06/19 06:00 28 H 12/06/19 04:52 107 H 121/74 12/06/19 04:00 99.4 F 35 H 12/06/19 02:00 34 H 12/06/19 00:56 116 H 12/06/19 00:00 98.8 F 32 H Admit Weight 295 lb Weight 309 lb 1.409 oz - Physical Exam Cardiac: irregularly regular Extremities: other: (generalized edema) - Labs Result Diagrams: 12/06/19 03:42 12/06/19 03:42 Troponin/CKMB CK-MB (CK-2) 7.5 ng/mL (0-6.6) H* 11/26/19 02:47 Troponin I 0.303 ng/mL (< 0.028) H* 11/26/19 09:00 - Telemetry Supraventricular conduction: atrial fibrillation - Assessment/Plan Assessment/Plan: 1. Acute on chronic systolic HF with EF 40-45% - on BBlocker (will change Metoprolol to Coreg); not on DOLLY/ARB due to CKD 2. Hyperglycemia 3. Sepsis, MSSA bacteremia. - will plan for CELIA before Extubate 4. Non ischemic CM with AICD 5. Paroxysmal afib - On Amiodarone and Heparin; and On Coreg JAN reviewed * Will need CELIA eventually to evaluate AICD for endocarditis. * Normal AICD interrogation other than afib with this admission. Pt. seen and eval. by me. I agree with the a/P by the PHOTOGRAPHIC EQUIPMENT ASSEMBLER. Pt. was more tachycardic this AM. Plan for repeat dialysis today. Maintaining NSR most of the time. Chest clear anteriorly. RRR, tachycardia. Plan for CELIA in the next 1-2 days on non-dialysis day preferably. Generalized edema.
[2019-12-06] MEDS: Sodium Chloride 0.9% 1,000 ML IV SCH (13:30)
--- NOTE | 2019-12-06 14:23 | PDOC.HOSPP ---
- Subjective Encounter Date: 12/06/19 Encounter Time: 11:00 Subjective: Patient seen and examined. No overnight events - Objective Vital Signs & Weight: Vital Signs (12 hours) Temp Pulse Resp BP Pulse Ox 12/06/19 12:00 99.2 F 32 H 12/06/19 10:10 134 H 12/06/19 10:00 32 H 12/06/19 09:00 92 L 12/06/19 08:00 98.6 F 33 H 12/06/19 06:51 104 H 31 H 96 12/06/19 06:00 28 H 12/06/19 04:52 107 H 121/74 12/06/19 04:00 99.4 F 35 H Weight Admit Weight 295 lb Weight 309 lb 1.409 oz Most Recent Monitor Data Heart Rate from ECG 107 NIBP 157/92 NIBP BP-Mean 113 Respiration from ECG 31 SpO2 95 I&O: 12/05/19 12/06/19 12/07/19 06:59 06:59 06:59 Intake Total 3392 3623 75 Output Total 309 328 59 Balance 3083 3295 16 Result Diagrams: 12/06/19 03:42 12/06/19 03:42 Additional Labs: Accuchecks 12/06/19 12/06/19 12/06/19 11:54 05:33 00:13 POC Glucose 176 H 171 H 164 H 12/05/19 18:00 POC Glucose 108 Radiology Reviewed by me: Yes EKG Reviewed by me: Yes Hospitalist ROS - Review of Systems ROS unobtainable: due to endotracheal tube - Medication Medications: Active Medications Generic Name Dose Route Start Last Admin Trade Name Freq PRN Reason Stop Dose Admin Acetaminophen 1,000 mg 11/26/19 14:59 11/26/19 15:43 Tylenol Elixir PO 1,000 mg Q6H PRN Administration Headache/Fever or Pain Albuterol/Ipratropium 3 ml 11/26/19 13:00 12/06/19 06:51 Duoneb NEB 3 ml [id number] LEEANN Administration Budesonide 0.5 mg 12/02/19 18:30 12/06/19 06:51 Pulmicort Neb Solution INH 0.5 mg BID-RT LEEANN Administration Famotidine 20 mg 11/28/19 09:00 12/06/19 09:01 Pepcid SLOW IVP 20 mg DAILY LEEANN Administration Heparin Sodium (Porcine) 5,000 units 11/26/19 15:00 12/06/19 09:02 Heparin SC 5,000 units TID LEEANN Administration Amiodarone HCl 450 mg/ 259 mls @ 0 mls/hr 11/26/19 19:45 12/05/19 22:53 Miscellaneous Medication 1 IVPB 259 mls each/ Dextrose/Water INF LEEANN Administration Protocol As Directed Norepinephrine Bitartrate 250 mls @ 0 mls/hr 11/26/19 21:20 11/28/19 01:51 Levophed IVPB 250 mls INF LEEANN Administration Protocol Titrate Oxacillin Sodium 2 gm/ Sodium 100 mls @ 200 mls/hr 11/27/19 17:00 12/06/19 13 :27 Chloride IVPB 100 mls Q4HR LEEANN Administration Insulin Glargine 20 units/ 0.2 mls @ 0 mls/hr 11/28/19 21:00 12/06/19 09:02 Miscellaneous Medication SC 0.2 mls Q12HR LEEANN Administration Sodium Chloride 1,000 mls @ 50 mls/hr 12/02/19 08:11 12/06/19 13:30 Normal Saline 0.9% IV 1,000 mls .Q20H LEEANN Administration Dexmedetomidine HCl 200 mcg/ 50 mls @ 0 mls/hr 12/06/19 09:00 12/06/19 10:20 Sodium Chloride IVPB 50 mls INF LEEANN Administration Protocol Per Protocol Insulin Human Lispro 0 units 11/29/19 13:57 12/06/19 11:51 Humalog SC 2 units .MODERATE SLIDING SC PRN Administration Moderate Correctional Scale Propofol 1,000 mg 11/26/19 11:28 12/06/19 07:33 Diprivan IV 12/26/19 11:28 1,000 mg INF PRN Administration TO ACHIEVE GOAL RASS Protocol - Exam General Appearance: NAD, awake alert Eye: PERRL, anicteric sclera ENT: normocephalic atraumatic, no oropharyngeal lesions Neck: supple, symmetric, no JVD Heart: RRR, no murmur, no gallops Respiratory: CTAB, no wheezes, no rales Gastrointestinal: soft, non-distended Extremities: 2+ LE edema Hosp A/P (1) Acute respiratory failure with hypoxia Code(s): J96.01 - ACUTE RESPIRATORY FAILURE WITH HYPOXIA Status: Acute (2) Acute renal failure Status: Acute Qualifiers: Acute renal failure type: with acute tubular necrosis Qualified Code(s): N17.0 - Acute kidney failure with tubular necrosis (3) MSSA bacteremia Code(s): R78.81 - BACTEREMIA Status: Acute (4) Sepsis Code(s): A41.9 - SEPSIS, UNSPECIFIED ORGANISM Status: Acute Qualifiers: Sepsis type: methicillin susceptible Staphylococcus aureus Sepsis acute organ dysfunction status: with acute organ dysfunction Severe sepsis acute organ dysfunction type: acute renal failure Severe sepsis shock status: unspecified (5) Acute on chronic systolic heart failure Code(s): I50.23 - ACUTE ON CHRONIC SYSTOLIC (CONGESTIVE) HEART FAILURE Status : Acute (6) Atrial fibrillation with RVR Code(s): I48.91 - UNSPECIFIED ATRIAL FIBRILLATION Status: Acute (7) Diabetes mellitus type 2 in obese Code(s): E11.69 - TYPE 2 DIABETES MELLITUS WITH OTHER SPECIFIED COMPLICATION; E66.9 - OBESITY, UNSPECIFIED Status: Chronic (8) Hypertension Code(s): I10 - ESSENTIAL (PRIMARY) HYPERTENSION Status: Chronic Qualifiers: Hypertension type: essential hypertension Qualified Code(s): I10 - Essential (primary) hypertension (9) NICM (nonischemic cardiomyopathy) Code(s): I42.8 - OTHER CARDIOMYOPATHIES Status: Chronic (10) BRANDON (obstructive sleep apnea) Code(s): G47.33 - OBSTRUCTIVE SLEEP APNEA (ADULT) (PEDIATRIC) Status: Suspected (11) Anemia, normocytic normochromic Code(s): D64.9 - ANEMIA, UNSPECIFIED Status: Chronic (12) Volume overload Code(s): E87.70 - FLUID OVERLOAD, UNSPECIFIED Status: Acute - Plan old records reviewed/req, continue antibiotics, respiratory therapy 12/01/19 HD initiated, today day 2nd continue IV antibiotic for MSSA bacteremia pt is fluid overloaded, remove fluid as tolerated, now off levophed on amiodaron and rate controlled ventilator as per pulmonary medication reviewed and continue to provide symptomatic care and supportive care 12/02/19 medication reviewed, examined , continue HD, continue IV antibiotic, s/p bronchoscopy today and BAL for mucus still volume overloaded 12/03/19 central line right subclavian, right femoral groin HD catheter care ventilator as per pulmonary HD and remove fluid as tolerated continue amiodaron continue antibiotics as per ID medication reviewed, continue to provide symptomatic care and supportive care 12/04/19 discussed with family bedside and updated plan of care medication reviewed and continue to provide symptomatic care and supportive care continue ventilator support, antibiotics, amiodarone 12/05/19 not weanable yet due to volume overload status HD today continue antibiotics supportive care 12/06/19 no new recommendation chart reviewed, examined, still volume overloaded continue antibiotic, amiodaron
--- NOTE | 2019-12-06 16:35 | PRG ---
DATE OF SERVICE: 12/06/2019 SUBJECTIVE: The patient opens his eyes. His sedation has been discontinued for a period of time and he follows commands. He was able to move his toes on command, could not move his upper extremities yet, being dialyzed at the moment. OBJECTIVE: VITAL SIGNS: T-max 99.4, blood pressure 140/80, pulse 104. GENERAL: He is on CPAP right now. HEENT: Ocular movements are conjugate. Periorbital edema less than before. LUNGS: Coarse breath sounds. HEART: S1 and S2, regular rate. ABDOMEN: Soft, moderately distended. Bowel sounds are present. Powell catheter in place. Output has gone steadily up to now yesterday 328, and his balance still positive, although an attempt has been made to make a negative through dialysis, removal of fluid. LABORATORY DATA: White cell count of 14,000, hemoglobin 9, platelets 424. Creatinine is 5.34. Repeat blood cultures, no growth to date from yesterday. IMAGING STUDIES: Chest x-ray from today with same tubes and lines, mild increased density in the left perihilar region, probably asymmetric pulmonary edema. ASSESSMENT AND DISCUSSION: Type 2 diabetes, cardiomyopathy with atrial fibrillation, AICD, methicillin-sensitive Staphylococcus aureus bacteremia, possibility of lead colonization/endocarditis. He moves the legs well, which decreases the concern with a C-spine inflammatory process, but may have to image his C-spine and thoracic spine as well as lumbar spine depending on subjective information once he is extubated. Eventual CELIA will also be considered. We will ask the pharmacist to concentrate the oxacillin suspension. Job ID: [id number]
[2019-12-06] MEDS: Amiodarone HCl 450 MG in Dextrose 5% in Water 250 ML IVPB SCH (17:32)
[2019-12-06] MEDS: Carvedilol 3.125 MG TAB PO SCH (17:32)
[2019-12-06] MEDS ORDERED: Digoxin 0.5 MG/2 ML AMP SLOW IVP SCH (21:30)
[2019-12-07] MEDS: Acetaminophen 650 MG/20.3 ML UDCUP PO PRN (00:16)
[2019-12-07] MEDS: HumaLOG 300 UNITS/3 ML VIAL SC PRN ×4 (00:18→23:49)
[2019-12-07] MEDS: Oxacillin 2 GM in Sodium Chloride 0.9% 100 ML IVPB SCH (00:22)
[2019-12-07 04:38] LABS: Anion Gap 18 mmol/L (10-20); BUN (Urea Nitrogen) 41 mg/dL (8.4-25.7); Calc. Creatinine Clearance 37 mL/min (70-130); Calcium 8.5 mg/dL (7.8-10.44); Carbon Dioxide 24 mmol/L (22-29); Chloride 99 mmol/L (98-107); Estimated GFR-MDRD 14; Glucose 169 mg/dL (70-105); Potassium 3.8 mmol/L (3.5-5.1); Sodium 137 mmol/L (136-145)
[2019-12-07] MEDS ORDERED: Pancrelipase DR 12000 1 CAP FS PRN (04:46)
[2019-12-07] MEDS ORDERED: Sodium Bicarbonate Tab 325 MG TAB PER TUBE PRN (04:46)
[2019-12-07] MEDS: Oxacillin 2 GM in Sodium Chloride 0.9% 50 ML IVPB SCH ×6 (04:59→23:49)
[2019-12-07 05:16] LABS: Band 9 % (5-11); Eosinophils 1 % (0-10); Hemoglobin 8.5 g/dL (14.0-18.0); Lymphocytes 10 % (21-51); MDiff Complete? YES; Mean Corpuscular HGB CONC 31.9 g/dL (32.0-36.0); Mean Corpuscular Hemoglobin 29.2 pg (27.0-31.0); Mean Corpuscular Volume 91.5 fL (78.0-98.0); Mean Platelet Volume 7.8 fL (7.4-10.4); Monocytes 4 % (0-10); Neutrophil 76 % (42-75); Platelet Count 459 thou/uL (130-400); White Blood Cell (WBC) Count 13.8 thou/uL (4.8-10.8)
[2019-12-07] MEDS: Budesonide 0.5 MG/2 ML NEB INH SCH ×2 (07:05→18:28)
[2019-12-07 07:31] LABS: Actual Bicarbonate (HCO3a) 24.6 mEq/L (22-28); CO2 Tension 34.6 mmHg (35.0-45.0); Calcium, Ionized 1.08 mmol/L (1.12-1.30); Carboxyhemoglobin (COHb) 1.8 gm% (0.0-3.0); Hemoglobin (Hb) 9.2 g/dL (14.0-18.0); O2 Tension (PaO2) 65.2 mmHg (80.0-100.0); Potassium - ABG Lab 3.84 mmol/L (3.70-5.30); pH, Arterial 7.47 (7.35-7.45)
--- NOTE | 2019-12-07 07:52 | RAD ---
Portable frontal chest radiograph: 12/07/2019 COMPARISON: 12/06/2019 HISTORY: Ventilated patient FINDINGS: Endotracheal tube, nasogastric tube, and right vascular catheter again noted, unchanged. St able transvenous pacing device. Pulmonary vascular congestion noted. Nonspecific hazy increased density is noted in the left lung base. IMPRESSION: Stable appearance of the chest as detailed above.
[2019-12-07 08:23] LABS: Puncture Site L.R.
--- NOTE | 2019-12-07 08:26 | PRG ---
DATE OF SERVICE: 12/07/2019 SUBJECTIVE: The patient was seen and examined in ICU, remains intubated, still in ICU. OBJECTIVE: GENERAL: This is an obese male, intubated. VITAL SIGNS: Temperature 99.2, pulse 121, respiratory rate 22, blood pressure 160/101. HEENT: Intubated. CV: S1 and S2 heard. Tachycardia. RESPIRATORY: Clear. GI: Abdomen is soft. MUSCULOSKELETAL: 1 to 2+ edema. DERMATOLOGIC: No skin rash. NEUROLOGIC: Intubated. LABORATORY DATA: Potassium is 3.8, BUN is 41, and creatinine is 4.5. ASSESSMENT AND PLAN: 1. Acute kidney injury on chronic kidney disease, stage 3, dialysis dependent. Plan to have dialysis and we will have dialysis for ultrafiltration. 2. Volume overload. We will plan to remove fluid with dialysis. 3. Anemia. 4. Hypertension. 5. Acute hypoxic respiratory failure, intubated. Follow with ICU team. We will continue dialysis as tolerated. Plan to have dialysis today. Job ID: [id number] MTDD
--- NOTE | 2019-12-07 08:27 | PRG ---
DATE OF SERVICE: 12/07/2019 SUBJECTIVE: He has been off sedation for 24 hours. Remains weak, though he is very appropriate, able to move his legs minimally. OBJECTIVE: VITAL SIGNS: Pulse 108, atrial fibrillation, blood pressure 160/101 , respiratory rate 31, saturations 93%, 40%, PEEP of 5. CHEST: Bilateral rhonchi. No wheezing. CARDIAC: Normal S1, S2. No gallops. ABDOMEN: No masses. LABORATORY DATA: White count 83208, platelet count is normal. Creatinine 4.52. X-ray stable. ASSESSMENT AND PLAN: Staph sepsis, respiratory failure, morbid obesity, sleep apnea, diabetes. I am concerned about extubation. He is so weak. He has poor cough. Continue to hold sedation. Continue PT, neb treatments, supportive care. We will follow. One-half hour of critical time. Job ID: [id number] MTDD
[2019-12-07] MEDS: Famotidine/PF 20 mg/2ml Vial SLOW IVP SCH (08:40)
[2019-12-07] MEDS: Heparin 5,000 UNITS/ML VIAL SC SCH ×3 (08:40→20:08)
[2019-12-07] MEDS: Insulin Glargine 20 UNITS in Pre-Filled Syringe 1 EACH SC SCH ×2 (08:41→20:08)
[2019-12-07] MEDS: Carvedilol 3.125 MG TAB PO SCH ×2 (08:41→18:26)
--- NOTE | 2019-12-07 09:41 | PDOC.HOSPP ---
- Subjective Encounter Date: 12/07/19 Encounter Time: 09:40 Subjective: pt is intubated, Patient seen and examined. No overnight events - Objective Vital Signs & Weight: Vital Signs (12 hours) Temp Pulse Resp BP Pulse Ox 12/07/19 07:06 108 H 160/101 H 12/07/19 07:05 121 H 31 H 93 L 12/07/19 06:00 32 H 12/07/19 04:00 99.2 F 20 12/07/19 02:34 124 H 121/85 12/07/19 02:00 23 H 12/07/19 00:19 108 H 32 H 96 12/07/19 00:00 100.5 F H 36 H 12/06/19 22:00 29 H 12/06/19 21:59 106 H 146/100 H Weight Admit Weight 295 lb Weight 297 lb 2.93 oz Most Recent Monitor Data Heart Rate from ECG 124 NIBP 160/101 NIBP BP-Mean 120 Respiration from ECG 22 SpO2 96 I&O: 12/06/19 12/07/19 12/08/19 06:59 06:59 06:59 Intake Total 3623 3573 Output Total 328 201 5 Balance 3295 3372 -5 Result Diagrams: 12/07/19 03:45 12/07/19 03:45 Additional Labs: Accuchecks 12/07/19 12/07/19 12/06/19 05:25 00:01 17:45 POC Glucose 155 H 190 H 150 H 12/06/19 11:54 POC Glucose 176 H Radiology Reviewed by me: Yes EKG Reviewed by me: Yes Hospitalist ROS - Review of Systems ROS unobtainable: due to endotracheal tube - Medication Medications: Active Medications Generic Name Dose Route Start Last Admin Trade Name Freq PRN Reason Stop Dose Admin Acetaminophen 1,000 mg 11/26/19 14:59 12/07/19 00:16 Tylenol Elixir PO 1,000 mg Q6H PRN Administration Headache/Fever or Pain Lipase/Protease/Amylase 1 cap 12/07/19 04:46 12/07/19 04:59 Leonides Tejada [id number] FS 1 cap .PER PROTOCOL PRN Administration TUBE OCCLUSION PROTOCOL Budesonide 0.5 mg 12/02/19 18:30 12/07/19 07:05 Pulmicort Neb Solution INH 0.5 mg BID-RT LEEANN Administration Carvedilol 3.125 mg 12/06/19 17:00 12/07/19 08:41 Coreg PO 3.125 mg BID-WM LEEANN Administration Famotidine 20 mg 11/28/19 09:00 12/07/19 08:40 Pepcid SLOW IVP 20 mg DAILY LEEANN Administration Heparin Sodium (Porcine) 5,000 units 11/26/19 15:00 12/07/19 08:40 Heparin SC 5,000 units TID LEEANN Administration Amiodarone HCl 450 mg/ 259 mls @ 0 mls/hr 11/26/19 19:45 12/06/19 17:32 Miscellaneous Medication 1 IVPB 259 mls each/ Dextrose/Water INF LEEANN Administration Protocol As Directed Norepinephrine Bitartrate 250 mls @ 0 mls/hr 11/26/19 21:20 11/28/19 01:51 Levophed IVPB 250 mls INF LEEANN Administration Protocol Titrate Insulin Glargine 20 units/ 0.2 mls @ 0 mls/hr 11/28/19 21:00 12/07/19 08:41 Miscellaneous Medication SC 0.2 mls Q12HR LEEANN Administration Sodium Chloride 1,000 mls @ 50 mls/hr 12/02/19 08:11 12/06/19 13:30 Normal Saline 0.9% IV 1,000 mls .Q20H LEEANN Administration Dexmedetomidine HCl 200 mcg/ 50 mls @ 0 mls/hr 12/06/19 09:00 12/06/19 10:20 Sodium Chloride IVPB 50 mls INF LEEANN Administration Protocol Per Protocol Oxacillin Sodium 2 gm/ Sodium 50 mls @ 100 mls/hr 12/07/19 05:00 12/07/19 08: 40 Chloride IVPB 50 mls Q4HR LEEANN Administration Insulin Human Lispro 0 units 11/29/19 13:57 12/07/19 05:27 Humalog SC 2 units .MODERATE SLIDING SC PRN Administration Moderate Correctional Scale Propofol 1,000 mg 11/26/19 11:28 12/06/19 07:33 Diprivan IV 12/26/19 11:28 1,000 mg INF PRN Administration TO ACHIEVE GOAL RASS Protocol Sodium Bicarbonate 650 mg 12/07/19 04:46 12/07/19 04:59 Bicarbonate, Sodium PER TUBE 650 mg .PER PROTOCOL PRN Administration ENTERAL TUBE OCCLUSION - Exam General Appearance: NAD, awake alert General - other findings: intubated Eye: PERRL, anicteric sclera ENT: normocephalic atraumatic, no oropharyngeal lesions ENT - other findings: ET tube in place Neck: supple, symmetric, no JVD Heart: RRR, no murmur, no gallops Respiratory: CTAB, no wheezes, no rales Respiratory - other findings: coarse sound+ Gastrointestinal: soft, non-distended, normal bowel sounds Extremities: 2+ LE edema Extremities - other findings: has anasarca Skin: normal turgor Musculoskeletal: normal tone Hosp A/P (1) Acute respiratory failure with hypoxia Code(s): J96.01 - ACUTE RESPIRATORY FAILURE WITH HYPOXIA Status: Acute (2) Acute renal failure Status: Acute Qualifiers: Acute renal failure type: with acute tubular necrosis Qualified Code(s): N17.0 - Acute kidney failure with tubular necrosis (3) MSSA bacteremia Code(s): R78.81 - BACTEREMIA Status: Acute (4) Sepsis Code(s): A41.9 - SEPSIS, UNSPECIFIED ORGANISM Status: Acute Qualifiers: Sepsis type: methicillin susceptible Staphylococcus aureus Sepsis acute organ dysfunction status: with acute organ dysfunction Severe sepsis acute organ dysfunction type: acute renal failure Severe sepsis shock status: unspecified (5) Acute on chronic systolic heart failure Code(s): I50.23 - ACUTE ON CHRONIC SYSTOLIC (CONGESTIVE) HEART FAILURE Status : Acute (6) Atrial fibrillation with RVR Code(s): I48.91 - UNSPECIFIED ATRIAL FIBRILLATION Status: Acute (7) Diabetes mellitus type 2 in obese Code(s): E11.69 - TYPE 2 DIABETES MELLITUS WITH OTHER SPECIFIED COMPLICATION; E66.9 - OBESITY, UNSPECIFIED Status: Chronic (8) Hypertension Code(s): I10 - ESSENTIAL (PRIMARY) HYPERTENSION Status: Chronic Qualifiers: Hypertension type: essential hypertension Qualified Code(s): I10 - Essential (primary) hypertension (9) NICM (nonischemic cardiomyopathy) Code(s): I42.8 - OTHER CARDIOMYOPATHIES Status: Chronic (10) BRANDON (obstructive sleep apnea) Code(s): G47.33 - OBSTRUCTIVE SLEEP APNEA (ADULT) (PEDIATRIC) Status: Suspected (11) Anemia, normocytic normochromic Code(s): D64.9 - ANEMIA, UNSPECIFIED Status: Chronic (12) Volume overload Code(s): E87.70 - FLUID OVERLOAD, UNSPECIFIED Status: Acute - Plan old records reviewed/req, continue antibiotics, respiratory therapy 12/01/19 HD initiated, today day 2nd continue IV antibiotic for MSSA bacteremia pt is fluid overloaded, remove fluid as tolerated, now off levophed on amiodaron and rate controlled ventilator as per pulmonary medication reviewed and continue to provide symptomatic care and supportive care 12/02/19 medication reviewed, examined , continue HD, continue IV antibiotic, s/p bronchoscopy today and BAL for mucus still volume overloaded 12/03/19 central line right subclavian, right femoral groin HD catheter care ventilator as per pulmonary HD and remove fluid as tolerated continue amiodaron continue antibiotics as per ID medication reviewed, continue to provide symptomatic care and supportive care 12/04/19 discussed with family bedside and updated plan of care medication reviewed and continue to provide symptomatic care and supportive care continue ventilator support, antibiotics, amiodarone 12/05/19 not weanable yet due to volume overload status HD today continue antibiotics supportive care 12/06/19 no new recommendation chart reviewed, examined, still volume overloaded continue antibiotic, amiodaron 12/07/19 ventilator as per pulmonary continue oxacillin will need CELIA when stable HD as per nephrology if not weanable, he may end up with tract and peg Medication reviewed and continue to provide symptomatic care and supportive care
[2019-12-07] MEDS: Sodium Chloride 0.9% 1,000 ML IV SCH (10:16)
[2019-12-07] MEDS: Amiodarone HCl 450 MG in Dextrose 5% in Water 250 ML IVPB SCH ×2 (10:16→23:49)
--- NOTE | 2019-12-07 10:16 | PRG ---
DATE OF SERVICE: 12/03/2019 SUBJECTIVE: The patient is progressing slowly. He had a bronchoscopy which was not very eventful, had a dialysis and 4000 mL removed. He tolerated dialysis well. OBJECTIVE: Vital Signs: Showed normal temperature, BP 144/89, pulse 96, FiO2 of 40, PEEP of 5, saturations are 100. HEENT: Seems to be less edematous with less anasarca. Periorbital swelling is markedly less, constricted pupils. LUNGS: Symmetric air entry. HEART: S1 and S2. Regular rate. ABDOMEN: Soft, not distended. EXTREMITIES: 1+ edema in lower extremities. LABORATORY DATA: White cell count is at 13.2, hemoglobin 9.9, platelets 355, 76 % neutrophils. Creatinine 6.76. We will need to repeat blood cultures to verify resolution of bacteremia. Chest x-ray with nonspecific findings or changes ASSESSMENT AND DISCUSSION: Type 2 diabetes, cardiomyopathy with atrial fibrillation, AICD, MSSA bacteremia, and concern for AICD colonization/ endocarditis. Still on hemodialysis, tolerating it well, less volume overload. Hopefully, we will recover renal function in the near future. Eventually, CELIA will be performed to evaluate for the above occurrence. Continue oxacillin. Job ID: [id number] [facility]
[2019-12-07] MEDS ORDERED: Heparin 10,000 UNITS/ 10 ML VIAL ONE (13:54)
[2019-12-07] MEDS: Propofol 1,000 MG/100 ML VIAL IV PRN (17:49)
[2019-12-07] MEDS ORDERED: Metoprolol Tartrate 5 MG/5 ML VIAL ONE (18:04)
--- NOTE | 2019-12-07 18:41 | OP ---
DATE OF PROCEDURE: 12/07/2019 PREPROCEDURE DIAGNOSIS: Sepsis of unknown etiology. POSTOPERATIVE DIAGNOSIS: No significant areas of vegetations present. PROCEDURE PERFORMED: Transesophageal echocardiogram. Consent was obtained from Mr. Bradley's daughter. Mr. Bradley is currently sedated and intubated. Conscious sedation was performed with propofol while in the ICU. The probe was passed easily into the esophagus. FINDINGS: The mitral valve was well visualized. No vegetations or masses present. The left atrium is also free of massive vegetations. The aortic valve is also well visualized with no mass or vegetation. The patient does have leads present within the right atrium and right ventricle. No masses or vegetations were obvious. The sensitivity though is lower due to significant reverberation noted around the lead, but no obvious masses were present. IMPRESSION: No obvious masses present within the bowel structures for lead. Job ID: [id number]
[2019-12-07] MEDS ORDERED: Metoprolol Tartrate 5 MG/5 ML VIAL IVP SCH (18:45)
[2019-12-08] MEDS: Oxacillin 2 GM in Sodium Chloride 0.9% 50 ML IVPB SCH ×5 (05:35→19:58)
[2019-12-08] MEDS: Sodium Chloride 0.9% 1,000 ML IV SCH (05:35)
[2019-12-08] MEDS ORDERED: Amiodarone 150 MG, Admixture Fee 1 EACH in Dextrose 5% in Water 100 ML IVPB SCH (05:45)
[2019-12-08 05:47] LABS: Band 18 % (5-11); Eosinophils 1 % (0-10); Hemoglobin 8.8 g/dL (14.0-18.0); Lymphocytes 14 % (21-51); MDiff Complete? YES; Mean Corpuscular HGB CONC 33.2 g/dL (32.0-36.0); Mean Corpuscular Hemoglobin 30.8 pg (27.0-31.0); Mean Corpuscular Volume 92.7 fL (78.0-98.0); Mean Platelet Volume 7.4 fL (7.4-10.4); Monocytes 5 % (0-10); Neutrophil 62 % (42-75); Nucleated RBC 1 % (0); Platelet Count 527 thou/uL (130-400); Platelet Morphology Comment Appears Increased; RBC Distribution Width 14.4 % (11.5-14.5); RBC Morphology Normal; Red Blood Cell (RBC) Count 2.85 mill/uL (4.70-6.10); White Blood Cell (WBC) Count 14.7 thou/uL (4.8-10.8)
[2019-12-08 05:50] LABS: Anion Gap 19 mmol/L (10-20); BUN (Urea Nitrogen) 44 mg/dL (8.4-25.7); Calc. Creatinine Clearance 35 mL/min (70-130); Calcium 8.5 mg/dL (7.8-10.44); Carbon Dioxide 24 mmol/L (22-29); Chloride 98 mmol/L (98-107); Estimated GFR-MDRD 13; Glucose 223 mg/dL (70-105); Magnesium 2.4 mg/dL (1.6-2.6); Phosphorus 5.3 mg/dL (2.3-4.7); Sodium 137 mmol/L (136-145)
[2019-12-08] MEDS: HumaLOG 300 UNITS/3 ML VIAL SC PRN ×3 (06:01→19:24)
[2019-12-08] MEDS: Budesonide 0.5 MG/2 ML NEB INH SCH ×2 (07:25→18:26)
[2019-12-08 07:46] LABS: Actual Bicarbonate (HCO3a) 24.4 mEq/L (22-28); Base Excess (BEa) 0.9 mEq/L (-2.0 to +3.0); CO2 Tension 34.3 mmHg (35.0-45.0); Calcium, Ionized 1.08 mmol/L (1.12-1.30); Carboxyhemoglobin (COHb) 1.7 gm% (0.0-3.0); Hemoglobin (Hb) 8.8 g/dL (14.0-18.0); O2 Tension (PaO2) 65.6 mmHg (80.0-100.0); Potassium - ABG Lab 3.84 mmol/L (3.70-5.30); pH, Arterial 7.47 (7.35-7.45)
[2019-12-08 08:13] LABS: ALV-art Gradient 176.725 (0-20); Puncture Site L.R.
--- NOTE | 2019-12-08 09:09 | RAD ---
PORTABLE CHEST: INDICATIONS: Patient on ventilator with CCU followup. COMPARISON: 12/07/2009 FINDINGS: ET tube, NG tube and central line unchanged. Mild cardiomegaly. No focal infiltrate or consolidation. No significant interval change from yesterday. POS: [facility]
[2019-12-08] MEDS: Scopolamine 1.5 mg/72 hour Patch TD SCH (09:23)
[2019-12-08] MEDS: Carvedilol 3.125 MG TAB PO SCH ×2 (09:24→19:09)
[2019-12-08] MEDS: Famotidine 20 MG TAB PER TUBE SCH (09:24)
[2019-12-08] MEDS: Heparin 5,000 UNITS/ML VIAL SC SCH ×3 (09:24→19:58)
--- NOTE | 2019-12-08 09:30 | PRG ---
DATE OF SERVICE: 12/08/2019 SUBJECTIVE: He is a 54-year-old gentleman, status post intubation for sepsis syndrome followed by renal failure, respiratory failure, day #12 on the vent. His sedation is withheld for almost 3 days, much more responsive, awake, copious amount of secretions. OBJECTIVE: VITAL SIGNS: Saturations are 100%, pulse 104, blood pressure 113/ 70. CHEST: He has extensive rhonchi. CARDIAC: Normal S1, S2. No gallops. ABDOMEN: No masses. LABORATORY DATA: White count 14,000. H and H 26. Platelet count 527. PO2 65, pCO2 34% ph 7.45_ 40% creatinine 4.6. TSH is normal. Phosphorus normal. He has normal glucose 175. ASSESSMENT: 1. Sepsis syndrome and Staphylococcus. 2. Renal failure. 3. Respiratory failure. 4. Diabetes. Consider weaning and extubation, scopolamine patch_ supportive care. We will follow. One-half hour of critical time. Job ID: [id number] MTDD
--- NOTE | 2019-12-08 09:38 | PRG ---
DATE OF SERVICE: 12/08/2019 SUBJECTIVE: The patient is seen and examined in the ICU. No family members. Remains intubated. OBJECTIVE: GENERAL: Obese male, intubated. VITAL SIGNS: Temperature 99.9, pulse 68, and blood pressure 118/71. HEENT: Intubated. CV: S1 and S2 heard. RESPIRATORY: Clear. GI: Abdomen is soft. MUSCULOSKELETAL: 1 to 2+ edema. DERMATOLOGIC: No skin rash. NEUROLOGIC: Intubated. LABORATORY DATA: Hemoglobin is 8.8. Potassium is 4.0, BUN is 44, and creatinine noted ASSESSMENT AND PLAN: 1. Acute kidney injury on chronic kidney disease, stage 3, remains dialysis dependent and oliguric, was having dialysis daily. Planned to hold dialysis today. We will continue ultrafiltration as tolerated. Volume overload seems to be better, limit fluid intake and we will hold dialysis today. 2. Anemia. We will monitor Epogen as tolerated. 3. Hypertension. 4. Acute hypoxic respiratory failure. Plan to hold dialysis. We will continue every other day dialysis as tolerated. Job ID: [id number] MTDD
[2019-12-08] MEDS: Insulin Glargine 20 UNITS in Pre-Filled Syringe 1 EACH SC SCH ×2 (10:28→19:58)
--- NOTE | 2019-12-08 14:58 | PDOC.HOSPP ---
- Subjective Subjective: Seen and examined. Intubated, eyes open, will squeeze hand to command. - Objective Vital Signs & Weight: Vital Signs (12 hours) Temp Pulse Resp BP Pulse Ox 12/08/19 14:48 101 H 107/81 12/08/19 14:47 101 H 27 H 99 12/08/19 14:00 30 H 12/08/19 12:00 31 H 12/08/19 10:29 107 H 118/74 12/08/19 10:28 107 H 34 H 97 12/08/19 10:00 30 H 12/08/19 09:07 97 12/08/19 08:00 31 H 12/08/19 07:26 100 118/71 12/08/19 07:25 99 22 H 96 12/08/19 07:24 99 22 H 96 12/08/19 06:00 29 H 12/08/19 04:00 99.9 F H 32 H Weight Admit Weight 295 lb Weight 292 lb 1.8 oz Most Recent Monitor Data Heart Rate from ECG 100 NIBP 130/80 NIBP BP-Mean 96 Respiration from ECG 27 SpO2 100 I&O: 12/07/19 12/08/19 12/09/19 06:59 06:59 06:59 Intake Total 3573 2844 160 Output Total 201 501 350 Balance 3372 2343 -190 Result Diagrams: 12/08/19 05:12 12/08/19 05:12 Additional Labs: Accuchecks 12/08/19 12/07/19 12/07/19 12:06 23:50 18:29 POC Glucose 239 H 175 H 183 H Radiology Reviewed by me: Yes Hospitalist ROS - Review of Systems ROS unobtainable: due to endotracheal tube - Medication Medications: Active Medications Generic Name Dose Route Start Last Admin Trade Name Freq PRN Reason Stop Dose Admin Acetaminophen 1,000 mg 11/26/19 14:59 12/07/19 00:16 Tylenol Elixir PO 1,000 mg Q6H PRN Administration Headache/Fever or Pain Albuterol/Ipratropium 3 ml 12/07/19 14:30 12/08/19 14:47 Duoneb NEB 3 ml [id number] LEEANN Administration Lipase/Protease/Amylase 1 cap 12/07/19 04:46 12/07/19 04:59 Leonides Tejada [id number] FS 1 cap .PER PROTOCOL PRN Administration TUBE OCCLUSION PROTOCOL Budesonide 0.5 mg 12/02/19 18:30 12/08/19 07:25 Pulmicort Neb Solution INH 0.5 mg BID-RT LEEANN Administration Carvedilol 3.125 mg 12/06/19 17:00 12/08/19 09:24 Coreg PO 3.125 mg BID-WM LEEANN Administration Famotidine 20 mg 12/08/19 09:00 12/08/19 09:24 Pepcid PER TUBE 20 mg DAILY LEEANN Administration Heparin Sodium (Porcine) 5,000 units 11/26/19 15:00 12/08/19 09:24 Heparin SC 5,000 units TID LEEANN Administration Amiodarone HCl 450 mg/ 259 mls @ 0 mls/hr 11/26/19 19:45 12/07/19 23:49 Miscellaneous Medication 1 IVPB 259 mls each/ Dextrose/Water INF LEEANN Administration Protocol As Directed Norepinephrine Bitartrate 250 mls @ 0 mls/hr 11/26/19 21:20 11/28/19 01:51 Levophed IVPB 250 mls INF LEEANN Administration Protocol Titrate Insulin Glargine 20 units/ 0.2 mls @ 0 mls/hr 11/28/19 21:00 12/08/19 10:28 Miscellaneous Medication SC 0.2 mls Q12HR LEEANN Administration Sodium Chloride 1,000 mls @ 50 mls/hr 12/02/19 08:11 12/08/19 05:35 Normal Saline 0.9% IV 1,000 mls .Q20H LEEANN Administration Dexmedetomidine HCl 200 mcg/ 50 mls @ 0 mls/hr 12/06/19 09:00 12/06/19 10:20 Sodium Chloride IVPB 50 mls INF LEEANN Administration Protocol Per Protocol Oxacillin Sodium 2 gm/ Sodium 50 mls @ 100 mls/hr 12/07/19 05:00 12/08/19 13: 56 Chloride IVPB 50 mls Q4HR LEEANN Administration Insulin Human Lispro 0 units 11/29/19 13:57 12/08/19 13:09 Humalog SC 4 units .MODERATE SLIDING SC PRN Administration Moderate Correctional Scale Propofol 1,000 mg 11/26/19 11:28 12/07/19 17:49 Diprivan IV 12/26/19 11:28 1,000 mg INF PRN Administration TO ACHIEVE GOAL RASS Protocol Scopolamine 1.5 mg 12/08/19 09:15 12/08/19 09:23 Transderm Scop TD 1.5 mg Q3D LEEANN Administration Sodium Bicarbonate 650 mg 12/07/19 04:46 12/07/19 04:59 Bicarbonate, Sodium PER TUBE 650 mg .PER PROTOCOL PRN Administration ENTERAL TUBE OCCLUSION - Exam General Appearance: awake alert Eye: PERRL ENT: normocephalic atraumatic, moist mucosa Neck: supple, symmetric, no lymphadenopathy Heart: no murmur, no gallops, no rubs Respiratory: no rales, no tachypnea, rhonchi, wheezes Gastrointestinal: soft, non-tender, no guarding, no rigidity Extremities - other findings: 4+ edema Upper and lower extremities Skin: no lesions, no rashes Neurological: cranial nerve grossly intact, no focal deficits Musculoskeletal: generalized weakness Hosp A/P (1) Acute renal failure Status: Acute Qualifiers: Acute renal failure type: with acute tubular necrosis Qualified Code(s): N17.0 - Acute kidney failure with tubular necrosis (2) Acute respiratory failure with hypoxia Code(s): J96.01 - ACUTE RESPIRATORY FAILURE WITH HYPOXIA Status: Acute (3) MSSA bacteremia Code(s): R78.81 - BACTEREMIA Status: Acute (4) Sepsis Code(s): A41.9 - SEPSIS, UNSPECIFIED ORGANISM Status: Acute Qualifiers: Sepsis type: methicillin susceptible Staphylococcus aureus Sepsis acute organ dysfunction status: with acute organ dysfunction Severe sepsis acute organ dysfunction type: acute renal failure Severe sepsis shock status: unspecified (5) Volume overload Code(s): E87.70 - FLUID OVERLOAD, UNSPECIFIED Status: Acute (6) Anemia, normocytic normochromic Code(s): D64.9 - ANEMIA, UNSPECIFIED Status: Chronic (7) Acute kidney injury Code(s): N17.9 - ACUTE KIDNEY FAILURE, UNSPECIFIED Status: Acute (8) Acute on chronic systolic heart failure Code(s): I50.23 - ACUTE ON CHRONIC SYSTOLIC (CONGESTIVE) HEART FAILURE Status : Acute (9) Acute respiratory failure Code(s): J96.00 - ACUTE RESPIRATORY FAILURE, UNSP W HYPOXIA OR HYPERCAPNIA Status: Acute Qualifiers: Respiratory failure complication: hypoxia and hypercapnia Qualified Code(s) : J96.01 - Acute respiratory failure with hypoxia; J96.02 - Acute respiratory failure with hypercapnia (10) Atrial fibrillation Code(s): I48.91 - UNSPECIFIED ATRIAL FIBRILLATION Status: Acute (11) Atrial fibrillation with RVR Code(s): I48.91 - UNSPECIFIED ATRIAL FIBRILLATION Status: Acute (12) Cellulitis Code(s): L03.90 - CELLULITIS, UNSPECIFIED Status: Acute (13) Chronic systolic heart failure Code(s): I50.22 - CHRONIC SYSTOLIC (CONGESTIVE) HEART FAILURE Status: Chronic (14) Diabetes mellitus type 2 in obese Code(s): E11.69 - TYPE 2 DIABETES MELLITUS WITH OTHER SPECIFIED COMPLICATION; E66.9 - OBESITY, UNSPECIFIED Status: Chronic (15) Hypertension Code(s): I10 - ESSENTIAL (PRIMARY) HYPERTENSION Status: Chronic Qualifiers: Hypertension type: essential hypertension Qualified Code(s): I10 - Essential (primary) hypertension (16) NICM (nonischemic cardiomyopathy) Code(s): I42.8 - OTHER CARDIOMYOPATHIES Status: Chronic (17) BRANDON (obstructive sleep apnea) Code(s): G47.33 - OBSTRUCTIVE SLEEP APNEA (ADULT) (PEDIATRIC) Status: Suspected (18) Bacteremia Code(s): R78.81 - BACTEREMIA Status: Resolved - Plan Plan: critical care unit pulmonology consultation, recommendations appreciated nephrology consultation, recommendations appreciated infectious disease consultation, recommendations appreciated vent management per pulmonology, weaning limited secondary to mentation and secretions CELIA negative for vegetation antibiotics per infectious disease specialist hemodialysis per nephrology blood pressure control blood sugar control continue home medications as able G.I. prophylaxis DVT prophylaxis
[2019-12-08] MEDS ORDERED: DC Sedation Protocol FS ONE (16:25)
[2019-12-08] MEDS: Amiodarone HCl 450 MG in Dextrose 5% in Water 250 ML IVPB SCH (19:13)
[2019-12-08 23:55] LABS: Actual Bicarbonate (HCO3a) 25.1 mEq/L (22-28); Base Excess (BEa) 0.7 mEq/L (-2.0 to +3.0); CO2 Tension 39.1 mmHg (35.0-45.0); Carboxyhemoglobin (COHb) 1.2 gm% (0.0-3.0); Hemoglobin (Hb) 9.2 g/dL (14.0-18.0); O2 Tension (PaO2) 67.2 mmHg (80.0-100.0); pH, Arterial 7.43 (7.35-7.45)
[2019-12-08 23:57] LABS: Calcium, Ionized 1.08 mmol/L (1.12-1.30); Potassium - ABG Lab 3.88 mmol/L (3.70-5.30); Puncture Site LRA
[2019-12-08 23:58] LABS: ALV-art Gradient 167.125 (0-20)
[2019-12-09] MEDS: Oxacillin 2 GM in Sodium Chloride 0.9% 50 ML IVPB SCH ×7 (01:20→23:57)
[2019-12-09 05:39] LABS: Anion Gap 20 mmol/L (10-20); BUN (Urea Nitrogen) 69 mg/dL (8.4-25.7); Calc. Creatinine Clearance 24 mL/min (70-130); Calcium 8.5 mg/dL (7.8-10.44); Carbon Dioxide 22 mmol/L (22-29); Chloride 99 mmol/L (98-107); Estimated GFR-MDRD 9; Glucose 150 mg/dL (70-105); Sodium 137 mmol/L (136-145)
[2019-12-09 05:55] LABS: Band 6 % (5-11); Eosinophils 5 % (0-10); Hemoglobin 8.4 g/dL (14.0-18.0); Lymphocytes 17 % (21-51); MDiff Complete? YES; Mean Corpuscular HGB CONC 31.8 g/dL (32.0-36.0); Mean Corpuscular Hemoglobin 29.9 pg (27.0-31.0); Mean Corpuscular Volume 93.8 fL (78.0-98.0); Mean Platelet Volume 7.4 fL (7.4-10.4); Monocytes 6 % (0-10); Neutrophil 65 % (42-75); Platelet Count 575 thou/uL (130-400); RBC Distribution Width 14.7 % (11.5-14.5); White Blood Cell (WBC) Count 12.4 thou/uL (4.8-10.8)
[2019-12-09] MEDS: Budesonide 0.5 MG/2 ML NEB INH SCH ×2 (06:39→18:37)
--- NOTE | 2019-12-09 08:07 | RAD ---
EXAM: CHEST ONE VIEW HISTORY: On ventilator. Follow-up evaluation. COMPARISON: 12/08/2019 FINDINGS: The endotracheal tube and nasogastric tubes have been removed. The right subclavian central venous ca theter is stable in position. Multilead left subclavian AICD device is again present. Cardiac silhouette is enlarged. Pulmonary vasculature is within normal limits. No obvious consolidation or pl eural fluid is identified. Chest is otherwise unchanged compared to prior study. IMPRESSION: Interval removal of the endotracheal tube and nasogastric tubes. The chest is otherwise stable.
[2019-12-09] MEDS: Carvedilol 3.125 MG TAB PO SCH ×2 (08:30→18:31)
--- NOTE | 2019-12-09 08:40 | PRG ---
DATE OF SERVICE: 12/09/2019 SUBJECTIVE: Mr. Bradley was extubated. He is on high-flow oxygen. He still appears weak. No current complaints. OBJECTIVE: VITAL SIGNS: Blood pressure 110/78, pulse 100, and respirations 20. LUNGS: Minimal crackles bilaterally. HEART: Regular rate and rhythm with extra systolic beats. ABDOMEN: Soft, nontender, and nondistended. EXTREMITIES: 1 to 2+ pitting edema. PERTINENT LABORATORY DATA: Hemoglobin 8.4, white blood cell count 12.4, and platelet count 537. IMPRESSION: 1. Sepsis. 2. Renal failure. 3. Nonischemic cardiomyopathy. 4. Status post implantable cardioverter-defibrillator. RECOMMENDATIONS: CELIA recently performed did not suggest vegetation. Sensitivity though is low due to difficulty CELIA and/or perforations present off the lead. Continue antibiotic therapy. Continue IV amiodarone. Recommend p.o. amiodarone when NG tube placed. The patient is in sinus rhythm with PACs and not with underlying atrial fibrillation. Job ID: [id number]
[2019-12-09] MEDS ORDERED: Heparin 10,000 UNITS/ 10 ML VIAL ONE (08:58)
--- NOTE | 2019-12-09 09:08 | PRG ---
DATE OF SERVICE: SUBJECTIVE: off vent This morning, he is awake, alert, responsive, not in much distress, high-flow. OBJECTIVE: VITAL SIGNS: Saturations 100%, respiratory rate 24, temperature 98 , and blood pressure 110/78. CHEST: Anterior rhonchi. CARDIAC: Normal S1 and S2. No gallops or masses. LABORATORY DATA: White count 12,000,, and platelet count is normal. No left shift. Creatinine is 6. DIAGNOSTIC DATA: X-ray is clear. IMPRESSION: Acute renal failure, diabetes, dysphagia, morbid obesity, respiratory failure, and marked weakness. PLAN: Speech is being ordered. If he fails, he is going to need a Dobhoff since he is diabetic. Otherwise, aggressive neb treatment, PT, supportive care, antibiotics for a Staph sepsis. We will continue to follow. Job ID: [id number] [facility]
[2019-12-09] MEDS: Famotidine/PF 20 mg/2ml Vial SLOW IVP SCH (09:26)
[2019-12-09] MEDS: Sodium Chloride 0.9% 1,000 ML IV SCH (09:28)
[2019-12-09] MEDS: EPOETIN ALFA-EPBX (ESRD) 10,000 UNIT/ML VIAL IVP SCH (09:29)
[2019-12-09] MEDS: Heparin 5,000 UNITS/ML VIAL SC SCH ×3 (09:32→19:42)
[2019-12-09] MEDS: Insulin Glargine 20 UNITS in Pre-Filled Syringe 1 EACH SC SCH ×2 (09:33→19:42)
--- NOTE | 2019-12-09 10:18 | PRG ---
DATE OF SERVICE: 12/09/2019 SUBJECTIVE: Patient was seen and examined at bedside and overnight events noted. Patient denies any shortness of breath or chest pain or palpitation. No history of nausea or vomiting or diarrhea or fever or chills or cramps. OBJECTIVE: GENERAL: This is an obese male, still in ICU, and very lethargic. VITAL SIGNS: Temperature 98.9. Heart rate 97. Respiratory rate 20. Blood pressure 98/75. HEENT: Atraumatic, normocephalic. Oral mucosa is moist NECK: Supple. CARDIOVASCULAR: S1, S2 heard. Rate and rhythm regular. RESPIRATORY: Clear to auscultation. GASTROINTESTINAL: Abdomen is soft. MUSCULOSKELETAL: No tenderness. No edema. DERMATOLOGIC: No skin rash. NEUROLOGIC: Alert and awake and oriented X3. No focal neurologic deficits. Moving all the extremities. PSYCHIATRIC: Mood and affect normal. LABORATORY DATA: Potassium 4.0, BUN is 69, and creatinine is 6.4. ASSESSMENT AND PLAN: 1. Acute kidney injury on chronic kidney stage 3, remains dialysis dependent. Plan is to have dialysis today, but apparently, the patient is started making more urine 875 mL of urine, which is encouraging. We will continue to monitor urine output. Continue dialysis as tolerated. Plan is to have ultrafiltration. 2. Anemia. Continue Epogen as tolerated. 3. Hypotension. 4. Acute hypoxic respiratory failure, extubated. 5. Edema, controlled. 6. Fluid overload, we will remove fluid with dialysis. Monitor urine output. 7. We will add continue dialysis as tolerated. Job ID: [id number]
[2019-12-09] MEDS: Amiodarone HCl 450 MG in Dextrose 5% in Water 250 ML IVPB SCH (10:58)
[2019-12-09] MEDS: Famotidine 20 MG TAB PER TUBE SCH (11:58)
--- NOTE | 2019-12-09 14:01 | PDOC.HOSPP ---
- Subjective Subjective: Seen and examined. Eyes open follow simple commands. Tries to speak though his voice is soft and not able to understand much. Patient is profoundly week. Will have speech therapy evaluation today, if he fails may require Dobbhoff/feeding tube. - Objective Vital Signs & Weight: Vital Signs (12 hours) Temp Pulse Resp Pulse Ox 12/09/19 12:00 98.6 F 12/09/19 10:43 111 H 23 H 100 12/09/19 07:00 98.9 F 12/09/19 06:38 98 24 H 100 12/09/19 04:00 99.9 F H 12/09/19 02:58 99 24 H 100 Weight Admit Weight 295 lb Weight 282 lb 3.067 oz Most Recent Monitor Data Heart Rate from ECG 95 NIBP 146/96 NIBP BP-Mean 112 Respiration from ECG 34 SpO2 95 I&O: 12/08/19 12/09/19 12/10/19 06:59 06:59 06:59 Intake Total 2844 2451 50 Output Total 501 875 130 Balance 2343 1576 -80 Result Diagrams: 12/09/19 04:58 12/09/19 04:58 Additional Labs: Accuchecks 12/09/19 12/08/19 12/08/19 12:29 23:40 19:19 POC Glucose 148 H 143 H 198 H Radiology Reviewed by me: Yes Hospitalist ROS - Review of Systems All other systems reviewed; all pertinent +/- noted in HPI/Subj - Medication Medications: Active Medications Generic Name Dose Route Start Last Admin Trade Name Freq PRN Reason Stop Dose Admin Acetaminophen 1,000 mg 11/26/19 14:59 12/07/19 00:16 Tylenol Elixir PO 1,000 mg Q6H PRN Administration Headache/Fever or Pain Albuterol/Ipratropium 3 ml 12/07/19 14:30 12/09/19 10:43 Duoneb NEB 3 ml [id number] LEEANN Administration Lipase/Protease/Amylase 1 cap 12/07/19 04:46 12/07/19 04:59 Leonides Tejada [id number] FS 1 cap .PER PROTOCOL PRN Administration TUBE OCCLUSION PROTOCOL Budesonide 0.5 mg 12/02/19 18:30 12/09/19 06:39 Pulmicort Neb Solution INH 0.5 mg BID-RT LEEANN Administration Carvedilol 3.125 mg 12/06/19 17:00 12/09/19 08:30 Coreg PO Not Given BID-WM LEEANN Epoetin Alex-epbx 10,000 unit 12/09/19 09:11 12/09/19 09:29 Retacrit IVP 10,000 unit TuThSa LEEANN Administration Famotidine 20 mg 12/09/19 09:00 12/09/19 09:26 Pepcid SLOW IVP 20 mg DAILY LEEANN Administration Heparin Sodium (Porcine) 5,000 units 11/26/19 15:00 12/09/19 09:32 Heparin SC 5,000 units TID LEEANN Administration Amiodarone HCl 450 mg/ 259 mls @ 0 mls/hr 11/26/19 19:45 12/09/19 10:58 Miscellaneous Medication 1 IVPB 259 mls each/ Dextrose/Water INF LEEANN Administration Protocol As Directed Norepinephrine Bitartrate 250 mls @ 0 mls/hr 11/26/19 21:20 11/28/19 01:51 Levophed IVPB 250 mls INF LEEANN Administration Protocol Titrate Insulin Glargine 20 units/ 0.2 mls @ 0 mls/hr 11/28/19 21:00 12/09/19 09:33 Miscellaneous Medication SC 0.2 mls Q12HR LEEANN Administration Sodium Chloride 1,000 mls @ 50 mls/hr 12/02/19 08:11 12/09/19 09:28 Normal Saline 0.9% IV 1,000 mls .Q20H LEEANN Administration Dexmedetomidine HCl 200 mcg/ 50 mls @ 0 mls/hr 12/06/19 09:00 12/06/19 10:20 Sodium Chloride IVPB 50 mls INF LEEANN Administration Protocol Per Protocol Oxacillin Sodium 2 gm/ Sodium 50 mls @ 100 mls/hr 12/07/19 05:00 12/09/19 13: 12 Chloride IVPB 50 mls Q4HR LEEANN Administration Insulin Human Lispro 0 units 11/29/19 13:57 12/08/19 19:24 Humalog SC 2 units .MODERATE SLIDING SC PRN Administration Moderate Correctional Scale Scopolamine 1.5 mg 12/08/19 09:15 12/08/19 09:23 Transderm Scop TD 1.5 mg Q3D LEEANN Administration Sodium Bicarbonate 650 mg 12/07/19 04:46 12/07/19 04:59 Bicarbonate, Sodium PER TUBE 650 mg .PER PROTOCOL PRN Administration ENTERAL TUBE OCCLUSION - Exam General Appearance: NAD Eye: anicteric sclera ENT: normocephalic atraumatic, moist mucosa Neck: supple, symmetric Heart: no murmur, no gallops, no rubs Respiratory: no rales, normal chest expansion, no tachypnea, rhonchi, wheezes Gastrointestinal: soft, non-tender, no guarding, no rigidity Extremities - other findings: 4+ UE and LE edema Skin: no lesions, no rashes Neurological: cranial nerve grossly intact, no focal deficits Musculoskeletal: generalized weakness Psychiatric: not oriented Hosp A/P (1) Acute renal failure Status: Acute Qualifiers: Acute renal failure type: with acute tubular necrosis Qualified Code(s): N17.0 - Acute kidney failure with tubular necrosis (2) Acute respiratory failure with hypoxia Code(s): J96.01 - ACUTE RESPIRATORY FAILURE WITH HYPOXIA Status: Acute (3) MSSA bacteremia Code(s): R78.81 - BACTEREMIA Status: Acute (4) Sepsis Code(s): A41.9 - SEPSIS, UNSPECIFIED ORGANISM Status: Acute Qualifiers: Sepsis type: methicillin susceptible Staphylococcus aureus Sepsis acute organ dysfunction status: with acute organ dysfunction Severe sepsis acute organ dysfunction type: acute renal failure Severe sepsis shock status: unspecified (5) Volume overload Code(s): E87.70 - FLUID OVERLOAD, UNSPECIFIED Status: Acute (6) Anemia, normocytic normochromic Code(s): D64.9 - ANEMIA, UNSPECIFIED Status: Chronic (7) Acute kidney injury Code(s): N17.9 - ACUTE KIDNEY FAILURE, UNSPECIFIED Status: Acute (8) Acute on chronic systolic heart failure Code(s): I50.23 - ACUTE ON CHRONIC SYSTOLIC (CONGESTIVE) HEART FAILURE Status : Acute (9) Acute respiratory failure Code(s): J96.00 - ACUTE RESPIRATORY FAILURE, UNSP W HYPOXIA OR HYPERCAPNIA Status: Acute Qualifiers: Respiratory failure complication: hypoxia and hypercapnia Qualified Code(s) : J96.01 - Acute respiratory failure with hypoxia; J96.02 - Acute respiratory failure with hypercapnia (10) Atrial fibrillation Code(s): I48.91 - UNSPECIFIED ATRIAL FIBRILLATION Status: Acute (11) Atrial fibrillation with RVR Code(s): I48.91 - UNSPECIFIED ATRIAL FIBRILLATION Status: Acute (12) Cellulitis Code(s): L03.90 - CELLULITIS, UNSPECIFIED Status: Acute (13) Chronic systolic heart failure Code(s): I50.22 - CHRONIC SYSTOLIC (CONGESTIVE) HEART FAILURE Status: Chronic (14) Diabetes mellitus type 2 in obese Code(s): E11.69 - TYPE 2 DIABETES MELLITUS WITH OTHER SPECIFIED COMPLICATION; E66.9 - OBESITY, UNSPECIFIED Status: Chronic (15) Hypertension Code(s): I10 - ESSENTIAL (PRIMARY) HYPERTENSION Status: Chronic Qualifiers: Hypertension type: essential hypertension Qualified Code(s): I10 - Essential (primary) hypertension (16) NICM (nonischemic cardiomyopathy) Code(s): I42.8 - OTHER CARDIOMYOPATHIES Status: Chronic (17) BRANDON (obstructive sleep apnea) Code(s): G47.33 - OBSTRUCTIVE SLEEP APNEA (ADULT) (PEDIATRIC) Status: Suspected (18) Bacteremia Code(s): R78.81 - BACTEREMIA Status: Resolved - Plan Plan: critical care unit pulmonology consultation, recommendations appreciated nephrology consultation, recommendations appreciated infectious disease consultation, recommendations appreciated High flow NC to maintain O2 saturation Swallow eval If fails swallow may need dobhoff and enteral nutrition Pulm hygiene CELIA negative for vegetation antibiotics per infectious disease specialist hemodialysis per nephrology blood pressure control blood sugar control continue home medications as able G.I. prophylaxis DVT prophylaxis
--- NOTE | 2019-12-09 14:11 | PRG ---
DATE OF SERVICE: 12/09/2019 SUBJECTIVE: Mr. Bradley was extubated. He has a high-flow nasal cannula O2 supplementation at the moment. The patient had a transesophageal echocardiogram. The report showed no vegetation or masses present. The leads were present within the right atrium and right ventricle. There was a lot of reverberation noted around the lead so that made it a technically less than optimal study. The patient is drowsy. He will establish eye contact intermittently, but not more than just a brief period of time. He mumbles some sounds that are difficult to understand. He does not seem to be in distress. OBJECTIVE: LUNGS: Symmetric air entry with basilar crackles. HEART: S1, S2 with diminished heart sounds. Regular rate. ABDOMEN: Distended, possible ascites. No bladder distention. The urine output has been picking up over the past few days. EXTREMITIES: He is able to move extremities. Extremities are well perfused. LABORATORY STUDIES: WBC count down to the lowest since admission at 12.4, hemoglobin 8.4, platelets are up to 575. The differential has finally normalized. The creatinine is still up at 6.7. Repeat blood culture, no growth at 48 hours. Repeat chest x-ray with interval removal of the ET tube. ASSESSMENT AND DISCUSSION: Type 2 diabetes, cardiomyopathy, atrial fibrillation , AICD, possibility of lead colonization/endocarditis. The CELIA was of less than optimal quality due to artifact from the leads and so I am unable to take that at face value at ruling out endocarditis. Still improving slowly and I planned to perform a CT of chest and abdomen and pelvis before deciding on the duration of therapy. There is a concern with metastatic lesions at L4 and spine and lungs are the main areas of concern at this point in time. Job ID: [id number] [facility]
--- NOTE | 2019-12-09 17:27 | RAD ---
Exam: 1 view abdomen HISTORY: Evaluate Dobbhoff tube position FINDINGS: One view abdomen demonstrates a Dobbhoff tube likely in the proximal stomach. Repositioning and advan cement is recommended IMPRESSION: Dobbhoff feeding tube position in the stomach. Repositioning and advancement.
[2019-12-09] MEDS: HumaLOG 300 UNITS/3 ML VIAL SC PRN ×2 (18:31→23:57)
--- NOTE | 2019-12-09 19:13 | RAD ---
Exam: 1 view abdomen COMPARISON: 12/09/2019 at 4:55 PM HISTORY: Reposition Dobbhoff feeding tube FINDINGS: Markedly limited evaluation due to portable technique and body habitus. Dobbhoff feeding tu be appears to still be in the stomach. No significant change IMPRESSION: As above.
[2019-12-10] MEDS: Sodium Chloride 0.9% 1,000 ML IV SCH (02:09)
[2019-12-10] MEDS: Amiodarone HCl 450 MG in Dextrose 5% in Water 250 ML IVPB SCH ×2 (02:09→21:34)
[2019-12-10 03:39] LABS: Actual Bicarbonate (HCO3a) 21.9 mEq/L (22-28); Base Excess (BEa) -2.1 mEq/L (-2.0 to +3.0); CO2 Tension 34.5 mmHg (35.0-45.0); Calcium, Ionized 1.08 mmol/L (1.12-1.30); Carboxyhemoglobin (COHb) 1.1 gm% (0.0-3.0); Hemoglobin (Hb) 9.2 g/dL (14.0-18.0); Potassium - ABG Lab 4.48 mmol/L (3.70-5.30); pH, Arterial 7.42 (7.35-7.45)
[2019-12-10 03:40] LABS: ALV-art Gradient 188.975 (0-20); O2 Tension (PaO2) 53.1 mmHg (80.0-100.0); Puncture Site L RADIAL
[2019-12-10] MEDS: Oxacillin 2 GM in Sodium Chloride 0.9% 50 ML IVPB SCH ×5 (05:01→21:34)
[2019-12-10 05:40] LABS: Anion Gap 23 mmol/L (10-20); BUN (Urea Nitrogen) 62 mg/dL (8.4-25.7); Calc. Creatinine Clearance 23 mL/min (70-130); Calcium 8.4 mg/dL (7.8-10.44); Carbon Dioxide 21 mmol/L (22-29); Chloride 99 mmol/L (98-107); Estimated GFR-MDRD 9; Glucose 223 mg/dL (70-105); Potassium 4.5 mmol/L (3.5-5.1); Sodium 138 mmol/L (136-145)
[2019-12-10] MEDS: HumaLOG 300 UNITS/3 ML VIAL SC PRN ×3 (05:45→15:53)
[2019-12-10] MEDS: Budesonide 0.5 MG/2 ML NEB INH SCH ×2 (07:10→18:43)
--- NOTE | 2019-12-10 08:16 | PRG ---
DATE OF SERVICE: 12/10/2019 SUBJECTIVE: The patient was seen and examined in ICU. He is on BiPAP and neurologically not doing well per the bedside nurse and not waking up for me. OBJECTIVE: GENERAL: This is an obese male, on BiPAP, confused and lethargic. VITAL SIGNS: Temperature 99.6, pulse 106, respiratory rate 40, and blood pressure 131/77. HEENT: On BiPAP. CARDIOVASCULAR: S1 and S2 heard. Tachycardia. RESPIRATORY: Clear. GASTROINTESTINAL: Abdomen is soft. MUSCULOSKELETAL: 1 to 2+ edema. DERMATOLOGIC: No skin rash. NEUROLOGICAL: Lethargic, somnolent. LABORATORY DATA: Potassium 4.5, BUN is 62, and creatinine is 6.4. ASSESSMENT AND PLAN: 1. Acute kidney injury on chronic kidney disease, stage 3, dialysis dependent. He is making some urine. He is nonoliguric, but remains lethargic. No acute indication for dialysis. Plan is to have every other day dialysis at this point. 2. Anemia. Continue Epogen. 3. History of hypertension. 4. Edema. 5. Acute hypoxic respiratory failure. 6. Fluid overload, stable at this point. Prognosis guarded. Plan is to have every other day dialysis as indicated. Job ID: [id number]
[2019-12-10] MEDS: Heparin 5,000 UNITS/ML VIAL SC SCH ×3 (08:33→21:34)
[2019-12-10] MEDS: Carvedilol 3.125 MG TAB PO SCH ×2 (08:33→16:56)
[2019-12-10] MEDS: Famotidine/PF 20 mg/2ml Vial SLOW IVP SCH (08:33)
[2019-12-10] MEDS: Insulin Glargine 20 UNITS in Pre-Filled Syringe 1 EACH SC SCH ×2 (08:34→21:33)
--- NOTE | 2019-12-10 09:08 | RAD ---
XR Chest 1 View Portable History: Ventilated patient Comparison: Radiograph prior day Findings: No endotracheal tube is appreciated. Enteric tube tip is below diaphragm although out of fi eld of view. Cardiac device appears similar as well as a right subclavian central venous catheter with tip poorly evaluated due to the numerous overlying leads. Abnormal left lung airspace opacities appear relatively new. Impression: Worsening aeration of the left lung may reflect aspiration or infection.
--- NOTE | 2019-12-10 09:09 | PRG ---
DATE OF SERVICE: 12/10/2019 SUBJECTIVE: Vitor Bradley became sleepy and lethargic yesterday after they tried to put in feeding tube. He had to be placed on BiPAP. OBJECTIVE: VITAL SIGNS: Pulse 102, blood pressure saturations 90%, respiratory rate 30. His I's and O's have been still positive. He is making minimal urine output. GENERAL: He is arousable, but lethargic. LABORATORY DATA: His pO2 was 43, pCO2 was 34, pH was 7.42. BUN and creatinine 62 and 6.4. Glucose was adequate. IMPRESSION: Respiratory failure, Staphylococcus sepsis, morbid obesity, diabetes, probably sleep apnea. At this stage, avoid all kind of sedation. He may require nocturnal BiPAP for a period of time. High-flow during the daytime. Otherwise, continue PT and supportive care. Prognosis still remains guarded. He still cannot be transferred out of the ICU. Aggressive PT, feeding, nutrition. TIME SPENT: One-half hour of Critical Care time. Job ID: [id number]
--- NOTE | 2019-12-10 15:45 | PDOC.HOSPP ---
- Subjective Subjective: Patient remains extubated for the time being. Mentation remains limited. Does track around the room. Follow simple commands. No focal neurologic deficits. When asked if I can do anything to help the patient he mutters very faintly the word "water". - Objective Vital Signs & Weight: Vital Signs (12 hours) Temp Pulse Resp Pulse Ox 12/10/19 14:20 93 22 H 99 12/10/19 11:44 99.9 F H 12/10/19 10:57 96 35 H 100 12/10/19 07:13 95 12/10/19 07:11 106 H 12/10/19 07:10 106 H 22 H 93 L 12/10/19 07:00 100.9 F H 12/10/19 04:13 108 H 12/10/19 04:00 99.6 F 90 L Weight Admit Weight 295 lb Weight 275 lb 9.245 oz Most Recent Monitor Data Heart Rate from ECG 93 NIBP 124/72 NIBP BP-Mean 89 Respiration from ECG 37 SpO2 98 I&O: 12/09/19 12/10/19 12/11/19 06:59 06:59 06:59 Intake Total 2451 2249 60 Output Total 875 645 160 Balance 1576 1604 -100 Result Diagrams: 12/09/19 04:58 12/10/19 05:11 Additional Labs: Accuchecks 12/10/19 12/09/19 12/09/19 11:31 23:49 18:26 POC Glucose 227 H 188 H 169 H Radiology Reviewed by me: Yes Hospitalist ROS - Review of Systems All other systems reviewed; all pertinent +/- noted in HPI/Subj - Medication Medications: Active Medications Generic Name Dose Route Start Last Admin Trade Name Freq PRN Reason Stop Dose Admin Acetaminophen 1,000 mg 11/26/19 14:59 12/07/19 00:16 Tylenol Elixir PO 1,000 mg Q6H PRN Administration Headache/Fever or Pain Albuterol/Ipratropium 3 ml 12/07/19 14:30 12/10/19 14:20 Duoneb NEB 3 ml [id number] LEEANN Administration Lipase/Protease/Amylase 1 cap 12/07/19 04:46 12/07/19 04:59 Leonides Tejada [id number] FS 1 cap .PER PROTOCOL PRN Administration TUBE OCCLUSION PROTOCOL Budesonide 0.5 mg 12/02/19 18:30 12/10/19 07:10 Pulmicort Neb Solution INH 0.5 mg BID-RT LEEANN Administration Carvedilol 3.125 mg 12/06/19 17:00 12/10/19 08:33 Coreg PO 3.125 mg BID-WM LEEANN Administration Epoetin Alex-epbx 10,000 unit 12/09/19 09:11 12/09/19 09:29 Retacrit IVP 10,000 unit TuThSa LEEANN Administration Famotidine 20 mg 12/09/19 09:00 12/10/19 08:33 Pepcid SLOW IVP 20 mg DAILY LEEANN Administration Heparin Sodium (Porcine) 5,000 units 11/26/19 15:00 12/10/19 14:40 Heparin SC 5,000 units TID LEEANN Administration Amiodarone HCl 450 mg/ 259 mls @ 0 mls/hr 11/26/19 19:45 12/10/19 02:09 Miscellaneous Medication 1 IVPB 259 mls each/ Dextrose/Water INF LEEANN Administration Protocol As Directed Norepinephrine Bitartrate 250 mls @ 0 mls/hr 11/26/19 21:20 11/28/19 01:51 Levophed IVPB 250 mls INF LEEANN Administration Protocol Titrate Insulin Glargine 20 units/ 0.2 mls @ 0 mls/hr 11/28/19 21:00 12/10/19 08:34 Miscellaneous Medication SC 0.2 mls Q12HR LEEANN Administration Sodium Chloride 1,000 mls @ 50 mls/hr 12/02/19 08:11 12/10/19 02:09 Normal Saline 0.9% IV 1,000 mls .Q20H LEEANN Administration Oxacillin Sodium 2 gm/ Sodium 50 mls @ 100 mls/hr 12/07/19 05:00 12/10/19 12: 34 Chloride IVPB 50 mls Q4HR LEEANN Administration Insulin Human Lispro 0 units 11/29/19 13:57 12/10/19 11:28 Humalog SC 4 units .MODERATE SLIDING SC PRN Administration Moderate Correctional Scale Scopolamine 1.5 mg 12/08/19 09:15 12/08/19 09:23 Transderm Scop TD 1.5 mg Q3D LEEANN Administration Sodium Bicarbonate 650 mg 12/07/19 04:46 12/07/19 04:59 Bicarbonate, Sodium PER TUBE 650 mg .PER PROTOCOL PRN Administration ENTERAL TUBE OCCLUSION - Exam General Appearance: ill appearing Eye: PERRL ENT: normocephalic atraumatic, moist mucosa Neck: supple, symmetric, no lymphadenopathy Heart: no murmur, no gallops, no rubs, irregular Respiratory: no ronchi, rales, wheezes Gastrointestinal: soft, non-tender, no guarding, no rigidity Extremities - other findings: +4 edema in all extremities Skin: no rashes Neurological: cranial nerve grossly intact, no focal deficits Musculoskeletal: generalized weakness Psychiatric: oriented to person, flat affect Hosp A/P (1) Acute renal failure Status: Acute Qualifiers: Acute renal failure type: with acute tubular necrosis Qualified Code(s): N17.0 - Acute kidney failure with tubular necrosis (2) Acute respiratory failure with hypoxia Code(s): J96.01 - ACUTE RESPIRATORY FAILURE WITH HYPOXIA Status: Acute (3) MSSA bacteremia Code(s): R78.81 - BACTEREMIA Status: Acute (4) Sepsis Code(s): A41.9 - SEPSIS, UNSPECIFIED ORGANISM Status: Acute Qualifiers: Sepsis type: methicillin susceptible Staphylococcus aureus Sepsis acute organ dysfunction status: with acute organ dysfunction Severe sepsis acute organ dysfunction type: acute renal failure Severe sepsis shock status: unspecified (5) Volume overload Code(s): E87.70 - FLUID OVERLOAD, UNSPECIFIED Status: Acute (6) Anemia, normocytic normochromic Code(s): D64.9 - ANEMIA, UNSPECIFIED Status: Chronic (7) Acute kidney injury Code(s): N17.9 - ACUTE KIDNEY FAILURE, UNSPECIFIED Status: Acute (8) Acute on chronic systolic heart failure Code(s): I50.23 - ACUTE ON CHRONIC SYSTOLIC (CONGESTIVE) HEART FAILURE Status : Acute (9) Acute respiratory failure Code(s): J96.00 - ACUTE RESPIRATORY FAILURE, UNSP W HYPOXIA OR HYPERCAPNIA Status: Acute Qualifiers: Respiratory failure complication: hypoxia and hypercapnia Qualified Code(s) : J96.01 - Acute respiratory failure with hypoxia; J96.02 - Acute respiratory failure with hypercapnia (10) Atrial fibrillation Code(s): I48.91 - UNSPECIFIED ATRIAL FIBRILLATION Status: Acute (11) Atrial fibrillation with RVR Code(s): I48.91 - UNSPECIFIED ATRIAL FIBRILLATION Status: Acute (12) Cellulitis Code(s): L03.90 - CELLULITIS, UNSPECIFIED Status: Acute (13) Chronic systolic heart failure Code(s): I50.22 - CHRONIC SYSTOLIC (CONGESTIVE) HEART FAILURE Status: Chronic (14) Diabetes mellitus type 2 in obese Code(s): E11.69 - TYPE 2 DIABETES MELLITUS WITH OTHER SPECIFIED COMPLICATION; E66.9 - OBESITY, UNSPECIFIED Status: Chronic (15) Hypertension Code(s): I10 - ESSENTIAL (PRIMARY) HYPERTENSION Status: Chronic Qualifiers: Hypertension type: essential hypertension Qualified Code(s): I10 - Essential (primary) hypertension (16) NICM (nonischemic cardiomyopathy) Code(s): I42.8 - OTHER CARDIOMYOPATHIES Status: Chronic (17) BRANDON (obstructive sleep apnea) Code(s): G47.33 - OBSTRUCTIVE SLEEP APNEA (ADULT) (PEDIATRIC) Status: Suspected (18) Bacteremia Code(s): R78.81 - BACTEREMIA Status: Resolved - Plan Plan: critical care unit pulmonology consultation, recommendations appreciated nephrology consultation, recommendations appreciated infectious disease consultation, recommendations appreciated High flow NC to maintain O2 saturation, if does not improve will likely be re intubated Diffusely volume overloaded Swallow eval failed, dobhoff in place enteral nutrition Pulm hygiene CELIA negative for vegetation antibiotics per infectious disease specialist hemodialysis per nephrology blood pressure control blood sugar control continue home medications as able G.I. prophylaxis DVT prophylaxis
--- NOTE | 2019-12-10 20:09 | PRG ---
DATE OF SERVICE: 12/10/2019 SUBJECTIVE: Mr. Bradley has been extubated. He is on high-flow oxygen. He still appears confused, likely secondary to metabolic encephalopathy. He does follow commands. Squeezing both left and right hands in addition to moving his toes. OBJECTIVE: VITAL SIGNS: Blood pressure 119/70, pulse 95, temperature afebrile. LUNGS: Rhonchi, rales bilaterally. HEART: Regular rate and rhythm. ABDOMEN: Soft, nontender, nondistended. EXTREMITIES: No edema. PERTINENT LABORATORY DATA: Include hemoglobin of 8.4, creatinine 6.4, potassium 4.5. IMPRESSION: 1. Atrial fibrillation. 2. Sepsis. 3. Renal failure. 4. Nonischemic cardiomyopathy. RECOMMENDATIONS: 1. Continue IV amiodarone low dose. 2. Supplement with p.o. amiodarone. 3. The patient continues to be in sinus rhythm. The patient has not had atrial fibrillation in the past and may be secondary to underlying condition. Need to monitor closely. Continue heparin subcu. Job ID: [id number]
[2019-12-11] MEDS: Sodium Chloride 0.9% 1,000 ML IV SCH ×2 (02:25→20:53)
[2019-12-11] MEDS: Oxacillin 2 GM in Sodium Chloride 0.9% 50 ML IVPB SCH ×6 (02:25→20:54)
[2019-12-11] MEDS: HumaLOG 300 UNITS/3 ML VIAL SC PRN ×2 (05:19→15:40)
[2019-12-11 05:56] LABS: Anion Gap 24 mmol/L (10-20); BUN (Urea Nitrogen) 85 mg/dL (8.4-25.7); Calc. Creatinine Clearance 19 mL/min (70-130); Calcium 8.4 mg/dL (7.8-10.44); Carbon Dioxide 19 mmol/L (22-29); Chloride 101 mmol/L (98-107); Estimated GFR-MDRD 7; Glucose 167 mg/dL (70-105); Potassium 4.5 mmol/L (3.5-5.1); Sodium 139 mmol/L (136-145)
[2019-12-11] MEDS: Budesonide 0.5 MG/2 ML NEB INH SCH ×2 (06:39→18:48)
[2019-12-11 07:49] LABS: Hemoglobin 7.5 g/dL (14.0-18.0); Mean Corpuscular HGB CONC 32.5 g/dL (32.0-36.0); Mean Corpuscular Hemoglobin 30.9 pg (27.0-31.0); Mean Corpuscular Volume 95.1 fL (78.0-98.0); Mean Platelet Volume 6.5 fL (7.4-10.4); Platelet Count 627 thou/uL (130-400); RBC Distribution Width 15.3 % (11.5-14.5); Red Blood Cell (RBC) Count 2.42 mill/uL (4.70-6.10)
[2019-12-11 08:12] LABS: White Blood Cell (WBC) Count 20.5 thou/uL (4.8-10.8)
[2019-12-11 08:13] LABS: Eosinophils 1 % (0-10); Hypochromia SLIGHT = 6-15 cells (100X) (0-5/hpf); Lymphocytes 5 % (21-51); MDiff Complete? YES; Monocytes 9 % (0-10); Neutrophil 85 % (42-75); Platelet Morphology Comment Appears Increased; Polychromasia SLIGHT = 2-3 cells (100X) (0-2/hpf)
[2019-12-11] MEDS: EPOETIN ALFA-EPBX (ESRD) 10,000 UNIT/ML VIAL IVP SCH (08:42)
[2019-12-11] MEDS: Scopolamine 1.5 mg/72 hour Patch TD SCH (09:13)
[2019-12-11] MEDS: Carvedilol 3.125 MG TAB PO SCH ×2 (09:13→16:27)
[2019-12-11] MEDS: Heparin 5,000 UNITS/ML VIAL SC SCH ×3 (09:14→20:55)
[2019-12-11] MEDS: Insulin Glargine 20 UNITS in Pre-Filled Syringe 1 EACH SC SCH ×2 (09:16→20:54)
[2019-12-11] MEDS: Famotidine/PF 20 mg/2ml Vial SLOW IVP SCH (09:18)
--- NOTE | 2019-12-11 09:38 | PRG ---
DATE OF SERVICE: 12/11/2019 SUBJECTIVE: Patient was seen and examined at bedside and overnight events noted. Patient denies any shortness of breath or chest pain or palpitation. No history of nausea or vomiting or diarrhea or fever or chills or cramps. OBJECTIVE: GENERAL: This is an obese male, in no apparent distress. VITAL SIGNS: Temperature 98.6. Heart rate 82. Respiratory rate 20. Blood pressure 116/65. HEENT: Atraumatic, normocephalic. Oral mucosa is moist NECK: Supple. CARDIOVASCULAR: S1, S2 heard. Rate and rhythm regular. RESPIRATORY: Clear to auscultation. GASTROINTESTINAL: Abdomen is soft. MUSCULOSKELETAL: No tenderness. No edema. DERMATOLOGIC: No skin rash. NEUROLOGIC: Alert and awake and oriented X3. No focal neurologic deficits. Moving all the extremities. PSYCHIATRIC: Mood and affect normal. LABORATORY DATA: Potassium is 4.5, BUN is 85, and creatinine is 8.1. ASSESSMENT AND PLAN: 1. Acute kidney injury on chronic kidney stage 3, dialysis dependent. We will continue on dialysis. 2. Edema, remove fluid. 3. History of hypertension. 4. Respiratory failure. 5. Fluid overload. 6. Anemia. Continue Epogen. Plan to continue dialysis. We will have Surgery consult for tunneled dialysis catheter placed. Job ID: [id number]
--- NOTE | 2019-12-11 10:16 | PRG ---
DATE OF SERVICE: 12/11/2019 TIME SPENT: 35 minutes critical care time. SUBJECTIVE: The patient remains on BiPAP. He is awake. He is conversant. He is wondering when he can go home. OBJECTIVE: VITAL SIGNS: His temperature is 98.6, pulse 93, blood pressure 121/60, and O2 saturation is 100% on BiPAP. He is currently on amiodarone drip. He is currently receiving dialysis. HEENT: Unremarkable except for the CPAP mask and the nasal Dobhoff tube in place. NECK: No adenopathy or JVD. LUNGS: Clear anteriorly. CARDIAC: S1, S2. Regular. ABDOMEN: Soft, obese, nontender. EXTREMITIES: Edematous. LABORATORY DATA: Sodium 139, potassium 4.5, chloride 101, CO2 of 19, BUN 85, creatinine 8.1, and glucose 167. White blood cell count 20, hematocrit 23.1, and platelet count 627. ASSESSMENT: 1. Acute respiratory failure, requiring noninvasive ventilation. 2. Atrial fibrillation. 3. Sepsis. 4. Acute renal failure. 5. Nonischemic cardiomyopathy. PLAN: 1. Continue BiPAP as needed. 2. Continue hemodialysis. 3. 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 PLAN: Continue BiPAP and hemodialysis. We will follow. Job ID: [id number]
[2019-12-11] MEDS ORDERED: Heparin 10,000 UNITS/ 10 ML VIAL ONE (10:29)
--- NOTE | 2019-12-11 13:33 | PDOC.HOSPP ---
- Subjective Subjective: Seen and examined. Patient on dialysis. On BiPAP. Eyes open and talking in short soft words. Remains diffusely volume overloaded. - Objective Vital Signs & Weight: Vital Signs (12 hours) Temp Pulse Resp Pulse Ox 12/11/19 12:00 99.3 F 12/11/19 10:19 107 H 27 H 95 12/11/19 07:26 100 12/11/19 07:00 98.6 F 12/11/19 06:39 90 21 H 100 12/11/19 03:00 98.4 F 12/11/19 02:53 98 12/11/19 02:52 83 28 H 98 12/11/19 02:48 98 Weight Admit Weight 295 lb Weight 278 lb 3.574 oz Most Recent Monitor Data Heart Rate from ECG 109 NIBP 126/84 NIBP BP-Mean 98 Respiration from ECG 24 SpO2 93 I&O: 12/10/19 12/11/19 12/12/19 06:59 06:59 06:59 Intake Total 2249 1847 0 Output Total 645 325 230 Balance 1604 1522 -230 Result Diagrams: 12/11/19 07:20 12/11/19 05:15 Additional Labs: Accuchecks 12/11/19 12/11/19 12/10/19 09:53 05:23 21:36 POC Glucose 131 H 176 H 188 H 12/10/19 15:55 POC Glucose 181 H Radiology Reviewed by me: Yes Hospitalist ROS - Review of Systems All other systems reviewed; all pertinent +/- noted in HPI/Subj - Medication Medications: Active Medications Generic Name Dose Route Start Last Admin Trade Name Freq PRN Reason Stop Dose Admin Acetaminophen 1,000 mg 11/26/19 14:59 12/07/19 00:16 Tylenol Elixir PO 1,000 mg Q6H PRN Administration Headache/Fever or Pain Albuterol/Ipratropium 3 ml 12/07/19 14:30 12/11/19 10:19 Duoneb NEB 3 ml [id number] LEEANN Administration Lipase/Protease/Amylase 1 cap 12/07/19 04:46 12/07/19 04:59 Leonides Tejada [id number] FS 1 cap .PER PROTOCOL PRN Administration TUBE OCCLUSION PROTOCOL Budesonide 0.5 mg 12/02/19 18:30 01/25/20 06:39 Pulmicort Neb Solution INH 0.5 mg BID-RT LEEANN Administration Carvedilol 3.125 mg 12/06/19 17:00 12/11/19 09:13 Coreg PO 3.125 mg BID-WM LEEANN Administration Epoetin Alex-epbx 10,000 unit 12/09/19 09:11 12/11/19 08:42 Retacrit IVP 10,000 unit TuThSa LEEANN Administration Famotidine 20 mg 12/09/19 09:00 12/11/19 09:18 Pepcid SLOW IVP 20 mg DAILY LEEANN Administration Heparin Sodium (Porcine) 5,000 units 11/26/19 15:00 12/11/19 09:14 Heparin SC 5,000 units TID LEEANN Administration Amiodarone HCl 450 mg/ 259 mls @ 0 mls/hr 11/26/19 19:45 12/10/19 21:34 Miscellaneous Medication 1 IVPB 259 mls each/ Dextrose/Water INF LEEANN Administration Protocol As Directed Norepinephrine Bitartrate 250 mls @ 0 mls/hr 11/26/19 21:20 11/28/19 01:51 Levophed IVPB 250 mls INF LEEANN Administration Protocol Titrate Insulin Glargine 20 units/ 0.2 mls @ 0 mls/hr 11/28/19 21:00 12/11/19 09:16 Miscellaneous Medication SC 0.2 mls Q12HR LEEANN Administration Sodium Chloride 1,000 mls @ 50 mls/hr 12/02/19 08:11 12/11/19 02:25 Normal Saline 0.9% IV 1,000 mls .Q20H LEEANN Administration Oxacillin Sodium 2 gm/ Sodium 50 mls @ 100 mls/hr 12/07/19 05:00 12/11/19 12: 32 Chloride IVPB 50 mls Q4HR LEEANN Administration Insulin Human Lispro 0 units 11/29/19 13:57 12/11/19 05:19 Humalog SC 2 units .MODERATE SLIDING SC PRN Administration Moderate Correctional Scale Scopolamine 1.5 mg 12/08/19 09:15 12/11/19 09:13 Transderm Scop TD 1.5 mg Q3D LEEANN Administration Sodium Bicarbonate 650 mg 12/07/19 04:46 12/07/19 04:59 Bicarbonate, Sodium PER TUBE 650 mg .PER PROTOCOL PRN Administration ENTERAL TUBE OCCLUSION - Exam General Appearance: NAD, awake alert Eye: anicteric sclera ENT: normocephalic atraumatic, moist mucosa Neck: supple, symmetric, no lymphadenopathy Heart: no murmur, no gallops, no rubs Respiratory: normal chest expansion, no tachypnea, rales, rhonchi, wheezes Gastrointestinal: soft, non-tender, non-distended, no guarding, no rigidity Gastrointestinal - other findings: obese Extremities - other findings: +4 Edema in all extremities - mildly improved Skin: no lesions, no rashes Neurological: cranial nerve grossly intact, no focal deficits Musculoskeletal: generalized weakness Psychiatric: oriented to person, flat affect Hosp A/P (1) Acute renal failure Status: Acute Qualifiers: Acute renal failure type: with acute tubular necrosis Qualified Code(s): N17.0 - Acute kidney failure with tubular necrosis (2) Acute respiratory failure with hypoxia Code(s): J96.01 - ACUTE RESPIRATORY FAILURE WITH HYPOXIA Status: Acute (3) MSSA bacteremia Code(s): R78.81 - BACTEREMIA Status: Acute (4) Sepsis Code(s): A41.9 - SEPSIS, UNSPECIFIED ORGANISM Status: Acute Qualifiers: Sepsis type: methicillin susceptible Staphylococcus aureus Sepsis acute organ dysfunction status: with acute organ dysfunction Severe sepsis acute organ dysfunction type: acute renal failure Severe sepsis shock status: unspecified (5) Volume overload Code(s): E87.70 - FLUID OVERLOAD, UNSPECIFIED Status: Acute (6) Anemia, normocytic normochromic Code(s): D64.9 - ANEMIA, UNSPECIFIED Status: Chronic (7) Acute kidney injury Code(s): N17.9 - ACUTE KIDNEY FAILURE, UNSPECIFIED Status: Acute (8) Acute on chronic systolic heart failure Code(s): I50.23 - ACUTE ON CHRONIC SYSTOLIC (CONGESTIVE) HEART FAILURE Status : Acute (9) Acute respiratory failure Code(s): J96.00 - ACUTE RESPIRATORY FAILURE, UNSP W HYPOXIA OR HYPERCAPNIA Status: Acute Qualifiers: Respiratory failure complication: hypoxia and hypercapnia Qualified Code(s) : J96.01 - Acute respiratory failure with hypoxia; J96.02 - Acute respiratory failure with hypercapnia (10) Atrial fibrillation Code(s): I48.91 - UNSPECIFIED ATRIAL FIBRILLATION Status: Acute (11) Atrial fibrillation with RVR Code(s): I48.91 - UNSPECIFIED ATRIAL FIBRILLATION Status: Acute (12) Cellulitis Code(s): L03.90 - CELLULITIS, UNSPECIFIED Status: Acute (13) Chronic systolic heart failure Code(s): I50.22 - CHRONIC SYSTOLIC (CONGESTIVE) HEART FAILURE Status: Chronic (14) Diabetes mellitus type 2 in obese Code(s): E11.69 - TYPE 2 DIABETES MELLITUS WITH OTHER SPECIFIED COMPLICATION; E66.9 - OBESITY, UNSPECIFIED Status: Chronic (15) Hypertension Code(s): I10 - ESSENTIAL (PRIMARY) HYPERTENSION Status: Chronic Qualifiers: Hypertension type: essential hypertension Qualified Code(s): I10 - Essential (primary) hypertension (16) NICM (nonischemic cardiomyopathy) Code(s): I42.8 - OTHER CARDIOMYOPATHIES Status: Chronic (17) BRANDON (obstructive sleep apnea) Code(s): G47.33 - OBSTRUCTIVE SLEEP APNEA (ADULT) (PEDIATRIC) Status: Suspected (18) Bacteremia Code(s): R78.81 - BACTEREMIA Status: Resolved - Plan Plan: critical care unit pulmonology consultation, recommendations appreciated nephrology consultation, recommendations appreciated infectious disease consultation, recommendations appreciated Bipap vs High flow NC to maintain O2 saturation, if does not improve will likely be re intubated Diffusely volume overloaded Swallow eval failed, dobhoff in place enteral nutrition Pulm hygiene CELIA negative for vegetation antibiotics per infectious disease specialist hemodialysis per nephrology blood pressure control blood sugar control continue home medications as able G.I. prophylaxis DVT prophylaxis
[2019-12-11] MEDS: Amiodarone HCl 450 MG in Dextrose 5% in Water 250 ML IVPB SCH (14:17)
--- NOTE | 2019-12-11 14:24 | PDOC.CPN ---
- Subjective Date: 12/11/19 Time: 14:22 Interval history: More awake today 5liters dialysed over last 24 hours - Objective Allergies/Adverse Reactions: Allergies Allergy/AdvReac Type Severity Reaction Status Date / Time No Known Drug Allergies Allergy Verified 11/26/19 22:51 Visit Medications: Current Medications Acetaminophen (Tylenol Elixir) 1,000 mg PO Q6H PRN PRN Reason: Headache/Fever or Pain Last Admin: 12/07/19 00:16 Dose: 1,000 mg Albuterol/Ipratropium (Duoneb) 3 ml NEB [id number] LEEANN Last Admin: 12/11/19 10:19 Dose: 3 ml Alteplase, Recombinant (Cathflo) 2 mg CATH WILLCALL LEEANN Amiodarone HCl (Cordarone) 400 mg PO BID [facility] Lipase/Protease/Amylase ([place] [address]) 1 cap FS .PER PROTOCOL PRN PRN Reason: TUBE OCCLUSION PROTOCOL Last Admin: 12/07/19 04:59 Dose: 1 cap Budesonide (Pulmicort Neb Solution) 0.5 mg INH BID-RT LEEANN Last Admin: 12/11/19 06:39 Dose: 0.5 mg Carvedilol (Coreg) 3.125 mg PO BID-WM LEEANN Last Admin: 12/11/19 09:13 Dose: 3.125 mg Dextrose/Water (Dextrose 50%) 25 gm SLOW IVP PRN PRN PRN Reason: Hypoglycemia Epoetin Alex-epbx (Retacrit) 10,000 unit IVP TuThSa [facility] Last Admin: 12/11/19 08:42 Dose: 10,000 unit Famotidine (Pepcid) 20 mg SLOW IVP DAILY [facility] Last Admin: 12/11/19 09:18 Dose: 20 mg Glucagon (Glucagon) 1 mg IM PRN PRN PRN Reason: Hypoglycemia Heparin Sodium (Porcine) (Heparin) 5,000 units SC TID LEEANN Last Admin: 12/11/19 09:14 Dose: 5,000 units Amiodarone HCl 450 mg/Miscellaneous Medication 1 each/ Dextrose/Water 259 mls @ 0 mls/hr IVPB INF LEEANN; Protocol Last Admin: 12/11/19 14:17 Dose: 259 mls Norepinephrine Bitartrate (Levophed) 250 mls @ 0 mls/hr IVPB INF LEEANN; Protocol Last Admin: 11/28/19 01:51 Dose: 250 mls Insulin Glargine 20 units/ (Miscellaneous Medication) 0.2 mls @ 0 mls/hr SC Q12HR LEEANN Last Admin: 12/11/19 09:16 Dose: 0.2 mls Dextrose/Water (D5w) 1,000 mls @ 0 mls/hr IV .Q0M PRN PRN Reason: Hypoglycemia Sodium Chloride (Normal Saline 0.9%) 1,000 mls @ 50 mls/hr IV .Q20H LEEANN Last Admin: 12/11/19 02:25 Dose: 1,000 mls Oxacillin Sodium 2 gm/ Sodium (Chloride) 50 mls @ 100 mls/hr IVPB Q4HR [facility] Last Admin: 12/11/19 12:32 Dose: 50 mls Insulin Human Lispro (Humalog) 0 units SC .MODERATE SLIDING SC PRN PRN Reason: Moderate Correctional Scale Last Admin: 12/11/19 05:19 Dose: 2 units Scopolamine (Transderm Scop) 1.5 mg TD Q3D [facility] Last Admin: 12/11/19 09:13 Dose: 1.5 mg Sodium Bicarbonate (Bicarbonate, Sodium) 650 mg PER TUBE .PER PROTOCOL PRN PRN Reason: ENTERAL TUBE OCCLUSION Last Admin: 12/07/19 04:59 Dose: 650 mg Sodium Chloride (Flush - Normal Saline) 10 ml IVF PRN PRN PRN Reason: Saline Flush Sterile Water (Water For Injection) 10 ml IVP WILLCALL [facility] Vital Signs & Weight: Vital Signs Temp Pulse Resp Pulse Ox 12/11/19 12:00 99.3 F 12/11/19 10:19 107 H 27 H 95 12/11/19 07:26 100 12/11/19 07:00 98.6 F 12/11/19 06:39 90 21 H 100 12/11/19 03:00 98.4 F 12/11/19 02:53 98 12/11/19 02:52 83 28 H 98 12/11/19 02:48 98 Admit Weight 295 lb Weight 278 lb 3.574 oz - Physical Exam General: no apparent distress Cardiac: regular rate, regular rhythm Lungs: clear to auscultation Extremities: 2+ LE edema - Labs Result Diagrams: 12/11/19 07:20 12/11/19 05:15 Troponin/CKMB CK-MB (CK-2) 7.5 ng/mL (0-6.6) H* 11/26/19 02:47 Troponin I 0.303 ng/mL (< 0.028) H* 11/26/19 09:00 - Assessment/Plan Assessment/Plan: afib Respiratory failure Renal failure NICM Slowly improving Add poi amiodarone now that he has a feeding tube stop PO amiodarone tomorrow Pt in SR Abx
[2019-12-11] MEDS: Amiodarone 200 MG TAB PO SCH (20:55)
[2019-12-12] MEDS: Oxacillin 2 GM in Sodium Chloride 0.9% 50 ML IVPB SCH ×6 (00:45→20:32)
[2019-12-12] MEDS: HumaLOG 300 UNITS/3 ML VIAL SC PRN ×3 (05:10→16:12)
[2019-12-12 05:40] LABS: Anion Gap 22 mmol/L (10-20); BUN (Urea Nitrogen) 60 mg/dL (8.4-25.7); Calc. Creatinine Clearance 23 mL/min (70-130); Calcium 8.4 mg/dL (7.8-10.44); Carbon Dioxide 19 mmol/L (22-29); Chloride 100 mmol/L (98-107); Estimated GFR-MDRD 9; Glucose 172 mg/dL (70-105); Potassium 4.3 mmol/L (3.5-5.1); Sodium 137 mmol/L (136-145)
[2019-12-12] MEDS: Budesonide 0.5 MG/2 ML NEB INH SCH ×2 (07:32→18:16)
[2019-12-12] MEDS: Carvedilol 3.125 MG TAB PO SCH ×2 (07:48→16:31)
[2019-12-12] MEDS: Amiodarone 200 MG TAB PO SCH ×2 (08:35→20:33)
[2019-12-12] MEDS: Heparin 5,000 UNITS/ML VIAL SC SCH ×3 (08:36→20:33)
[2019-12-12] MEDS: Insulin Glargine 20 UNITS in Pre-Filled Syringe 1 EACH SC SCH ×2 (08:36→20:33)
[2019-12-12] MEDS: Famotidine/PF 20 mg/2ml Vial SLOW IVP SCH (08:36)
--- NOTE | 2019-12-12 08:59 | PRG ---
DATE OF SERVICE: 12/12/2019 SUBJECTIVE: The patient has been taken off BiPAP and high-flow today. He looks as good as he has looked in quite some time. He complains of thirst. OBJECTIVE: VITAL SIGNS: On exam, temperature is 98.9, pulse 83, blood pressure 90/64, and O2 saturation 100%. Intake for 24 hours 1863, output 330 plus 5000 out by dialysis. HEENT: Unremarkable. NECK: No adenopathy or JVD. LUNGS: Fairly clear breath sounds. CARDIAC: S1 and S2. Regular. ABDOMEN: Soft, obese. EXTREMITIES: Trace edema. LABORATORY DATA: Sodium 137, potassium 4.3, chloride 100, CO2 of 19, BUN 60, creatinine 6.5, and glucose 172. ASSESSMENT: 1. Acute respiratory failure - improved. 2. Atrial fibrillation. 3. Sepsis. 4. Acute renal failure with improving BUN and creatinine. 5. Nonischemic cardiomyopathy. PLAN: 1. Continue BiPAP intermittently as needed. 2. Continue hemodialysis. 3. Continue antibiotics. Job ID: [id number]
--- NOTE | 2019-12-12 10:07 | PDOC.CPN ---
- Subjective Date: 12/12/19 Time: 12:31 Interval history: More alert today - Objective Allergies/Adverse Reactions: Allergies Allergy/AdvReac Type Severity Reaction Status Date / Time No Known Drug Allergies Allergy Verified 11/26/19 22:51 Visit Medications: Current Medications Acetaminophen (Tylenol Elixir) 1,000 mg PO Q6H PRN PRN Reason: Headache/Fever or Pain Last Admin: 12/07/19 00:16 Dose: 1,000 mg Albuterol/Ipratropium (Duoneb) 3 ml NEB [id number] [facility] Last Admin: 12/12/19 07:32 Dose: 3 ml Alteplase, Recombinant (Cathflo) 2 mg CATH WILLCALL [facility] Amiodarone HCl (Cordarone) 400 mg PO BID [facility] Last Admin: 12/12/19 08:35 Dose: 400 mg Lipase/Protease/Amylase ([place] [id number]) 1 cap FS .PER PROTOCOL PRN PRN Reason: TUBE OCCLUSION PROTOCOL Last Admin: 12/07/19 04:59 Dose: 1 cap Budesonide (Pulmicort Neb Solution) 0.5 mg INH BID-RT [facility] Last Admin: 12/12/19 07:32 Dose: 0.5 mg Carvedilol (Coreg) 3.125 mg PO BID-WM [facility] Last Admin: 12/12/19 07:48 Dose: 3.125 mg Dextrose/Water (Dextrose 50%) 25 gm SLOW IVP PRN PRN PRN Reason: Hypoglycemia Epoetin Alex-epbx (Retacrit) 10,000 unit IVP TuThSa [facility] Last Admin: 12/11/19 08:42 Dose: 10,000 unit Famotidine (Pepcid) 20 mg SLOW IVP DAILY [facility] Last Admin: 12/12/19 08:36 Dose: 20 mg Glucagon (Glucagon) 1 mg IM PRN PRN PRN Reason: Hypoglycemia Heparin Sodium (Porcine) (Heparin) 5,000 units SC TID [facility] Last Admin: 12/12/19 08:36 Dose: 5,000 units Amiodarone HCl 450 mg/Miscellaneous Medication 1 each/ Dextrose/Water 259 mls @ 0 mls/hr IVPB INF [facility]; Protocol Last Admin: 12/11/19 14:17 Dose: 259 mls Norepinephrine Bitartrate (Levophed) 250 mls @ 0 mls/hr IVPB INF [facility]; Protocol Last Admin: 11/28/19 01:51 Dose: 250 mls Insulin Glargine 20 units/ (Miscellaneous Medication) 0.2 mls @ 0 mls/hr SC Q12HR [facility] Last Admin: 12/12/19 08:36 Dose: 0.2 mls Dextrose/Water (D5w) 1,000 mls @ 0 mls/hr IV .Q0M PRN PRN Reason: Hypoglycemia Sodium Chloride (Normal Saline 0.9%) 1,000 mls @ 50 mls/hr IV .Q20H [facility] Last Admin: 12/11/19 20:53 Dose: 1,000 mls Oxacillin Sodium 2 gm/ Sodium (Chloride) 50 mls @ 100 mls/hr IVPB Q4HR [facility] Last Admin: 12/12/19 08:36 Dose: 50 mls Insulin Human Lispro (Humalog) 0 units SC .MODERATE SLIDING SC PRN PRN Reason: Moderate Correctional Scale Last Admin: 12/12/19 09:55 Dose: 2 units Scopolamine (Transderm Scop) 1.5 mg TD Q3D [facility] Last Admin: 12/11/19 09:13 Dose: 1.5 mg Sodium Bicarbonate (Bicarbonate, Sodium) 650 mg PER TUBE .PER PROTOCOL PRN PRN Reason: ENTERAL TUBE OCCLUSION Last Admin: 12/07/19 04:59 Dose: 650 mg Sodium Chloride (Flush - Normal Saline) 10 ml IVF PRN PRN PRN Reason: Saline Flush Sterile Water (Water For Injection) 10 ml IVP WILLCALL [facility] Vital Signs & Weight: Vital Signs Temp Pulse Resp Pulse Ox 12/12/19 08:08 23 H 100 12/12/19 07:32 81 24 H 100 12/12/19 07:13 100 12/12/19 07:00 98.9 F 12/12/19 03:00 98.8 F 12/12/19 02:08 99 12/12/19 02:07 111 H 30 H 99 12/11/19 23:00 99 F 12/11/19 22:27 99 12/11/19 22:26 105 H 34 H 99 Admit Weight 295 lb Weight 263 lb 10.766 oz - Physical Exam General: no apparent distress Neck: supple neck Cardiac: regular rhythm Lungs: bibasilar rales Abdomen: active bowel sounds, soft - Labs Result Diagrams: 12/11/19 07:20 12/12/19 05:05 Troponin/CKMB CK-MB (CK-2) 7.5 ng/mL (0-6.6) H* 11/26/19 02:47 Troponin I 0.303 ng/mL (< 0.028) H* 11/26/19 09:00 - Assessment/Plan Assessment/Plan: Assessment/Plan: afib Respiratory failure Renal failure NICM Anemia 12/12 See below continue IV amiodaorne for another day 12/11 Slowly improving Add po amiodarone now that he has a feeding tube stop IV amiodarone tomorrow Pt in SR Abx
[2019-12-12] MEDS: Amiodarone HCl 450 MG in Dextrose 5% in Water 250 ML IVPB SCH (11:05)
--- NOTE | 2019-12-12 12:09 | PRG ---
DATE OF SERVICE: 12/12/2019 SUBJECTIVE: Patient was seen and examined at bedside and overnight events noted. Patient denies any shortness of breath or chest pain or palpitation. No history of nausea or vomiting or diarrhea or fever or chills or cramps. OBJECTIVE: GENERAL: This is an obese male, in no apparent distress. VITAL SIGNS: Temperature 98.9. Heart rate 82. Respiratory rate 20. Blood pressure 123/68. HEENT: Atraumatic, normocephalic. Oral mucosa is moist NECK: Supple. CARDIOVASCULAR: S1, S2 heard. Rate and rhythm regular. RESPIRATORY: Clear to auscultation. GASTROINTESTINAL: Abdomen is soft. MUSCULOSKELETAL: No tenderness. No edema. DERMATOLOGIC: No skin rash. NEUROLOGIC: Alert and awake and oriented X3. No focal neurologic deficits. Moving all the extremities. PSYCHIATRIC: Mood and affect normal. LABORATORY DATA: Potassium 4.3, BUN is 60, creatinine is 6.5. ASSESSMENT AND PLAN: 1. Acute kidney injury on chronic kidney stage 3, dialysis dependent. We will continue on dialysis Friday, Friday, Friday. 2. Edema. We will remove fluid with dialysis. 3. History of hypertension. 4. Dialysis access. Needs temporary dialysis access. We will consult Surgery for tunneled dialysis catheter placement. 5. Fluid overload, better. 6. Anemia, on Epogen. Plan to continue dialysis on Friday, Friday, Friday. Consult Surgery for tunneled dialysis catheter in the morning. Job ID: [id number]
--- NOTE | 2019-12-12 12:57 | PDOC.HOSPP ---
- Subjective Subjective: Seen and examined. Significantly clinically improved today. On low-flow nasal cannula. His lungs are clearing. Less edema in the extremities. His mentation is clear and he is finally answering questions appropriately consistently. Will work with speech therapy again and hopefully advances diet now that he is more awake. - Objective Vital Signs & Weight: Vital Signs (12 hours) Temp Pulse Resp Pulse Ox 12/12/19 12:00 98.6 F 96 12/12/19 10:38 87 22 H 96 12/12/19 08:08 23 H 100 12/12/19 07:32 81 24 H 100 12/12/19 07:13 100 12/12/19 07:00 98.9 F 12/12/19 03:00 98.8 F 12/12/19 02:08 99 12/12/19 02:07 111 H 30 H 99 Weight Admit Weight 295 lb Weight 263 lb 10.766 oz Most Recent Monitor Data Heart Rate from ECG 78 NIBP 112/84 NIBP BP-Mean 93 Respiration from ECG 23 SpO2 99 I&O: 12/11/19 12/12/19 12/13/19 06:59 06:59 06:59 Intake Total 1847 1863 836 Output Total 325 330 120 Balance 1522 1533 716 Result Diagrams: 12/11/19 07:20 12/12/19 05:05 Additional Labs: Accuchecks 12/12/19 12/12/19 12/11/19 09:57 05:13 20:55 POC Glucose 175 H 184 H 170 H 12/11/19 15:42 POC Glucose 176 H Radiology Reviewed by me: Yes Hospitalist ROS - Review of Systems All other systems reviewed; all pertinent +/- noted in HPI/Subj - Medication Medications: Active Medications Generic Name Dose Route Start Last Admin Trade Name Freq PRN Reason Stop Dose Admin Acetaminophen 1,000 mg 11/26/19 14:59 12/07/19 00:16 Tylenol Elixir PO 1,000 mg Q6H PRN Administration Headache/Fever or Pain Albuterol/Ipratropium 3 ml 12/07/19 14:30 12/12/19 10:38 Duoneb NEB 3 ml [id number] [facility] Administration Amiodarone HCl 400 mg 12/11/19 21:00 12/12/19 08:35 Cordarone PO 400 mg BID [facility] Administration Lipase/Protease/Amylase 1 cap 12/07/19 04:46 12/07/19 04:59 Leonides Tejada [id number] FS 1 cap .PER PROTOCOL PRN Administration TUBE OCCLUSION PROTOCOL Budesonide 0.5 mg 12/02/19 18:30 12/12/19 07:32 Pulmicort Neb Solution INH 0.5 mg BID-RT [facility] Administration Carvedilol 3.125 mg 12/06/19 17:00 12/12/19 07:48 Coreg PO 3.125 mg BID-WM [facility] Administration Epoetin Alex-epbx 10,000 unit 12/09/19 09:11 12/11/19 08:42 Retacrit IVP 10,000 unit TuThSa [facility] Administration Famotidine 20 mg 12/09/19 09:00 12/12/19 08:36 Pepcid SLOW IVP 20 mg DAILY [facility] Administration Heparin Sodium (Porcine) 5,000 units 11/26/19 15:00 12/12/19 08:36 Heparin SC 5,000 units TID [facility] Administration Amiodarone HCl 450 mg/ 259 mls @ 0 mls/hr 11/26/19 19:45 12/12/19 11:05 Miscellaneous Medication 1 IVPB 259 mls each/ Dextrose/Water INF [facility] Administration Protocol As Directed Norepinephrine Bitartrate 250 mls @ 0 mls/hr 11/26/19 21:20 11/28/19 01:51 Levophed IVPB 250 mls INF [facility] Administration Protocol Titrate Insulin Glargine 20 units/ 0.2 mls @ 0 mls/hr 11/28/19 21:00 12/12/19 08:36 Miscellaneous Medication SC 0.2 mls Q12HR [facility] Administration Sodium Chloride 1,000 mls @ 50 mls/hr 12/02/19 08:11 12/11/19 20:53 Normal Saline 0.9% IV 1,000 mls .Q20H [facility] Administration Oxacillin Sodium 2 gm/ Sodium 50 mls @ 100 mls/hr 12/07/19 05:00 12/12/19 12: 25 Chloride IVPB 50 mls Q4HR [facility] Administration Insulin Human Lispro 0 units 11/29/19 13:57 12/12/19 09:55 Humalog SC 2 units .MODERATE SLIDING SC PRN Administration Moderate Correctional Scale Scopolamine 1.5 mg 12/08/19 09:15 12/11/19 09:13 Transderm Scop TD 1.5 mg Q3D [facility] Administration Sodium Bicarbonate 650 mg 12/07/19 04:46 12/07/19 04:59 Bicarbonate, Sodium PER TUBE 650 mg .PER PROTOCOL PRN Administration ENTERAL TUBE OCCLUSION - Exam General Appearance: NAD, awake alert Eye: PERRL ENT: normocephalic atraumatic, moist mucosa Neck: supple, no lymphadenopathy Heart: no murmur, no gallops, no rubs Respiratory: no rales, normal chest expansion, rhonchi, wheezes Gastrointestinal: soft, non-tender, no guarding, no rigidity Extremities - other findings: +3 edema in upper and lower extremities Skin: no lesions, no rashes Neurological: cranial nerve grossly intact, no focal deficits Musculoskeletal: generalized weakness Psychiatric: normal affect, normal behavior, A&O x 3 Hosp A/P (1) Acute renal failure Status: Acute Qualifiers: Acute renal failure type: with acute tubular necrosis Qualified Code(s): N17.0 - Acute kidney failure with tubular necrosis (2) Acute respiratory failure with hypoxia Code(s): J96.01 - ACUTE RESPIRATORY FAILURE WITH HYPOXIA Status: Acute (3) MSSA bacteremia Code(s): R78.81 - BACTEREMIA Status: Acute (4) Sepsis Code(s): A41.9 - SEPSIS, UNSPECIFIED ORGANISM Status: Acute Qualifiers: Sepsis type: methicillin susceptible Staphylococcus aureus Sepsis acute organ dysfunction status: with acute organ dysfunction Severe sepsis acute organ dysfunction type: acute renal failure Severe sepsis shock status: unspecified (5) Volume overload Code(s): E87.70 - FLUID OVERLOAD, UNSPECIFIED Status: Acute (6) Anemia, normocytic normochromic Code(s): D64.9 - ANEMIA, UNSPECIFIED Status: Chronic (7) Acute kidney injury Code(s): N17.9 - ACUTE KIDNEY FAILURE, UNSPECIFIED Status: Acute (8) Acute on chronic systolic heart failure Code(s): I50.23 - ACUTE ON CHRONIC SYSTOLIC (CONGESTIVE) HEART FAILURE Status : Acute (9) Acute respiratory failure Code(s): J96.00 - ACUTE RESPIRATORY FAILURE, UNSP W HYPOXIA OR HYPERCAPNIA Status: Acute Qualifiers: Respiratory failure complication: hypoxia and hypercapnia Qualified Code(s) : J96.01 - Acute respiratory failure with hypoxia; J96.02 - Acute respiratory failure with hypercapnia (10) Atrial fibrillation Code(s): I48.91 - UNSPECIFIED ATRIAL FIBRILLATION Status: Acute (11) Atrial fibrillation with RVR Code(s): I48.91 - UNSPECIFIED ATRIAL FIBRILLATION Status: Acute (12) Cellulitis Code(s): L03.90 - CELLULITIS, UNSPECIFIED Status: Acute (13) Chronic systolic heart failure Code(s): I50.22 - CHRONIC SYSTOLIC (CONGESTIVE) HEART FAILURE Status: Chronic (14) Diabetes mellitus type 2 in obese Code(s): E11.69 - TYPE 2 DIABETES MELLITUS WITH OTHER SPECIFIED COMPLICATION; E66.9 - OBESITY, UNSPECIFIED Status: Chronic (15) Hypertension Code(s): I10 - ESSENTIAL (PRIMARY) HYPERTENSION Status: Chronic Qualifiers: Hypertension type: essential hypertension Qualified Code(s): I10 - Essential (primary) hypertension (16) NICM (nonischemic cardiomyopathy) Code(s): I42.8 - OTHER CARDIOMYOPATHIES Status: Chronic (17) BRANDON (obstructive sleep apnea) Code(s): G47.33 - OBSTRUCTIVE SLEEP APNEA (ADULT) (PEDIATRIC) Status: Suspected (18) Bacteremia Code(s): R78.81 - BACTEREMIA Status: Resolved - Plan Plan: critical care unit pulmonology consultation, recommendations appreciated nephrology consultation, recommendations appreciated infectious disease consultation, recommendations appreciated Supplemental O2 to maintain saturation greater than 88% with NC vs Bipap as needed Diffusely volume overloaded Swallow eval failed, dobhoff in place - continue to work with Speech therapy enteral nutrition until adequate oral intake Pulm hygiene CELIA negative for vegetation antibiotics per infectious disease specialist hemodialysis per nephrology blood pressure control blood sugar control continue home medications as able G.I. prophylaxis DVT prophylaxis
[2019-12-12] MEDS: Sodium Chloride 0.9% 1,000 ML IV SCH (15:57)
--- NOTE | 2019-12-13 00:05 | RAD ---
ONE VIEW ABDOMEN: History: Confirm placement after re-advancement of Dobbhoff feeding tube. Comparison: 12-09-2019 FINDINGS: Dobbhoff feeding tube is noted in place with the tip overlying the body of the stomach. There is part ial visualization of a central venous catheter with tip overlying the expected location of the cavoat rial junction. A double lead left subclavian AICD devise is noted in place. IMPRESSION: Dobbhoff feeding tube noted in place with tip overlying the region of the body of the stomach. POS: TATIANA
[2019-12-13] MEDS: Oxacillin 2 GM in Sodium Chloride 0.9% 50 ML IVPB SCH ×3 (01:29→09:09)
[2019-12-13] MEDS: Amiodarone HCl 450 MG in Dextrose 5% in Water 250 ML IVPB SCH ×2 (01:32→16:59)
[2019-12-13 04:51] LABS: Anion Gap 21 mmol/L (10-20); BUN (Urea Nitrogen) 80 mg/dL (8.4-25.7); Calc. Creatinine Clearance 18 mL/min (70-130); Calcium 8.4 mg/dL (7.8-10.44); Carbon Dioxide 22 mmol/L (22-29); Chloride 100 mmol/L (98-107); Estimated GFR-MDRD 7; Glucose 126 mg/dL (70-105); Potassium 4.3 mmol/L (3.5-5.1); Sodium 139 mmol/L (136-145)
[2019-12-13] MEDS: Budesonide 0.5 MG/2 ML NEB INH SCH ×2 (06:48→18:16)
--- NOTE | 2019-12-13 07:02 | PDOC.CPN ---
- Subjective Date: 12/13/19 Time: 10:58 Interval history: Contiue to improve slowly More alert today and less edema - Objective Allergies/Adverse Reactions: Allergies Allergy/AdvReac Type Severity Reaction Status Date / Time No Known Drug Allergies Allergy Verified 11/26/19 22:51 Visit Medications: Current Medications Acetaminophen (Tylenol Elixir) 1,000 mg PO Q6H PRN PRN Reason: Headache/Fever or Pain Last Admin: 12/07/19 00:16 Dose: 1,000 mg Albuterol/Ipratropium (Duoneb) 3 ml NEB [id number] [facility] Last Admin: 12/13/19 06:47 Dose: 3 ml Alteplase, Recombinant (Cathflo) 2 mg CATH [facility] Amiodarone HCl (Cordarone) 400 mg PO BID [facility] Last Admin: 12/12/19 20:33 Dose: 400 mg Lipase/Protease/Amylase ([place] [id number]) 1 cap FS .PER PROTOCOL PRN PRN Reason: TUBE OCCLUSION PROTOCOL Last Admin: 12/07/19 04:59 Dose: 1 cap Budesonide (Pulmicort Neb Solution) 0.5 mg INH BID-RT [facility] Last Admin: 12/13/19 06:48 Dose: 0.5 mg Carvedilol (Coreg) 3.125 mg PO BID-WM [facility] Last Admin: 12/12/19 16:31 Dose: 3.125 mg Dextrose/Water (Dextrose 50%) 25 gm SLOW IVP PRN PRN PRN Reason: Hypoglycemia Epoetin Alex-epbx (Retacrit) 10,000 unit IVP TuThSa [facility] Last Admin: 12/11/19 08:42 Dose: 10,000 unit Famotidine (Pepcid) 20 mg SLOW IVP DAILY [facility] Last Admin: 12/12/19 08:36 Dose: 20 mg Glucagon (Glucagon) 1 mg IM PRN PRN PRN Reason: Hypoglycemia Heparin Sodium (Porcine) (Heparin) 5,000 units SC TID [facility] Last Admin: 12/12/19 20:33 Dose: 5,000 units Amiodarone HCl 450 mg/Miscellaneous Medication 1 each/ Dextrose/Water 259 mls @ 0 mls/hr IVPB INF [facility]; Protocol Last Admin: 12/13/19 01:32 Dose: 259 mls Norepinephrine Bitartrate (Levophed) 250 mls @ 0 mls/hr IVPB INF [facility]; Protocol Last Admin: 11/28/19 01:51 Dose: 250 mls Insulin Glargine 20 units/ (Miscellaneous Medication) 0.2 mls @ 0 mls/hr SC Q12HR [facility] Last Admin: 12/12/19 20:33 Dose: 0.2 mls Dextrose/Water (D5w) 1,000 mls @ 0 mls/hr IV .Q0M PRN PRN Reason: Hypoglycemia Sodium Chloride (Normal Saline 0.9%) 1,000 mls @ 50 mls/hr IV .Q20H [facility] Last Admin: 12/12/19 15:57 Dose: 1,000 mls Oxacillin Sodium 2 gm/ Sodium (Chloride) 50 mls @ 100 mls/hr IVPB Q4HR [facility] Last Admin: 12/13/19 05:25 Dose: 50 mls Insulin Human Lispro (Humalog) 0 units SC .MODERATE SLIDING SC PRN PRN Reason: Moderate Correctional Scale Last Admin: 12/12/19 16:12 Dose: 2 units Scopolamine (Transderm Scop) 1.5 mg TD Q3D [facility] Last Admin: 12/11/19 09:13 Dose: 1.5 mg Sodium Bicarbonate (Bicarbonate, Sodium) 650 mg PER TUBE .PER PROTOCOL PRN PRN Reason: ENTERAL TUBE OCCLUSION Last Admin: 12/07/19 04:59 Dose: 650 mg Sodium Chloride (Flush - Normal Saline) 10 ml IVF PRN PRN PRN Reason: Saline Flush Sterile Water (Water For Injection) 10 ml IVP [facility] Vital Signs & Weight: Vital Signs Temp Pulse Resp Pulse Ox 12/13/19 06:49 25 H 98 12/13/19 06:47 78 24 H 98 12/13/19 04:00 97.9 F 12/13/19 01:48 78 21 H 100 12/13/19 00:00 98.2 F 12/12/19 23:55 25 H 100 12/12/19 22:06 79 19 97 12/12/19 20:00 97.9 F 98 Admit Weight 295 lb Weight 277 lb 5.464 oz - Physical Exam General: no apparent distress Neck: supple neck Cardiac: regular rate, regular rhythm Lungs: no wheeze, rales, rhonchi Abdomen: soft, non-tender, no masses Extremities: 2+ LE edema Musculoskeletal: no pain - Labs Result Diagrams: 12/11/19 07:20 12/13/19 03:45 Troponin/CKMB CK-MB (CK-2) 7.5 ng/mL (0-6.6) H* 11/26/19 02:47 Troponin I 0.303 ng/mL (< 0.028) H* 11/26/19 09:00 - Assessment/Plan Assessment/Plan: Assessment/Plan: afib Respiratory failure Renal failure NICM Anemia On IV, PO amiodarone CV status stable dialysis Discussed case with Dr. Dean. Given documented sepsis, it is likely to recur unless device is removed Will keep NPO for tomorrow for evaluation by Dr. Dean
[2019-12-13] MEDS: Carvedilol 3.125 MG TAB PO SCH ×2 (08:59→16:06)
[2019-12-13] MEDS: Famotidine/PF 20 mg/2ml Vial SLOW IVP SCH (08:59)
[2019-12-13] MEDS: Amiodarone 200 MG TAB PO SCH ×2 (08:59→20:54)
[2019-12-13] MEDS: Insulin Glargine 20 UNITS in Pre-Filled Syringe 1 EACH SC SCH ×2 (09:00→20:48)
[2019-12-13] MEDS: Heparin 5,000 UNITS/ML VIAL SC SCH ×3 (09:00→20:54)
--- NOTE | 2019-12-13 09:11 | PRG ---
DATE OF SERVICE: 12/13/2019 SUBJECTIVE: This morning, is awake, alert, responsive, weak. OBJECTIVE: VITAL SIGNS: Temperature is 98, pulse is 97, blood pressure 130/75, his saturations are 98% on BiPAP, much more appropriate. I's and O's have been consistently ahead. CHEST: Decreased breath sounds, no wheezing. CARDIAC: Normal S1, S2. ABDOMEN: No mass. LABORATORY DATA: Creatinine is 7, BUN is 80, sugar 135. Still not making much urine. ASSESSMENT: Sepsis is associated with renal failure. Morbid obesity, diabetes, probably sleep apnea. PLAN: Pulmonary vang, question is whether we need to use discontinue his oxacillin. He has been on it for over 2 weeks. Infectious Disease will make a determination at that time. Otherwise, PT supportive care, eventually rehab. Job ID: [id number]
--- NOTE | 2019-12-13 10:12 | PRG ---
DATE OF SERVICE: 12/13/2019 SUBJECTIVE: A 54-year-old gentleman, being seen for acute kidney injury, dialysis dependent. The patient speaks better. Denies any complaints. OBJECTIVE: The patient is resting. VITAL SIGNS: Pulse 97, breathing 16, blood pressure 137/78. See above. Awake, alert, in no acute distress. GENERAL APPEARANCE AND MENTAL STATUS: Fair. HEAD/NECK: Normocephalic. Atraumatic. EYES: EOMI. No deformity. EARS: Clear. No ulcers. NOSE: Intact. No lesions. MOUTH: Clear. No discharge. THROAT: Clear. No exudate. LUNGS: Clear. No crackles. CARDIAC: S1, S2. No rub. ABDOMEN: Benign. Bowel sounds positive. GENITALIA/RECTUM: Powell absent. BACK/EXTREMITIES: Edema 0+. NEUROLOGICAL: Alert and motor intact. SKIN: LYMPHATICS: LABORATORY DATA: Reviewed. ASSESSMENT AND PLAN: 1. Stage 6 chronic kidney disease, plan dialysis. 2. Edema, plan dialysis. 3. Anemia. Give transfusion. 4. Hypertension, stable. 5. Congestive heart failure, stable. Job ID: [id number]
--- NOTE | 2019-12-13 10:17 | PRG ---
DATE OF SERVICE: 12/13/2019 SUBJECTIVE: Mr. Bradley is extubated. He is more alert. He follows commands this time, his speech is more recognizable. He denies headaches. No chest pain. No abdominal pain. OBJECTIVE: VITAL SIGNS: T-max 100.5 on December 11. He has been afebrile for the past 2 days. BP 130/70, pulse 76, respirations 24, O2 saturation 98. He has a right groin Trialysis catheter. HEENT: His ocular movements are conjugate. Some periorbital edema, but much less than before. LUNGS: With somewhat coarse breath sounds, faint basilar crackles. CARDIAC: S1 and S2, regular rate. ABDOMEN: Soft. May be moderately distended, but not tender. : The patient is voiding in the diaper, he had an indwelling Powell. His output ranged from 200 to 800. NEUROLOGIC: He is able to move extremities on command. LABORATORY DATA: White cell count is up to 20.5, hemoglobin 7.5, platelets 627. Creatinine 7.94. Two sets of blood cultures from December 05 are no growth. He is currently receiving oxacillin, which was started on the , so it will be more than 2 weeks of oxacillin, at least another 2 weeks to go of antimicrobial therapy, and we will transition him to cefazolin daily, adjust it for his renal function. The source of this bacteremia is not clear yet. The CELIA did not show any evidence of vegetation but the technical quality was not optimal. As discussed by dr. Villagomez he has concerns with lead colonization and he will ask dr. Dean to remove it. Following removal pt to continue on Ancef give at dialysis for another 4 wks. Job ID: [id number] [facility]
[2019-12-13] MEDS: CEFAZOLIN 2 GM in Premix Bag 1 BAG IVPB SCH (11:58)
[2019-12-13] MEDS: Sodium Chloride 0.9% 1,000 ML IV SCH ×2 (11:59→21:09)
[2019-12-13] MEDS ORDERED: Heparin 10,000 UNITS/1 ML VIAL ONE (13:41)
[2019-12-13] MEDS ORDERED: Lidocaine 1% w/Epinephrine 1:100K 20 ML VIAL ONE (13:41)
[2019-12-13] MEDS ORDERED: Bupivacaine PF 0.5% 30 ML VIAL ONE (13:41)
[2019-12-13] MEDS ORDERED: Sodium Chloride 0.9% 0 ML ONE (13:41)
[2019-12-13] MEDS ORDERED: Midazolam HCl 2 mg/2 ml Vial ONE (14:01)
--- NOTE | 2019-12-13 14:18 | CON ---
DATE OF CONSULTATION: HISTORY OF PRESENT ILLNESS: Vitor Bradley is a 54-year-old male, morbidly obese, 5 feet 9, 277 pounds, 41 BMI, in the CCU, not intubated, has a right subclavian vein central line and a right groin temporary dialysis catheter placed by Dr. Stinson on November 29, 2019. On November 26, 2019, I placed a central line. Dr. Ruelas on 12/02/2019 performed a bronchoscopy. I have been asked to see him regarding placement of a hemodialysis catheter and a central line as his hemodialysis catheter in right groin, which is temporary, is not functioning well. The patient is admitted on 11/26/2019, hospitalist service, for altered mental status and altered mobility and syncope. The patient has a history of type 2 diabetes mellitus; metabolic syndrome; coronary artery disease; cardiomyopathy; AICD, left; atrial fibrillation, past history of ablations; hypertension; dyslipidemia. It was felt that he was septic, has developed pneumonia, lactic acidosis. His renal function has deteriorated. GFR 7 with a long history of compromised GFR since 2018 and in 2017 GFR was 82. GFR has been compromised all this year. It is felt he will need long-term dialysis. Ultrasound vein mapping has been performed, but results are pending. ALLERGIES: NONE. PAST SURGICAL HISTORY: AICD left; EP ablation, atrial fibrillation; cardiac catheterization. PAST MEDICAL HISTORY: Morbid obesity, metabolic syndrome, coronary artery disease, cardiac cath in March 2018, cardiomyopathy status post AICD, prior ablation for atrial fibrillation, hypertension, dyslipidemia, type 2 diabetes mellitus. The patient lives at home with his mother. Tobacco none. Alcohol none. The patient has a nonischemic cardiomyopathy, seen by Dr. Krishnamurthy. He had a heart catheterization in 2017, which showed moderate to minimal single-vessel disease. No flow restriction. Catheterization in March 2018. Seen by Dr. Krishnamurthy this hospitalization. OUTPATIENT MEDICATIONS: 1. Metformin. 2. Glipizide. 3. Sucralfate. 4. Xarelto. 5. Potassium. 6. Protonix. 7. Metoprolol. 8. Lisinopril. 9. Furosemide. 10. Atorvastatin. PHYSICAL EXAMINATION: VITAL SIGNS: Height 5 feet 9, 267 pounds, 41 BMI. The patient is slow to answer questions, but is responsive, 96 heart rate, blood pressure 122/76. HEAD, EARS, EYES, NOSE, AND THROAT: Unremarkable. LUNGS: Clear to auscultation, rhonchi at base, no wheezing. CARDIAC: Regular rate and rhythm. ABDOMEN: Soft, obese, nontender. EXTREMITIES: Mild edema. LABORATORY DATA: As noted above. BUN 80, creatinine 0.94, sodium 139, GFR 7, hemoglobin 7.5. ASSESSMENT AND PLAN: 1. Chronic anticoagulation. This has been held since admission. 2. Morbid obesity metabolic syndrome. 3. Normal cardiac catheterization with minimal disease, March 2018, nonischemic cardiomyopathy. Echocardiogram 12/10/2019, 40% to 45% ejection fraction. 4. Hypertension. 5. Diabetes. 6. Elevated triglycerides. 7. End-stage renal disease, in need of dialysis access. We will plan on placement of a right IJ hemodialysis catheter and a central line. We will plan long-term dialysis access in the near future, possibly next week. Job ID: [id number]
--- NOTE | 2019-12-13 14:23 | ULT ---
EXAM: Vein mapping for dialysis access HISTORY: End-stage renal disease. TECHNIQUE: Multiplanar grayscale and color Doppler images were obtained in a bilateral upper extremit y venous ultrasound. Spectral analysis of the Doppler waveforms of the vessels were performed. FINDINGS: The bilateral internal jugular veins and left subclavian veins are patent without evidence of thrombus. The right subclavian vein could not be easily visualized secondary to an overlying bandage. Right brachial artery 6.0 mm Right radial artery 2.4 mm Right ulnar artery 2.7 mm Left brachial artery 5.7 mm Left radial artery 2.9 mm Left ulnar artery 2.5 mm RIGHT CEPHALIC VEIN in millimeters Occluded -- Shoulder Occluded -- Upper arm Occluded -- Mid upper arm Occluded-- Just proximal to the elbow 2.1 -- Just distal to the elbow 2.2 -- Forearm 2.0 -- Wrist RIGHT BASILIC VEIN in millimeters 4.5 -- Shoulder 4.8 -- Upper arm 5.0 -- Mid upper arm 2.8 -- Just proximal to the elbow 1.1 -- Just distal to the elbow 0.9 -- Forearm 1.3 -- Wrist LEFT CEPHALIC VEIN in millimeters 3.3 -- Shoulder 3.2 -- Upper arm 3.5 -- Mid upper arm 4.1 -- Just proximal to the elbow 3.4 -- Just distal to the elbow 2.6 -- Forearm 1.1 -- Wrist LEFT BASILIC VEIN in millimeters 1.9 -- Shoulder 2.1 -- Upper arm 3.5 -- Mid upper arm 2.3 -- Just proximal to the elbow 1.0 -- Just distal to the elbow 1.2 -- Forearm 1.2 -- Wrist IMPRESSION: Vein mapping for dialysis access as above
[2019-12-13] MEDS ORDERED: Sodium Chloride 0.9% 40 ML ONE (14:32)
--- NOTE | 2019-12-13 15:21 | RAD ---
EXAM: Single view of the chest HISTORY: Central line placement COMPARISON: 12/10/2019 FINDINGS: Single view of the chest shows an enlarged but stable cardiomediastinal silhouette. The pa cemaker is unchanged in position. A right IJ dialysis catheter seen with its tip in the superior vena cava. No pneumothorax is seen. A Dobbhoff tube courses off the inferior aspect of the film. A le ft IJ central venous catheter seen with its tip in the superior vena cava. There is no evidence of consolidation, mass, or pleural effusion. The bones are unremarkable. IMPRESSION: Status post central lines placement without evidence of complication.
--- NOTE | 2019-12-13 17:26 | PDOC.HOSPP ---
- Subjective Subjective: Seen and examined. More alert and awake. Currently on hemodialysis, tolerating well. Patient improving on maximum medical and surgical therapy. - Objective Vital Signs & Weight: Vital Signs (12 hours) Temp Pulse Resp Pulse Ox 12/13/19 11:22 90 14 12/13/19 11:15 98.6 F 12/13/19 11:00 99.6 F 12/13/19 10:37 98.5 F 12/13/19 10:22 97.7 F 12/13/19 08:00 97 12/13/19 07:00 98.1 F 12/13/19 06:49 25 H 98 12/13/19 06:47 78 24 H 98 Weight Admit Weight 295 lb Weight 277 lb 5.464 oz Most Recent Monitor Data Heart Rate from ECG 94 NIBP 118/84 NIBP BP-Mean 95 Respiration from ECG 10 SpO2 96 I&O: 12/12/19 12/13/19 12/14/19 06:59 06:59 06:59 Intake Total 1863 2818 350 Output Total 330 360 400 Balance 1533 2458 -50 Result Diagrams: 12/11/19 07:20 12/13/19 03:45 Additional Labs: Accuchecks 12/13/19 12/13/19 12/13/19 16:47 10:45 03:52 POC Glucose 165 H 137 H 135 H 12/12/19 22:55 POC Glucose 116 H Hospitalist ROS - Review of Systems All other systems reviewed; all pertinent +/- noted in HPI/Subj - Medication Medications: Active Medications Generic Name Dose Route Start Last Admin Trade Name Freq PRN Reason Stop Dose Admin Acetaminophen 1,000 mg 11/26/19 14:59 12/07/19 00:16 Tylenol Elixir PO 1,000 mg Q6H PRN Administration Headache/Fever or Pain Albuterol/Ipratropium 3 ml 12/07/19 14:30 12/13/19 14:12 Duoneb NEB Not Given [id number] LEEANN Amiodarone HCl 400 mg 12/11/19 21:00 12/13/19 08:59 Cordarone PO 400 mg BID LEEANN Administration Lipase/Protease/Amylase 1 cap 12/07/19 04:46 12/07/19 04:59 Cresadiq Tejada [id number] FS 1 cap .PER PROTOCOL PRN Administration TUBE OCCLUSION PROTOCOL Budesonide 0.5 mg 12/02/19 18:30 12/13/19 06:48 Pulmicort Neb Solution INH 0.5 mg BID-RT LEEANN Administration Carvedilol 3.125 mg 12/06/19 17:00 12/13/19 16:06 Coreg PO 3.125 mg BID-WM LEEANN Administration Epoetin Alex-epbx 10,000 unit 12/09/19 09:11 12/11/19 08:42 Retacrit IVP 10,000 unit TuThSa LEEANN Administration Heparin Sodium (Porcine) 5,000 units 11/26/19 15:00 12/13/19 16:06 Heparin SC 5,000 units TID LEEANN Administration Amiodarone HCl 450 mg/ 259 mls @ 0 mls/hr 11/26/19 19:45 12/13/19 16:59 Miscellaneous Medication 1 IVPB 259 mls each/ Dextrose/Water INF LEEANN Administration Protocol As Directed Norepinephrine Bitartrate 250 mls @ 0 mls/hr 11/26/19 21:20 11/28/19 01:51 Levophed IVPB 250 mls INF LEEANN Administration Protocol Titrate Insulin Glargine 20 units/ 0.2 mls @ 0 mls/hr 11/28/19 21:00 12/13/19 09:00 Miscellaneous Medication SC 0.2 mls Q12HR LEEANN Administration Sodium Chloride 1,000 mls @ 50 mls/hr 12/02/19 08:11 12/13/19 11:59 Normal Saline 0.9% IV 1,000 mls .Q20H LEEANN Administration Cefazolin Sodium/Dextrose 2 gm 50 mls @ 100 mls/hr 12/13/19 11:00 12/13/19 11 :58 / Device IVPB 50 mls 1100 LEEANN Administration Insulin Human Lispro 0 units 11/29/19 13:57 12/12/19 16:12 Humalog SC 2 units .MODERATE SLIDING SC PRN Administration Moderate Correctional Scale Scopolamine 1.5 mg 12/08/19 09:15 12/11/19 09:13 Transderm Scop TD 1.5 mg Q3D LEEANN Administration Sodium Bicarbonate 650 mg 12/07/19 04:46 12/07/19 04:59 Bicarbonate, Sodium PER TUBE 650 mg .PER PROTOCOL PRN Administration ENTERAL TUBE OCCLUSION - Exam General Appearance: NAD Eye: anicteric sclera ENT: normocephalic atraumatic, moist mucosa Neck: supple, symmetric, no lymphadenopathy Heart: no murmur, no gallops, no rubs Respiratory: CTAB, no wheezes, no rales, no ronchi Gastrointestinal: soft, non-tender, no rigidity Extremities: 1+ LE edema (improving) Extremities - other findings: 2+ UE edema Skin: no lesions, no rashes Neurological: cranial nerve grossly intact, no focal deficits Musculoskeletal: generalized weakness Psychiatric: lethargic Hosp A/P (1) Acute renal failure Status: Acute Qualifiers: Acute renal failure type: with acute tubular necrosis Qualified Code(s): N17.0 - Acute kidney failure with tubular necrosis (2) Acute respiratory failure with hypoxia Code(s): J96.01 - ACUTE RESPIRATORY FAILURE WITH HYPOXIA Status: Acute (3) MSSA bacteremia Code(s): R78.81 - BACTEREMIA Status: Acute (4) Sepsis Code(s): A41.9 - SEPSIS, UNSPECIFIED ORGANISM Status: Acute Qualifiers: Sepsis type: methicillin susceptible Staphylococcus aureus Sepsis acute organ dysfunction status: with acute organ dysfunction Severe sepsis acute organ dysfunction type: acute renal failure Severe sepsis shock status: unspecified (5) Volume overload Code(s): E87.70 - FLUID OVERLOAD, UNSPECIFIED Status: Acute (6) Anemia, normocytic normochromic Code(s): D64.9 - ANEMIA, UNSPECIFIED Status: Chronic (7) Acute kidney injury Code(s): N17.9 - ACUTE KIDNEY FAILURE, UNSPECIFIED Status: Acute (8) Acute on chronic systolic heart failure Code(s): I50.23 - ACUTE ON CHRONIC SYSTOLIC (CONGESTIVE) HEART FAILURE Status : Acute (9) Acute respiratory failure Code(s): J96.00 - ACUTE RESPIRATORY FAILURE, UNSP W HYPOXIA OR HYPERCAPNIA Status: Acute Qualifiers: Respiratory failure complication: hypoxia and hypercapnia Qualified Code(s) : J96.01 - Acute respiratory failure with hypoxia; J96.02 - Acute respiratory failure with hypercapnia (10) Atrial fibrillation Code(s): I48.91 - UNSPECIFIED ATRIAL FIBRILLATION Status: Acute (11) Atrial fibrillation with RVR Code(s): I48.91 - UNSPECIFIED ATRIAL FIBRILLATION Status: Acute (12) Cellulitis Code(s): L03.90 - CELLULITIS, UNSPECIFIED Status: Acute (13) Chronic systolic heart failure Code(s): I50.22 - CHRONIC SYSTOLIC (CONGESTIVE) HEART FAILURE Status: Chronic (14) Diabetes mellitus type 2 in obese Code(s): E11.69 - TYPE 2 DIABETES MELLITUS WITH OTHER SPECIFIED COMPLICATION; E66.9 - OBESITY, UNSPECIFIED Status: Chronic (15) Hypertension Code(s): I10 - ESSENTIAL (PRIMARY) HYPERTENSION Status: Chronic Qualifiers: Hypertension type: essential hypertension Qualified Code(s): I10 - Essential (primary) hypertension (16) NICM (nonischemic cardiomyopathy) Code(s): I42.8 - OTHER CARDIOMYOPATHIES Status: Chronic (17) BRANDON (obstructive sleep apnea) Code(s): G47.33 - OBSTRUCTIVE SLEEP APNEA (ADULT) (PEDIATRIC) Status: Suspected (18) Bacteremia Code(s): R78.81 - BACTEREMIA Status: Resolved - Plan Plan: critical care unit pulmonology consultation, recommendations appreciated nephrology consultation, recommendations appreciated infectious disease consultation, recommendations appreciated Supplemental O2 to maintain saturation greater than 88% with NC vs Bipap as needed Diffusely volume overloaded, though improving Swallow eval failed, dobhoff in place - continue to work with Speech therapy enteral nutrition until adequate oral intake Pulm hygiene CELIA negative for vegetation antibiotics per infectious disease specialist hemodialysis per nephrology blood pressure control blood sugar control continue home medications as able G.I. prophylaxis DVT prophylaxis
--- NOTE | 2019-12-13 21:04 | OP ---
DATE OF PROCEDURE: 12/06/2019 PREOPERATIVE DIAGNOSIS: End-stage renal disease, poor IV access, morbid obesity, left subclavian vein pacemaker, status post anoxic event most likely at home. PROCEDURES PERFORMED: Right IJ cuffed tunneled hemodialysis catheter, left IJ central line, fluoroscopy used, and ultrasound used. ANESTHESIA: Local 0.5% Marcaine 30 mL mixed with 1% Xylocaine with epinephrine 30 mL. DESCRIPTION OF PROCEDURE: The patient was taken to the operating room, where under intravenous sedation, neck and chest were clipped of hair, prepared with ChloraPrep and draped in routine fashion. Local anesthetic mixture was infiltrated into the skin and subcutaneous tissue about the operative site. Trocar catheters under ultrasound guidance, cannulated both right and left internal jugular veins and J-wire threaded, trocar catheter removed. Skin site was enlarged sharply. Seldinger technique was used to place a triple-lumen catheter on the left, removing the J-wire secured the catheter with 3-0 nylon suture. Each port aspirated blood, flushed with saline solution. On the right side, stab incision was made in the right chest. Using a tunneling device, pre-curved [employer] cuffed-tunneled hemodialysis catheter tunneled between 2 incisions, placed in the fabric cuff beneath the skin exit site on the right and securing the catheter with suture of 3-0 nylon. Sterile dressings were applied. Small and medium sized dilators were placed over the J-wire and the internal jugular vein removed. Dilator and Peel-Away sheath placed over the J-wire in superior vena cava. Dilator and J-wire removed. Catheter placed with Peel-Away sheath. Peel-Away sheath removed. Platysma was approximated with 4-0 Monocryl, skin with subdermal 4-0 Monocryl and [place] glue and sterile dressings were applied. Final fluoroscopic images revealed good line placement, right hemodialysis catheter. IJ aspirated blood, flushed with saline solution and heparinized saline solution with 1000 units of heparin per mL, indicating volume of the port. Job ID: [id number]
[2019-12-14 05:16] LABS: Anion Gap 22 mmol/L (10-20); BUN (Urea Nitrogen) 55 mg/dL (8.4-25.7); Calc. Creatinine Clearance 22 mL/min (70-130); Calcium 8.3 mg/dL (7.8-10.44); Carbon Dioxide 21 mmol/L (22-29); Chloride 98 mmol/L (98-107); Estimated GFR-MDRD 10; Glucose 201 mg/dL (70-105); Sodium 137 mmol/L (136-145)
[2019-12-14] MEDS: HumaLOG 300 UNITS/3 ML VIAL SC PRN ×3 (06:15→19:10)
[2019-12-14] MEDS: Budesonide 0.5 MG/2 ML NEB INH SCH ×2 (07:51→18:13)
[2019-12-14] MEDS: Scopolamine 1.5 mg/72 hour Patch TD SCH (09:00)
[2019-12-14] MEDS: Insulin Glargine 20 UNITS in Pre-Filled Syringe 1 EACH SC SCH ×2 (09:00→20:57)
[2019-12-14] MEDS: Heparin 5,000 UNITS/ML VIAL SC SCH ×3 (09:01→20:57)
[2019-12-14] MEDS: Amiodarone 200 MG TAB PO SCH ×2 (09:01→20:57)
[2019-12-14] MEDS: Carvedilol 3.125 MG TAB PO SCH ×2 (09:02→16:59)
[2019-12-14] MEDS: Famotidine 20 MG TAB PER TUBE SCH (09:02)
--- NOTE | 2019-12-14 10:02 | PRG ---
DATE OF SERVICE: 12/14/2019 SUBJECTIVE: A 54-year-old male, being seen for end-stage kidney disease. The patient denied nausea, vomiting, or chest pain. OBJECTIVE: CONSTITUTIONAL: The patient is awake and alert. VITAL SIGNS: Afebrile, pulse 87, breathing 16, and blood pressure 142/90. GENERAL APPEARANCE AND MENTAL STATUS: Fair. HEAD/NECK: Normocephalic. Atraumatic. EYES: EOMI. No deformity. EARS: Clear. No ulcers. NOSE: Intact. No lesions. MOUTH: Clear. No discharge. THROAT: Clear. No exudate. LUNGS: Clear. No crackles. CARDIAC: S1, S2. No rub. ABDOMEN: Benign. Bowel sounds positive. GENITALIA/RECTUM: Powell absent. BACK/EXTREMITIES: Edema 0+. NEUROLOGICAL: Alert and motor intact. SKIN: LYMPHATICS: LABORATORY DATA: Labs reviewed. ASSESSMENT AND PLAN: Stage 6 chronic kidney disease, plan dialysis. Hypertension, stable. Anemia, we will check labs today. Job ID: [id number]
--- NOTE | 2019-12-14 10:10 | PRG ---
DATE OF SERVICE: 12/14/2019 SUBJECTIVE: This morning, he is awake, alert, and responsive. His is swallowing ice, appears to be in no distress. Chest x-ray yesterday looks much better. He has a new dialysis catheter. OBJECTIVE: VITAL SIGNS: Pulse 89, respirations 16, saturations on room air, blood pressure 146/90. CHEST: Decreased breath sounds. No wheezing. CARDIAC: Normal S1 and S2. No gallops. ABDOMEN: No mass. ASSESSMENT AND PLAN: 1. Sepsis, Staph, prolonged anticoagulation. 2. Supraventricular tachycardia, diabetes, morbid obesity, respiratory failure, severe deconditioning. Continue PT, supportive care, eventually placement. We will follow. Job ID: [id number]
[2019-12-14 10:13] LABS: Hemoglobin 9.4 g/dL (14.0-18.0)
[2019-12-14 10:36] LABS: Anion Gap 22 mmol/L (10-20); BUN (Urea Nitrogen) 60 mg/dL (8.4-25.7); Calc. Creatinine Clearance 20 mL/min (70-130); Calcium 8.3 mg/dL (7.8-10.44); Carbon Dioxide 21 mmol/L (22-29); Chloride 98 mmol/L (98-107); Estimated GFR-MDRD 9; Glucose 217 mg/dL (70-105); Sodium 137 mmol/L (136-145)
[2019-12-14] MEDS: EPOETIN ALFA-EPBX (ESRD) 10,000 UNIT/ML VIAL IVP SCH (11:16)
[2019-12-14] MEDS: CEFAZOLIN 2 GM in Premix Bag 1 BAG IVPB SCH (11:17)
--- NOTE | 2019-12-14 14:57 | PDOC.HOSPP ---
- Subjective Subjective: Seen and examined in the intermediate medical care for. Patient's only complaint is that he is thirsty and wants more ice. Denies pain. Breathing comfortably without the assistance of oxygen this morning. There is a new rash on the hands, this is possibly a reaction to something he received in anesthesia for his hemodialysis catheter which was exchanged. This is unlikely related to antibiotics as he has been on these for several weeks without changes or problems up until today. - Objective Vital Signs & Weight: Vital Signs (12 hours) Temp Pulse Resp Pulse Ox 12/14/19 11:47 84 15 99 12/14/19 11:17 97.2 F L 12/14/19 08:00 98 12/14/19 07:49 89 16 97 12/14/19 07:19 97.4 F L 12/14/19 03:41 97.4 F L Weight Admit Weight 295 lb Weight 251 lb 7 oz Most Recent Monitor Data Heart Rate from ECG 84 NIBP 143/83 NIBP BP-Mean 103 Respiration from ECG 21 SpO2 97 I&O: 12/13/19 12/14/19 12/15/19 06:59 06:59 06:59 Intake Total 2818 1765 80 Output Total 360 500 Balance 2458 1265 80 Result Diagrams: 12/14/19 09:46 12/14/19 09:46 Additional Labs: Accuchecks 12/14/19 12/14/19 12/14/19 12:06 05:55 01:08 POC Glucose 229 H 209 H 175 H 12/13/19 12/13/19 21:03 16:47 POC Glucose 202 H 165 H Radiology Reviewed by me: Yes Hospitalist ROS - Review of Systems All other systems reviewed; all pertinent +/- noted in HPI/Subj - Medication Medications: Active Medications Generic Name Dose Route Start Last Admin Trade Name Freq PRN Reason Stop Dose Admin Acetaminophen 1,000 mg 11/26/19 14:59 12/07/19 00:16 Tylenol Elixir PO 1,000 mg Q6H PRN Administration Headache/Fever or Pain Albuterol/Ipratropium 3 ml 12/07/19 14:30 12/14/19 11:47 Duoneb NEB 3 ml [id number] LEEANN Administration Amiodarone HCl 400 mg 12/11/19 21:00 01/28/20 09:01 Cordarone PO 400 mg BID LEEANN Administration Lipase/Protease/Amylase 1 cap 12/07/19 04:46 12/07/19 04:59 Leonides Tejada 17533 FS 1 cap .PER PROTOCOL PRN Administration TUBE OCCLUSION PROTOCOL Budesonide 0.5 mg 12/02/19 18:30 12/14/19 07:51 Pulmicort Neb Solution INH 0.5 mg BID-RT LEEANN Administration Carvedilol 3.125 mg 12/06/19 17:00 12/14/19 09:02 Coreg PO 3.125 mg BID-WM LEEANN Administration Epoetin Alex-epbx 10,000 unit 12/09/19 09:11 12/14/19 11:16 Retacrit IVP 10,000 unit TuThSa LEEANN Administration Famotidine 20 mg 12/14/19 09:00 12/14/19 09:02 Pepcid PER TUBE 20 mg DAILY LEEANN Administration Heparin Sodium (Porcine) 5,000 units 11/26/19 15:00 12/14/19 09:01 Heparin SC 5,000 units TID LEEANN Administration Amiodarone HCl 450 mg/ 259 mls @ 0 mls/hr 11/26/19 19:45 12/13/19 16:59 Miscellaneous Medication 1 IVPB 259 mls each/ Dextrose/Water INF LEEANN Administration Protocol As Directed Norepinephrine Bitartrate 250 mls @ 0 mls/hr 11/26/19 21:20 11/28/19 01:51 Levophed IVPB 250 mls INF LEEANN Administration Protocol Titrate Insulin Glargine 20 units/ 0.2 mls @ 0 mls/hr 11/28/19 21:00 12/14/19 09:00 Miscellaneous Medication SC 0.2 mls Q12HR LEEANN Administration Sodium Chloride 1,000 mls @ 50 mls/hr 12/02/19 08:11 12/13/19 21:09 Normal Saline 0.9% IV 1,000 mls .Q20H LEEANN Administration Cefazolin Sodium/Dextrose 2 gm 50 mls @ 100 mls/hr 12/13/19 11:00 12/14/19 11 :17 / Device IVPB 50 mls 1100 LEEANN Administration Insulin Human Lispro 0 units 11/29/19 13:57 12/14/19 12:27 Humalog SC 4 units .MODERATE SLIDING SC PRN Administration Moderate Correctional Scale Scopolamine 1.5 mg 12/08/19 09:15 12/14/19 09:00 Transderm Scop TD 1.5 mg Q3D LEEANN Administration Sodium Bicarbonate 650 mg 12/07/19 04:46 12/07/19 04:59 Bicarbonate, Sodium PER TUBE 650 mg .PER PROTOCOL PRN Administration ENTERAL TUBE OCCLUSION - Exam General Appearance: NAD, awake alert Eye: anicteric sclera ENT: normocephalic atraumatic, moist mucosa Neck: symmetric, no lymphadenopathy Heart: no murmur, no gallops, no rubs Respiratory: CTAB, no wheezes, no rales, no ronchi Gastrointestinal: soft, non-tender, no guarding, no rigidity Extremities: 1+ LE edema Extremities - other findings: 2+ UE edema Skin - other findings: on arms new rash with 1cm round rash concerning for drug reaction Neurological: cranial nerve grossly intact, no focal deficits Musculoskeletal: generalized weakness Psychiatric: oriented to person, oriented to place, flat affect Hosp A/P (1) Acute renal failure Status: Acute Qualifiers: Acute renal failure type: with acute tubular necrosis Qualified Code(s): N17.0 - Acute kidney failure with tubular necrosis (2) Acute respiratory failure with hypoxia Code(s): J96.01 - ACUTE RESPIRATORY FAILURE WITH HYPOXIA Status: Acute (3) MSSA bacteremia Code(s): R78.81 - BACTEREMIA Status: Acute (4) Sepsis Code(s): A41.9 - SEPSIS, UNSPECIFIED ORGANISM Status: Acute Qualifiers: Sepsis type: methicillin susceptible Staphylococcus aureus Sepsis acute organ dysfunction status: with acute organ dysfunction Severe sepsis acute organ dysfunction type: acute renal failure Severe sepsis shock status: unspecified (5) Volume overload Code(s): E87.70 - FLUID OVERLOAD, UNSPECIFIED Status: Acute (6) Anemia, normocytic normochromic Code(s): D64.9 - ANEMIA, UNSPECIFIED Status: Chronic (7) Acute kidney injury Code(s): N17.9 - ACUTE KIDNEY FAILURE, UNSPECIFIED Status: Acute (8) Acute on chronic systolic heart failure Code(s): I50.23 - ACUTE ON CHRONIC SYSTOLIC (CONGESTIVE) HEART FAILURE Status : Acute (9) Acute respiratory failure Code(s): J96.00 - ACUTE RESPIRATORY FAILURE, UNSP W HYPOXIA OR HYPERCAPNIA Status: Acute Qualifiers: Respiratory failure complication: hypoxia and hypercapnia Qualified Code(s) : J96.01 - Acute respiratory failure with hypoxia; J96.02 - Acute respiratory failure with hypercapnia (10) Atrial fibrillation Code(s): I48.91 - UNSPECIFIED ATRIAL FIBRILLATION Status: Acute (11) Atrial fibrillation with RVR Code(s): I48.91 - UNSPECIFIED ATRIAL FIBRILLATION Status: Acute (12) Cellulitis Code(s): L03.90 - CELLULITIS, UNSPECIFIED Status: Acute (13) Chronic systolic heart failure Code(s): I50.22 - CHRONIC SYSTOLIC (CONGESTIVE) HEART FAILURE Status: Chronic (14) Diabetes mellitus type 2 in obese Code(s): E11.69 - TYPE 2 DIABETES MELLITUS WITH OTHER SPECIFIED COMPLICATION; E66.9 - OBESITY, UNSPECIFIED Status: Chronic (15) Hypertension Code(s): I10 - ESSENTIAL (PRIMARY) HYPERTENSION Status: Chronic Qualifiers: Hypertension type: essential hypertension Qualified Code(s): I10 - Essential (primary) hypertension (16) NICM (nonischemic cardiomyopathy) Code(s): I42.8 - OTHER CARDIOMYOPATHIES Status: Chronic (17) BRANDON (obstructive sleep apnea) Code(s): G47.33 - OBSTRUCTIVE SLEEP APNEA (ADULT) (PEDIATRIC) Status: Suspected (18) Bacteremia Code(s): R78.81 - BACTEREMIA Status: Resolved - Plan Plan: [facility] pulmonology consultation, recommendations appreciated nephrology consultation, recommendations appreciated infectious disease consultation, recommendations appreciated Supplemental O2 to maintain saturation greater than 88% with NC vs Bipap as needed Diffusely volume overloaded, improving daily Swallow eval failed, dobhoff in place - continue to work with Speech therapy enteral nutrition until adequate oral intake Pulm hygiene new rash, likely drug rash from something he recieved in anesthesia for HD cath. No other new medications have be started CELIA negative for vegetation antibiotics per infectious disease specialist, possible infected AICD lead hemodialysis per nephrology blood pressure control blood sugar control continue home medications as able G.I. prophylaxis DVT prophylaxis
[2019-12-14] MEDS: Amiodarone HCl 450 MG in Dextrose 5% in Water 250 ML IVPB SCH (18:08)
[2019-12-15] MEDS: HumaLOG 300 UNITS/3 ML VIAL SC PRN ×4 (00:37→23:30)
[2019-12-15] MEDS: Acetaminophen 650 MG/20.3 ML UDCUP PO PRN ×2 (02:17→21:17)
[2019-12-15 05:33] LABS: Anion Gap 21 mmol/L (10-20); BUN (Urea Nitrogen) 75 mg/dL (8.4-25.7); Calc. Creatinine Clearance 18 mL/min (70-130); Carbon Dioxide 21 mmol/L (22-29); Chloride 95 mmol/L (98-107); Estimated GFR-MDRD 7; Glucose 237 mg/dL (70-105); Sodium 133 mmol/L (136-145)
--- NOTE | 2019-12-15 06:06 | PDOC.CPN ---
- Subjective Date: 12/15/19 Time: 07:32 Interval history: No complaints today except for rash to UE - Objective Allergies/Adverse Reactions: Allergies Allergy/AdvReac Type Severity Reaction Status Date / Time No Known Drug Allergies Allergy Verified 11/26/19 22:51 Visit Medications: Current Medications Acetaminophen (Tylenol Elixir) 1,000 mg PO Q6H PRN PRN Reason: Headache/Fever or Pain Last Admin: 12/15/19 02:17 Dose: 1,000 mg Albuterol/Ipratropium (Duoneb) 3 ml NEB [id number] [facility] Last Admin: 12/15/19 02:17 Dose: 3 ml Alteplase, Recombinant (Cathflo) 2 mg CATH WILLCALL [facility] Amiodarone HCl (Cordarone) 400 mg PO BID [facility] Last Admin: 12/14/19 20:57 Dose: 400 mg Lipase/Protease/Amylase ([place] [id number]) 1 cap FS .PER PROTOCOL PRN PRN Reason: TUBE OCCLUSION PROTOCOL Last Admin: 12/07/19 04:59 Dose: 1 cap Budesonide (Pulmicort Neb Solution) 0.5 mg INH BID-RT [facility] Last Admin: 12/14/19 18:13 Dose: 0.5 mg Carvedilol (Coreg) 3.125 mg PO BID-WM [facility] Last Admin: 12/14/19 16:59 Dose: 3.125 mg Dextrose/Water (Dextrose 50%) 25 gm SLOW IVP PRN PRN PRN Reason: Hypoglycemia Epoetin Alex-epbx (Retacrit) 10,000 unit IVP TuThSa [facility] Last Admin: 12/14/19 11:16 Dose: 10,000 unit Famotidine (Pepcid) 20 mg PER TUBE DAILY [facility] Last Admin: 12/14/19 09:02 Dose: 20 mg Glucagon (Glucagon) 1 mg IM PRN PRN PRN Reason: Hypoglycemia Heparin Sodium (Porcine) (Heparin) 5,000 units SC TID [facility] Last Admin: 12/14/19 20:57 Dose: 5,000 units Amiodarone HCl 450 mg/Miscellaneous Medication 1 each/ Dextrose/Water 259 mls @ 0 mls/hr IVPB INF [facility]; Protocol Last Admin: 12/14/19 18:08 Dose: 259 mls Norepinephrine Bitartrate (Levophed) 250 mls @ 0 mls/hr IVPB INF [facility]; Protocol Last Admin: 11/28/19 01:51 Dose: 250 mls Insulin Glargine 20 units/ (Miscellaneous Medication) 0.2 mls @ 0 mls/hr SC Q12HR [facility] Last Admin: 12/14/19 20:57 Dose: 0.2 mls Dextrose/Water (D5w) 1,000 mls @ 0 mls/hr IV .Q0M PRN PRN Reason: Hypoglycemia Sodium Chloride (Normal Saline 0.9%) 1,000 mls @ 50 mls/hr IV .Q20H [facility] Last Admin: 12/13/19 21:09 Dose: 1,000 mls Cefazolin Sodium/Dextrose 2 gm (/ Device) 50 mls @ 100 mls/hr IVPB 1100 [facility] Last Admin: 12/14/19 11:17 Dose: 50 mls Insulin Human Lispro (Humalog) 0 units SC .MODERATE SLIDING SC PRN PRN Reason: Moderate Correctional Scale Last Admin: 12/15/19 00:37 Dose: 2 units Scopolamine (Transderm Scop) 1.5 mg TD Q3D [facility] Last Admin: 12/14/19 09:00 Dose: 1.5 mg Sodium Bicarbonate (Bicarbonate, Sodium) 650 mg PER TUBE .PER PROTOCOL PRN PRN Reason: ENTERAL TUBE OCCLUSION Last Admin: 12/07/19 04:59 Dose: 650 mg Sodium Chloride (Flush - Normal Saline) 10 ml IVF PRN PRN PRN Reason: Saline Flush Sterile Water (Water For Injection) 10 ml IVP WILLCALL [facility] Vital Signs & Weight: Vital Signs Temp Pulse Resp Pulse Ox 12/15/19 03:16 97.9 F 12/15/19 02:17 87 20 99 12/14/19 23:26 97.6 F 12/14/19 22:33 84 16 100 12/14/19 20:00 100 12/14/19 19:37 98.0 F 12/14/19 18:12 84 20 99 Admit Weight 295 lb Weight 257 lb 6.002 oz - Physical Exam General: no apparent distress Neck: supple neck, midline trachea Cardiac: no murmur, regular rate, regular rhythm Lungs: normal breath sounds Neuro: grossly intact Extremities: 1+ LE edema - Labs Result Diagrams: 12/14/19 09:46 12/15/19 04:55 Troponin/CKMB CK-MB (CK-2) 7.5 ng/mL (0-6.6) H* 11/26/19 02:47 Troponin I 0.303 ng/mL (< 0.028) H* 11/26/19 09:00 - Telemetry Sinus rhythms and dysrhythmias: sinus rhythm - Assessment/Plan Assessment/Plan: Assessment/Plan: afib Respiratory failure Renal failure NICM Anemia 12/14 EP consult Keep NPOo other changes 12/13 On IV, PO amiodarone CV status stable dialysis Discussed case with Dr. Dean. Given documented sepsis, it is likely to recur unless device is removed Will keep NPO for tomorrow for evaluation by Dr. Dean
[2019-12-15] MEDS: Budesonide 0.5 MG/2 ML NEB INH SCH ×2 (06:15→20:14)
[2019-12-15] MEDS ORDERED: Heparin 10,000 UNITS/ 10 ML VIAL ONE (08:59)
[2019-12-15] MEDS: Amiodarone 200 MG TAB PO SCH ×2 (09:37→21:16)
[2019-12-15] MEDS: Famotidine 20 MG TAB PER TUBE SCH (09:38)
[2019-12-15] MEDS: Heparin 5,000 UNITS/ML VIAL SC SCH ×3 (09:39→21:16)
[2019-12-15] MEDS: Sodium Chloride 0.9% 1,000 ML IV SCH (09:39)
[2019-12-15] MEDS: Insulin Glargine 20 UNITS in Pre-Filled Syringe 1 EACH SC SCH ×2 (09:39→21:16)
[2019-12-15] MEDS: Carvedilol 3.125 MG TAB PO SCH ×2 (09:39→17:59)
--- NOTE | 2019-12-15 09:39 | PRG ---
DATE OF SERVICE: 12/15/2019 SUBJECTIVE: A 54-year-old male, being seen for end-stage renal disease. The patient denied nausea, vomiting, or chest pain. OBJECTIVE: CONSTITUTIONAL: On examination, the patient is awake and alert. VITAL SIGNS: Pulse 75, breathing 16, blood pressure 134/79. GENERAL APPEARANCE AND MENTAL STATUS: Fair. HEAD/NECK: Normocephalic. Atraumatic. EYES: EOMI. No deformity. EARS: Clear. No ulcers. NOSE: Intact. No lesions. MOUTH: Clear. No discharge. THROAT: Clear. No exudate. LUNGS: Clear. No crackles. CARDIAC: S1, S2. No rub. ABDOMEN: Benign. Bowel sounds positive. GENITALIA/RECTUM: Powell absent. BACK/EXTREMITIES: Edema 0+. NEUROLOGICAL: Alert and motor intact. SKIN: LYMPHATICS: LABORATORY DATA: Reviewed. ASSESSMENT AND PLAN: 1. Stage 6 chronic kidney disease, plan dialysis. 2. Hypertension, stable. 3. Anemia, stable. Job ID: [id number]
[2019-12-15] MEDS: Amiodarone HCl 450 MG in Dextrose 5% in Water 250 ML IVPB SCH (10:13)
--- NOTE | 2019-12-15 10:21 | PRG ---
DATE OF SERVICE: 12/15/2019 SUBJECTIVE: This morning, he is awake, alert, and responsive, just weak, undergoing dialysis. They made him n.p.o. EP supposed to see the patient. OBJECTIVE: VITAL SIGNS: Temperature 97, sats 100%, pulse 86, and blood pressure 130/79. CHEST: Decreased breath sounds. No wheezing. CARDIAC: Normal S1 and S2. No gallops. ABDOMEN: No masses. LABORATORY DATA: Blood sugar is 271. IMPRESSION: Diabetes, morbid obesity, sleep apnea, sepsis syndrome, and Staph. PLAN: He needs aggressive PT, out of bed in chair at least twice a day. Unfortunately, he still has not much renal function. He is undergoing dialysis. Antibiotics as per Infectious Disease for a prolonged period of time. He may eventually require placement. Job ID: [id number]
[2019-12-15] MEDS: CEFAZOLIN 2 GM in Premix Bag 1 BAG IVPB SCH (13:59)
--- NOTE | 2019-12-15 14:19 | PDOC.HOSPP ---
- Subjective Encounter Date: 12/15/19 Encounter Time: 14:15 Subjective: Patient seen and examined for multiple issues. No CP/SOB or palpitations. Tolerating tube feeds. No new complaints. No overnight events - Objective Vital Signs & Weight: Vital Signs (12 hours) Temp Pulse Resp Pulse Ox 12/15/19 12:13 98.0 F 12/15/19 09:59 87 19 96 12/15/19 08:00 100 12/15/19 07:03 97.8 F 12/15/19 06:13 85 31 H 95 12/15/19 03:16 97.9 F 12/15/19 02:17 87 20 99 Weight Admit Weight 295 lb Weight 257 lb 6.002 oz Most Recent Monitor Data Heart Rate from ECG 102 NIBP 146/96 NIBP BP-Mean 112 Respiration from ECG 19 SpO2 99 I&O: 12/14/19 12/15/19 12/16/19 06:59 06:59 06:59 Intake Total 1765 2671 100 Output Total 500 Balance 1265 2671 100 Result Diagrams: 12/14/19 09:46 12/15/19 04:55 Additional Labs: Accuchecks 12/15/19 12/15/19 12/14/19 12:14 06:11 23:54 POC Glucose 147 H 271 H 200 H 12/14/19 19:13 POC Glucose 233 H Microbiology 11/26/19 02:47 Venous blood - Right Arm Blood Culture - Final Staphylococcus aureus 11/26/19 02:47 Venous blood - Left Arm Blood Culture - Final Staphylococcus aureus Laboratory Tests 11/26/19 11/26/19 11/26/19 02:47 02:47 02:47 Lactic Acid 4.5 H* Phosphorus Magnesium Creatine Kinase 3216 H Troponin I 0.200 H 11/26/19 06:00 Lactic Acid Phosphorus 1.2 L Magnesium 0.9 L* Creatine Kinase Troponin I EKG Reviewed by me: Yes (Tele SR) Hospitalist ROS - Review of Systems Respiratory: denies: cough, dry, shortness of breath, hemoptysis, SOB with excertion, pleuritic pain, sputum, wheezing, other Cardiovascular: denies: chest pain, palpitations, orthopnea, paroxysmal noc. dyspnea, edema, light headedness, other - Medication Medications: Active Medications Generic Name Dose Route Start Last Admin Trade Name Freq PRN Reason Stop Dose Admin Acetaminophen 1,000 mg 11/26/19 14:59 12/15/19 02:17 Tylenol Elixir PO 1,000 mg Q6H PRN Administration Headache/Fever or Pain Albuterol/Ipratropium 3 ml 12/07/19 14:30 12/15/19 09:59 Duoneb NEB 3 ml [id number] [facility] Administration Amiodarone HCl 400 mg 12/11/19 21:00 12/15/19 09:37 Cordarone PO 400 mg BID [facility] Administration Lipase/Protease/Amylase 1 cap 12/07/19 04:46 12/07/19 04:59 Leonides Tejada [id number] FS 1 cap .PER PROTOCOL PRN Administration TUBE OCCLUSION PROTOCOL Budesonide 0.5 mg 12/02/19 18:30 12/15/19 06:15 Pulmicort Neb Solution INH 0.5 mg BID-RT [facility] Administration Carvedilol 3.125 mg 12/06/19 17:00 12/15/19 09:39 Coreg PO 3.125 mg BID-WM [facility] Administration Epoetin Alex-epbx 10,000 unit 12/09/19 09:11 12/14/19 11:16 Retacrit IVP 10,000 unit TuThSa [facility] Administration Famotidine 20 mg 12/14/19 09:00 12/15/19 09:38 Pepcid PER TUBE 20 mg DAILY [facility] Administration Heparin Sodium (Porcine) 5,000 units 11/26/19 15:00 12/15/19 09:39 Heparin SC 5,000 units TID [facility] Administration Amiodarone HCl 450 mg/ 259 mls @ 0 mls/hr 11/26/19 19:45 12/15/19 10:13 Miscellaneous Medication 1 IVPB 259 mls each/ Dextrose/Water INF [facility] Administration Protocol As Directed Insulin Glargine 20 units/ 0.2 mls @ 0 mls/hr 11/28/19 21:00 12/15/19 09:39 Miscellaneous Medication SC 0.2 mls Q12HR [facility] Administration Sodium Chloride 1,000 mls @ 50 mls/hr 12/02/19 08:11 12/15/19 09:39 Normal Saline 0.9% IV 1,000 mls .Q20H [facility] Administration Cefazolin Sodium/Dextrose 2 gm 50 mls @ 100 mls/hr 12/13/19 11:00 12/15/19 13 :59 / Device IVPB 50 mls 1100 [facility] Administration Insulin Human Lispro 0 units 11/29/19 13:57 12/15/19 06:14 Humalog SC 6 units .MODERATE SLIDING SC PRN Administration Moderate Correctional Scale Scopolamine 1.5 mg 12/08/19 09:15 12/14/19 09:00 Transderm Scop TD 1.5 mg Q3D [facility] Administration Sodium Bicarbonate 650 mg 12/07/19 04:46 12/07/19 04:59 Bicarbonate, Sodium PER TUBE 650 mg .PER PROTOCOL PRN Administration ENTERAL TUBE OCCLUSION - Exam General Appearance: NAD Heart: RRR, no gallops Respiratory: no wheezes, no rales, no ronchi Gastrointestinal: non-tender, non-distended, normal bowel sounds Extremities: no cyanosis, no clubbing Hosp A/P - Plan DVT proph w/heparin, DVT proph w/SCDs Acute hypoxic resp failure requiring Mech Vent TIMOTHY/ESRD - started on dialysis DKA - resolved Severe Sepsis due to Staph bacteremia ?Lead colonization vs Endocarditis Afib - on Amiodarone Rhabdomyolysis on admission Hyponatremia/Hypophosphatemia/Hypophosphatemia Type 2 OR - POA - resolved NICM Chronic systolic HF Obesity BMI 38 HTN Anemia - multifactorial PLAN: Cont IV Ancef Cont Amiodarone loading Cont current dose of Lantus with sliding scale AM labs including CK Dialysis per Nephrology Cont other meds Await outpt dialysis setup EP input appreciated
[2019-12-16] MEDS: Sodium Chloride 0.9% 1,000 ML IV SCH (00:10)
[2019-12-16] MEDS: Amiodarone HCl 450 MG in Dextrose 5% in Water 250 ML IVPB SCH (01:33)
[2019-12-16 05:30] LABS: Anion Gap 18 mmol/L (10-20); BUN (Urea Nitrogen) 54 mg/dL (8.4-25.7); CK (CPK) 108 U/L (30-200); Calc. Creatinine Clearance 22 mL/min (70-130); Calcium 8.4 mg/dL (7.8-10.44); Carbon Dioxide 23 mmol/L (22-29); Chloride 94 mmol/L (98-107); Estimated GFR-MDRD 9; Glucose 245 mg/dL (70-105); Magnesium 2.2 mg/dL (1.6-2.6); Potassium 3.9 mmol/L (3.5-5.1); Sodium 131 mmol/L (136-145)
[2019-12-16 05:36] LABS: Eosinophils 3 % (0-10); Hypochromia SLIGHT = 6-15 cells (100X) (0-5/hpf); Lymphocytes 11 % (21-51); MDiff Complete? YES; Mean Corpuscular HGB CONC 33.1 g/dL (32.0-36.0); Mean Corpuscular Hemoglobin 31.8 pg (27.0-31.0); Mean Corpuscular Volume 96.1 fL (78.0-98.0); Mean Platelet Volume 6.6 fL (7.4-10.4); Monocytes 6 % (0-10); Neutrophil 80 % (42-75); Platelet Count 326 thou/uL (130-400); Platelet Morphology Comment Appears Adequate; RBC Distribution Width 16.5 % (11.5-14.5); Red Blood Cell (RBC) Count 2.82 mill/uL (4.70-6.10)
--- NOTE | 2019-12-16 06:31 | PDOC.CPN ---
- Objective Allergies/Adverse Reactions: Allergies Allergy/AdvReac Type Severity Reaction Status Date / Time No Known Drug Allergies Allergy Verified 11/26/19 22:51 Visit Medications: Current Medications Acetaminophen (Tylenol Elixir) 1,000 mg PO Q6H PRN PRN Reason: Headache/Fever or Pain Last Admin: 12/15/19 21:17 Dose: 1,000 mg Albuterol/Ipratropium (Duoneb) 3 ml NEB [id number] [facility] Last Admin: 12/16/19 01:37 Dose: 3 ml Alteplase, Recombinant (Cathflo) 2 mg CATH WILLCALL [facility] Amiodarone HCl (Cordarone) 400 mg PO BID [facility] Last Admin: 12/15/19 21:16 Dose: 400 mg Lipase/Protease/Amylase ([place] [id number]) 1 cap FS .PER PROTOCOL PRN PRN Reason: TUBE OCCLUSION PROTOCOL Last Admin: 12/07/19 04:59 Dose: 1 cap Budesonide (Pulmicort Neb Solution) 0.5 mg INH BID-RT [facility] Last Admin: 12/15/19 20:14 Dose: 0.5 mg Carvedilol (Coreg) 3.125 mg PO BID-WM [facility] Last Admin: 12/15/19 17:59 Dose: 3.125 mg Dextrose/Water (Dextrose 50%) 25 gm SLOW IVP PRN PRN PRN Reason: Hypoglycemia Epoetin Alex-epbx (Retacrit) 10,000 unit IVP TuThSa [facility] Last Admin: 12/14/19 11:16 Dose: 10,000 unit Famotidine (Pepcid) 20 mg PER TUBE DAILY [facility] Last Admin: 12/15/19 09:38 Dose: 20 mg Glucagon (Glucagon) 1 mg IM PRN PRN PRN Reason: Hypoglycemia Heparin Sodium (Porcine) (Heparin) 5,000 units SC TID [facility] Last Admin: 12/15/19 21:16 Dose: 5,000 units Amiodarone HCl 450 mg/Miscellaneous Medication 1 each/ Dextrose/Water 259 mls @ 0 mls/hr IVPB INF [facility]; Protocol Last Admin: 12/16/19 01:33 Dose: 259 mls Insulin Glargine 20 units/ (Miscellaneous Medication) 0.2 mls @ 0 mls/hr SC Q12HR [facility] Last Admin: 12/15/19 21:16 Dose: 0.2 mls Dextrose/Water (D5w) 1,000 mls @ 0 mls/hr IV .Q0M PRN PRN Reason: Hypoglycemia Sodium Chloride (Normal Saline 0.9%) 1,000 mls @ 50 mls/hr IV .Q20H [facility] Last Admin: 12/16/19 00:10 Dose: 1,000 mls Cefazolin Sodium/Dextrose 2 gm (/ Device) 50 mls @ 100 mls/hr IVPB 1100 [facility] Last Admin: 12/15/19 13:59 Dose: 50 mls Insulin Human Lispro (Humalog) 0 units SC .MODERATE SLIDING SC PRN PRN Reason: Moderate Correctional Scale Last Admin: 12/15/19 23:30 Dose: 4 units Scopolamine (Transderm Scop) 1.5 mg TD Q3D [facility] Last Admin: 12/14/19 09:00 Dose: 1.5 mg Sodium Bicarbonate (Bicarbonate, Sodium) 650 mg PER TUBE .PER PROTOCOL PRN PRN Reason: ENTERAL TUBE OCCLUSION Last Admin: 12/07/19 04:59 Dose: 650 mg Sodium Chloride (Flush - Normal Saline) 10 ml IVF PRN PRN PRN Reason: Saline Flush Sterile Water (Water For Injection) 10 ml IVP WILLCALL [facility] Vital Signs & Weight: Vital Signs Temp Pulse Resp Pulse Ox 12/16/19 03:23 98.6 F 12/16/19 01:37 87 16 98 12/15/19 23:10 98.8 F 12/15/19 22:27 95 18 97 12/15/19 20:14 93 20 98 12/15/19 20:13 93 20 98 12/15/19 20:00 100 12/15/19 19:32 97.8 F Admit Weight 295 lb Weight 257 lb 6.002 oz - Physical Exam General: no apparent distress Neck: no JVD/HJR Cardiac: no murmur, regular rate, regular rhythm Lungs: normal exam Neuro: grossly intact - Labs Result Diagrams: 12/16/19 04:50 12/16/19 04:50 Troponin/CKMB CK-MB (CK-2) 7.5 ng/mL (0-6.6) H* 11/26/19 02:47 Troponin I 0.303 ng/mL (< 0.028) H* 11/26/19 09:00 - Assessment/Plan Assessment/Plan: Assessment/Plan: afib Respiratory failure Renal failure NICM Anemia DC IV amiodarone Decrease po amiodarone to 400mg a day EP consult tomorrow for lead extraction rehab
[2019-12-16] MEDS: HumaLOG 300 UNITS/3 ML VIAL SC PRN ×3 (06:34→18:41)
--- NOTE | 2019-12-16 07:17 | CON ---
DATE OF CONSULTATION: REQUESTING PHYSICIAN: Gustabo Villagomez MD REASON FOR REQUEST: Sepsis. HISTORY OF PRESENT ILLNESS: Mr. Bradley is a 54-year-old gentleman with history of chronic systolic congestive heart failure and nonischemic cardiomyopathy, who underwent dual ICD implantation in July of 2018. He also has atrial fibrillation and eventually underwent pulmonary vein isolation by Dr. Colón on November of 2018. He was admitted to the hospital with sepsis, ketoacidosis, and renal failure. Currently, he is sedated and unable to give significant history. PAST MEDICAL HISTORY: Significant for nonischemic cardiomyopathy, dual-chamber ICD in-situ, atrial fibrillation status post previous atrial fibrillation ablation, diabetes, and hypertension. MEDICATIONS: At home included: 1. Potassium. 2. Tradjenta. 3. Aspirin. 4. Metoprolol. 5. Glipizide. 6. Lisinopril. 7. Metformin. 8. Lipitor. 9. Lasix. ALLERGIES: HE HAS NO ALLERGIES. FAMILY HISTORY: No early coronary artery disease or sudden cardiac . SOCIAL HISTORY: Does not drink to excess, smoke, or uses illicit medications. REVIEW OF SYSTEMS: Unable to be obtained in the sedated patient. PHYSICAL EXAMINATION: VITAL SIGNS: He has been febrile. Pulse is 96 and blood pressure 104/67. GENERAL: He is sedated. SKIN: Reveals rash in the bilateral upper extremities. HEENT: Pupils are round and reactive. Nose is midline septum. There is no rhinorrhea or epistaxis. Throat is moist without exudate. HEART: Regular without murmur. LUNGS: Coarse breath sounds bilaterally. ABDOMEN: Soft and nontender with diminished bowel sounds. EXTREMITIES: Reveal 2+ edema bilaterally. LABORATORY DATA: Chest reveals a well-healed device in the left chest. Electrocardiogram is sinus rhythm, previous sinus tachycardia was seen in the device. Atrial fibrillation has been seen. Previous blood cultures have been positive. IMPRESSION: 1. Sepsis. 2. Persistent bacteremia. RECOMMENDATIONS: Mr. Bradley has continued difficulty with sepsis and bacteremia with a device in-situ. Based on this, we recommend removal of the device. The family is currently not available to discuss extraction with. We will make arrangements for transfer and extraction of his device. Job ID: [id number]
[2019-12-16] MEDS: Budesonide 0.5 MG/2 ML NEB INH SCH (07:42)
--- NOTE | 2019-12-16 09:06 | PRG ---
DATE OF SERVICE: 12/16/2019 SUBJECTIVE: This morning, the patient awake, alert, responsive. OBJECTIVE: VITAL SIGNS: Saturations are 96% on room air, respirations 16, temperature 97, blood pressure 127/90. CHEST: Decreased breath sounds. No wheezing. CARDIAC: Normal S1 and S2. No gallops. ABDOMEN: No masses. LABORATORY DATA: White count 13,000. Creatinine 6.2. Blood sugar is 251. IMPRESSION AND PLAN: Diabetes, SVT, respiratory failure, morbid obesity, probably sleep apnea, renal failure. Pulmonary vang, antibiotics for 4 weeks, PT supportive care, insulin. We will follow. Job ID: [id number]
[2019-12-16] MEDS: Insulin Glargine 20 UNITS in Pre-Filled Syringe 1 EACH SC SCH ×2 (09:30→21:29)
[2019-12-16] MEDS: Amiodarone 200 MG TAB PO SCH (09:30)
[2019-12-16] MEDS: Heparin 5,000 UNITS/ML VIAL SC SCH ×3 (09:31→21:28)
[2019-12-16] MEDS: Famotidine 20 MG TAB PER TUBE SCH (09:31)
[2019-12-16] MEDS: Carvedilol 3.125 MG TAB PO SCH ×2 (09:31→16:02)
--- NOTE | 2019-12-16 10:56 | PRG ---
DATE OF SERVICE: 12/16/2019 SUBJECTIVE: A 54-year-old gentleman, being seen for end-stage renal disease. The patient denied nausea, vomiting, or chest pain. OBJECTIVE: CONSTITUTIONAL: The patient is awake and alert. VITAL SIGNS: Pulse 84, breathing 16, blood pressure 125/79. GENERAL APPEARANCE AND MENTAL STATUS: Fair. HEAD/NECK: Normocephalic. Atraumatic. EYES: EOMI. No deformity. EARS: Clear. No ulcers. NOSE: Intact. No lesions. MOUTH: Clear. No discharge. THROAT: Clear. No exudate. LUNGS: Clear. No crackles. CARDIAC: S1, S2. No rub. ABDOMEN: Benign. Bowel sounds positive. GENITALIA/RECTUM: Powell absent. BACK/EXTREMITIES: Edema 0+. NEUROLOGICAL: Alert and motor intact. SKIN: LYMPHATICS: LABORATORY DATA: Labs reviewed. ASSESSMENT AND PLAN: 1. Stage 6 chronic kidney disease, plan dialysis Friday, Friday, Friday. 2. Hypertension, stable. 3. Anemia, stable. 4. Medication based on GFR appropriate. Job ID: [id number]
[2019-12-16] MEDS: CEFAZOLIN 2 GM in Premix Bag 1 BAG IVPB SCH (12:00)
[2019-12-16] MEDS: EPOETIN ALFA-EPBX (ESRD) 10,000 UNIT/ML VIAL IVP SCH (12:19)
--- NOTE | 2019-12-16 15:47 | PDOC.EP ---
- Subjective Date: 12/16/19 Time: 15:45 Interval History: sepsis with bacterimia. Patient on O2 mask but appears more alert/lucid this afternoon. He will nod appropriately to my questions but appears fatigued. Does not attempt to speak and falls asleep quickly. - Review of Systems ROS unobtainable: due to mental status - Objective Allergies/Adverse Reactions: Allergies Allergy/AdvReac Type Severity Reaction Status Date / Time No Known Drug Allergies Allergy Verified 11/26/19 22:51 Current Medications Acetaminophen (Tylenol Elixir) 1,000 mg PO Q6H PRN PRN Reason: Headache/Fever or Pain Last Admin: 12/15/19 21:17 Dose: 1,000 mg Albuterol/Ipratropium (Duoneb) 3 ml NEB [id number] [facility] Last Admin: 12/16/19 14:31 Dose: 3 ml Alteplase, Recombinant (Cathflo) 2 mg CATH WILLCALL [facility] Amiodarone HCl (Cordarone) 400 mg PO QAM [facility] Last Admin: 12/16/19 09:30 Dose: 400 mg Lipase/Protease/Amylase ([place] [id number]) 1 cap FS .PER PROTOCOL PRN PRN Reason: TUBE OCCLUSION PROTOCOL Last Admin: 12/07/19 04:59 Dose: 1 cap Carvedilol (Coreg) 3.125 mg PO BID-WM [facility] Last Admin: 12/16/19 09:31 Dose: 3.125 mg Dextrose/Water (Dextrose 50%) 25 gm SLOW IVP PRN PRN PRN Reason: Hypoglycemia Epoetin Alex-epbx (Retacrit) 10,000 unit IVP TuThSa [facility] Last Admin: 12/16/19 12:19 Dose: 10,000 unit Famotidine (Pepcid) 20 mg PER TUBE DAILY [facility] Last Admin: 12/16/19 09:31 Dose: 20 mg Glucagon (Glucagon) 1 mg IM PRN PRN PRN Reason: Hypoglycemia Heparin Sodium (Porcine) (Heparin) 5,000 units SC TID [facility] Last Admin: 12/16/19 09:31 Dose: 5,000 units Insulin Glargine 20 units/ (Miscellaneous Medication) 0.2 mls @ 0 mls/hr SC Q12HR [facility] Last Admin: 12/16/19 09:30 Dose: 0.2 mls Dextrose/Water (D5w) 1,000 mls @ 0 mls/hr IV .Q0M PRN PRN Reason: Hypoglycemia Cefazolin Sodium/Dextrose 2 gm (/ Device) 50 mls @ 100 mls/hr IVPB 1100 [facility] Last Admin: 12/16/19 12:00 Dose: 50 mls Insulin Human Lispro (Humalog) 0 units SC .MODERATE SLIDING SC PRN PRN Reason: Moderate Correctional Scale Last Admin: 12/16/19 12:03 Dose: 6 units Scopolamine (Transderm Scop) 1.5 mg TD Q3D [facility] Last Admin: 12/14/19 09:00 Dose: 1.5 mg Sodium Bicarbonate (Bicarbonate, Sodium) 650 mg PER TUBE .PER PROTOCOL PRN PRN Reason: ENTERAL TUBE OCCLUSION Last Admin: 12/07/19 04:59 Dose: 650 mg Sodium Chloride (Flush - Normal Saline) 10 ml IVF PRN PRN PRN Reason: Saline Flush Sterile Water (Water For Injection) 10 ml IVP WILLCALL [facility] Vital Signs & Weight: Vital Signs Temp Pulse Pulse Pulse Resp BP BP 12/16/19 14:31 81 20 12/16/19 11:56 97.6 F 12/16/19 11:04 85 16 12/16/19 09:30 92 87 137/81 130/76 12/16/19 07:41 84 16 12/16/19 07:32 97.4 F L Pulse Ox Pulse Ox Pulse Ox 12/16/19 14:31 100 12/16/19 11:56 12/16/19 11:04 98 12/16/19 09:30 99 98 12/16/19 07:41 94 L 12/16/19 07:32 Admit Weight 295 lb Weight 155 lb 9.6 oz I/O: I/O 12/15/19 12/16/19 12/17/19 06:59 06:59 06:59 Intake Total 2671 2359 100 Output Total 4000 Balance 2671 -1641 100 - Physical Exam General: other (lethargic, non verbal) HEENT: normocephaly, mucus membranes dry Neck: supple neck, no JVD/HJR, no lymphadenopathy Cardiology: regular rate and rhythm Lungs: no wheeze, rales, rhonchi, decreased breath sounds Abdomen: soft, non-tender Extremities: strong pulses, warm, other: (diffuse palpable rash with petechia noted.) - Labs Result Diagrams: 12/16/19 04:50 12/16/19 04:50 - EKG Interpretation EKG Method: Telemetry EKG shows: Sinus rhythm - Assessment/Plan Assessment/Plan: 1. Sepsis, with persistent bacteremia 2. Atrial fibrillation - prior ablation Nov 2018 - on amiodarone 400mg daily 3. DKA 4. Renal failure 5. Petechia 6. Dual ICD - placed july 2018 Spoke to patient and daughter at length today about bacteremia and risk for recurrence with ICD. Plan for extraction of ICD system by Dr Grullon in AM. Discussed risk benefits and alternatives and they are willing to proceed.
--- NOTE | 2019-12-16 16:58 | PRG ---
DATE OF SERVICE: 12/16/2019 Vitor Bradley is in [facility]. He was scheduled for left arm fistula. When I enter the room today, temperature is 98.2 degrees, pulse 81, and blood pressure 124/80. The patient is somnolent and cannot carry on a conversation with me. His white count was 20,000 on the and 13,000 today. Hemoglobin 9. GFR 9. The patient has multiple petechiae over all extremities and body these appear perhaps septic related. Platelet count is 326,000. Blood cultures have been negative. He has been undergoing dialysis. He has a thrombosed right antecubital vein from iatrogenic access. He has a left subclavian vein pacemaker. At this point, he does not seem medically fit for left arm fistula tomorrow. We will cancel that operation to later date when he is in better condition. I will see him next week to reassess his readiness for a fistula. Job ID: [id number]
[2019-12-16 17:05] LABS: #Basophils 0.1 thou/uL (0.0-0.2); #Eosinphils 1.1 thou/uL (0.0-0.7); #Lymphocytes 1.9 thou/uL (1.20-3.40); #Monocytes 1.3 thou/uL (0.11-0.59); #Neutrophils 8.2 thou/uL (1.40-6.50); %Basophils 0.7 % (0.0-1.0); %Eosinophils 8.6 % (0.0-10.0); %Lymphocytes 15.2 % (21.0-51.0); %Monocytes 10.5 % (0.0-10.0); Hemoglobin 8.8 g/dL (14.0-18.0); Mean Corpuscular Volume 97.2 fL (78.0-98.0); Mean Platelet Volume 6.4 fL (7.4-10.4); Platelet Count 336 thou/uL (130-400); RBC Distribution Width 16.5 % (11.5-14.5); Red Blood Cell (RBC) Count 2.65 mill/uL (4.70-6.10); White Blood Cell (WBC) Count 12.6 thou/uL (4.8-10.8)
[2019-12-16 17:23] LABS: Anion Gap 20 mmol/L (10-20); BUN (Urea Nitrogen) 65 mg/dL (8.4-25.7); Calc. Creatinine Clearance 12 mL/min (70-130); Calcium 8.5 mg/dL (7.8-10.44); Carbon Dioxide 21 mmol/L (22-29); Chloride 93 mmol/L (98-107); Estimated GFR-MDRD 9; Glucose 241 mg/dL (70-105); Potassium 4.1 mmol/L (3.5-5.1); Sodium 130 mmol/L (136-145)
--- NOTE | 2019-12-16 21:58 | PDOC.HOSPP ---
- Subjective Encounter Date: 12/16/19 Encounter Time: 18:30 Subjective: Patient seen and examined for Sepsis. No new complaints. No overnight events - Objective Vital Signs & Weight: Vital Signs (12 hours) Temp Pulse Resp Pulse Ox 12/16/19 19:43 97.8 F 12/16/19 18:56 79 20 96 12/16/19 16:16 98.2 F 12/16/19 14:31 81 20 100 12/16/19 11:56 97.6 F 12/16/19 11:04 85 16 98 Weight Admit Weight 295 lb Weight 155 lb 9.6 oz Most Recent Monitor Data Heart Rate from ECG 81 NIBP 137/87 NIBP BP-Mean 103 Respiration from ECG 16 SpO2 100 I&O: 12/15/19 12/16/19 12/17/19 06:59 06:59 06:59 Intake Total 2671 2359 150 Output Total 4000 Balance 2671 -1641 150 Result Diagrams: 12/16/19 16:41 12/16/19 16:41 Additional Labs: Accuchecks 12/16/19 12/16/19 12/16/19 21:31 18:24 11:37 POC Glucose 241 H 255 H 271 H 12/16/19 12/15/19 06:11 23:29 POC Glucose 251 H 250 H EKG Reviewed by me: Yes (Tele SR) Hospitalist ROS - Review of Systems Cardiovascular: denies: chest pain, palpitations, orthopnea, paroxysmal noc. dyspnea, edema, light headedness, other Gastrointestinal: denies: nausea, vomiting, abdominal pain, diarrhea, constipation, melena, hematochezia, other - Medication Medications: Active Medications Generic Name Dose Route Start Last Admin Trade Name Freq PRN Reason Stop Dose Admin Acetaminophen 1,000 mg 11/26/19 14:59 12/15/19 21:17 Tylenol Elixir PO 1,000 mg Q6H PRN Administration Headache/Fever or Pain Albuterol/Ipratropium 3 ml 12/07/19 14:30 12/16/19 18:56 Duoneb NEB 3 ml [id number] LEEANN Administration Amiodarone HCl 400 mg 12/16/19 09:00 12/16/19 09:30 Cordarone PO 400 mg QAM LEEANN Administration Lipase/Protease/Amylase 1 cap 12/07/19 04:46 12/07/19 04:59 Leonides Tejada [id number] FS 1 cap .PER PROTOCOL PRN Administration TUBE OCCLUSION PROTOCOL Carvedilol 3.125 mg 12/06/19 17:00 12/16/19 16:02 Coreg PO 3.125 mg BID-WM LEEANN Administration Epoetin Alex-epbx 10,000 unit 12/09/19 09:11 12/16/19 12:19 Retacrit IVP 10,000 unit TuThSa LEEANN Administration Famotidine 20 mg 12/14/19 09:00 12/16/19 09:31 Pepcid PER TUBE 20 mg DAILY LEEANN Administration Heparin Sodium (Porcine) 5,000 units 11/26/19 15:00 12/16/19 21:28 Heparin SC 5,000 units TID LEEANN Administration Insulin Glargine 20 units/ 0.2 mls @ 0 mls/hr 11/28/19 21:00 12/16/19 21:29 Miscellaneous Medication SC 0.2 mls Q12HR LEEANN Administration Cefazolin Sodium/Dextrose 2 gm 50 mls @ 100 mls/hr 12/13/19 11:00 12/16/19 12 :00 / Device IVPB 50 mls 1100 LEEANN Administration Insulin Human Lispro 0 units 11/29/19 13:57 12/16/19 18:41 Humalog SC 6 units .MODERATE SLIDING SC PRN Administration Moderate Correctional Scale Scopolamine 1.5 mg 12/08/19 09:15 12/14/19 09:00 Transderm Scop TD 1.5 mg Q3D LEEANN Administration Sodium Bicarbonate 650 mg 12/07/19 04:46 12/07/19 04:59 Bicarbonate, Sodium PER TUBE 650 mg .PER PROTOCOL PRN Administration ENTERAL TUBE OCCLUSION - Exam General Appearance: NAD Neck: supple, no JVD Heart: RRR, no gallops Respiratory: no wheezes, no rales, rhonchi Gastrointestinal: non-tender, non-distended, normal bowel sounds Extremities: no cyanosis Hosp A/P - Plan DVT proph w/SCDs Acute hypoxic resp failure requiring Mech Vent TIMOTHY/ESRD - started on dialysis DKA - resolved Severe Sepsis due to Staph bacteremia ?Lead colonization vs Endocarditis Afib - on Amiodarone Rhabdomyolysis on admission Hyponatremia/Hypophosphatemia/Hypophosphatemia Type 2 IA - POA - resolved NICM Chronic systolic HF Obesity BMI 38 HTN Anemia - multifactorial PLAN: AICD removal in AM Cont IV Ancef per ID Cont Amiodarone and other meds as above Cont current dose of Lantus with sliding scale BMP in AM Dialysis per Nephrology Await outpt dialysis setup Dialysis fistula next week
[2019-12-17] MEDS: HumaLOG 300 UNITS/3 ML VIAL SC PRN ×2 (00:16→18:32)
[2019-12-17 05:45] LABS: Anion Gap 19 mmol/L (10-20); BUN (Urea Nitrogen) 73 mg/dL (8.4-25.7); Calc. Creatinine Clearance 19 mL/min (70-130); Calcium 8.7 mg/dL (7.8-10.44); Carbon Dioxide 21 mmol/L (22-29); Chloride 93 mmol/L (98-107); Estimated GFR-MDRD 8; Glucose 187 mg/dL (70-105); Potassium 4.2 mmol/L (3.5-5.1); Sodium 129 mmol/L (136-145)
[2019-12-17] MEDS: Carvedilol 3.125 MG TAB PO SCH ×2 (06:44→18:30)
--- NOTE | 2019-12-17 08:46 | PRG ---
DATE OF SERVICE: 12/17/2019 SUBJECTIVE: A 54-year-old gentleman, remains in the MICU. OBJECTIVE: VITAL SIGNS: Temperature 98, pulse 71, respiratory rate 17, saturations 96% on room air, and blood pressure 130/77. GENERAL: Awake, responsive. He is still weak. CHEST: Decreased breath sounds without any wheezing. CARDIAC: Normal S1 and S2. No gallops. ABDOMEN: No masses. LABORATORY DATA: Creatinine 7.4. ASSESSMENT: 1. Sepsis syndrome, Staph with associated acute renal failure, requiring dialysis. 2. Automatic implantable cardioverter-defibrillator in place, recommending removing the hardware device. 3. I think he might have Clostridium difficile. 4. Renal failure, still on dialysis. 5. Sleep apnea, nocturnal BiPAP. 6. Diabetes, under control. PLAN: Continue PT, supportive care. Eventually, he is going to go to some kind of rehab. Hopefully, he will get stronger, can swallow, can discontinue his feeding tube. Job ID: [id number]
[2019-12-17] MEDS ORDERED: CEFAZOLIN 1 GM VIAL ONE (08:59)
[2019-12-17] MEDS ORDERED: Gentamicin 80 MG/2 ML VIAL ONE (08:59)
[2019-12-17] MEDS ORDERED: Midazolam HCl 2 mg/2 ml Vial ONE (09:21)
[2019-12-17] MEDS ORDERED: Propofol 1,000 MG/100 ML VIAL IV ONE (09:21)
[2019-12-17] MEDS ORDERED: Fentanyl 100 MCG/2 ML VIAL ONE (09:21)
--- NOTE | 2019-12-17 10:15 | PRG ---
DATE OF SERVICE: 12/17/2019 SUBJECTIVE: A 54-year-old gentleman, being seen for end-stage kidney disease. The patient denied any nausea, vomiting, or chest pain. OBJECTIVE: CONSTITUTIONAL: On examination, the patient is awake and alert. VITAL SIGNS: Afebrile, pulse 75, breathing 16, and blood pressure 124/78. GENERAL APPEARANCE AND MENTAL STATUS: Fair. HEAD/NECK: Normocephalic. Atraumatic. EYES: EOMI. No deformity. EARS: Clear. No ulcers. NOSE: Intact. No lesions. MOUTH: Clear. No discharge. THROAT: Clear. No exudate. LUNGS: Clear. No crackles. CARDIAC: S1, S2. No rub. ABDOMEN: Benign. Bowel sounds positive. GENITALIA/RECTUM: Powell absent. BACK/EXTREMITIES: Edema 0+. NEUROLOGICAL: Alert and motor intact. SKIN: LYMPHATICS: LABORATORY DATA: Reviewed. ASSESSMENT AND PLAN: 1. Stage 6, chronic kidney disease. Plan dialysis per schedule. 2. Hypertension, stable. 3. Anemia, stable. 4. Medications based on glomerular filtration rate are appropriate. Job ID: [id number]
--- NOTE | 2019-12-17 11:49 | OP ---
DATE OF PROCEDURE: 12/17/2019 PROCEDURE PERFORMED: Dual chamber implantable cardioverter-defibrillator system extraction. INDICATIONS: Staph aureus bacteremia. MEDICATIONS: See conscious sedation notes. COMPLICATIONS: None. ESTIMATED BLOOD LOSS: Less than 5 mL. DESCRIPTION OF PROCEDURE: After informed consent was obtained, the patient was brought to the electrophysiology laboratory. The patient was prepped and draped in usual sterile fashion. Using lidocaine, skin overlying the left infraclavicular fossa was locally anesthetized and using a #15 blade, an elliptical skin incision was made around the previous incision scar. Fluoroscopic survey reveals leads are in the appropriate position. The incision was taken down to the level of the device with the aid of sharp, blunt, and Bovie dissection. The device was removed from the pocket after removing its suture tie. The leads are freed up to both of the sewed rings, so suture ties were all removed and the leads were disconnected from the device. The distal helix was retracted and traction was placed on the leads removing them from the vascular system without significant complications. Followup fluoroscopic survey revealed no remaining hardware related to the ICD system. The pocket was copiously irrigated and then closed with 2 layers of Vicryl and skin adhesive. A pressure dressing was placed over that site. The patient tolerated the procedure well. FINDINGS: The device removed is a [employer]onic dual-chamber defibrillator, serial #[id number], date of implant was 08/07/2018. The atrial lead is a 5076-52, serial #[id number], and the ventricular lead is 6935M-62, serial #[id number]. IMPRESSION: Successful dual-chamber implantable cardioverter-defibrillator system extraction due to persistent Staphylococcal bacteremia. RECOMMENDATIONS: The device interrogation today reveals no evidence of ICD discharges since implantation 2 years ago. It is implanted as a primary prevention device in light of a nonischemic cardiomyopathy, no therapies delivered. One could consider whether or not given high risk for recurrent infection whether new device should be implanted, certainly Staph bacteremia should be completely resolved with followup surveillance cultures done before any type of device implantation reattempted. A LifeVest is used as desired. Personally, I would not recommend it. Job ID: [id number]
[2019-12-17] MEDS: CEFAZOLIN 2 GM in Premix Bag 1 BAG IVPB SCH (12:03)
[2019-12-17] MEDS: Scopolamine 1.5 mg/72 hour Patch TD SCH (12:03)
[2019-12-17] MEDS: Insulin Glargine 20 UNITS in Pre-Filled Syringe 1 EACH SC SCH ×2 (12:06→21:30)
[2019-12-17] MEDS ORDERED: Heparin 10,000 UNITS/ 10 ML VIAL ONE (13:55)
[2019-12-17 18:02] LABS: Bacteria/HPF 2+ HPF (None Seen); Bilirubin Negative (Negative); Blood, Urine 2+ (Negative); Clarity Turbid (Clear); Glucose, Urine (Dipstick) 30 mg/dL (Negative); Leukocyte 500 Leu/uL (Negative); Nitrite Negative (Negative); Protein, Urine (Dipstick) 100 mg/dL (Neg-Trace); Squamous Epithelial 0-3 HPF (0-3); Urobilinogen Normal mg/dL (Less than 2); WBC/HPF 21-50 HPF (0-3)
[2019-12-17 18:04] LABS: Urine Culture Reflex Yes Yes
[2019-12-17] MEDS: Famotidine 20 MG TAB PER TUBE SCH (18:29)
[2019-12-17] MEDS: Amiodarone 200 MG TAB PO SCH (18:30)
--- NOTE | 2019-12-17 21:11 | PDOC.HOSPP ---
- Subjective Encounter Date: 12/17/19 Encounter Time: 08:15 Subjective: Patient seen and examined for multiple issues. No CP/SOB. No new complaints. No overnight events - Objective Vital Signs & Weight: Vital Signs (12 hours) Temp Pulse Resp Pulse Ox 12/17/19 19:24 97.6 F 12/17/19 18:36 98 23 H 99 12/17/19 15:25 97.4 F L 12/17/19 15:02 90 21 H 99 12/17/19 11:13 97.7 F 12/17/19 10:44 81 18 99 Weight Admit Weight 295 lb Weight 261 lb 6.4 oz Most Recent Monitor Data Heart Rate from ECG 95 NIBP 125/78 NIBP BP-Mean 93 Respiration from ECG 17 SpO2 96 I&O: 12/16/19 12/17/19 12/18/19 06:59 06:59 06:59 Intake Total 2359 755 90 Output Total 4000 1200 Balance -4610 075 -0261 Result Diagrams: 12/16/19 16:41 12/17/19 05:10 Additional Labs: Accuchecks 12/17/19 12/17/19 12/17/19 17:57 12:57 06:46 POC Glucose 154 H 269 H 197 H 12/17/19 12/16/19 00:01 21:31 POC Glucose 267 H 241 H EKG Reviewed by me: Yes (Tele SR) Hospitalist ROS - Review of Systems Respiratory: denies: cough, dry, shortness of breath, hemoptysis, SOB with excertion, pleuritic pain, sputum, wheezing, other Cardiovascular: denies: chest pain, palpitations, orthopnea, paroxysmal noc. dyspnea, edema, light headedness, other - Medication Medications: Active Medications Generic Name Dose Route Start Last Admin Trade Name Freq PRN Reason Stop Dose Admin Acetaminophen 1,000 mg 11/26/19 14:59 12/15/19 21:17 Tylenol Elixir PO 1,000 mg Q6H PRN Administration Headache/Fever or Pain Albuterol/Ipratropium 3 ml 12/07/19 14:30 12/17/19 18:36 Duoneb NEB 3 ml [id number] LEEANN Administration Amiodarone HCl 400 mg 12/16/19 09:00 12/17/19 18:30 Cordarone PO 400 mg QAM LEEANN Administration Lipase/Protease/Amylase 1 cap 12/07/19 04:46 12/07/19 04:59 Leonides Tejada [id number] FS 1 cap .PER PROTOCOL PRN Administration TUBE OCCLUSION PROTOCOL Carvedilol 3.125 mg 12/06/19 17:00 12/17/19 18:30 Coreg PO 3.125 mg BID-WM LEEANN Administration Epoetin Alex-epbx 10,000 unit 12/09/19 09:11 12/16/19 12:19 Retacrit IVP 10,000 unit TuThSa LEEANN Administration Famotidine 20 mg 12/14/19 09:00 12/17/19 18:29 Pepcid PER TUBE 20 mg DAILY LEEANN Administration Heparin Sodium (Porcine) 5,000 units 11/26/19 15:00 12/16/19 21:28 Heparin SC 5,000 units TID LEEANN Administration Insulin Glargine 20 units/ 0.2 mls @ 0 mls/hr 11/28/19 21:00 12/17/19 12:06 Miscellaneous Medication SC 0.2 mls Q12HR LEEANN Administration Cefazolin Sodium/Dextrose 2 gm 50 mls @ 100 mls/hr 12/13/19 11:00 12/17/19 12 :03 / Device IVPB 50 mls 1100 LEEANN Administration Insulin Human Lispro 0 units 11/29/19 13:57 12/17/19 18:32 Humalog SC 2 units .MODERATE SLIDING SC PRN Administration Moderate Correctional Scale Sodium Bicarbonate 650 mg 12/07/19 04:46 12/07/19 04:59 Bicarbonate, Sodium PER TUBE 650 mg .PER PROTOCOL PRN Administration ENTERAL TUBE OCCLUSION - Exam General Appearance: NAD Neck: supple, no JVD Heart: no murmur, no gallops, no rubs Respiratory: no rales, no ronchi Gastrointestinal: non-tender, non-distended, normal bowel sounds Extremities: no cyanosis Hosp A/P - Plan DVT proph w/SCDs Acute hypoxic resp failure requiring Mech Vent TIMOTHY/ESRD - started on dialysis DKA - resolved Severe Sepsis due to Staph bacteremia ?Lead colonization vs Endocarditis Afib - on Amiodarone Rhabdomyolysis on admission Hyponatremia/Hypophosphatemia/Hypophosphatemia Type 2 CA - POA - resolved NICM Chronic systolic HF Obesity BMI 38 HTN Anemia - multifactorial PLAN: AICD removal today Cont IV Ancef per ID Cont Amiodarone and other meds as above Cont Lantus with sliding scale Dialysis per Nephrology Await outpt dialysis setup Dialysis fistula next week Update @1800 Patient developed urinary retention - postvoid 600 ml. Will monitor postvoid.
[2019-12-17] MEDS: Senokot S 8.6-50 MG TAB PO SCH (21:33)
[2019-12-18] MEDS: HumaLOG 300 UNITS/3 ML VIAL SC PRN ×4 (00:24→18:12)
[2019-12-18] MEDS ORDERED: Activase 2 MG VIAL CATH SCH (05:45)
[2019-12-18 06:11] LABS: Anion Gap 17 mmol/L (10-20); BUN (Urea Nitrogen) 48 mg/dL (8.4-25.7); Calc. Creatinine Clearance 25 mL/min (70-130); Calcium 8.5 mg/dL (7.8-10.44); Carbon Dioxide 23 mmol/L (22-29); Chloride 94 mmol/L (98-107); Estimated GFR-MDRD 10; Glucose 260 mg/dL (70-105); Potassium 4.3 mmol/L (3.5-5.1); Sodium 130 mmol/L (136-145)
[2019-12-18] MEDS: Amiodarone 200 MG TAB PO SCH (09:37)
[2019-12-18] MEDS: Insulin Glargine 20 UNITS in Pre-Filled Syringe 1 EACH SC SCH ×2 (09:38→21:26)
[2019-12-18] MEDS: Senokot S 8.6-50 MG TAB PO SCH ×2 (09:38→21:27)
[2019-12-18] MEDS: Famotidine 20 MG TAB PER TUBE SCH (09:38)
[2019-12-18] MEDS: Saccharomyces boulardii 250 MG CAP PO SCH (09:38)
[2019-12-18] MEDS: Carvedilol 3.125 MG TAB PO SCH ×2 (09:38→17:47)
[2019-12-18] MEDS: Heparin 5,000 UNITS/ML VIAL SC SCH ×3 (09:38→21:27)
--- NOTE | 2019-12-18 10:54 | PDOC.HOSPP ---
- Subjective Encounter Date: 12/18/19 Encounter Time: 11:40 Subjective: Patient reports feeling ok. No pain from pacemaker extraction site. Denies abd pain/n/v. States he has had some BMs. - Objective Vital Signs & Weight: Vital Signs (12 hours) Temp Pulse Resp Pulse Ox 12/18/19 08:00 99 12/18/19 07:21 89 19 98 12/18/19 07:13 97.0 F L 12/18/19 03:18 98.4 F 12/18/19 02:05 92 18 96 12/17/19 23:31 98.4 F Weight Admit Weight 295 lb Weight 262 lb 5.601 oz Most Recent Monitor Data Heart Rate from ECG 88 NIBP 144/89 NIBP BP-Mean 107 Respiration from ECG 23 SpO2 95 I&O: 12/17/19 12/18/19 12/19/19 06:59 06:59 06:59 Intake Total 755 1106 Output Total 1200 Balance 755 -94 Result Diagrams: 12/16/19 16:41 12/18/19 05:36 Additional Labs: Accuchecks 12/18/19 12/17/19 12/17/19 06:02 23:51 17:57 POC Glucose 265 H 247 H 154 H 12/17/19 12:57 POC Glucose 269 H Hospitalist ROS - Review of Systems Constitutional: denies: fever, chills Respiratory: denies: cough, shortness of breath Cardiovascular: denies: chest pain, palpitations Gastrointestinal: denies: nausea, vomiting, abdominal pain - Medication Medications: Active Medications Generic Name Dose Route Start Last Admin Trade Name Salbadorq PRN Reason Stop Dose Admin Acetaminophen 1,000 mg 11/26/19 14:59 12/15/19 21:17 Tylenol Elixir PO 1,000 mg Q6H PRN Administration Headache/Fever or Pain Albuterol/Ipratropium 3 ml 12/07/19 14:30 12/18/19 07:21 Duoneb NEB 3 ml [id number] LEEANN Administration Amiodarone HCl 400 mg 12/16/19 09:00 12/18/19 09:37 Cordarone PO 400 mg QAM LEEANN Administration Lipase/Protease/Amylase 1 cap 12/07/19 04:46 12/07/19 04:59 Cresadiq Tejada [id number] FS 1 cap .PER PROTOCOL PRN Administration TUBE OCCLUSION PROTOCOL Carvedilol 3.125 mg 12/06/19 17:00 12/18/19 09:38 Coreg PO 3.125 mg BID-WM LEEANN Administration Epoetin Alex-epbx 10,000 unit 12/09/19 09:11 12/16/19 12:19 Retacrit IVP 10,000 unit TuThSa LEEANN Administration Famotidine 20 mg 12/14/19 09:00 12/18/19 09:38 Pepcid PER TUBE 20 mg DAILY LEEANN Administration Heparin Sodium (Porcine) 5,000 units 11/26/19 15:00 12/18/19 09:38 Heparin SC 5,000 units TID LEEANN Administration Insulin Glargine 20 units/ 0.2 mls @ 0 mls/hr 11/28/19 21:00 12/18/19 09:38 Miscellaneous Medication SC 0.2 mls Q12HR LEEANN Administration Cefazolin Sodium/Dextrose 2 gm 50 mls @ 100 mls/hr 12/13/19 11:00 12/17/19 12 :03 / Device IVPB 50 mls 1100 LEEANN Administration Insulin Human Lispro 0 units 11/29/19 13:57 12/18/19 06:18 Humalog SC 6 units .MODERATE SLIDING SC PRN Administration Moderate Correctional Scale Saccharomyces Boulardii 250 mg 12/18/19 09:00 12/18/19 09:38 Florastor PO 250 mg DAILY LEEANN Administration Senna/Docusate Sodium 2 tab 12/17/19 21:00 12/18/19 09:38 Senokot S PO Not Given BID [facility] Sodium Bicarbonate 650 mg 12/07/19 04:46 12/07/19 04:59 Bicarbonate, Sodium PER TUBE 650 mg .PER PROTOCOL PRN Administration ENTERAL TUBE OCCLUSION - Exam General Appearance: NAD, awake alert ENT: moist mucosa Heart: RRR, no murmur, no gallops, no rubs Respiratory: CTAB, no wheezes, no rales, no ronchi Gastrointestinal: non-tender Gastrointestinal - other findings: distended, no guarding, high pitched decreased bowel sounds Extremities: no cyanosis, no clubbing, no edema Psychiatric: normal affect, normal behavior, A&O x 3 Hosp A/P - Plan DVT proph w/SCDs Acute hypoxic resp failure requiring Mech Vent TIMOTHY/ESRD - started on dialysis DKA - resolved Severe Sepsis due to Staph bacteremia ?Lead colonization vs Endocarditis Afib - on Amiodarone Rhabdomyolysis on admission Hyponatremia/Hypophosphatemia/Hypophosphatemia Type 2 NM - POA - resolved NICM Chronic systolic HF Obesity BMI 38 HTN Anemia - multifactorial Urinary Retention Concern for possible ileus developing, will need to watch tube feeding tolerance PLAN: AICD removed 12/17/2019 Cont IV Ancef per ID Cont Amiodarone and other meds as above Cont Lantus with sliding scale Dialysis per Nephrology Await outpt dialysis setup Dialysis fistula next week Patient developed urinary retention - postvoid 600 ml. Will monitor postvoid.
[2019-12-18] MEDS: EPOETIN ALFA-EPBX (ESRD) 10,000 UNIT/ML VIAL IVP SCH (11:12)
[2019-12-18] MEDS: CEFAZOLIN 2 GM in Premix Bag 1 BAG IVPB SCH (11:12)
--- NOTE | 2019-12-18 11:55 | PRG ---
DATE OF SERVICE: 12/18/2019 SUBJECTIVE: A 54-year-old gentleman, being seen for end-stage kidney disease. The patient denied any nausea, vomiting, or chest pain. OBJECTIVE: CONSTITUTIONAL: On examination, the patient is awake and alert. VITAL SIGNS: Afebrile, pulse 85, breathing 16, blood pressure 152/90. GENERAL APPEARANCE AND MENTAL STATUS: Fair. HEAD/NECK: Normocephalic. Atraumatic. EYES: EOMI. No deformity. EARS: Clear. No ulcers. NOSE: Intact. No lesions. MOUTH: Clear. No discharge. THROAT: Clear. No exudate. LUNGS: Clear. No crackles. CARDIAC: S1, S2. No rub. ABDOMEN: Benign. Bowel sounds positive. GENITALIA/RECTUM: Powell absent. BACK/EXTREMITIES: Edema 0+. NEUROLOGICAL: Alert and motor intact. SKIN: LYMPHATICS: LABORATORY DATA: Labs reviewed. ASSESSMENT AND PLAN: Stage 6, chronic kidney disease, plan dialysis. Hypertension, stable. Anemia, stable. Medication based on GFR appropriate. Job ID: [id number]
--- NOTE | 2019-12-18 18:53 | PRG ---
DATE OF SERVICE: 12/18/2019 SERVICE: Pulmonary Medicine. INTERVAL HISTORY: The patient is doing outstanding from respiratory standpoint. He is on room air. He denies any current chest discomfort, nausea, vomiting, fevers, or chills. He is getting an in and out catheterization right now because of urine retention. Otherwise, there has been no interval change to his condition. PHYSICAL EXAMINATION: VITAL SIGNS: Afebrile, pulse 87, blood pressure 128/78, respirations 18, saturation 96% on room air. GENERAL: The patient is awake and alert, in no apparent distress. LUNGS: His air entry is excellent. There is no prolonged expiratory phase or wheezing present. No crackles. HEART: Normal rate and regular. ABDOMEN: Soft, nontender, nondistended. Bowel sounds are positive. MUSCULOSKELETAL: No cyanosis or clubbing. No pitting in the bilateral lower extremities. NEUROLOGIC: Grossly nonfocal. LABORATORY DATA: WBC 12.6, hemoglobin 8.8, platelets 336,000. Sodium 130, creatinine 5.77. Basic metabolic profile is otherwise unremarkable. Urinalysis is unremarkable. Pseudomonas is growing out of the urine culture. Blood cultures were previously growing Staph aureus in 2/2 that were sensitive to oxacillin. ASSESSMENT: 1. Severe sepsis, resolving. 2. Bacteremia secondary to methicillin sensitive Staphylococcus aureus. 3. Urinary tract infection secondary to Pseudomonas. 4. End-stage renal disease. 5. Obstructive sleep apnea, on BiPAP. 6. AICD defibrillator in place. DISCUSSION AND PLAN: The patient is doing fine from respiratory standpoint. At this point, Pulmonary will continue to follow intermittently during this hospital stay. Ancef will be continued. I had a brief course of meropenem to cover the Pseudomonas, but once sensitivities return, this can quickly be de-escalated. Critical Care will follow intermittently during this hospital stay. Job ID: [id number]
[2019-12-19] MEDS: HumaLOG 300 UNITS/3 ML VIAL SC PRN ×5 (00:20→21:59)
[2019-12-19 05:57] LABS: Anion Gap 20 mmol/L (10-20); BUN (Urea Nitrogen) 63 mg/dL (8.4-25.7); Calc. Creatinine Clearance 20 mL/min (70-130); Calcium 9.1 mg/dL (7.8-10.44); Carbon Dioxide 23 mmol/L (22-29); Chloride 91 mmol/L (98-107); Estimated GFR-MDRD 8; Glucose 242 mg/dL (70-105); Potassium 3.9 mmol/L (3.5-5.1); Sodium 130 mmol/L (136-145)
[2019-12-19] MEDS: Acetaminophen 650 MG/20.3 ML UDCUP PO PRN ×2 (06:53→17:58)
[2019-12-19] MEDS: Morphine 2 MG/ML SYRINGE SLOW IVP PRN ×2 (08:01→16:29)
[2019-12-19] MEDS: Phenazopyridine HCl 97.5 MG TABLET PO SCH ×3 (09:32→17:13)
[2019-12-19] MEDS: Saccharomyces boulardii 250 MG CAP PO SCH (09:33)
[2019-12-19] MEDS: Senokot S 8.6-50 MG TAB PO SCH ×2 (09:33→21:57)
[2019-12-19] MEDS: Heparin 5,000 UNITS/ML VIAL SC SCH ×3 (09:33→21:57)
[2019-12-19] MEDS: Amiodarone 200 MG TAB PO SCH (09:33)
[2019-12-19] MEDS: Insulin Glargine 20 UNITS in Pre-Filled Syringe 1 EACH SC SCH ×2 (09:34→21:58)
[2019-12-19] MEDS: Famotidine 20 MG TAB PER TUBE SCH (09:34)
[2019-12-19] MEDS: Carvedilol 3.125 MG TAB PO SCH ×2 (09:34→17:13)
[2019-12-19] MEDS ORDERED: Ketorolac Tromethamine 30 MG/ML VIAL IVP SCH (10:15)
[2019-12-19] MEDS ORDERED: Oxybutynin 5 MG TAB PO SCH (10:36)
[2019-12-19] MEDS: CEFAZOLIN 2 GM in Premix Bag 1 BAG IVPB SCH (10:59)
--- NOTE | 2019-12-19 12:22 | PRG ---
DATE OF SERVICE: 12/19/2019 SUBJECTIVE: A 54-year-old male, being seen for end-stage kidney disease. The patient denied nausea, vomiting, or chest pain. OBJECTIVE: CONSTITUTIONAL: On examination, the patient is awake and alert. VITAL SIGNS: Pulse 75, breathing 16, blood pressure 128/85. GENERAL APPEARANCE AND MENTAL STATUS: Fair. HEAD/NECK: Normocephalic. Atraumatic. EYES: EOMI. No deformity. EARS: Clear. No ulcers. NOSE: Intact. No lesions. MOUTH: Clear. No discharge. THROAT: Clear. No exudate. LUNGS: Clear. No crackles. CARDIAC: S1, S2. No rub. ABDOMEN: Benign. Bowel sounds positive. GENITALIA/RECTUM: Powell absent. BACK/EXTREMITIES: Edema 0+. NEUROLOGICAL: Alert and motor intact. SKIN: LYMPHATICS: LABORATORY DATA: Labs reviewed. ASSESSMENT AND PLAN: Stage 6 chronic kidney disease, plan dialysis. Hypertension, stable. Anemia, stable. Medication based on GFR appropriate. Job ID: [id number]
--- NOTE | 2019-12-19 16:30 | PDOC.HOSPP ---
- Subjective Encounter Date: 12/19/19 Encounter Time: 10:00 Subjective: c/o severe penile pain and bladder spasms morphine gave him temp relief now back with severe pain. has incontinence and retention - Objective Vital Signs & Weight: Vital Signs (12 hours) Temp Pulse Pulse Resp BP BP Pulse Ox 12/19/19 15:51 97.0 F L 12/19/19 14:30 86 14 96 12/19/19 12:17 90 134/83 135/83 12/19/19 11:26 99.1 F 12/19/19 10:16 95 25 H 97 12/19/19 08:00 96 12/19/19 07:35 97.3 F L Pulse Ox 12/19/19 15:51 12/19/19 14:30 12/19/19 12:17 90 L 12/19/19 11:26 12/19/19 10:16 12/19/19 08:00 12/19/19 07:35 Weight Admit Weight 295 lb Weight 263 lb 6.4 oz Most Recent Monitor Data Heart Rate from ECG 85 NIBP 127/82 NIBP BP-Mean 97 Respiration from ECG 24 SpO2 93 I&O: 12/18/19 12/19/19 12/20/19 06:59 06:59 06:59 Intake Total 1106 2440 60 Output Total 1200 1100 Balance -94 1340 60 Result Diagrams: 12/16/19 16:41 12/19/19 04:30 Additional Labs: Accuchecks 12/19/19 12/19/19 12/19/19 12:33 05:53 00:00 POC Glucose 294 H 291 H 274 H 12/18/19 12/18/19 21:25 18:04 POC Glucose 197 H 207 H Hospitalist ROS - Medication Medications: Active Medications Generic Name Dose Route Start Last Admin Trade Name Freq PRN Reason Stop Dose Admin Acetaminophen 1,000 mg 11/26/19 14:59 12/19/19 06:53 Tylenol Elixir PO 1,000 mg Q6H PRN Administration Headache/Fever or Pain Albuterol/Ipratropium 3 ml 12/07/19 14:30 12/19/19 14:30 Duoneb NEB 3 ml [id number] LEEANN Administration Amiodarone HCl 400 mg 12/16/19 09:00 12/19/19 09:33 Cordarone PO 400 mg QAM LEEANN Administration Lipase/Protease/Amylase 1 cap 12/07/19 04:46 12/07/19 04:59 Leonides Tejada [id number] FS 1 cap .PER PROTOCOL PRN Administration TUBE OCCLUSION PROTOCOL Carvedilol 3.125 mg 12/06/19 17:00 12/19/19 09:34 Coreg PO 3.125 mg BID-WM LEEANN Administration Epoetin Alex-epbx 10,000 unit 12/09/19 09:11 12/18/19 11:12 Retacrit IVP 10,000 unit TuThSa LEEANN Administration Famotidine 20 mg 12/14/19 09:00 12/19/19 09:34 Pepcid PER TUBE 20 mg DAILY LEEANN Administration Heparin Sodium (Porcine) 5,000 units 11/26/19 15:00 12/19/19 15:56 Heparin SC 5,000 units TID LEEANN Administration Insulin Glargine 20 units/ 0.2 mls @ 0 mls/hr 11/28/19 21:00 12/19/19 09:34 Miscellaneous Medication SC 0.2 mls Q12HR LEEANN Administration Cefazolin Sodium/Dextrose 2 gm 50 mls @ 100 mls/hr 12/13/19 11:00 12/19/19 10 :59 / Device IVPB 50 mls 1100 LEEANN Administration Insulin Human Lispro 0 units 11/29/19 13:57 12/19/19 13:46 Humalog SC 6 units .MODERATE SLIDING SC PRN Administration Moderate Correctional Scale Morphine Sulfate 2 mg 12/19/19 07:55 12/19/19 08:01 Morphine SLOW IVP 2 mg Q4H PRN Administration pain Phenazopyridine HCl 97.5 mg 12/19/19 09:00 12/19/19 13:45 Azo Standard PO 97.5 mg PC LEEANN Administration Saccharomyces Boulardii 250 mg 12/18/19 09:00 12/19/19 09:33 Florastor PO 250 mg DAILY LEEANN Administration Senna/Docusate Sodium 2 tab 12/17/19 21:00 12/19/19 09:33 Senokot S PO 2 tab BID LEEANN Administration Sodium Bicarbonate 650 mg 12/07/19 04:46 12/07/19 04:59 Bicarbonate, Sodium PER TUBE 650 mg .PER PROTOCOL PRN Administration ENTERAL TUBE OCCLUSION - Exam General Appearance: awake alert Eye: PERRL, anicteric sclera ENT: no oropharyngeal lesions, moist mucosa Neck: supple, no JVD Heart: RRR, no murmur Respiratory: no wheezes, no rales Gastrointestinal: soft, normal bowel sounds, no guarding, no rigidity Extremities: no cyanosis, 1+ LE edema Neurological: cranial nerve grossly intact, no focal deficits Hosp A/P (1) MSSA bacteremia Code(s): R78.81 - BACTEREMIA Status: Acute (2) Sepsis Code(s): A41.9 - SEPSIS, UNSPECIFIED ORGANISM Status: Acute Qualifiers: Sepsis type: methicillin susceptible Staphylococcus aureus Sepsis acute organ dysfunction status: with acute organ dysfunction Severe sepsis acute organ dysfunction type: acute renal failure Severe sepsis shock status: unspecified (3) Acute renal failure Status: Acute Qualifiers: Acute renal failure type: with acute tubular necrosis Qualified Code(s): N17.0 - Acute kidney failure with tubular necrosis (4) Acute on chronic systolic heart failure Code(s): I50.23 - ACUTE ON CHRONIC SYSTOLIC (CONGESTIVE) HEART FAILURE Status : Acute (5) Acute respiratory failure Code(s): J96.00 - ACUTE RESPIRATORY FAILURE, UNSP W HYPOXIA OR HYPERCAPNIA Status: Resolved Qualifiers: Respiratory failure complication: hypoxia and hypercapnia Qualified Code(s) : J96.01 - Acute respiratory failure with hypoxia; J96.02 - Acute respiratory failure with hypercapnia (6) Atrial fibrillation with RVR Code(s): I48.91 - UNSPECIFIED ATRIAL FIBRILLATION Status: Chronic (7) Diabetes mellitus type 2 in obese Code(s): E11.69 - TYPE 2 DIABETES MELLITUS WITH OTHER SPECIFIED COMPLICATION; E66.9 - OBESITY, UNSPECIFIED Status: Chronic (8) Hypertension Code(s): I10 - ESSENTIAL (PRIMARY) HYPERTENSION Status: Chronic Qualifiers: Hypertension type: essential hypertension Qualified Code(s): I10 - Essential (primary) hypertension (9) NICM (nonischemic cardiomyopathy) Code(s): I42.8 - OTHER CARDIOMYOPATHIES Status: Chronic (10) BRANDON (obstructive sleep apnea) Code(s): G47.33 - OBSTRUCTIVE SLEEP APNEA (ADULT) (PEDIATRIC) Status: Chronic (11) UTI (urinary tract infection) Status: Acute Qualifiers: Urinary tract infection type: acute cystitis Hematuria presence: with hematuria Qualified Code(s): N30.01 - Acute cystitis with hematuria (12) Urinary retention Code(s): R33.9 - RETENTION OF URINE, UNSPECIFIED Status: Acute (13) Obesity (BMI 30-39.9) Code(s): E66.9 - OBESITY, UNSPECIFIED Status: Acute (14) Anemia, normocytic normochromic Code(s): D64.9 - ANEMIA, UNSPECIFIED Status: Chronic - Plan is on ancef for bacteremia, add levaquin for pseudomonas in urine. On HD and is also starting to make urine 1100mls/last 24hrs. Had his esquivel removed atleast a week back now with u.retention and dribbling, straight cath was being done last 24hrs, may insert esquivel if retention is > 500mls. obesity with bmi of 39 on amiodarone, lantus, nebs, coreg. prognosis guarded s/p explantation of aicd due to bacteremia, no obvious veg on CELIA per prior notes. Needs to be oob to chair and mobilize will need placement d/w patient and daughter at bedside
[2019-12-19] MEDS: Tamsulosin HCl 0.4 MG CAP PO SCH (21:57)
[2019-12-20 06:01] LABS: Anion Gap 22 mmol/L (10-20); BUN (Urea Nitrogen) 83 mg/dL (8.4-25.7); Calc. Creatinine Clearance 17 mL/min (70-130); Calcium 9.6 mg/dL (7.8-10.44); Carbon Dioxide 20 mmol/L (22-29); Chloride 90 mmol/L (98-107); Estimated GFR-MDRD 7; Glucose 291 mg/dL (70-105); Potassium 4.5 mmol/L (3.5-5.1); Sodium 127 mmol/L (136-145)
[2019-12-20] MEDS: HumaLOG 300 UNITS/3 ML VIAL SC PRN ×3 (06:02→23:58)
[2019-12-20] MEDS: Oxybutynin 5 MG TAB PO SCH (09:59)
[2019-12-20] MEDS: Phenazopyridine HCl 97.5 MG TABLET PO SCH ×3 (09:59→18:02)
[2019-12-20] MEDS: Tamsulosin HCl 0.4 MG CAP PO SCH ×2 (09:59→20:28)
[2019-12-20] MEDS: Insulin Glargine 20 UNITS in Pre-Filled Syringe 1 EACH SC SCH ×2 (09:59→20:28)
[2019-12-20] MEDS: Famotidine 20 MG TAB PER TUBE SCH (09:59)
[2019-12-20] MEDS: Amiodarone 200 MG TAB PO SCH (10:00)
[2019-12-20] MEDS: Heparin 5,000 UNITS/ML VIAL SC SCH ×3 (10:00→20:28)
[2019-12-20] MEDS: Carvedilol 3.125 MG TAB PO SCH ×2 (10:00→18:02)
[2019-12-20] MEDS: Saccharomyces boulardii 250 MG CAP PO SCH (10:00)
[2019-12-20] MEDS: Senokot S 8.6-50 MG TAB PO SCH ×2 (10:00→20:28)
--- NOTE | 2019-12-20 10:06 | PRG ---
DATE OF SERVICE: SUBJECTIVE: Patient was seen and examined at bedside and overnight events noted. Patient denies any shortness of breath or chest pain or palpitation. No history of nausea or vomiting or diarrhea or fever or chills or cramps. OBJECTIVE: GENERAL: This is an obese male, in no apparent distress. VITAL SIGNS: Temperature . Heart rate 90. Respiratory rate 18. Blood pressure 128/83. HEENT: Atraumatic, normocephalic. Oral mucosa is moist NECK: Supple. CARDIOVASCULAR: S1, S2 heard. Rate and rhythm regular. RESPIRATORY: Clear to auscultation. GASTROINTESTINAL: Abdomen is soft. MUSCULOSKELETAL: No tenderness. No edema. DERMATOLOGIC: No skin rash. NEUROLOGIC: Alert and awake and oriented X3. No focal neurologic deficits. Moving all the extremities. PSYCHIATRIC: Mood and affect normal. LABORATORY DATA: Potassium is 4.5, BUN is 83, creatinine is 8.2, sodium is 127. ASSESSMENT AND PLAN: 1. Acute kidney injury on chronic kidney disease, stage 4. Remains dialysis dependent for the last few weeks. Plan is to continue on dialysis as needed. Plan is to continue on Friday, Friday, Friday as tolerated for now. Appreciate help from Surgery for tunneled dialysis catheter placement. 2. Hyponatremia, limit fluid intake. 3. Acidosis. We will continue on dialysis. 4. Edema, remove fluid as tolerated. 5. Ascites present. 6. Anemia, on Epogen. 7. Acute hypoxic respiratory failure, better. 8. Hyperphosphatemia. Monitor on diet control. 9. History of hypertension, stable and controlled now. We will remove fluid with dialysis to assist with blood pressure control. 10. Plan to have dialysis as tolerated Friday, Friday, and Friday. Limit fluid intake and salt intake. Job ID: [id number]
--- NOTE | 2019-12-20 10:14 | PRG ---
DATE OF SERVICE: 12/20/2019 SUBJECTIVE: This morning, he is awake, alert, and responsive. OBJECTIVE: VITAL SIGNS: Temperature 98, pulse 98, saturations are 90% on room air, blood pressure 123/83, respirations 18. LUNGS: No wheezing. No crackles. No shortness of breath. CHEST: Decreased breath sounds. No wheezing. CARDIAC: Normal S1, S2. No gallops. ABDOMEN: No masses. He is being dialyzed. His urine is growing Pseudomonas, probably colonization. ASSESSMENT: Status post chronic renal failure, Staphylococcus bacteremia, dual chamber cardioverter-defibrillator system extraction, severe deconditioning, dysphagia. Eventually placement. Consider nocturnal feeding, diet in the morning. Job ID: [id number]
[2019-12-20] MEDS ORDERED: Heparin 10,000 UNITS/ 10 ML VIAL ONE (11:54)
[2019-12-20] MEDS: CEFAZOLIN 2 GM in Premix Bag 1 BAG IVPB SCH (14:28)
--- NOTE | 2019-12-20 14:51 | PDOC.EP ---
- Subjective Date: 12/20/19 Time: 14:45 Interval History: follow up after ICD extraction related to MSSA bacteremia. Patient alert/ oriented. Feels weak but slowly able to be more mobile. [facility] re[facility] is a possibility - Review of Systems Constitutional: reports: weakness. denies: chills, fever, malaise Respiratory: reports: SOB with excertion. denies: cough, dry, hemoptysis, pleuritic pain, shortness of breath, sputum, wheezing Cardiology: denies: chest pain, edema, heart racing, light headedness, passing out Gastrointestinal: denies: abdominal pain, constipation, diarrhea Musculoskeletal: reports: unstable gait. denies: falls - Objective Allergies/Adverse Reactions: Allergies Allergy/AdvReac Type Severity Reaction Status Date / Time No Known Drug Allergies Allergy Verified 11/26/19 22:51 Current Medications Acetaminophen (Tylenol Elixir) 1,000 mg PO Q6H PRN PRN Reason: Headache/Fever or Pain Last Admin: 12/19/19 17:58 Dose: 1,000 mg Albuterol/Ipratropium (Duoneb) 3 ml NEB [id number] [facility] Last Admin: 12/20/19 10:32 Dose: 3 ml Amiodarone HCl (Cordarone) 400 mg PO QAM [facility] Last Admin: 12/20/19 10:00 Dose: 400 mg Lipase/Protease/Amylase ([place] [id number]) 1 cap FS .PER PROTOCOL PRN PRN Reason: TUBE OCCLUSION PROTOCOL Last Admin: 12/07/19 04:59 Dose: 1 cap Carvedilol (Coreg) 3.125 mg PO BID-WM [facility] Last Admin: 12/20/19 10:00 Dose: 3.125 mg Dextrose/Water (Dextrose 50%) 25 gm SLOW IVP PRN PRN PRN Reason: Hypoglycemia Epoetin Alex-epbx (Retacrit) 10,000 unit IVP TuThSa [facility] Last Admin: 12/18/19 11:12 Dose: 10,000 unit Famotidine (Pepcid) 20 mg PER TUBE DAILY [facility] Last Admin: 12/20/19 09:59 Dose: 20 mg Glucagon (Glucagon) 1 mg IM PRN PRN PRN Reason: Hypoglycemia Heparin Sodium (Porcine) (Heparin) 5,000 units SC TID [facility] Last Admin: 12/20/19 10:00 Dose: 5,000 units Insulin Glargine 20 units/ (Miscellaneous Medication) 0.2 mls @ 0 mls/hr SC Q12HR [facility] Last Admin: 12/20/19 09:59 Dose: 0.2 mls Dextrose/Water (D5w) 1,000 mls @ 0 mls/hr IV .Q0M PRN PRN Reason: Hypoglycemia Cefazolin Sodium/Dextrose 2 gm (/ Device) 50 mls @ 100 mls/hr IVPB 1100 [facility] Last Admin: 12/20/19 14:28 Dose: 50 mls Insulin Human Lispro (Humalog) 0 units SC .MODERATE SLIDING SC PRN PRN Reason: Moderate Correctional Scale Last Admin: 12/20/19 06:02 Dose: 8 units Levofloxacin (Levaquin) 500 mg PO Q2D [facility] Last Admin: 12/19/19 17:11 Dose: 500 mg Morphine Sulfate (Morphine) 2 mg SLOW IVP Q4H PRN PRN Reason: pain Last Admin: 12/19/19 16:29 Dose: 2 mg Oxybutynin Chloride (Ditropan) 5 mg PO DAILY [facility] Last Admin: 12/20/19 09:59 Dose: 5 mg Phenazopyridine HCl (Azo Standard) 97.5 mg PO PC [facility] Last Admin: 12/20/19 14:28 Dose: 97.5 mg Saccharomyces Boulardii (Florastor) 250 mg PO DAILY [facility] Last Admin: 12/20/19 10:00 Dose: 250 mg Senna/Docusate Sodium (Senokot S) 2 tab PO BID [facility] Last Admin: 12/20/19 10:00 Dose: 2 tab Sodium Bicarbonate (Bicarbonate, Sodium) 650 mg PER TUBE .PER PROTOCOL PRN PRN Reason: ENTERAL TUBE OCCLUSION Last Admin: 12/07/19 04:59 Dose: 650 mg Sodium Chloride (Flush - Normal Saline) 10 ml IVF PRN PRN PRN Reason: Saline Flush Sterile Water (Water For Injection) 10 ml IVP [facility] Tamsulosin HCl (Flomax) 0.4 mg PO BID [facility] Last Admin: 12/20/19 09:59 Dose: 0.4 mg Vital Signs & Weight: Vital Signs Temp Pulse Resp Pulse Ox 12/20/19 11:37 96.8 F L 02/03/20 10:32 91 20 99 12/20/19 08:20 98.2 F 12/20/19 08:00 98 12/20/19 07:00 86 18 100 12/20/19 03:26 97.8 F Admit Weight 295 lb 6.711 oz Weight 260 lb 1.6 oz I/O: I/O 12/19/19 12/20/19 12/21/19 06:59 06:59 06:59 Intake Total 2440 2610 30 Output Total 1100 300 Balance 1340 2310 30 - Quality Measures Condition: Atrial Fibrillation/Flutter (hx or current) - Physical Exam General: alert & oriented x3, appears well, no apparent distress, speech clear, affect appropriate HEENT: mucus membranes moist, normocephaly Neck: supple neck, midline trachea, no JVD/HJR Cardiology: regular rate and rhythm, no murmur, PMI nondisplaced Lungs: clear to auscultation, normal breath sounds, no wheeze, rales, rhonchi Neurology: cranial nerve 2-12 intact, sensory function intact, no lateralizing findings - Labs Result Diagrams: 12/16/19 16:41 12/20/19 04:30 - EKG Interpretation EKG Method: Telemetry EKG shows: Sinus rhythm - Assessment/Plan Assessment/Plan: 1. Sepsis, with persistent bacteremia MSSA 2. Atrial fibrillation - prior ablation Nov 2018, ATP responsive flutter has been seen on prior ICD reports but no AFib since ablation - on amiodarone 3. DKA 4. Renal failure -TIMOTHY/CKD 5. Petechia 6. Dual ICD - placed july 2018 as primary prevention for non ischemic CMY---> explanted 12/17/2019 for MSSA bacteremia - Site healing nicely. No signs of infection at site. Edges approximated. Could consider reimplantation once bacteremia treatment is completed. he will receive Ancef x 4 weeks post explant per last ID progress note. EF was assessed at 40-45% this hospital stay and patient rarely required PPM support from his dual chamber system. He was having atrial flutter episodes that were highly responsive to the ATP therapies offered by this device. He may require CTI flutter ablation in the future but may not require reimplant of his PPM/ICD as his EF is partially recovered and no symptomatic bradycardia/pauses are seen since explant. He was on xarelto in the past which should be resumed assisted in light of his AFib and flutter, likely will require renal dose adjusted at 15mg QPM given his TIMOTHY/CKD. EP signing off.
[2019-12-20] MEDS ORDERED: Ondansetron PF 4 MG/2 ML Vial IVP PRN (16:35)
--- NOTE | 2019-12-20 16:42 | PDOC.HOSPP ---
- Subjective Encounter Date: 12/20/19 Encounter Time: 12:25 Subjective: no trouble passing urine this am, has not gotten out of bed yet says he is comfortable breathing has no appetite - Objective Vital Signs & Weight: Vital Signs (12 hours) Temp Pulse Resp Pulse Ox 12/20/19 15:24 98.0 F 91 20 100 12/20/19 11:37 96.8 F L 12/20/19 10:32 91 20 99 12/20/19 08:20 98.2 F 12/20/19 08:00 98 12/20/19 07:00 86 18 100 Weight Admit Weight 295 lb 6.711 oz Weight 260 lb 1.6 oz Most Recent Monitor Data Heart Rate from ECG 101 NIBP 146/97 NIBP BP-Mean 113 Respiration from ECG 16 SpO2 100 I&O: 12/19/19 12/20/19 12/21/19 06:59 06:59 06:59 Intake Total 2440 2610 30 Output Total 1100 300 Balance 1340 2310 30 Result Diagrams: 12/16/19 16:41 12/20/19 04:30 Additional Labs: Accuchecks 12/20/19 12/20/19 12/19/19 11:41 05:57 21:38 POC Glucose 224 H 332 H 263 H 12/19/19 17:56 POC Glucose 300 H Hospitalist ROS - Medication Medications: Active Medications Generic Name Dose Route Start Last Admin Trade Name Freq PRN Reason Stop Dose Admin Acetaminophen 1,000 mg 11/26/19 14:59 12/19/19 17:58 Tylenol Elixir PO 1,000 mg Q6H PRN Administration Headache/Fever or Pain Albuterol/Ipratropium 3 ml 12/07/19 14:30 12/20/19 15:24 Duoneb NEB 3 ml [id number] LEENAN Administration Amiodarone HCl 400 mg 12/16/19 09:00 12/20/19 10:00 Cordarone PO 400 mg QAM LEEANN Administration Lipase/Protease/Amylase 1 cap 12/07/19 04:46 12/07/19 04:59 Leonides Tejada [id number] FS 1 cap .PER PROTOCOL PRN Administration TUBE OCCLUSION PROTOCOL Carvedilol 3.125 mg 12/06/19 17:00 12/20/19 10:00 Coreg PO 3.125 mg BID-WM LEEANN Administration Epoetin Alex-epbx 10,000 unit 12/09/19 09:11 12/18/19 11:12 Retacrit IVP 10,000 unit TuThSa LEEANN Administration Famotidine 20 mg 12/14/19 09:00 12/20/19 09:59 Pepcid PER TUBE 20 mg DAILY LEEANN Administration Heparin Sodium (Porcine) 5,000 units 11/26/19 15:00 12/20/19 15:31 Heparin SC 5,000 units TID LEEANN Administration Insulin Glargine 20 units/ 0.2 mls @ 0 mls/hr 11/28/19 21:00 12/20/19 09:59 Miscellaneous Medication SC 0.2 mls Q12HR LEEANN Administration Cefazolin Sodium/Dextrose 2 gm 50 mls @ 100 mls/hr 12/13/19 11:00 12/20/19 14 :28 / Device IVPB 50 mls 1100 LEEANN Administration Insulin Human Lispro 0 units 11/29/19 13:57 12/20/19 06:02 Humalog SC 8 units .MODERATE SLIDING SC PRN Administration Moderate Correctional Scale Levofloxacin 500 mg 12/19/19 16:30 12/19/19 17:11 Levaquin PO 500 mg Q2D LEEANN Administration Morphine Sulfate 2 mg 12/19/19 07:55 12/19/19 16:29 Morphine SLOW IVP 2 mg Q4H PRN Administration pain Oxybutynin Chloride 5 mg 12/20/19 09:00 12/20/19 09:59 Ditropan PO 5 mg DAILY LEEANN Administration Phenazopyridine HCl 97.5 mg 12/19/19 09:00 12/20/19 14:28 Azo Standard PO 97.5 mg PC LEEANN Administration Saccharomyces Boulardii 250 mg 12/18/19 09:00 12/20/19 10:00 Florastor PO 250 mg DAILY LEEANN Administration Senna/Docusate Sodium 2 tab 12/17/19 21:00 12/20/19 10:00 Senokot S PO 2 tab BID LEEANN Administration Sodium Bicarbonate 650 mg 12/07/19 04:46 12/07/19 04:59 Bicarbonate, Sodium PER TUBE 650 mg .PER PROTOCOL PRN Administration ENTERAL TUBE OCCLUSION Tamsulosin HCl 0.4 mg 12/19/19 21:00 12/20/19 09:59 Flomax PO 0.4 mg BID LEEANN Administration - Exam General Appearance: awake alert Eye: PERRL, anicteric sclera ENT: no oropharyngeal lesions, moist mucosa Neck: supple, no JVD Heart: RRR, no murmur Respiratory: no wheezes, no rales, rhonchi Gastrointestinal: soft, non-tender, normal bowel sounds, no guarding, no rigidity, distended Extremities: no cyanosis, 1+ LE edema Neurological: cranial nerve grossly intact, no focal deficits Hosp A/P (1) MSSA bacteremia Code(s): R78.81 - BACTEREMIA Status: Acute (2) Sepsis Code(s): A41.9 - SEPSIS, UNSPECIFIED ORGANISM Status: Acute Qualifiers: Sepsis type: methicillin susceptible Staphylococcus aureus Sepsis acute organ dysfunction status: with acute organ dysfunction Severe sepsis acute organ dysfunction type: acute renal failure Severe sepsis shock status: unspecified (3) Acute renal failure Status: Acute Qualifiers: Acute renal failure type: with acute tubular necrosis Qualified Code(s): N17.0 - Acute kidney failure with tubular necrosis (4) Acute on chronic systolic heart failure Code(s): I50.23 - ACUTE ON CHRONIC SYSTOLIC (CONGESTIVE) HEART FAILURE Status : Acute (5) Acute respiratory failure Code(s): J96.00 - ACUTE RESPIRATORY FAILURE, UNSP W HYPOXIA OR HYPERCAPNIA Status: Acute Qualifiers: Respiratory failure complication: hypoxia and hypercapnia Qualified Code(s) : J96.01 - Acute respiratory failure with hypoxia; J96.02 - Acute respiratory failure with hypercapnia (6) Atrial fibrillation with RVR Code(s): I48.91 - UNSPECIFIED ATRIAL FIBRILLATION Status: Chronic (7) Diabetes mellitus type 2 in obese Code(s): E11.69 - TYPE 2 DIABETES MELLITUS WITH OTHER SPECIFIED COMPLICATION; E66.9 - OBESITY, UNSPECIFIED Status: Chronic (8) Hypertension Code(s): I10 - ESSENTIAL (PRIMARY) HYPERTENSION Status: Chronic Qualifiers: Hypertension type: essential hypertension Qualified Code(s): I10 - Essential (primary) hypertension (9) NICM (nonischemic cardiomyopathy) Code(s): I42.8 - OTHER CARDIOMYOPATHIES Status: Chronic (10) BRANDON (obstructive sleep apnea) Code(s): G47.33 - OBSTRUCTIVE SLEEP APNEA (ADULT) (PEDIATRIC) Status: Chronic (11) UTI (urinary tract infection) Status: Acute Qualifiers: Urinary tract infection type: acute cystitis Hematuria presence: with hematuria Qualified Code(s): N30.01 - Acute cystitis with hematuria (12) Urinary retention Code(s): R33.9 - RETENTION OF URINE, UNSPECIFIED Status: Acute (13) Obesity (BMI 30-39.9) Code(s): E66.9 - OBESITY, UNSPECIFIED Status: Acute (14) Anemia, normocytic normochromic Code(s): D64.9 - ANEMIA, UNSPECIFIED Status: Chronic - Plan is on ancef for bacteremia, add levaquin for pseudomonas in urine. On HD and is also starting to make urine. Had his esquivel removed atleast a week back, had urinary retention which has resolved, may insert esquivel if retention is >500mls. obesity with bmi of 39 on amiodarone, lantus, nebs, coreg. prognosis guarded s/p explantation of aicd due to bacteremia, no obvious veg on CELIA per prior notes. Needs to be oob to chair and mobilize will need placement is severely deconditioned, counselled patient to mobilize, encourage po intake, is getting feeds via dobhoff as well.
[2019-12-21 04:25] LABS: Anion Gap 19 mmol/L (10-20); BUN (Urea Nitrogen) 51 mg/dL (8.4-25.7); Calc. Creatinine Clearance 24 mL/min (70-130); Calcium 9.4 mg/dL (7.8-10.44); Carbon Dioxide 22 mmol/L (22-29); Chloride 91 mmol/L (98-107); Estimated GFR-MDRD 10; Glucose 256 mg/dL (70-105); Iron 31 ug/dL (65-175); Iron Binding Capacity, Total 298 mcg/dL (261-462); Potassium 4.4 mmol/L (3.5-5.1); Sodium 128 mmol/L (136-145)
[2019-12-21] MEDS: HumaLOG 300 UNITS/3 ML VIAL SC PRN ×3 (06:11→18:06)
[2019-12-21] MEDS: EPOETIN ALFA-EPBX (ESRD) 10,000 UNIT/ML VIAL IVP SCH (10:03)
[2019-12-21] MEDS: Phenazopyridine HCl 97.5 MG TABLET PO SCH ×3 (10:04→18:05)
[2019-12-21] MEDS: Famotidine 20 MG TAB PER TUBE SCH (10:04)
[2019-12-21] MEDS: Saccharomyces boulardii 250 MG CAP PO SCH (10:05)
[2019-12-21] MEDS: Senokot S 8.6-50 MG TAB PO SCH ×2 (10:06→21:51)
[2019-12-21] MEDS: Tamsulosin HCl 0.4 MG CAP PO SCH ×2 (10:07→21:51)
[2019-12-21] MEDS: Heparin 5,000 UNITS/ML VIAL SC SCH ×3 (10:07→21:52)
[2019-12-21] MEDS: Carvedilol 3.125 MG TAB PO SCH ×2 (10:07→16:20)
[2019-12-21] MEDS: Amiodarone 200 MG TAB PO SCH (10:07)
--- NOTE | 2019-12-21 10:08 | PRG ---
DATE OF SERVICE: 12/21/2019 SUBJECTIVE: Vitor Bradley this morning is awake, alert, responsive, still weak, still having difficulty ambulating. OBJECTIVE: VITAL SIGNS: Pulse 88, blood pressure 128/89. sat 94% RA CHEST: Decreased breath sounds. No wheezing. CARDIAC: Normal S1 and S2. No gallops. ABDOMEN: No masses. LABORATORY DATA: Creatinine 5.9, glucose 329. ASSESSMENT: Diabetes, morbid obesity, renal failure, Staph sepsis. PLAN: Increase the Lantus to 25 units twice a day, PT, eventually placement. Job ID: [id number] MTDD
[2019-12-21] MEDS: Oxybutynin 5 MG TAB PO SCH (11:22)
[2019-12-21] MEDS: CEFAZOLIN 2 GM in Premix Bag 1 BAG IVPB SCH (11:22)
[2019-12-21] MEDS: Insulin Glargine 25 UNITS in Pre-Filled Syringe 1 EACH SC SCH ×2 (11:23→21:52)
[2019-12-21] MEDS: Insulin Glargine 20 UNITS in Pre-Filled Syringe 1 EACH SC SCH (12:31)
[2019-12-21 14:36] VITALS: BMI 37.7
--- NOTE | 2019-12-21 15:52 | PDOC.HOSPP ---
- Subjective Encounter Date: 12/21/19 Encounter Time: 11:00 Subjective: awake, did not use bipap last night is on nasal canula now no nausea or abd pain, is passing urine well - Objective Vital Signs & Weight: Vital Signs (12 hours) Pulse Pulse Pulse Resp BP BP Pulse Ox 12/21/19 11:23 89 18 99 12/21/19 09:43 106 H 109 H 136/91 H 155/86 H 12/21/19 08:23 88 18 96 12/21/19 08:00 98 Weight Admit Weight 295 lb 6.711 oz Weight 255 lb 4.725 oz Most Recent Monitor Data Heart Rate from ECG 91 NIBP 133/92 NIBP BP-Mean 105 Respiration from ECG 30 SpO2 100 I&O: 12/20/19 12/21/19 12/22/19 06:59 06:59 06:59 Intake Total 2610 1530 Output Total 300 4000 Balance 2310 -2470 Result Diagrams: 12/16/19 16:41 12/21/19 03:55 Additional Labs: Accuchecks 12/21/19 12/21/19 12/20/19 12:17 05:44 23:33 POC Glucose 338 H 329 H 302 H 12/20/19 18:03 POC Glucose 317 H Hospitalist ROS - Medication Medications: Active Medications Generic Name Dose Route Start Last Admin Trade Name Freq PRN Reason Stop Dose Admin Acetaminophen 1,000 mg 11/26/19 14:59 12/19/19 17:58 Tylenol Elixir PO 1,000 mg Q6H PRN Administration Headache/Fever or Pain Albuterol/Ipratropium 3 ml 12/07/19 14:30 12/21/19 11:23 Duoneb NEB 3 ml [id number] LEEANN Administration Amiodarone HCl 400 mg 12/16/19 09:00 12/21/19 10:07 Cordarone PO 400 mg QAM LEEANN Administration Lipase/Protease/Amylase 1 cap 12/07/19 04:46 12/07/19 04:59 Leonides Tejada [id number] FS 1 cap .PER PROTOCOL PRN Administration TUBE OCCLUSION PROTOCOL Carvedilol 3.125 mg 12/06/19 17:00 12/21/19 10:07 Coreg PO 3.125 mg BID-WM LEEANN Administration Epoetin Alex-epbx 10,000 unit 12/09/19 09:11 12/21/19 10:03 Retacrit IVP 10,000 unit TuThSa LEEANN Administration Famotidine 20 mg 12/14/19 09:00 12/21/19 10:04 Pepcid PER TUBE 20 mg DAILY LEEANN Administration Heparin Sodium (Porcine) 5,000 units 11/26/19 15:00 12/21/19 10:07 Heparin SC 5,000 units TID LEEANN Administration Cefazolin Sodium/Dextrose 2 gm 50 mls @ 100 mls/hr 12/13/19 11:00 12/21/19 11 :22 / Device IVPB 50 mls 1100 LEEANN Administration Insulin Glargine 25 units/ 0.25 mls @ 0 mls/hr 12/21/19 09:00 12/21/19 11:23 Miscellaneous Medication SC 0.25 mls Q12HR LEEANN Administration As Directed Insulin Human Lispro 0 units 11/29/19 13:57 12/21/19 12:17 Humalog SC 8 units .MODERATE SLIDING SC PRN Administration Moderate Correctional Scale Levofloxacin 500 mg 12/19/19 16:30 12/19/19 17:11 Levaquin PO 500 mg Q2D LEEANN Administration Morphine Sulfate 2 mg 12/19/19 07:55 12/19/19 16:29 Morphine SLOW IVP 2 mg Q4H PRN Administration pain Oxybutynin Chloride 5 mg 12/20/19 09:00 12/21/19 11:22 Ditropan PO 5 mg DAILY LEEANN Administration Phenazopyridine HCl 97.5 mg 12/19/19 09:00 12/21/19 12:15 Azo Standard PO 97.5 mg PC LEEANN Administration Saccharomyces Boulardii 250 mg 12/18/19 09:00 12/21/19 10:05 Florastor PO 250 mg DAILY LEEANN Administration Senna/Docusate Sodium 2 tab 12/17/19 21:00 12/21/19 10:06 Senokot S PO 2 tab BID LEEANN Administration Sodium Bicarbonate 650 mg 12/07/19 04:46 12/07/19 04:59 Bicarbonate, Sodium PER TUBE 650 mg .PER PROTOCOL PRN Administration ENTERAL TUBE OCCLUSION Tamsulosin HCl 0.4 mg 12/19/19 21:00 12/21/19 10:07 Flomax PO 0.4 mg BID LEEANN Administration - Exam General Appearance: awake alert Eye: PERRL, anicteric sclera ENT: no oropharyngeal lesions, moist mucosa Neck: supple, no JVD Heart: RRR, no murmur Respiratory: no wheezes, no rales Gastrointestinal: soft, non-tender, non-distended, normal bowel sounds Extremities: no cyanosis, 1+ LE edema Neurological: cranial nerve grossly intact, no focal deficits Hosp A/P (1) MSSA bacteremia Code(s): R78.81 - BACTEREMIA Status: Acute (2) Sepsis Code(s): A41.9 - SEPSIS, UNSPECIFIED ORGANISM Status: Acute Qualifiers: Sepsis type: methicillin susceptible Staphylococcus aureus Sepsis acute organ dysfunction status: with acute organ dysfunction Severe sepsis acute organ dysfunction type: acute renal failure Severe sepsis shock status: unspecified (3) Acute renal failure Status: Acute Qualifiers: Acute renal failure type: with acute tubular necrosis Qualified Code(s): N17.0 - Acute kidney failure with tubular necrosis (4) Acute on chronic systolic heart failure Code(s): I50.23 - ACUTE ON CHRONIC SYSTOLIC (CONGESTIVE) HEART FAILURE Status : Acute (5) Acute respiratory failure Code(s): J96.00 - ACUTE RESPIRATORY FAILURE, UNSP W HYPOXIA OR HYPERCAPNIA Status: Acute Qualifiers: Respiratory failure complication: hypoxia and hypercapnia Qualified Code(s) : J96.01 - Acute respiratory failure with hypoxia; J96.02 - Acute respiratory failure with hypercapnia (6) Atrial fibrillation with RVR Code(s): I48.91 - UNSPECIFIED ATRIAL FIBRILLATION Status: Chronic (7) Diabetes mellitus type 2 in obese Code(s): E11.69 - TYPE 2 DIABETES MELLITUS WITH OTHER SPECIFIED COMPLICATION; E66.9 - OBESITY, UNSPECIFIED Status: Chronic (8) Hypertension Code(s): I10 - ESSENTIAL (PRIMARY) HYPERTENSION Status: Chronic Qualifiers: Hypertension type: essential hypertension Qualified Code(s): I10 - Essential (primary) hypertension (9) NICM (nonischemic cardiomyopathy) Code(s): I42.8 - OTHER CARDIOMYOPATHIES Status: Chronic (10) BRANDON (obstructive sleep apnea) Code(s): G47.33 - OBSTRUCTIVE SLEEP APNEA (ADULT) (PEDIATRIC) Status: Chronic (11) UTI (urinary tract infection) Status: Acute Qualifiers: Urinary tract infection type: acute cystitis Hematuria presence: with hematuria Qualified Code(s): N30.01 - Acute cystitis with hematuria (12) Urinary retention Code(s): R33.9 - RETENTION OF URINE, UNSPECIFIED Status: Acute (13) Obesity (BMI 30-39.9) Code(s): E66.9 - OBESITY, UNSPECIFIED Status: Acute (14) Anemia, normocytic normochromic Code(s): D64.9 - ANEMIA, UNSPECIFIED Status: Chronic - Plan is on ancef for bacteremia, add levaquin for pseudomonas in urine. On HD and is also starting to make some urine. Had his esquivel removed atleast a week back, had urinary retention which has resolved, may insert esquivel if retention is >500mls. obesity with bmi of 39 on amiodarone, lantus, nebs, coreg. prognosis guarded s/p explantation of aicd due to bacteremia, no obvious veg on CELIA per prior notes. Needs to be oob to chair and mobilize will need placement is severely deconditioned, counselled patient to mobilize, encourage po intake, is getting feeds via dobhoff as well.
--- NOTE | 2019-12-21 16:07 | PRG ---
DATE OF SERVICE: 12/21/2019 SUBJECTIVE: Patient was seen and examined at bedside and overnight events noted. Patient denies any shortness of breath or chest pain or palpitation. No history of nausea or vomiting or diarrhea or fever or chills or cramps. OBJECTIVE: GENERAL: This is an obese male, in no apparent distress. VITAL SIGNS: Temperature 98.2. Heart rate 91. Respiratory rate . Blood pressure 133/92. HEENT: Atraumatic, normocephalic. Oral mucosa is moist NECK: Supple. CARDIOVASCULAR: S1, S2 heard. Rate and rhythm regular. RESPIRATORY: Clear to auscultation. GASTROINTESTINAL: Abdomen is soft. MUSCULOSKELETAL: No tenderness. No edema. DERMATOLOGIC: No skin rash. NEUROLOGIC: Alert and awake and oriented X3. No focal neurologic deficits. Moving all the extremities. PSYCHIATRIC: Mood and affect normal. LABORATORY DATA: Potassium is 4.4, BUN is 51, creatinine is 5.9. ASSESSMENT AND PLAN: 1. Acute kidney injury on chronic kidney disease, stage 4. Remains dialysis dependent. Continue dialysis on Friday, Friday, Friday. 2. Hyponatremia. 3. Acidosis. 4. Edema. 5. Anemia. 6. History of hypertension. 7. We will continue on dialysis as tolerated. Job ID: [id number]
[2019-12-22] MEDS: HumaLOG 300 UNITS/3 ML VIAL SC PRN ×4 (00:23→20:47)
[2019-12-22 06:15] LABS: Anion Gap 19 mmol/L (10-20); BUN (Urea Nitrogen) 67 mg/dL (8.4-25.7); Calc. Creatinine Clearance 19 mL/min (70-130); Calcium 9.6 mg/dL (7.8-10.44); Carbon Dioxide 21 mmol/L (22-29); Chloride 89 mmol/L (98-107); Estimated GFR-MDRD 8; Glucose 269 mg/dL (70-105); Potassium 4.7 mmol/L (3.5-5.1); Sodium 124 mmol/L (136-145)
[2019-12-22] MEDS: Heparin 5,000 UNITS/ML VIAL SC SCH ×3 (07:49→20:45)
[2019-12-22] MEDS: Phenazopyridine HCl 97.5 MG TABLET PO SCH ×3 (07:50→16:43)
[2019-12-22] MEDS: Senokot S 8.6-50 MG TAB PO SCH ×2 (07:50→20:42)
[2019-12-22] MEDS: Famotidine 20 MG TAB PER TUBE SCH (07:50)
[2019-12-22] MEDS: Tamsulosin HCl 0.4 MG CAP PO SCH ×2 (07:51→20:42)
[2019-12-22] MEDS: Oxybutynin 5 MG TAB PO SCH (07:51)
[2019-12-22] MEDS: Amiodarone 200 MG TAB PO SCH (07:51)
[2019-12-22] MEDS: Saccharomyces boulardii 250 MG CAP PO SCH (07:51)
[2019-12-22] MEDS: Carvedilol 3.125 MG TAB PO SCH ×2 (07:51→16:43)
[2019-12-22] MEDS: Insulin Glargine 25 UNITS in Pre-Filled Syringe 1 EACH SC SCH ×2 (07:52→20:46)
[2019-12-22 08:44] LABS: Anisocytosis SLIGHT = 6-15 cells (100X) (0-5/hpf); Band 4 % (5-11); Eosinophils 7 % (0-10); Hemoglobin 8.9 g/dL (14.0-18.0); Lymphocytes 18 % (21-51); MDiff Complete? YES; Mean Corpuscular HGB CONC 33.5 g/dL (32.0-36.0); Mean Corpuscular Hemoglobin 32.3 pg (27.0-31.0); Mean Corpuscular Volume 96.4 fL (78.0-98.0); Mean Platelet Volume 6.6 fL (7.4-10.4); Monocytes 6 % (0-10); Myelocyte 1 % (0-0); Neutrophil 64 % (42-75); Platelet Count 526 thou/uL (130-400); Platelet Morphology Comment Appears Increased; Polychromasia SLIGHT = 2-3 cells (100X) (0-2/hpf); RBC Distribution Width 16.5 % (11.5-14.5); Red Blood Cell (RBC) Count 2.74 mill/uL (4.70-6.10); Stomatocytes SLIGHT = 2-5 cells (100X) (0-1/hpf); White Blood Cell (WBC) Count 14.5 thou/uL (4.8-10.8)
--- NOTE | 2019-12-22 08:47 | PRG ---
DATE OF SERVICE: 12/22/2019 SUBJECTIVE: Vitor Bradley is a 54-year-old gentleman, morbidly obese, he was transferred to a monitored bed. OBJECTIVE: VITAL SIGNS: Temperature 97, pulse 85, respirations 16, saturations 96% on room air, and blood pressure 130/85. CHEST: Decreased breath sounds. No wheezing. CARDIAC: Normal S1 and S2. No gallops. ABDOMEN: No masses. LABORATORY DATA: Creatinine 7.46 and sodium 125. ASSESSMENT: Respiratory failure, diabetes, morbid obesity, and sepsis syndrome. PLAN: Consideration of removing the Dobbhoff tube is being made. Apparently, his appetite is better. He is eating much better. We will discuss with Speech to see whether the feeding tube can be removed. We will follow eventually placement. Job ID: [id number]
[2019-12-22] MEDS ORDERED: Heparin 10,000 UNITS/ 10 ML VIAL ONE (09:18)
[2019-12-22] MEDS ORDERED: Albumin 25% 25 GM/100 ML BOT IVPB SCH (09:30)
--- NOTE | 2019-12-22 10:31 | PRG ---
DATE OF SERVICE: 12/22/2019 SUBJECTIVE: Patient was seen and examined at bedside and overnight events noted. Patient denies any shortness of breath or chest pain or palpitation. No history of nausea or vomiting or diarrhea or fever or chills or cramps. OBJECTIVE: GENERAL: This is a well-built male, in no apparent distress. VITAL SIGNS: Temperature 97.8. Heart rate 86. Respiratory rate 20. Blood pressure 133/85. HEENT: Atraumatic, normocephalic. Oral mucosa is moist NECK: Supple. CARDIOVASCULAR: S1, S2 heard. Rate and rhythm regular. RESPIRATORY: Clear to auscultation. GASTROINTESTINAL: Abdomen is soft. MUSCULOSKELETAL: No tenderness. No edema. DERMATOLOGIC: No skin rash. NEUROLOGIC: Alert and awake and oriented X3. No focal neurologic deficits. Moving all the extremities. PSYCHIATRIC: Mood and affect normal. LABORATORY DATA: Sodium is 124, potassium is 4.7, BUN is 67, and creatinine is 7.4. ASSESSMENT AND PLAN: 1. Acute kidney injury on chronic kidney stage 4, remains dialysis dependent. We will have dialysis Friday, Friday, and Friday. 2. Hyponatremia. We will remove fluid dialysis as tolerated. Limit fluids. 3. Acidosis. 4. Edema. 5. Anemia. 6. Hypertension. 7. Limit fluid intake. We will continue dialysis Friday, Friday, and Friday. Job ID: [id number]
--- NOTE | 2019-12-22 13:29 | PDOC.HOSPP ---
- Subjective Encounter Date: 12/22/19 Encounter Time: 12:15 Subjective: no sob or pain is getting HD now - Objective Vital Signs & Weight: Vital Signs (12 hours) Temp Pulse Resp BP Pulse Ox 12/22/19 10:24 80 18 95 12/22/19 08:00 99 12/22/19 07:40 85 16 96 12/22/19 07:28 97.8 F 86 20 133/85 99 12/22/19 04:41 98.2 F 86 20 153/95 H 99 12/22/19 01:36 97 Weight Admit Weight 295 lb 6.711 oz Weight 255 lb 4.725 oz Most Recent Monitor Data Heart Rate from ECG 92 NIBP 138/72 NIBP BP-Mean 94 Respiration from ECG 20 SpO2 89 I&O: 12/21/19 12/22/19 12/23/19 06:59 06:59 06:59 Intake Total 1530 1790 240 Output Total 4000 Balance -2470 1790 240 Result Diagrams: 12/22/19 05:44 12/22/19 05:44 Additional Labs: Accuchecks 12/22/19 12/22/19 12/21/19 11:13 04:47 23:36 POC Glucose 279 H 294 H 245 H 12/21/19 18:08 POC Glucose 271 H Hospitalist ROS - Medication Medications: Active Medications Generic Name Dose Route Start Last Admin Trade Name Freq PRN Reason Stop Dose Admin Acetaminophen 1,000 mg 11/26/19 14:59 12/19/19 17:58 Tylenol Elixir PO 1,000 mg Q6H PRN Administration Headache/Fever or Pain Albumin Human 25 gm 12/22/19 09:30 12/22/19 10:05 Albumin 25% IVPB 12/22/19 14:00 25 gm NOW LEEANN Administration Albuterol/Ipratropium 3 ml 12/07/19 14:30 12/22/19 10:24 Duoneb NEB 3 ml [id number] LEEANN Administration Amiodarone HCl 400 mg 12/16/19 09:00 12/22/19 07:51 Cordarone PO 400 mg QAM LEEANN Administration Lipase/Protease/Amylase 1 cap 12/07/19 04:46 12/07/19 04:59 Leonides Tejada [id number] FS 1 cap .PER PROTOCOL PRN Administration TUBE OCCLUSION PROTOCOL Carvedilol 3.125 mg 12/06/19 17:00 12/22/19 07:51 Coreg PO 3.125 mg BID-WM LEEANN Administration Epoetin Alex-epbx 10,000 unit 12/09/19 09:11 12/21/19 10:03 Retacrit IVP 10,000 unit TuThSa LEEANN Administration Famotidine 20 mg 12/14/19 09:00 12/22/19 07:50 Pepcid PER TUBE 20 mg DAILY LEEANN Administration Heparin Sodium (Porcine) 5,000 units 11/26/19 15:00 12/22/19 07:49 Heparin SC 5,000 units TID LEEANN Administration Cefazolin Sodium/Dextrose 2 gm 50 mls @ 100 mls/hr 12/13/19 11:00 12/21/19 11 :22 / Device IVPB 50 mls 1100 LEEANN Administration Insulin Glargine 25 units/ 0.25 mls @ 0 mls/hr 12/21/19 09:00 12/22/19 07:52 Miscellaneous Medication SC 0.25 mls Q12HR LEEANN Administration As Directed Insulin Human Lispro 0 units 11/29/19 13:57 12/22/19 12:17 Humalog SC 6 units .MODERATE SLIDING SC PRN Administration Moderate Correctional Scale Levofloxacin 500 mg 12/19/19 16:30 12/21/19 16:20 Levaquin PO 500 mg Q2D LEEANN Administration Morphine Sulfate 2 mg 12/19/19 07:55 12/19/19 16:29 Morphine SLOW IVP 2 mg Q4H PRN Administration pain Oxybutynin Chloride 5 mg 12/20/19 09:00 12/22/19 07:51 Ditropan PO 5 mg DAILY LEEANN Administration Phenazopyridine HCl 97.5 mg 12/19/19 09:00 12/22/19 07:50 Azo Standard PO 97.5 mg PC LEEANN Administration Saccharomyces Boulardii 250 mg 12/18/19 09:00 12/22/19 07:51 Florastor PO 250 mg DAILY LEEANN Administration Senna/Docusate Sodium 2 tab 12/17/19 21:00 12/22/19 07:50 Senokot S PO 2 tab BID LEEANN Administration Sodium Bicarbonate 650 mg 12/07/19 04:46 12/07/19 04:59 Bicarbonate, Sodium PER TUBE 650 mg .PER PROTOCOL PRN Administration ENTERAL TUBE OCCLUSION Sodium Chloride 10 ml 12/01/19 17:34 12/22/19 07:52 Flush - Normal Saline IVF 10 ml PRN PRN Administration Saline Flush Tamsulosin HCl 0.4 mg 12/19/19 21:00 12/22/19 07:51 Flomax PO 0.4 mg BID LEEANN Administration - Exam General Appearance: awake alert Eye: PERRL, anicteric sclera ENT: no oropharyngeal lesions, moist mucosa Neck: supple, no JVD Heart: RRR, no murmur Respiratory: no wheezes, no rales, rhonchi Gastrointestinal: soft, non-tender, normal bowel sounds, no guarding, no rigidity Extremities: no cyanosis, 1+ LE edema Neurological: cranial nerve grossly intact, no focal deficits Psychiatric: A&O x 3 Hosp A/P (1) MSSA bacteremia Code(s): R78.81 - BACTEREMIA Status: Acute (2) Sepsis Code(s): A41.9 - SEPSIS, UNSPECIFIED ORGANISM Status: Acute Qualifiers: Sepsis type: methicillin susceptible Staphylococcus aureus Sepsis acute organ dysfunction status: with acute organ dysfunction Severe sepsis acute organ dysfunction type: acute renal failure Severe sepsis shock status: unspecified (3) Acute renal failure Status: Acute Qualifiers: Acute renal failure type: with acute tubular necrosis Qualified Code(s): N17.0 - Acute kidney failure with tubular necrosis (4) Acute on chronic systolic heart failure Code(s): I50.23 - ACUTE ON CHRONIC SYSTOLIC (CONGESTIVE) HEART FAILURE Status : Acute (5) Acute respiratory failure Code(s): J96.00 - ACUTE RESPIRATORY FAILURE, UNSP W HYPOXIA OR HYPERCAPNIA Status: Acute Qualifiers: Respiratory failure complication: hypoxia and hypercapnia Qualified Code(s) : J96.01 - Acute respiratory failure with hypoxia; J96.02 - Acute respiratory failure with hypercapnia (6) Atrial fibrillation with RVR Code(s): I48.91 - UNSPECIFIED ATRIAL FIBRILLATION Status: Chronic (7) Diabetes mellitus type 2 in obese Code(s): E11.69 - TYPE 2 DIABETES MELLITUS WITH OTHER SPECIFIED COMPLICATION; E66.9 - OBESITY, UNSPECIFIED Status: Chronic (8) Hypertension Code(s): I10 - ESSENTIAL (PRIMARY) HYPERTENSION Status: Chronic Qualifiers: Hypertension type: essential hypertension Qualified Code(s): I10 - Essential (primary) hypertension (9) NICM (nonischemic cardiomyopathy) Code(s): I42.8 - OTHER CARDIOMYOPATHIES Status: Chronic (10) BRANDON (obstructive sleep apnea) Code(s): G47.33 - OBSTRUCTIVE SLEEP APNEA (ADULT) (PEDIATRIC) Status: Chronic (11) UTI (urinary tract infection) Status: Acute Qualifiers: Urinary tract infection type: acute cystitis Hematuria presence: with hematuria Qualified Code(s): N30.01 - Acute cystitis with hematuria (12) Urinary retention Code(s): R33.9 - RETENTION OF URINE, UNSPECIFIED Status: Acute (13) Obesity (BMI 30-39.9) Code(s): E66.9 - OBESITY, UNSPECIFIED Status: Acute (14) Anemia, normocytic normochromic Code(s): D64.9 - ANEMIA, UNSPECIFIED Status: Chronic - Plan is on ancef for bacteremia, add levaquin for pseudomonas in urine. On HD mon/wed/frid, needs outpt HD chair. Had his esquivel removed atleast a week back, had urinary retention which has resolved, may insert esquivel if retention is >500mls. obesity with bmi of 39 on amiodarone, lantus, nebs, coreg. prognosis guarded s/p explantation of aicd due to bacteremia, no obvious veg on CELIA per prior notes. Needs to be oob to chair and mobilize in hallway as tolerated will need placement is severely deconditioned, counselled patient to mobilize, encourage po intake, is getting feeds via dobhoff as well.
[2019-12-22] MEDS: CEFAZOLIN 2 GM in Premix Bag 1 BAG IVPB SCH (13:38)
[2019-12-23] MEDS: HumaLOG 300 UNITS/3 ML VIAL SC PRN ×5 (01:07→20:54)
[2019-12-23 05:53] LABS: Anion Gap 20 mmol/L (10-20); BUN (Urea Nitrogen) 48 mg/dL (8.4-25.7); Calc. Creatinine Clearance 23 mL/min (70-130); Calcium 10.1 mg/dL (7.8-10.44); Carbon Dioxide 24 mmol/L (22-29); Chloride 89 mmol/L (98-107); Estimated GFR-MDRD 10; Glucose 266 mg/dL (70-105); Potassium 4.2 mmol/L (3.5-5.1); Sodium 129 mmol/L (136-145)
[2019-12-23] MEDS: Tamsulosin HCl 0.4 MG CAP PO SCH ×2 (08:31→20:54)
[2019-12-23] MEDS: Famotidine 20 MG TAB PER TUBE SCH (08:31)
[2019-12-23] MEDS: Amiodarone 200 MG TAB PO SCH (08:32)
[2019-12-23] MEDS: Oxybutynin 5 MG TAB PO SCH (08:32)
[2019-12-23] MEDS: Senokot S 8.6-50 MG TAB PO SCH ×2 (08:33→20:53)
[2019-12-23] MEDS: Carvedilol 3.125 MG TAB PO SCH ×2 (08:34→17:22)
[2019-12-23] MEDS: Saccharomyces boulardii 250 MG CAP PO SCH (08:34)
[2019-12-23] MEDS: Heparin 5,000 UNITS/ML VIAL SC SCH ×3 (08:35→20:53)
[2019-12-23] MEDS: Phenazopyridine HCl 97.5 MG TABLET PO SCH ×3 (08:35→17:21)
--- NOTE | 2019-12-23 08:37 | PRG ---
DATE OF SERVICE: 12/23/2019 SUBJECTIVE: This morning, he is awake, alert, and responsive. He is doing better. OBJECTIVE: VITAL SIGNS: His temperature is 97, pulse 89, respirations 16, saturations are 99% on room air, blood pressure 150/94. CHEST: Decreased breath sounds. No wheezing. CARDIAC: Normal S1 and S2. No gallops. ABDOMEN: No masses. LABORATORY DATA: Glucose 266. ASSESSMENT: 1. Multiorgan failure, sepsis, Staphylococcus. 2. Supraventricular tachycardia, infected hardware removed. 3. Renal failure, on dialysis. 4. Sleep apnea, nocturnal CPAP. PLAN: Discontinue feeding tube. We will continue aggressive nutritional support. PT. Eventually, placement. Job ID: [id number]
[2019-12-23] MEDS: Insulin Glargine 25 UNITS in Pre-Filled Syringe 1 EACH SC SCH ×2 (08:38→20:53)
[2019-12-23] MEDS ORDERED: Furosemide 80 MG TAB PO SCH ×2 (09:00→09:15)
--- NOTE | 2019-12-23 10:33 | PRG ---
DATE OF SERVICE: 12/23/2019 SUBJECTIVE: Patient was seen and examined at bedside and overnight events noted. Patient denies any shortness of breath or chest pain or palpitation. No history of nausea or vomiting or diarrhea or fever or chills or cramps. OBJECTIVE: GENERAL: This is an obese male, in no apparent distress. VITAL SIGNS: Temperature 97.7. Heart rate 89. Respiratory rate 16. Blood pressure 155/94. HEENT: Atraumatic, normocephalic. Oral mucosa is moist. NECK: Supple. CARDIOVASCULAR: S1, S2 heard. Rate and rhythm regular. RESPIRATORY: Clear to auscultation. GASTROINTESTINAL: Abdomen is soft. MUSCULOSKELETAL: No tenderness. No edema. DERMATOLOGIC: No skin rash. NEUROLOGIC: Alert and awake and oriented x3. No focal neurologic deficits. Moving all the extremities. PSYCHIATRIC: Mood and affect normal. LABORATORY DATA: Potassium is 4.2, BUN is 48, and creatinine is 6.1. ASSESSMENT AND PLAN: 1. Acute kidney injury on chronic kidney disease, stage . He remains dialysis dependent. Follow with Case Management for outpatient dialysis placement. We will continue dialysis on Friday, Friday, and Friday. 2. Hyponatremia. Limit fluid. 3. Acidosis. 4. Edema, remove fluid. 5. Anemia of chronic disease. 6. Hypertension. Plan to continue on dialysis as tolerated. Job ID: [id number]
[2019-12-23] MEDS: CEFAZOLIN 2 GM in Premix Bag 1 BAG IVPB SCH (11:10)
[2019-12-23] MEDS: Tuberculin PPD 0.1 ML VIAL I-DERMAL SCH (11:10)
[2019-12-23] MEDS: EPOETIN ALFA-EPBX (ESRD) 10,000 UNIT/ML VIAL IVP SCH (14:50)
--- NOTE | 2019-12-23 16:26 | PDOC.HOSPP ---
- Subjective Encounter Date: 12/23/19 Encounter Time: 10:00 Subjective: no sob, stood up with PT feels better says has no appetite to eat - Objective Vital Signs & Weight: Vital Signs (12 hours) Temp Pulse Resp BP Pulse Ox 12/23/19 13:57 93 18 100 12/23/19 12:13 97.8 F 87 16 150/87 H 99 12/23/19 11:13 90 18 98 12/23/19 08:00 95 12/23/19 07:52 97.7 F 89 16 155/94 H 99 12/23/19 07:12 88 16 97 12/23/19 04:30 97.9 F 87 22 H 167/96 H 100 Weight Admit Weight 295 lb 6.711 oz Weight 255 lb 4.725 oz Most Recent Monitor Data Heart Rate from ECG 92 NIBP 138/72 NIBP BP-Mean 94 Respiration from ECG 20 SpO2 89 I&O: 12/22/19 12/23/19 12/24/19 06:59 06:59 06:59 Intake Total 1790 1540 Balance 1790 1540 Result Diagrams: 12/22/19 05:44 12/23/19 05:25 Additional Labs: Accuchecks 12/23/19 12/23/19 12/23/19 12:16 04:35 00:59 POC Glucose 335 H 278 H 202 H 12/22/19 12/22/19 19:54 16:20 POC Glucose 295 H 260 H Hospitalist ROS - Medication Medications: Active Medications Generic Name Dose Route Start Last Admin Trade Name Freq PRN Reason Stop Dose Admin Acetaminophen 1,000 mg 11/26/19 14:59 12/19/19 17:58 Tylenol Elixir PO 1,000 mg Q6H PRN Administration Headache/Fever or Pain Albuterol/Ipratropium 3 ml 12/07/19 14:30 12/23/19 13:57 Duoneb NEB 3 ml [id number] LEEANN Administration Amiodarone HCl 400 mg 12/16/19 09:00 12/23/19 08:32 Cordarone PO 400 mg QAM LEEANN Administration Lipase/Protease/Amylase 1 cap 12/07/19 04:46 12/07/19 04:59 Leonides Tejada [id number] FS 1 cap .PER PROTOCOL PRN Administration TUBE OCCLUSION PROTOCOL Carvedilol 3.125 mg 12/06/19 17:00 12/23/19 08:34 Coreg PO 3.125 mg BID-WM LEEANN Administration Epoetin Alex-epbx 10,000 unit 12/09/19 09:11 12/23/19 14:50 Retacrit IVP 10,000 unit TuThSa LEEANN Administration Famotidine 20 mg 12/14/19 09:00 12/23/19 08:31 Pepcid PER TUBE 20 mg DAILY LEEANN Administration Heparin Sodium (Porcine) 5,000 units 11/26/19 15:00 12/23/19 14:49 Heparin SC 5,000 units TID LEEANN Administration Cefazolin Sodium/Dextrose 2 gm 50 mls @ 100 mls/hr 12/13/19 11:00 12/23/19 11 :10 / Device IVPB 50 mls 1100 LEEANN Administration Insulin Glargine 25 units/ 0.25 mls @ 0 mls/hr 12/21/19 09:00 12/23/19 08:38 Miscellaneous Medication SC 0.25 mls Q12HR LEEANN Administration As Directed Insulin Human Lispro 0 units 11/29/19 13:57 12/23/19 12:20 Humalog SC 8 units .MODERATE SLIDING SC PRN Administration Moderate Correctional Scale Levofloxacin 500 mg 12/19/19 16:30 12/21/19 16:20 Levaquin PO 500 mg Q2D LEEANN Administration Morphine Sulfate 2 mg 12/19/19 07:55 12/19/19 16:29 Morphine SLOW IVP 2 mg Q4H PRN Administration pain Oxybutynin Chloride 5 mg 12/20/19 09:00 12/23/19 08:32 Ditropan PO 5 mg DAILY LEEANN Administration Phenazopyridine HCl 97.5 mg 12/19/19 09:00 12/23/19 12:23 Azo Standard PO 97.5 mg PC LEEANN Administration Saccharomyces Boulardii 250 mg 12/18/19 09:00 12/23/19 08:34 Florastor PO 250 mg DAILY LEEANN Administration Senna/Docusate Sodium 2 tab 12/17/19 21:00 12/23/19 08:33 Senokot S PO 2 tab BID LEEANN Administration Sodium Bicarbonate 650 mg 12/07/19 04:46 12/07/19 04:59 Bicarbonate, Sodium PER TUBE 650 mg .PER PROTOCOL PRN Administration ENTERAL TUBE OCCLUSION Sodium Chloride 10 ml 12/01/19 17:34 12/22/19 07:52 Flush - Normal Saline IVF 10 ml PRN PRN Administration Saline Flush Tamsulosin HCl 0.4 mg 12/19/19 21:00 12/23/19 08:31 Flomax PO 0.4 mg BID LEEANN Administration Tuberculin PPD 0.1 ml 12/23/19 10:23 12/23/19 11:10 Tuberculin Ppd I-DERMAL 12/26/19 10:24 0.1 ml NOW LEEANN Administration - Exam General Appearance: awake alert Eye: PERRL, anicteric sclera ENT: no oropharyngeal lesions, moist mucosa Neck: supple, no JVD Heart: RRR, no murmur Respiratory: no wheezes, no rales, rhonchi Gastrointestinal: soft, non-tender, normal bowel sounds, no guarding, no rigidity Extremities: no cyanosis, no edema Neurological: cranial nerve grossly intact, no focal deficits Hosp A/P (1) MSSA bacteremia Code(s): R78.81 - BACTEREMIA Status: Acute (2) Sepsis Code(s): A41.9 - SEPSIS, UNSPECIFIED ORGANISM Status: Resolved Qualifiers: Sepsis type: methicillin susceptible Staphylococcus aureus Sepsis acute organ dysfunction status: with acute organ dysfunction Severe sepsis acute organ dysfunction type: acute renal failure Severe sepsis shock status: unspecified (3) Acute renal failure Status: Acute Qualifiers: Acute renal failure type: with acute tubular necrosis Qualified Code(s): N17.0 - Acute kidney failure with tubular necrosis (4) Acute on chronic systolic heart failure Code(s): I50.23 - ACUTE ON CHRONIC SYSTOLIC (CONGESTIVE) HEART FAILURE Status : Acute (5) Acute respiratory failure Code(s): J96.00 - ACUTE RESPIRATORY FAILURE, UNSP W HYPOXIA OR HYPERCAPNIA Status: Acute Qualifiers: Respiratory failure complication: hypoxia and hypercapnia Qualified Code(s) : J96.01 - Acute respiratory failure with hypoxia; J96.02 - Acute respiratory failure with hypercapnia (6) Atrial fibrillation with RVR Code(s): I48.91 - UNSPECIFIED ATRIAL FIBRILLATION Status: Chronic (7) Diabetes mellitus type 2 in obese Code(s): E11.69 - TYPE 2 DIABETES MELLITUS WITH OTHER SPECIFIED COMPLICATION; E66.9 - OBESITY, UNSPECIFIED Status: Chronic (8) Hypertension Code(s): I10 - ESSENTIAL (PRIMARY) HYPERTENSION Status: Chronic Qualifiers: Hypertension type: essential hypertension Qualified Code(s): I10 - Essential (primary) hypertension (9) NICM (nonischemic cardiomyopathy) Code(s): I42.8 - OTHER CARDIOMYOPATHIES Status: Chronic (10) BRANDON (obstructive sleep apnea) Code(s): G47.33 - OBSTRUCTIVE SLEEP APNEA (ADULT) (PEDIATRIC) Status: Chronic (11) UTI (urinary tract infection) Status: Acute Qualifiers: Urinary tract infection type: acute cystitis Hematuria presence: with hematuria Qualified Code(s): N30.01 - Acute cystitis with hematuria (12) Urinary retention Code(s): R33.9 - RETENTION OF URINE, UNSPECIFIED Status: Acute (13) Obesity (BMI 30-39.9) Code(s): E66.9 - OBESITY, UNSPECIFIED Status: Acute (14) Anemia, normocytic normochromic Code(s): D64.9 - ANEMIA, UNSPECIFIED Status: Chronic - Plan is on ancef for bacteremia, add levaquin for pseudomonas in urine. On HD mon/wed/frid, needs outpt HD chair. Had his esquivel removed atleast a week back, had urinary retention which has resolved, may insert esquivel if retention is >500mls. obesity with bmi of 39 on amiodarone, lantus, nebs, coreg. prognosis guarded s/p explantation of aicd due to bacteremia, no obvious veg on CELIA per prior notes. Needs to be oob to chair and mobilize in hallway as tolerated will need placement is severely deconditioned, counselled patient to mobilize, encourage po intake. DC dobhoff tube
--- NOTE | 2019-12-23 18:33 | PRG ---
DATE OF SERVICE: 12/23/2019 Mr. Bradley is transferred to the floor. He still has dialysis catheter in the neck. He has developed this purpuric eruption in the skin of the appendicular structures. Denies any dyspnea or chest pain, no abdominal pain. He had the AICD removed. He has been afebrile. Other vital signs are normal except for slight elevation of systolic blood pressures. He is awake, alert. Skin exam shows those purpuric lesions, some of them with vesicles or pustules. They have some confluence and sometimes distributed in the extensor aspect of arms and legs and thighs. The arm lesions seem to be improving. The patient has a tunneled catheter in the right IJ position. He has a subclavian triple-lumen. Lungs are symmetric with clear breath sounds. S1-S2 regular rate. Abdomen soft, not distended or tender. No joint inflammatory activity. No back tenderness. LABORATORY DATA: White cell count is at 14.5, hemoglobin 8.9, platelets 526 with 64% neutrophils, creatinine at 6.10. The last positive blood cultures are from November 26, the one from are negative. Last chest x-ray from December 13. He is currently receiving cefazolin. He is on lipase, protease, amylase, pancreatic enzyme replacement. Levofloxacin was started. 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 Sometimes leukocytoclastic vasculitis can be associated with renal manifestations and now I wonder if he would benefit from evaluation of that possibility, but I do not think he has evidence of proteinuria of significant nature. His last urinalysis was in December 17. Maybe should evaluate should have Nephrology consider that possibility to see if immunesuppressive regimen with corticosteroid would be helpful in terms of improvement in renal function. He has received treatment now since November 27, so we have 26 days in the pocket. Now, he should get another 16 days and have completed treatment for his bacteremia and possible endocarditis. The AICD has been removed. Job ID: [id number] [facility]
[2019-12-24] MEDS: HumaLOG 300 UNITS/3 ML VIAL SC PRN ×3 (05:23→21:19)
[2019-12-24] MEDS ORDERED: Bisacodyl 10 MG SUPP PR PRN (06:11)
[2019-12-24 07:08] LABS: Anion Gap 20 mmol/L (10-20); BUN (Urea Nitrogen) 67 mg/dL (8.4-25.7); Calc. Creatinine Clearance 19 mL/min (70-130); Calcium 9.8 mg/dL (7.8-10.44); Carbon Dioxide 23 mmol/L (22-29); Chloride 87 mmol/L (98-107); Estimated GFR-MDRD 8; Glucose 224 mg/dL (70-105); Potassium 4.3 mmol/L (3.5-5.1); Sodium 126 mmol/L (136-145)
[2019-12-24] MEDS: Phenazopyridine HCl 97.5 MG TABLET PO SCH ×3 (09:00→20:05)
[2019-12-24] MEDS: Heparin 5,000 UNITS/ML VIAL SC SCH ×3 (09:00→21:19)
[2019-12-24] MEDS: Insulin Glargine 25 UNITS in Pre-Filled Syringe 1 EACH SC SCH ×2 (09:00→21:19)
--- NOTE | 2019-12-24 09:22 | PRG ---
DATE OF SERVICE: 12/24/2019 SUBJECTIVE: Patient was seen and examined at bedside and overnight events noted. Patient denies any shortness of breath or chest pain or palpitation. No history of nausea or vomiting or diarrhea or fever or chills or cramps. OBJECTIVE: GENERAL: This is an obese male, in no apparent distress. VITAL SIGNS: Temperature 97.6. Heart rate 88. Respiratory rate 18. Blood pressure 156/98. HEENT: Atraumatic, normocephalic. Oral mucosa is moist NECK: Supple. CARDIOVASCULAR: S1, S2 heard. Rate and rhythm regular. RESPIRATORY: Clear to auscultation. GASTROINTESTINAL: Abdomen is soft. MUSCULOSKELETAL: No tenderness. No edema. DERMATOLOGIC: No skin rash. NEUROLOGIC: Alert and awake and oriented X3. No focal neurologic deficits. Moving all the extremities. PSYCHIATRIC: Mood and affect normal. LABORATORY DATA: Potassium 4.3, BUN is 67, creatinine 7.4. ASSESSMENT AND PLAN: 1. Acute kidney injury on chronic kidney disease, stage 3. Remains dialysis dependent. We will continue to monitor. 2. Hyponatremia, limit fluid intake. We will remove fluid dialysis. 3. Acidosis stable. 4. Edema, we will remove fluid, dialysis as tolerated. 5. Anemia of chronic disease. 6. Hypertension, stable. 7. Continue dialysis as tolerated. The patient is seen during dialysis and tolerating so far. Job ID: [id number]
--- NOTE | 2019-12-24 10:42 | PRG ---
DATE OF SERVICE: 12/24/2019 SUBJECTIVE: Vitor Bradley is a 54-year-old gentleman, this morning, he is doing better. He is being dialyzed. OBJECTIVE: VITAL SIGNS: Temperature 97, pulse 88, respirations 18, saturations 90% on room air, blood pressure 156/93. CHEST: No wheezing or crackles. CARDIAC: Normal S1 and S2, no gallops. ABDOMEN: No mass. LABORATORY DATA: Blood sugar is 261, creatinine is 7.4. ASSESSMENT AND PLAN: Acute renal failure secondary to sepsis, diabetes, morbid obesity, sleep apnea, severe deconditioning. Eventually placement. Continue PT, supportive care. We will follow. Job ID: [id number]
[2019-12-24] MEDS: Famotidine 20 MG TAB PER TUBE SCH (13:33)
[2019-12-24] MEDS: Saccharomyces boulardii 250 MG CAP PO SCH (13:34)
[2019-12-24] MEDS: Tamsulosin HCl 0.4 MG CAP PO SCH ×2 (13:34→21:18)
[2019-12-24] MEDS: Oxybutynin 5 MG TAB PO SCH (13:35)
[2019-12-24] MEDS: Furosemide 80 MG TAB PO SCH (13:35)
[2019-12-24] MEDS: Carvedilol 3.125 MG TAB PO SCH ×2 (13:35→20:05)
[2019-12-24] MEDS: Amiodarone 200 MG TAB PO SCH (13:35)
[2019-12-24] MEDS: Senokot S 8.6-50 MG TAB PO SCH ×2 (13:36→21:20)
[2019-12-24] MEDS: Tuberculin PPD 0.1 ML VIAL I-DERMAL SCH (13:37)
--- NOTE | 2019-12-24 13:43 | PDOC.HOSPP ---
- Subjective Encounter Date: 12/24/19 Encounter Time: 12:00 Subjective: getting HD no sob - Objective Vital Signs & Weight: Vital Signs (12 hours) Temp Pulse Resp BP Pulse Ox 12/24/19 08:10 97.6 F 88 18 156/93 H 99 12/24/19 07:06 85 20 100 12/24/19 02:22 99 Weight Admit Weight 295 lb 6.711 oz Weight 255 lb 4.725 oz Most Recent Monitor Data Heart Rate from ECG 92 NIBP 138/72 NIBP BP-Mean 94 Respiration from ECG 20 SpO2 89 I&O: 12/23/19 12/24/19 12/25/19 06:59 06:59 06:59 Intake Total 1540 1610 Output Total 700 Balance 1540 910 Result Diagrams: 12/22/19 05:44 12/24/19 05:15 Additional Labs: Accuchecks 12/24/19 12/23/19 12/23/19 05:23 20:52 16:51 POC Glucose 261 H 225 H 225 H Hospitalist ROS - Medication Medications: Active Medications Generic Name Dose Route Start Last Admin Trade Name Freq PRN Reason Stop Dose Admin Acetaminophen 1,000 mg 11/26/19 14:59 12/19/19 17:58 Tylenol Elixir PO 1,000 mg Q6H PRN Administration Headache/Fever or Pain Albuterol/Ipratropium 3 ml 12/07/19 14:30 12/24/19 10:47 Duoneb NEB Not Given [id number] LEEANN Amiodarone HCl 400 mg 12/16/19 09:00 12/24/19 13:35 Cordarone PO 400 mg QAM LEEANN Administration Lipase/Protease/Amylase 1 cap 12/07/19 04:46 12/07/19 04:59 Leonides Tejada [id number] FS 1 cap .PER PROTOCOL PRN Administration TUBE OCCLUSION PROTOCOL Bisacodyl 10 mg 12/24/19 06:11 12/24/19 06:[address] 10 mg DAILYPRN PRN Administration Constipation Carvedilol 3.125 mg 12/06/19 17:00 12/24/19 13:35 Coreg PO 3.125 mg BID-WM LEEANN Administration Epoetin Alex-epbx 10,000 unit 12/09/19 09:11 12/23/19 14:50 Retacrit IVP 10,000 unit TuThSa LEEANN Administration Famotidine 20 mg 12/14/19 09:00 12/24/19 13:33 Pepcid PER TUBE 20 mg DAILY LEEANN Administration Furosemide 80 mg 12/24/19 07:30 12/24/19 13:35 Lasix PO 80 mg DAILY-AC LEEANN Administration Heparin Sodium (Porcine) 5,000 units 11/26/19 15:00 12/24/19 09:00 Heparin SC Not Given TID LEEANN Cefazolin Sodium/Dextrose 2 gm 50 mls @ 100 mls/hr 12/13/19 11:00 12/23/19 11 :10 / Device IVPB 50 mls 1100 LEEANN Administration Insulin Glargine 25 units/ 0.25 mls @ 0 mls/hr 12/21/19 09:00 12/24/19 09:00 Miscellaneous Medication SC Not Given Q12HR LEEANN As Directed Insulin Human Lispro 0 units 11/29/19 13:57 12/24/19 05:23 Humalog SC 6 units .MODERATE SLIDING SC PRN Administration Moderate Correctional Scale Levofloxacin 500 mg 12/19/19 16:30 12/23/19 17:21 Levaquin PO 500 mg Q2D LEEANN Administration Morphine Sulfate 2 mg 12/19/19 07:55 12/19/19 16:29 Morphine SLOW IVP 2 mg Q4H PRN Administration pain Oxybutynin Chloride 5 mg 12/20/19 09:00 12/24/19 13:35 Ditropan PO 5 mg DAILY LEEANN Administration Phenazopyridine HCl 97.5 mg 12/19/19 09:00 12/24/19 13:34 Azo Standard PO 97.5 mg PC [facility] Administration Saccharomyces Boulardii 250 mg 12/18/19 09:00 12/24/19 13:34 Florastor PO 250 mg DAILY LEEANN Administration Senna/Docusate Sodium 2 tab 12/17/19 21:00 12/24/19 13:36 Senokot S PO Not Given BID [facility] Sodium Bicarbonate 650 mg 12/07/19 04:46 12/07/19 04:59 Bicarbonate, Sodium PER TUBE 650 mg .PER PROTOCOL PRN Administration ENTERAL TUBE OCCLUSION Sodium Chloride 10 ml 12/01/19 17:34 12/22/19 07:52 Flush - Normal Saline IVF 10 ml PRN PRN Administration Saline Flush Tamsulosin HCl 0.4 mg 12/19/19 21:00 12/24/19 13:34 Flomax PO 0.4 mg BID LEEANN Administration Tuberculin PPD 0.1 ml 12/23/19 10:23 12/24/19 13:37 Tuberculin Ppd I-DERMAL 12/26/19 10:24 Not Given NOW LEEANN - Exam General Appearance: awake alert Eye: PERRL, anicteric sclera ENT: no oropharyngeal lesions, moist mucosa Neck: supple, no JVD Heart: RRR, no murmur Respiratory: no wheezes, no rales Gastrointestinal: soft, non-tender, non-distended, normal bowel sounds Extremities: no cyanosis, no edema Neurological: cranial nerve grossly intact, no focal deficits Psychiatric: A&O x 3 Hosp A/P (1) MSSA bacteremia Code(s): R78.81 - BACTEREMIA Status: Acute (2) Sepsis Code(s): A41.9 - SEPSIS, UNSPECIFIED ORGANISM Status: Resolved Qualifiers: Sepsis type: methicillin susceptible Staphylococcus aureus Sepsis acute organ dysfunction status: with acute organ dysfunction Severe sepsis acute organ dysfunction type: acute renal failure Severe sepsis shock status: unspecified (3) Acute renal failure Status: Acute Qualifiers: Acute renal failure type: with acute tubular necrosis Qualified Code(s): N17.0 - Acute kidney failure with tubular necrosis (4) Acute on chronic systolic heart failure Code(s): I50.23 - ACUTE ON CHRONIC SYSTOLIC (CONGESTIVE) HEART FAILURE Status : Acute (5) Acute respiratory failure Code(s): J96.00 - ACUTE RESPIRATORY FAILURE, UNSP W HYPOXIA OR HYPERCAPNIA Status: Acute Qualifiers: Respiratory failure complication: hypoxia and hypercapnia Qualified Code(s) : J96.01 - Acute respiratory failure with hypoxia; J96.02 - Acute respiratory failure with hypercapnia (6) Atrial fibrillation with RVR Code(s): I48.91 - UNSPECIFIED ATRIAL FIBRILLATION Status: Chronic (7) Diabetes mellitus type 2 in obese Code(s): E11.69 - TYPE 2 DIABETES MELLITUS WITH OTHER SPECIFIED COMPLICATION; E66.9 - OBESITY, UNSPECIFIED Status: Chronic (8) Hypertension Code(s): I10 - ESSENTIAL (PRIMARY) HYPERTENSION Status: Chronic Qualifiers: Hypertension type: essential hypertension Qualified Code(s): I10 - Essential (primary) hypertension (9) NICM (nonischemic cardiomyopathy) Code(s): I42.8 - OTHER CARDIOMYOPATHIES Status: Chronic (10) BRANDON (obstructive sleep apnea) Code(s): G47.33 - OBSTRUCTIVE SLEEP APNEA (ADULT) (PEDIATRIC) Status: Chronic (11) UTI (urinary tract infection) Status: Acute Qualifiers: Urinary tract infection type: acute cystitis Hematuria presence: with hematuria Qualified Code(s): N30.01 - Acute cystitis with hematuria (12) Urinary retention Code(s): R33.9 - RETENTION OF URINE, UNSPECIFIED Status: Acute (13) Obesity (BMI 30-39.9) Code(s): E66.9 - OBESITY, UNSPECIFIED Status: Acute (14) Anemia, normocytic normochromic Code(s): D64.9 - ANEMIA, UNSPECIFIED Status: Chronic - Plan is on ancef for bacteremia, add levaquin for pseudomonas in urine. On HD mon/wed/frid, needs outpt HD chair. Had his esquivel removed atleast a week back, had urinary retention which has resolved, may insert esquivel if retention is >500mls. obesity with bmi of 39 on amiodarone, lantus, nebs, coreg. prognosis guarded s/p explantation of aicd due to bacteremia, no obvious veg on CELIA per prior notes. Needs to be oob to chair and mobilize in hallway as tolerated will need placement is severely deconditioned, counselled patient to mobilize, encourage po intake. family wants rehab, cm is looking into it.
[2019-12-24] MEDS: CEFAZOLIN 2 GM in Premix Bag 1 BAG IVPB SCH (14:50)
[2019-12-25] MEDS: HumaLOG 300 UNITS/3 ML VIAL SC PRN ×3 (05:37→16:53)
[2019-12-25 06:42] LABS: Anion Gap 18 mmol/L (10-20); BUN (Urea Nitrogen) 51 mg/dL (8.4-25.7); Calc. Creatinine Clearance 22 mL/min (70-130); Calcium 8.8 mg/dL (7.8-10.44); Carbon Dioxide 23 mmol/L (22-29); Chloride 91 mmol/L (98-107); Estimated GFR-MDRD 9; Glucose 219 mg/dL (70-105); Potassium 4.1 mmol/L (3.5-5.1); Sodium 128 mmol/L (136-145)
--- NOTE | 2019-12-25 10:05 | PDOC.HOSPP ---
- Subjective Encounter Date: 12/25/19 Encounter Time: 08:15 Subjective: no sob, feels better says he is eating well now amb around 3ft with PT yesterday - Objective Vital Signs & Weight: Vital Signs (12 hours) Temp Pulse Resp BP Pulse Ox 12/25/19 07:44 98.1 F 88 22 H 135/82 99 12/25/19 06:23 87 20 98 12/25/19 02:44 91 20 96 12/24/19 23:18 94 20 96 Weight Admit Weight 295 lb 6.711 oz Weight 255 lb 4.725 oz Most Recent Monitor Data Heart Rate from ECG 92 NIBP 138/72 NIBP BP-Mean 94 Respiration from ECG 20 SpO2 89 I&O: 12/24/19 12/25/19 12/26/19 06:59 06:59 06:59 Intake Total 1610 480 Output Total 700 Balance 910 480 Result Diagrams: 12/22/19 05:44 12/25/19 05:44 Additional Labs: Accuchecks 12/25/19 12/24/19 12/24/19 05:13 21:05 17:06 POC Glucose 270 H 294 H 223 H Hospitalist ROS - Medication Medications: Active Medications Generic Name Dose Route Start Last Admin Trade Name Freq PRN Reason Stop Dose Admin Acetaminophen 1,000 mg 11/26/19 14:59 12/19/19 17:58 Tylenol Elixir PO 1,000 mg Q6H PRN Administration Headache/Fever or Pain Albuterol/Ipratropium 3 ml 12/07/19 14:30 12/25/19 06:23 Duoneb NEB 3 ml [id number] LEEANN Administration Amiodarone HCl 400 mg 12/16/19 09:00 12/24/19 13:35 Cordarone PO 400 mg QAM LEEANN Administration Lipase/Protease/Amylase 1 cap 12/07/19 04:46 12/07/19 04:59 Leonides Tejada [id number] FS 1 cap .PER PROTOCOL PRN Administration TUBE OCCLUSION PROTOCOL Bisacodyl 10 mg 12/24/19 06:11 12/24/19 06:21 Dulcolax AL 10 mg DAILYPRN PRN Administration Constipation Carvedilol 3.125 mg 12/06/19 17:00 12/24/19 20:05 Coreg PO 3.125 mg BID-WM LEEANN Administration Epoetin Alex-epbx 10,000 unit 12/09/19 09:11 12/23/19 14:50 Retacrit IVP 10,000 unit TuThSa LEEANN Administration Famotidine 20 mg 12/14/19 09:00 12/24/19 13:33 Pepcid PER TUBE 20 mg DAILY LEEANN Administration Furosemide 80 mg 12/24/19 07:30 12/24/19 13:35 Lasix PO 80 mg DAILY-AC LEEANN Administration Heparin Sodium (Porcine) 5,000 units 11/26/19 15:00 12/24/19 21:19 Heparin SC 5,000 units TID LEEANN Administration Cefazolin Sodium/Dextrose 2 gm 50 mls @ 100 mls/hr 12/13/19 11:00 12/24/19 14 :50 / Device IVPB 50 mls 1100 LEEANN Administration Insulin Glargine 25 units/ 0.25 mls @ 0 mls/hr 12/21/19 09:00 12/24/19 21:19 Miscellaneous Medication SC 0.25 mls Q12HR LEEANN Administration As Directed Insulin Human Lispro 0 units 11/29/19 13:57 12/25/19 05:37 Humalog SC 6 units .MODERATE SLIDING SC PRN Administration Moderate Correctional Scale Levofloxacin 500 mg 12/19/19 16:30 12/23/19 17:21 Levaquin PO 500 mg Q2D LEEANN Administration Morphine Sulfate 2 mg 12/19/19 07:55 12/19/19 16:29 Morphine SLOW IVP 2 mg Q4H PRN Administration pain Oxybutynin Chloride 5 mg 12/20/19 09:00 12/24/19 13:35 Ditropan PO 5 mg DAILY LEEANN Administration Phenazopyridine HCl 97.5 mg 12/19/19 09:00 12/24/19 20:05 Azo Standard PO 97.5 mg PC LEEANN Administration Saccharomyces Boulardii 250 mg 12/18/19 09:00 12/24/19 13:34 Florastor PO 250 mg DAILY LEEANN Administration Senna/Docusate Sodium 2 tab 12/17/19 21:00 12/24/19 21:20 Senokot S PO 2 tab BID LEAENN Administration Sodium Bicarbonate 650 mg 12/07/19 04:46 12/07/19 04:59 Bicarbonate, Sodium PER TUBE 650 mg .PER PROTOCOL PRN Administration ENTERAL TUBE OCCLUSION Sodium Chloride 10 ml 12/01/19 17:34 12/24/19 14:51 Flush - Normal Saline IVF 10 ml PRN PRN Administration Saline Flush Tamsulosin HCl 0.4 mg 12/19/19 21:00 12/24/19 21:18 Flomax PO 0.4 mg BID LEEANN Administration Tuberculin PPD 0.1 ml 12/23/19 10:23 12/24/19 13:37 Tuberculin Ppd I-DERMAL 12/26/19 10:24 Not Given NOW LEEANN - Exam General Appearance: NAD, awake alert Eye: PERRL, anicteric sclera ENT: no oropharyngeal lesions, moist mucosa Neck: supple, no JVD Heart: RRR, no murmur Respiratory: no wheezes, no rales Gastrointestinal: soft, non-tender, non-distended, normal bowel sounds Extremities: no cyanosis, no edema Neurological: cranial nerve grossly intact, no focal deficits Hosp A/P (1) MSSA bacteremia Code(s): R78.81 - BACTEREMIA Status: Acute (2) Sepsis Code(s): A41.9 - SEPSIS, UNSPECIFIED ORGANISM Status: Resolved Qualifiers: Sepsis type: methicillin susceptible Staphylococcus aureus Sepsis acute organ dysfunction status: with acute organ dysfunction Severe sepsis acute organ dysfunction type: acute renal failure Severe sepsis shock status: unspecified (3) Acute renal failure Status: Acute Qualifiers: Acute renal failure type: with acute tubular necrosis Qualified Code(s): N17.0 - Acute kidney failure with tubular necrosis (4) Acute on chronic systolic heart failure Code(s): I50.23 - ACUTE ON CHRONIC SYSTOLIC (CONGESTIVE) HEART FAILURE Status : Resolved (5) Acute respiratory failure Code(s): J96.00 - ACUTE RESPIRATORY FAILURE, UNSP W HYPOXIA OR HYPERCAPNIA Status: Resolved Qualifiers: Respiratory failure complication: hypoxia and hypercapnia Qualified Code(s) : J96.01 - Acute respiratory failure with hypoxia; J96.02 - Acute respiratory failure with hypercapnia (6) Atrial fibrillation with RVR Code(s): I48.91 - UNSPECIFIED ATRIAL FIBRILLATION Status: Chronic (7) Diabetes mellitus type 2 in obese Code(s): E11.69 - TYPE 2 DIABETES MELLITUS WITH OTHER SPECIFIED COMPLICATION; E66.9 - OBESITY, UNSPECIFIED Status: Chronic (8) Hypertension Code(s): I10 - ESSENTIAL (PRIMARY) HYPERTENSION Status: Chronic Qualifiers: Hypertension type: essential hypertension Qualified Code(s): I10 - Essential (primary) hypertension (9) NICM (nonischemic cardiomyopathy) Code(s): I42.8 - OTHER CARDIOMYOPATHIES Status: Chronic (10) BRANDON (obstructive sleep apnea) Code(s): G47.33 - OBSTRUCTIVE SLEEP APNEA (ADULT) (PEDIATRIC) Status: Chronic (11) UTI (urinary tract infection) Status: Acute Qualifiers: Urinary tract infection type: acute cystitis Hematuria presence: with hematuria Qualified Code(s): N30.01 - Acute cystitis with hematuria (12) Urinary retention Code(s): R33.9 - RETENTION OF URINE, UNSPECIFIED Status: Resolved (13) Obesity (BMI 30-39.9) Code(s): E66.9 - OBESITY, UNSPECIFIED Status: Chronic (14) Anemia, normocytic normochromic Code(s): D64.9 - ANEMIA, UNSPECIFIED Status: Chronic - Plan is on ancef for bacteremia, levaquin for pseudomonas in urine. On HD mon/wed/frid, needs outpt HD chair. had urinary retention which has resolved, may insert esquivel if retention is > 500mls. obesity with bmi of 39 on amiodarone, lantus, nebs, coreg. prognosis guarded s/p explantation of aicd due to bacteremia, no obvious veg on CELIA per prior notes. is beginning to ambulate now, to mobilize more as tolerated. will need placement/rehab is severely deconditioned, counselled patient to mobilize, encourage po intake. is starting to eat better now
[2019-12-25] MEDS: Saccharomyces boulardii 250 MG CAP PO SCH (10:33)
[2019-12-25] MEDS: Tamsulosin HCl 0.4 MG CAP PO SCH ×2 (10:34→20:30)
[2019-12-25] MEDS: Carvedilol 3.125 MG TAB PO SCH ×2 (10:34→19:17)
[2019-12-25] MEDS: Famotidine 20 MG TAB PER TUBE SCH (10:34)
[2019-12-25] MEDS: Phenazopyridine HCl 97.5 MG TABLET PO SCH ×3 (10:34→19:17)
[2019-12-25] MEDS: Amiodarone 200 MG TAB PO SCH (10:34)
[2019-12-25] MEDS: Oxybutynin 5 MG TAB PO SCH (10:34)
[2019-12-25] MEDS: Insulin Glargine 25 UNITS in Pre-Filled Syringe 1 EACH SC SCH ×2 (10:35→20:31)
[2019-12-25] MEDS: Furosemide 80 MG TAB PO SCH (10:35)
[2019-12-25] MEDS: Senokot S 8.6-50 MG TAB PO SCH ×2 (10:35→20:31)
[2019-12-25] MEDS: Heparin 5,000 UNITS/ML VIAL SC SCH ×3 (10:39→20:31)
[2019-12-25] MEDS: Tuberculin PPD 0.1 ML VIAL I-DERMAL SCH (11:24)
--- NOTE | 2019-12-25 12:08 | PRG ---
DATE OF SERVICE: 12/25/2019 SUBJECTIVE: Vitor Bradley this morning is doing better, awake, alert, and responsive. OBJECTIVE: VITAL SIGNS: Temperature 98, pulse 88, respirations 20, blood pressure CHEST: Decreased breath sounds, no wheezing. CARDIAC: Normal S1, S2. No gallops. ABDOMEN: No masses. IMPRESSION: 1. Renal failure, on dialysis. 2. Sepsis syndrome. 3. Morbid obesity. 4. Sleep apnea. 5. Respiratory failure. He needs ongoing aggressive PT, eventually placement. Job ID: [id number]
--- NOTE | 2019-12-25 13:06 | PRG ---
DATE OF SERVICE: 12/25/2019 SUBJECTIVE: Patient was seen and examined at bedside and overnight events noted. Patient denies any shortness of breath or chest pain or palpitation. No history of nausea or vomiting or diarrhea or fever or chills or cramps. OBJECTIVE: GENERAL: This is a well-built male, in no apparent distress. VITAL SIGNS: Temperature 98.1. Heart rate 80. Respiratory rate 20. Blood pressure 134/82. HEENT: Atraumatic, normocephalic. Oral mucosa is moist NECK: Supple. CARDIOVASCULAR: S1, S2 heard. Rate and rhythm regular. RESPIRATORY: Clear to auscultation. GASTROINTESTINAL: Abdomen is soft. MUSCULOSKELETAL: No tenderness. No edema. DERMATOLOGIC: No skin rash. NEUROLOGIC: Alert and awake and oriented X3. No focal neurologic deficits. Moving all the extremities. PSYCHIATRIC: Mood and affect normal. LABORATORY DATA: Potassium is 4.1, sodium is 128, BUN is 51, creatinine is 6.2. ASSESSMENT AND PLAN: 1. Acute kidney injury on chronic kidney disease stage 3, dialysis dependent. Continue dialysis. 2. Hyponatremia. 3. Acidosis. 4. Edema. 5. Anemia of chronic disease. 6. Hypertension. Labs are stable. We will continue dialysis on Friday, Friday, and Friday as tolerated. Job ID: [id number]
[2019-12-25] MEDS: CEFAZOLIN 2 GM in Premix Bag 1 BAG IVPB SCH (13:49)
[2019-12-25] MEDS: Morphine 2 MG/ML SYRINGE SLOW IVP PRN (13:51)
--- NOTE | 2019-12-25 15:48 | PRG ---
DATE OF SERVICE: 12/25/2019 SUBJECTIVE: The patient is still on dialysis. He developed a leukocytoclastic vasculitis, but it is fading now, complaining of pain in the right calf. No diarrhea. He is voiding quite a bit. No abdominal pain. OBJECTIVE: VITAL SIGNS: His temperature has been normal. Blood pressure 130/80, pulse 81, respirations 18, O2 saturation 98. SKIN: Shows purpuric lesions in the upper and lower extremities consistent with a leukocytoclastic vasculitis secondary to his bacteremia. He denies any back pain. No back tenderness. LUNGS: Show symmetric air entry. HEART: S1 and S2, regular rate. ABDOMEN: Soft, moderately distended. LABORATORY DATA: His white cell count was 20,000 on and then went down to 12,000 on the and December 22 was 14.5, hemoglobin 8.9. The neutrophil percentage, however, has gone down to 64% and the creatinine is still elevated at 6.26. He is still being dialyzed three times a week. The repeat blood cultures from December 05 negative. He is currently on Ancef and levofloxacin was started as well. 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 The patient will be transitioned at this point to cefazolin 3 g after each dialysis. Levofloxacin 250 daily. We will check a duplex ultrasound of the right calf. Job ID: [id number]
[2019-12-25] MEDS ORDERED: Ketorolac Tromethamine 30 MG/ML VIAL IVP PRN (16:29)
[2019-12-25] MEDS: EPOETIN ALFA-EPBX (ESRD) 10,000 UNIT/ML VIAL IVP SCH (19:40)
[2019-12-26] MEDS: HumaLOG 300 UNITS/3 ML VIAL SC PRN ×2 (05:46→17:13)
[2019-12-26] MEDS: Tamsulosin HCl 0.4 MG CAP PO SCH ×2 (08:28→21:28)
[2019-12-26] MEDS: Amiodarone 200 MG TAB PO SCH (08:28)
[2019-12-26] MEDS: Saccharomyces boulardii 250 MG CAP PO SCH (08:28)
[2019-12-26] MEDS: Phenazopyridine HCl 97.5 MG TABLET PO SCH ×3 (08:28→17:13)
[2019-12-26] MEDS: Famotidine 20 MG TAB PER TUBE SCH (08:28)
[2019-12-26] MEDS: Insulin Glargine 25 UNITS in Pre-Filled Syringe 1 EACH SC SCH ×2 (08:29→21:27)
[2019-12-26] MEDS: Furosemide 80 MG TAB PO SCH (08:29)
[2019-12-26] MEDS: Oxybutynin 5 MG TAB PO SCH (08:29)
[2019-12-26] MEDS: Heparin 5,000 UNITS/ML VIAL SC SCH ×3 (08:29→21:27)
[2019-12-26] MEDS: Carvedilol 3.125 MG TAB PO SCH ×2 (08:29→17:13)
[2019-12-26] MEDS: Senokot S 8.6-50 MG TAB PO SCH ×2 (08:35→21:28)
--- NOTE | 2019-12-26 09:02 | ULT ---
RIGHT LOWER EXTREMITY VENOUS DUPLEX EXAM: HISTORY: Right calf pain. TECHNIQUE: Real-time color Doppler evaluation of the right lower extremity was performed from the groin to the c casimiro. This includes evaluation of the common femoral, superficial femoral, profunda femoral, saphenous , popliteal and posterior tibial veins. FINDINGS: This shows a patent deep venous system. There is normal compressibility and augmentation. There is no evidence of DVT. IMPRESSION: No evidence of deep venous thrombosis of the right lower extremity. POS: TATIANA
--- NOTE | 2019-12-26 11:49 | PDOC.HOSPP ---
- Subjective Encounter Date: 12/26/19 Encounter Time: 08:40 Subjective: no sob, is eating well, is drinking 1 can of nepro or glucerna/day - Objective Vital Signs & Weight: Vital Signs (12 hours) Temp Pulse Resp BP Pulse Ox 12/26/19 10:41 86 16 98 12/26/19 08:00 97.9 F 86 18 134/81 98 12/26/19 07:25 81 16 96 12/26/19 03:00 16 Weight Admit Weight 295 lb 6.711 oz Weight 255 lb 4.725 oz Most Recent Monitor Data Heart Rate from ECG 92 NIBP 138/72 NIBP BP-Mean 94 Respiration from ECG 20 SpO2 89 I&O: 12/25/19 12/26/19 12/27/19 06:59 06:59 06:59 Intake Total 480 700 Balance 480 700 Result Diagrams: 12/22/19 05:44 12/25/19 05:44 Additional Labs: Accuchecks 12/26/19 12/25/19 12/25/19 05:15 19:50 16:20 POC Glucose 195 H 142 H 239 H Hospitalist ROS - Medication Medications: Active Medications Generic Name Dose Route Start Last Admin Trade Name Freq PRN Reason Stop Dose Admin Acetaminophen 1,000 mg 11/26/19 14:59 12/19/19 17:58 Tylenol Elixir PO 1,000 mg Q6H PRN Administration Headache/Fever or Pain Albuterol/Ipratropium 3 ml 12/07/19 14:30 12/26/19 10:41 Duoneb NEB 3 ml [id number] LEEANN Administration Amiodarone HCl 400 mg 12/16/19 09:00 12/26/19 08:28 Cordarone PO 400 mg QAM LEEANN Administration Lipase/Protease/Amylase 1 cap 12/07/19 04:46 12/07/19 04:59 Leonides Tejada [id number] FS 1 cap .PER PROTOCOL PRN Administration TUBE OCCLUSION PROTOCOL Bisacodyl 10 mg 12/24/19 06:11 12/24/19 06:21 Dulcolax SC 10 mg DAILYPRN PRN Administration Constipation Carvedilol 3.125 mg 12/06/19 17:00 12/26/19 08:29 Coreg PO 3.125 mg BID-WM LEEANN Administration Famotidine 20 mg 12/14/19 09:00 12/26/19 08:28 Pepcid PER TUBE 20 mg DAILY LEEANN Administration Furosemide 80 mg 12/24/19 07:30 12/26/19 08:29 Lasix PO 80 mg DAILY-AC LEEANN Administration Heparin Sodium (Porcine) 5,000 units 11/26/19 15:00 12/26/19 08:29 Heparin SC 5,000 units TID LEEANN Administration Insulin Glargine 25 units/ 0.25 mls @ 0 mls/hr 12/21/19 09:00 12/26/19 08:29 Miscellaneous Medication SC 0.25 mls Q12HR LEEANN Administration As Directed Insulin Human Lispro 0 units 11/29/19 13:57 12/26/19 05:46 Humalog SC 2 units .MODERATE SLIDING SC PRN Administration Moderate Correctional Scale Ketorolac Tromethamine 15 mg 12/25/19 16:29 12/25/19 16:47 Toradol IVP 15 mg Q6H PRN Administration Pain Levofloxacin 500 mg 12/19/19 16:30 12/25/19 19:17 Levaquin PO 12/27/19 23:59 500 mg Q2D [facility] Administration Morphine Sulfate 2 mg 12/19/19 07:55 12/25/19 13:51 Morphine SLOW IVP 2 mg Q4H PRN Administration pain Oxybutynin Chloride 5 mg 12/20/19 09:00 12/26/19 08:29 Ditropan PO 5 mg DAILY [facility] Administration Phenazopyridine HCl 97.5 mg 12/19/19 09:00 12/26/19 08:28 Azo Standard PO 97.5 mg PC [facility] Administration Saccharomyces Boulardii 250 mg 12/18/19 09:00 12/26/19 08:28 Florastor PO 250 mg DAILY [facility] Administration Senna/Docusate Sodium 2 tab 12/17/19 21:00 12/26/19 08:35 Senokot S PO Not Given BID [facility] Sodium Bicarbonate 650 mg 12/07/19 04:46 12/07/19 04:59 Bicarbonate, Sodium PER TUBE 650 mg .PER PROTOCOL PRN Administration ENTERAL TUBE OCCLUSION Sodium Chloride 10 ml 12/01/19 17:34 12/25/19 16:49 Flush - Normal Saline IVF 10 ml PRN PRN Administration Saline Flush Tamsulosin HCl 0.4 mg 12/19/19 21:00 12/26/19 08:28 Flomax PO 0.4 mg BID LEEANN Administration - Exam General Appearance: awake alert Eye: PERRL, anicteric sclera ENT: no oropharyngeal lesions, moist mucosa Neck: supple, no JVD Heart: RRR, no murmur Respiratory: no wheezes, no rales Gastrointestinal: soft, non-tender, non-distended, normal bowel sounds, no guarding, no rigidity Extremities: no cyanosis, no edema Neurological: cranial nerve grossly intact, no focal deficits Psychiatric: A&O x 3 Hosp A/P (1) MSSA bacteremia Code(s): R78.81 - BACTEREMIA Status: Acute (2) Sepsis Code(s): A41.9 - SEPSIS, UNSPECIFIED ORGANISM Status: Resolved Qualifiers: Sepsis type: methicillin susceptible Staphylococcus aureus Sepsis acute organ dysfunction status: with acute organ dysfunction Severe sepsis acute organ dysfunction type: acute renal failure Severe sepsis shock status: unspecified (3) Acute renal failure Status: Acute Qualifiers: Acute renal failure type: with acute tubular necrosis Qualified Code(s): N17.0 - Acute kidney failure with tubular necrosis (4) Acute on chronic systolic heart failure Code(s): I50.23 - ACUTE ON CHRONIC SYSTOLIC (CONGESTIVE) HEART FAILURE Status : Resolved (5) Acute respiratory failure Code(s): J96.00 - ACUTE RESPIRATORY FAILURE, UNSP W HYPOXIA OR HYPERCAPNIA Status: Resolved Qualifiers: Respiratory failure complication: hypoxia and hypercapnia Qualified Code(s) : J96.01 - Acute respiratory failure with hypoxia; J96.02 - Acute respiratory failure with hypercapnia (6) Atrial fibrillation with RVR Code(s): I48.91 - UNSPECIFIED ATRIAL FIBRILLATION Status: Chronic (7) Diabetes mellitus type 2 in obese Code(s): E11.69 - TYPE 2 DIABETES MELLITUS WITH OTHER SPECIFIED COMPLICATION; E66.9 - OBESITY, UNSPECIFIED Status: Chronic (8) Hypertension Code(s): I10 - ESSENTIAL (PRIMARY) HYPERTENSION Status: Chronic Qualifiers: Hypertension type: essential hypertension Qualified Code(s): I10 - Essential (primary) hypertension (9) NICM (nonischemic cardiomyopathy) Code(s): I42.8 - OTHER CARDIOMYOPATHIES Status: Chronic (10) BRANDON (obstructive sleep apnea) Code(s): G47.33 - OBSTRUCTIVE SLEEP APNEA (ADULT) (PEDIATRIC) Status: Chronic (11) UTI (urinary tract infection) Status: Acute Qualifiers: Urinary tract infection type: acute cystitis Hematuria presence: with hematuria Qualified Code(s): N30.01 - Acute cystitis with hematuria (12) Urinary retention Code(s): R33.9 - RETENTION OF URINE, UNSPECIFIED Status: Resolved (13) Obesity (BMI 30-39.9) Code(s): E66.9 - OBESITY, UNSPECIFIED Status: Chronic (14) Anemia, normocytic normochromic Code(s): D64.9 - ANEMIA, UNSPECIFIED Status: Chronic - Plan is on ancef for bacteremia, levaquin for pseudomonas in urine. On HD mon/wed/frid, needs outpt HD chair. had urinary retention which has resolved, may insert esquivel if retention is > 500mls. obesity with bmi of 39 on amiodarone, lantus, nebs, coreg. prognosis guarded s/p explantation of aicd due to bacteremia, no obvious veg on CELIA per prior notes. is beginning to ambulate now, to mobilize more as tolerated. will need placement/rehab is severely deconditioned, counselled patient to mobilize, encourage po intake. is starting to eat better now
--- NOTE | 2019-12-26 13:26 | PRG ---
DATE OF SERVICE: 12/26/2019 SUBJECTIVE: Patient was seen and examined at bedside and overnight events noted. Patient denies any shortness of breath or chest pain or palpitation. No history of nausea or vomiting or diarrhea or fever or chills or cramps. OBJECTIVE: GENERAL: This is a well-built male, in no apparent distress. VITAL SIGNS: Temperature 97.9. Heart rate 83. Respiratory rate 18. Blood pressure 134/81. HEENT: Atraumatic, normocephalic. Oral mucosa is moist NECK: Supple. CARDIOVASCULAR: S1, S2 heard. Rate and rhythm regular. RESPIRATORY: Clear to auscultation. GASTROINTESTINAL: Abdomen is soft. MUSCULOSKELETAL: No tenderness. No edema. DERMATOLOGIC: No skin rash. NEUROLOGIC: Alert and awake and oriented X3. No focal neurologic deficits. Moving all the extremities. PSYCHIATRIC: Mood and affect normal. LABORATORY DATA: Labs not done today. ASSESSMENT AND PLAN: 1. Acute kidney injury on chronic kidney disease stage 3, remains dialysis dependent. Plan is to continue dialysis on Friday, Friday, and Friday. 2. Hyponatremia. Continue to limit fluid intake. 3. Acidosis. 4. Edema. 5. Anemia of chronic disease. 6. Hypertension. Continue Epogen. Continue to limit fluid intake, and we will follow. Continue dialysis on Friday, Friday, and Friday. Job ID: [id number]
[2019-12-26] MEDS: Tuberculin PPD 0.1 ML VIAL I-DERMAL SCH (13:37)
[2019-12-27] MEDS: Heparin 5,000 UNITS/ML VIAL SC SCH ×3 (09:00→20:40)
[2019-12-27] MEDS: Senokot S 8.6-50 MG TAB PO SCH ×2 (09:00→20:39)
--- NOTE | 2019-12-27 09:16 | PRG ---
DATE OF SERVICE: 12/27/2019 SUBJECTIVE: Vitor Bradley is complaining of pain and swelling in the right calf. OBJECTIVE: VITAL SIGNS: Temperature 97, pulse 88, respiratory rate 20, saturations on room air, blood pressure 120/76. GENERAL: He walked yesterday minimal. CHEST: Decreased breath sounds. No wheezing. CARDIAC: Normal S1 and S2. No gallops. ABDOMEN: Massive. EXTREMITIES: No edema. ASSESSMENT AND PLAN: Respiratory failure, supraventricular tachycardia, morbid obesity, Staph sepsis, removal of hardware. Ultrasound of the leg is being ordered. Otherwise, PT, supportive care, eventually placement. Job ID: [id number]
[2019-12-27] MEDS ORDERED: Heparin 10,000 UNITS/ 10 ML VIAL ONE (09:55)
[2019-12-27] MEDS: Saccharomyces boulardii 250 MG CAP PO SCH (10:24)
[2019-12-27] MEDS: Carvedilol 3.125 MG TAB PO SCH ×2 (10:24→17:01)
[2019-12-27] MEDS: Amiodarone 200 MG TAB PO SCH (10:25)
[2019-12-27] MEDS: Famotidine 20 MG TAB PER TUBE SCH (10:25)
[2019-12-27] MEDS: Tamsulosin HCl 0.4 MG CAP PO SCH ×2 (10:25→20:39)
[2019-12-27] MEDS: Furosemide 80 MG TAB PO SCH (10:25)
[2019-12-27] MEDS: Phenazopyridine HCl 97.5 MG TABLET PO SCH ×3 (10:25→17:05)
[2019-12-27] MEDS: Oxybutynin 5 MG TAB PO SCH (10:25)
[2019-12-27] MEDS: Insulin Glargine 25 UNITS in Pre-Filled Syringe 1 EACH SC SCH ×2 (10:26→20:40)
--- NOTE | 2019-12-27 10:52 | PDOC.HOSPP ---
- Subjective Encounter Date: 12/27/19 Encounter Time: 13:00 Subjective: Patient seen in dialysis. No complaints. No events overnight. - Objective Vital Signs & Weight: Vital Signs (12 hours) Temp Pulse Resp BP BP Pulse Ox 12/27/19 10:34 84 16 100 12/27/19 08:52 123/76 12/27/19 07:51 97.4 F L 88 20 123/76 98 12/27/19 07:24 84 16 97 12/26/19 23:40 81 16 96 Weight Admit Weight 295 lb 6.711 oz Weight 255 lb 4.725 oz Most Recent Monitor Data Heart Rate from ECG 92 NIBP 138/72 NIBP BP-Mean 94 Respiration from ECG 20 SpO2 89 I&O: 12/26/19 12/27/19 12/28/19 06:59 06:59 06:59 Intake Total 700 480 Output Total 1800 Balance 700 -1320 Result Diagrams: 12/22/19 05:44 12/25/19 05:44 Additional Labs: Accuchecks 12/27/19 12/26/19 12/26/19 05:20 20:53 16:43 POC Glucose 176 H 151 H 203 H 12/26/19 12:19 POC Glucose 276 H Hospitalist ROS - Review of Systems Constitutional: denies: fever, chills Respiratory: denies: cough, shortness of breath Cardiovascular: denies: chest pain, palpitations Gastrointestinal: denies: nausea, vomiting, abdominal pain - Medication Medications: Active Medications Generic Name Dose Route Start Last Admin Trade Name Freq PRN Reason Stop Dose Admin Acetaminophen 1,000 mg 11/26/19 14:59 12/19/19 17:58 Tylenol Elixir PO 1,000 mg Q6H PRN Administration Headache/Fever or Pain Albuterol/Ipratropium 3 ml 12/07/19 14:30 12/27/19 10:34 Duoneb NEB 3 ml [id number] LEEANN Administration Amiodarone HCl 400 mg 12/16/19 09:00 12/27/19 10:25 Cordarone PO 400 mg QAM LEEANN Administration Lipase/Protease/Amylase 1 cap 12/07/19 04:46 12/07/19 04:59 Leonides Tejada [id number] FS 1 cap .PER PROTOCOL PRN Administration TUBE OCCLUSION PROTOCOL Bisacodyl 10 mg 12/24/19 06:11 02/07/20 06:21 Dulcolax [place] 10 mg DAILYPRN PRN Administration Constipation Carvedilol 3.125 mg 12/06/19 17:00 12/27/19 10:24 Coreg PO 3.125 mg BID-WM LEEANN Administration Famotidine 20 mg 12/14/19 09:00 12/27/19 10:25 Pepcid PER TUBE 20 mg DAILY LEEANN Administration Furosemide 80 mg 12/24/19 07:30 12/27/19 10:25 Lasix PO 80 mg DAILY-AC LEEANN Administration Heparin Sodium (Porcine) 5,000 units 11/26/19 15:00 12/26/19 21:27 Heparin SC 5,000 units TID LEEANN Administration Insulin Glargine 25 units/ 0.25 mls @ 0 mls/hr 12/21/19 09:00 12/27/19 10:26 Miscellaneous Medication SC 0.25 mls Q12HR LEEANN Administration As Directed Insulin Human Lispro 0 units 11/29/19 13:57 12/26/19 17:13 Humalog SC 4 units .MODERATE SLIDING SC PRN Administration Moderate Correctional Scale Ketorolac Tromethamine 15 mg 12/25/19 16:29 12/25/19 16:47 Toradol IVP 15 mg Q6H PRN Administration Pain Levofloxacin 500 mg 12/19/19 16:30 12/25/19 19:17 Levaquin PO 12/27/19 23:59 500 mg Q2D LEEANN Administration Morphine Sulfate 2 mg 12/19/19 07:55 12/25/19 13:51 Morphine SLOW IVP 2 mg Q4H PRN Administration pain Oxybutynin Chloride 5 mg 12/20/19 09:00 12/27/19 10:25 Ditropan PO 5 mg DAILY LEEANN Administration Phenazopyridine HCl 97.5 mg 12/19/19 09:00 12/27/19 10:25 Azo Standard PO 97.5 mg PC LEEANN Administration Saccharomyces Boulardii 250 mg 12/18/19 09:00 12/27/19 10:24 Florastor PO 250 mg DAILY LEEANN Administration Senna/Docusate Sodium 2 tab 12/17/19 21:00 12/26/19 21:28 Senokot S PO 2 tab BID LEEANN Administration Sodium Bicarbonate 650 mg 12/07/19 04:46 12/07/19 04:59 Bicarbonate, Sodium PER TUBE 650 mg .PER PROTOCOL PRN Administration ENTERAL TUBE OCCLUSION Sodium Chloride 10 ml 12/01/19 17:34 12/25/19 16:49 Flush - Normal Saline IVF 10 ml PRN PRN Administration Saline Flush Tamsulosin HCl 0.4 mg 12/19/19 21:00 12/27/19 10:25 Flomax PO 0.4 mg BID LEEANN Administration - Exam General Appearance: NAD, awake alert ENT: moist mucosa Heart: RRR, no murmur, no gallops, no rubs Respiratory: CTAB, no wheezes, no rales, no ronchi Gastrointestinal: soft, non-tender, non-distended, normal bowel sounds Psychiatric: normal affect, normal behavior, A&O x 3 Hosp A/P - Plan Hosp A/P (1) MSSA bacteremia Code(s): R78.81 - BACTEREMIA Status: Acute (2) Sepsis Code(s): A41.9 - SEPSIS, UNSPECIFIED ORGANISM Status: Resolved Qualifiers: Sepsis type: methicillin susceptible Staphylococcus aureus Sepsis acute organ dysfunction status: with acute organ dysfunction Severe sepsis acute organ dysfunction type: acute renal failure Severe sepsis shock status: unspecified (3) Acute renal failure Status: Acute Qualifiers: Acute renal failure type: with acute tubular necrosis Qualified Code(s): N17.0 - Acute kidney failure with tubular necrosis (4) Acute on chronic systolic heart failure Code(s): I50.23 - ACUTE ON CHRONIC SYSTOLIC (CONGESTIVE) HEART FAILURE Status : Resolved (5) Acute respiratory failure Code(s): J96.00 - ACUTE RESPIRATORY FAILURE, UNSP W HYPOXIA OR HYPERCAPNIA Status: Resolved Qualifiers: Respiratory failure complication: hypoxia and hypercapnia Qualified Code(s) : J96.01 - Acute respiratory failure with hypoxia; J96.02 - Acute respiratory failure with hypercapnia (6) Atrial fibrillation with RVR Code(s): I48.91 - UNSPECIFIED ATRIAL FIBRILLATION Status: Chronic (7) Diabetes mellitus type 2 in obese Code(s): E11.69 - TYPE 2 DIABETES MELLITUS WITH OTHER SPECIFIED COMPLICATION; E66.9 - OBESITY, UNSPECIFIED Status: Chronic (8) Hypertension Code(s): I10 - ESSENTIAL (PRIMARY) HYPERTENSION Status: Chronic Qualifiers: Hypertension type: essential hypertension Qualified Code(s): I10 - Essential (primary) hypertension (9) NICM (nonischemic cardiomyopathy) Code(s): I42.8 - OTHER CARDIOMYOPATHIES Status: Chronic (10) BRANDON (obstructive sleep apnea) Code(s): G47.33 - OBSTRUCTIVE SLEEP APNEA (ADULT) (PEDIATRIC) Status: Chronic (11) UTI (urinary tract infection) Status: Acute Qualifiers: Urinary tract infection type: acute cystitis Hematuria presence: with hematuria Qualified Code(s): N30.01 - Acute cystitis with hematuria (12) Urinary retention Code(s): R33.9 - RETENTION OF URINE, UNSPECIFIED Status: Resolved (13) Obesity (BMI 30-39.9) Code(s): E66.9 - OBESITY, UNSPECIFIED Status: Chronic (14) Anemia, normocytic normochromic Code(s): D64.9 - ANEMIA, UNSPECIFIED Status: Chronic is on ancef for bacteremia, levaquin for pseudomonas in urine. On HD mon/wed/frid, needs outpt HD chair. had urinary retention which has resolved, may insert esquivel if retention is > 500mls. obesity with bmi of 39 on amiodarone, lantus, nebs, coreg. prognosis guarded s/p explantation of aicd due to bacteremia, no obvious veg on CELIA per prior notes. is beginning to ambulate now, to mobilize more as tolerated. will need placement/rehab is severely deconditioned, counselled patient to mobilize, encourage po intake. is starting to eat better now right calf pain, U/S neg for DVT Awaiting rehab placement
--- NOTE | 2019-12-27 11:44 | PRG ---
DATE OF SERVICE: 12/27/2019 SUBJECTIVE: A 54-year-old gentleman being seen for end-stage renal disease. The patient denied nausea, vomiting, or chest pain. OBJECTIVE: GENERAL: The patient is awake and alert VITAL SIGNS: Pulse 65, breathing 16, blood pressure 123/70. GENERAL APPEARANCE AND MENTAL STATUS: Fair. HEAD/NECK: Normocephalic. Atraumatic. EYES: EOMI. No deformity. EARS: Clear. No ulcers. NOSE: Intact. No lesions. MOUTH: Clear. No discharge. THROAT: Clear. No exudate. LUNGS: Clear. No crackles. CARDIAC: S1, S2. No rub. ABDOMEN: Benign. Bowel sounds positive. GENITALIA/RECTUM: Powell absent. BACK/EXTREMITIES: Edema 0+. NEUROLOGICAL: Alert and motor intact. SKIN: LYMPHATICS: LABORATORY DATA: Labs reviewed. ASSESSMENT AND PLAN: 1. Stage 3 chronic kidney disease, plan dialysis. 2. Hypertension, stable. 3. Anemia, stable. 4. Medication based on GFR appropriate. Job ID: [id number]
[2019-12-27] MEDS ORDERED: CEFAZOLIN 1 GM VIAL IM SCH (12:00)
[2019-12-27] MEDS: EPOETIN ALFA-EPBX (ESRD) 10,000 UNIT/ML VIAL IVP SCH (13:43)
[2019-12-27 16:24] LABS: HBSAg Index 0.28 S/CO (0-0.99); Hep B Surf Ag Non-Reactive S/CO (NonReactive)
[2019-12-27] MEDS: CEFAZOLIN 3 GM in Sodium Chloride 0.9% 100 ML IVPB SCH (17:49)
[2019-12-28] MEDS: Furosemide 80 MG TAB PO SCH (08:11)
[2019-12-28] MEDS: Oxybutynin 5 MG TAB PO SCH (08:11)
[2019-12-28] MEDS: Famotidine 20 MG TAB PER TUBE SCH (08:11)
[2019-12-28] MEDS: Carvedilol 3.125 MG TAB PO SCH ×2 (08:11→17:01)
[2019-12-28] MEDS: Amiodarone 200 MG TAB PO SCH (08:11)
[2019-12-28] MEDS: Phenazopyridine HCl 97.5 MG TABLET PO SCH ×3 (08:11→17:01)
[2019-12-28] MEDS: Saccharomyces boulardii 250 MG CAP PO SCH (08:12)
[2019-12-28] MEDS: Senokot S 8.6-50 MG TAB PO SCH ×2 (08:12→20:29)
[2019-12-28] MEDS: Tamsulosin HCl 0.4 MG CAP PO SCH ×2 (08:12→20:29)
[2019-12-28] MEDS: Heparin 5,000 UNITS/ML VIAL SC SCH ×3 (08:12→20:29)
[2019-12-28] MEDS: Insulin Glargine 25 UNITS in Pre-Filled Syringe 1 EACH SC SCH ×2 (08:12→20:28)
--- NOTE | 2019-12-28 08:56 | PDOC.HOSPP ---
- Subjective Encounter Date: 12/28/19 Encounter Time: 13:00 Subjective: Patient without complaints. Working with PT on his transitions for when he goes to dialysis. - Objective Vital Signs & Weight: Vital Signs (12 hours) Temp Pulse Resp BP Pulse Ox 12/28/19 08:00 98.0 F 88 18 138/82 99 12/28/19 07:16 87 16 97 12/27/19 23:00 95 12/27/19 22:01 94 16 95 Weight Admit Weight 295 lb 6.711 oz Weight 255 lb 4.725 oz Most Recent Monitor Data Heart Rate from ECG 92 NIBP 138/72 NIBP BP-Mean 94 Respiration from ECG 20 SpO2 89 I&O: 12/27/19 12/28/19 12/29/19 06:59 06:59 06:59 Intake Total 480 1725 Output Total 1800 800 Balance -1320 925 Result Diagrams: 12/22/19 05:44 12/25/19 05:44 Additional Labs: Accuchecks 12/28/19 12/27/19 12/27/19 05:02 16:52 11:12 POC Glucose 238 H 221 H 235 H Hospitalist ROS - Review of Systems Constitutional: denies: fever, chills Respiratory: denies: cough, shortness of breath Cardiovascular: denies: chest pain, palpitations Gastrointestinal: denies: nausea, vomiting, abdominal pain - Medication Medications: Active Medications Generic Name Dose Route Start Last Admin Trade Name Freq PRN Reason Stop Dose Admin Acetaminophen 1,000 mg 11/26/19 14:59 12/19/19 17:58 Tylenol Elixir PO 1,000 mg Q6H PRN Administration Headache/Fever or Pain Albuterol/Ipratropium 3 ml 12/07/19 14:30 12/28/19 07:16 Duoneb NEB 3 ml [id number] LEEANN Administration Amiodarone HCl 400 mg 12/16/19 09:00 12/28/19 08:11 Cordarone PO 400 mg QAM LEEANN Administration Lipase/Protease/Amylase 1 cap 12/07/19 04:46 12/07/19 04:59 Leonides Tejada [id number] FS 1 cap .PER PROTOCOL PRN Administration TUBE OCCLUSION PROTOCOL Bisacodyl 10 mg 12/24/19 06:11 12/24/19 06:21 Dulcolax [place] 10 mg DAILYPRN PRN Administration Constipation Carvedilol 3.125 mg 12/06/19 17:00 12/28/19 08:11 Coreg PO 3.125 mg BID-WM LEEANN Administration Epoetin Alex-epbx 10,000 unit 12/27/19 09:00 12/27/19 13:43 Retacrit IVP 10,000 unit MWF LEEANN Administration Famotidine 20 mg 12/14/19 09:00 12/28/19 08:11 Pepcid PER TUBE 20 mg DAILY LEEANN Administration Furosemide 80 mg 12/24/19 07:30 12/28/19 08:11 Lasix PO 80 mg DAILY-AC LEEANN Administration Heparin Sodium (Porcine) 5,000 units 11/26/19 15:00 12/28/19 08:12 Heparin SC 5,000 units TID LEEANN Administration Insulin Glargine 25 units/ 0.25 mls @ 0 mls/hr 12/21/19 09:00 12/28/19 08:12 Miscellaneous Medication SC 0.25 mls Q12HR LEEANN Administration As Directed Cefazolin Sodium 3 gm/ Sodium 100 mls @ 200 mls/hr 12/27/19 13:00 12/27/19 17 :49 Chloride IVPB 100 mls [id number] LEEANN Administration Insulin Human Lispro 0 units 11/29/19 13:57 12/26/19 17:13 Humalog SC 4 units .MODERATE SLIDING SC PRN Administration Moderate Correctional Scale Ketorolac Tromethamine 15 mg 12/25/19 16:29 12/25/19 16:47 Toradol IVP 15 mg Q6H PRN Administration Pain Morphine Sulfate 2 mg 12/19/19 07:55 12/25/19 13:51 Morphine SLOW IVP 2 mg Q4H PRN Administration pain Oxybutynin Chloride 5 mg 12/20/19 09:00 12/28/19 08:11 Ditropan PO 5 mg DAILY LEEANN Administration Phenazopyridine HCl 97.5 mg 12/19/19 09:00 12/28/19 08:11 Azo Standard PO 97.5 mg PC LEEANN Administration Saccharomyces Boulardii 250 mg 12/18/19 09:00 12/28/19 08:12 Florastor PO 250 mg DAILY LEEANN Administration Senna/Docusate Sodium 2 tab 12/17/19 21:00 12/28/19 08:12 Senokot S PO 2 tab BID LEEANN Administration Sodium Bicarbonate 650 mg 12/07/19 04:46 12/07/19 04:59 Bicarbonate, Sodium PER TUBE 650 mg .PER PROTOCOL PRN Administration ENTERAL TUBE OCCLUSION Sodium Chloride 10 ml 12/01/19 17:34 12/25/19 16:49 Flush - Normal Saline IVF 10 ml PRN PRN Administration Saline Flush Tamsulosin HCl 0.4 mg 12/19/19 21:00 12/28/19 08:12 Flomax PO 0.4 mg BID LEEANN Administration - Exam General Appearance: NAD, awake alert ENT: moist mucosa Heart: RRR, no murmur, no gallops, no rubs Respiratory: CTAB, no wheezes, no rales, no ronchi Gastrointestinal: soft, non-tender, non-distended, normal bowel sounds Psychiatric: normal affect, normal behavior, A&O x 3 Hosp A/P - Plan Hosp A/P (1) MSSA bacteremia Code(s): R78.81 - BACTEREMIA Status: Acute (2) Sepsis Code(s): A41.9 - SEPSIS, UNSPECIFIED ORGANISM Status: Resolved Qualifiers: Sepsis type: methicillin susceptible Staphylococcus aureus Sepsis acute organ dysfunction status: with acute organ dysfunction Severe sepsis acute organ dysfunction type: acute renal failure Severe sepsis shock status: unspecified (3) Acute renal failure Status: Acute Qualifiers: Acute renal failure type: with acute tubular necrosis Qualified Code(s): N17.0 - Acute kidney failure with tubular necrosis (4) Acute on chronic systolic heart failure Code(s): I50.23 - ACUTE ON CHRONIC SYSTOLIC (CONGESTIVE) HEART FAILURE Status : Resolved (5) Acute respiratory failure Code(s): J96.00 - ACUTE RESPIRATORY FAILURE, UNSP W HYPOXIA OR HYPERCAPNIA Status: Resolved Qualifiers: Respiratory failure complication: hypoxia and hypercapnia Qualified Code(s) : J96.01 - Acute respiratory failure with hypoxia; J96.02 - Acute respiratory failure with hypercapnia (6) Atrial fibrillation with RVR Code(s): I48.91 - UNSPECIFIED ATRIAL FIBRILLATION Status: Chronic (7) Diabetes mellitus type 2 in obese Code(s): E11.69 - TYPE 2 DIABETES MELLITUS WITH OTHER SPECIFIED COMPLICATION; E66.9 - OBESITY, UNSPECIFIED Status: Chronic (8) Hypertension Code(s): I10 - ESSENTIAL (PRIMARY) HYPERTENSION Status: Chronic Qualifiers: Hypertension type: essential hypertension Qualified Code(s): I10 - Essential (primary) hypertension (9) NICM (nonischemic cardiomyopathy) Code(s): I42.8 - OTHER CARDIOMYOPATHIES Status: Chronic (10) BRANDON (obstructive sleep apnea) Code(s): G47.33 - OBSTRUCTIVE SLEEP APNEA (ADULT) (PEDIATRIC) Status: Chronic (11) UTI (urinary tract infection) Status: Acute Qualifiers: Urinary tract infection type: acute cystitis Hematuria presence: with hematuria Qualified Code(s): N30.01 - Acute cystitis with hematuria (12) Urinary retention Code(s): R33.9 - RETENTION OF URINE, UNSPECIFIED Status: Resolved (13) Obesity (BMI 30-39.9) Code(s): E66.9 - OBESITY, UNSPECIFIED Status: Chronic (14) Anemia, normocytic normochromic Code(s): D64.9 - ANEMIA, UNSPECIFIED Status: Chronic is on ancef after HD for bacteremia, levaquin for pseudomonas in urine Per Dr. Echavarria needs 42 days abx, started Nov 27, 2019 On HD mon/wed/frid, needs outpt HD chair. had urinary retention which has resolved, may insert esquivel if retention is > 500mls. obesity with bmi of 39 on amiodarone, lantus, nebs, coreg. prognosis guarded s/p explantation of aicd due to bacteremia, no obvious veg on CELIA per prior notes. is beginning to ambulate now, to mobilize more as tolerated. will need placement/rehab is severely deconditioned, counselled patient to mobilize, encourage po intake. is starting to eat better now right calf pain, U/S neg for DVT Awaiting rehab placement
--- NOTE | 2019-12-28 10:27 | PRG ---
DATE OF SERVICE: 12/28/2019 SUBJECTIVE: This morning, he is better. He is walking with some help. OBJECTIVE: VITAL SIGNS: Temperature 98, pulse respirations 18, sats 98% on room air, and blood pressure 130/82. CHEST: No wheezing or crackles. CARDIAC: Normal S1, S2. No gallops. ABDOMEN: No masses. ASSESSMENT AND PLAN: Acute renal failure, slowly resolving. dialysis, Staph sepsis. On cefazolin, by Infectious Disease; diabetes; morbid obesity; probably sleep apnea. DISPOSITION: Long-term care. Eventually, outpatient sleep study. Job ID: [id number]
[2019-12-28] MEDS: HumaLOG 300 UNITS/3 ML VIAL SC PRN ×2 (11:50→17:01)
--- NOTE | 2019-12-28 17:27 | PRG ---
DATE OF SERVICE: 12/28/2019 SUBJECTIVE: This is a 54-year-old gentleman being seen for end-stage kidney disease. The patient denied nausea, vomiting, or chest pain. OBJECTIVE: CONSTITUTIONAL: The patient is awake and alert. VITAL SIGNS: Pulse 75, breathing 16, and blood pressure was 138/82. GENERAL APPEARANCE AND MENTAL STATUS: Fair. HEAD/NECK: Normocephalic. Atraumatic. EYES: EOMI. No deformity. EARS: Clear. No ulcers. NOSE: Intact. No lesions. MOUTH: Clear. No discharge. THROAT: Clear. No exudate. LUNGS: Clear. No crackles. CARDIAC: S1, S2. No rub. ABDOMEN: Benign. Bowel sounds positive. GENITALIA/RECTUM: Powell absent. BACK/EXTREMITIES: Edema 0+. NEUROLOGICAL: Alert and motor intact. SKIN: LYMPHATICS: LABORATORY DATA: Reviewed. ASSESSMENT AND PLAN: 1. Stage 6 chronic kidney disease, stable. 2. Hypertension, stable. 3. Anemia, stable. Medication based on GFR appropriate. Job ID: [id number]
[2019-12-28] MEDS: Acetaminophen 650 MG/20.3 ML UDCUP PO PRN (19:09)
--- NOTE | 2019-12-29 09:03 | PRG ---
DATE OF SERVICE: 12/29/2019 SUBJECTIVE: This morning, he is doing better, less short of breath. His blood sugars are much improved at 197. OBJECTIVE: VITAL SIGNS: Temperature 98, pulse rate 89, respiratory rate 20, oxygen saturation 97% on room air, and blood [id number] CHEST: Decreased breath sounds. No wheezing. CARDIAC: Normal S1 and S2. No gallops. ABDOMEN: No masses. ASSESSMENT AND PLAN: Diabetes; staph sepsis; supraventricular tachycardia; infected hardware; renal failure; sleep apnea. The patient was told once he is stable ruben we wllset up outpatient followup with sleep study. Pulmonary vang, otherwise continue aggressive PT. He is going to go to custodial in the next day or two. Job ID: [id number] MTDD
[2019-12-29] MEDS: Insulin Glargine 25 UNITS in Pre-Filled Syringe 1 EACH SC SCH (09:30)
[2019-12-29] MEDS: Heparin 5,000 UNITS/ML VIAL SC SCH ×2 (09:30→14:44)
--- NOTE | 2019-12-29 10:20 | PDOC.HOSPP ---
- Subjective Encounter Date: 12/29/19 Encounter Time: 14:30 Subjective: No complaints, just back from dialysis. - Objective Vital Signs & Weight: Vital Signs (12 hours) Temp Pulse Resp BP Pulse Ox 12/29/19 08:30 97 12/29/19 08:00 98.0 F 89 20 106/72 97 12/29/19 07:27 87 14 12/29/19 04:34 98.2 F 87 16 143/79 H 96 12/29/19 02:56 84 16 94 L 12/29/19 00:49 97.9 F 84 16 106/71 96 Weight Admit Weight 295 lb 6.711 oz Weight 255 lb 4.725 oz Most Recent Monitor Data Heart Rate from ECG 92 NIBP 138/72 NIBP BP-Mean 94 Respiration from ECG 20 SpO2 89 I&O: 12/28/19 12/29/19 12/30/19 06:59 06:59 06:59 Intake Total 1725 1300 Output Total 800 Balance 925 1300 Result Diagrams: 12/29/19 09:35 12/29/19 09:35 Additional Labs: Accuchecks 12/29/19 12/28/19 12/28/19 03:48 20:14 16:58 POC Glucose 197 H 210 H 221 H 12/28/19 11:47 POC Glucose 183 H Hospitalist ROS - Review of Systems Constitutional: denies: fever, chills Respiratory: denies: cough, shortness of breath Cardiovascular: denies: chest pain, palpitations Gastrointestinal: denies: nausea, vomiting, abdominal pain - Medication Medications: Active Medications Generic Name Dose Route Start Last Admin Trade Name Salbadorq PRN Reason Stop Dose Admin Acetaminophen 1,000 mg 11/26/19 14:59 12/28/19 19:09 Tylenol Elixir PO 1,000 mg Q6H PRN Administration Headache/Fever or Pain Albuterol/Ipratropium 3 ml 12/07/19 14:30 12/29/19 07:27 Duoneb NEB 3 ml [id number] LEEANN Administration Amiodarone HCl 400 mg 12/16/19 09:00 12/28/19 08:11 Cordarone PO 400 mg QAM LEEANN Administration Lipase/Protease/Amylase 1 cap 12/07/19 04:46 12/07/19 04:59 Leonides Tejada [id number] FS 1 cap .PER PROTOCOL PRN Administration TUBE OCCLUSION PROTOCOL Bisacodyl 10 mg 12/24/19 06:11 12/24/19 06:21 Dulcolax [place] 10 mg DAILYPRN PRN Administration Constipation Carvedilol 3.125 mg 12/06/19 17:00 12/28/19 17:01 Coreg PO 3.125 mg BID-WM LEEANN Administration Epoetin Alex-epbx 10,000 unit 12/27/19 09:00 12/27/19 13:43 Retacrit IVP 10,000 unit MWF LEEANN Administration Famotidine 20 mg 12/14/19 09:00 12/28/19 08:11 Pepcid PER TUBE 20 mg DAILY LEEANN Administration Furosemide 80 mg 12/24/19 07:30 12/28/19 08:11 Lasix PO 80 mg DAILY-AC LEEANN Administration Heparin Sodium (Porcine) 5,000 units 11/26/19 15:00 12/28/19 20:29 Heparin SC 5,000 units TID LEEANN Administration Insulin Glargine 25 units/ 0.25 mls @ 0 mls/hr 12/21/19 09:00 12/28/19 20:28 Miscellaneous Medication SC 0.25 mls Q12HR LEEANN Administration As Directed Cefazolin Sodium 3 gm/ Sodium 100 mls @ 200 mls/hr 12/27/19 13:00 12/27/19 17 :49 Chloride IVPB 100 mls [id number] LEEANN Administration Insulin Human Lispro 0 units 11/29/19 13:57 12/28/19 17:01 Humalog SC 4 units .MODERATE SLIDING SC PRN Administration Moderate Correctional Scale Ketorolac Tromethamine 15 mg 12/25/19 16:29 12/25/19 16:47 Toradol IVP 15 mg Q6H PRN Administration Pain Oxybutynin Chloride 5 mg 12/20/19 09:00 12/28/19 08:11 Ditropan PO 5 mg DAILY LEEANN Administration Phenazopyridine HCl 97.5 mg 12/19/19 09:00 12/28/19 17:01 Azo Standard PO 97.5 mg PC LEEANN Administration Saccharomyces Boulardii 250 mg 12/18/19 09:00 12/28/19 08:12 Florastor PO 250 mg DAILY LEEANN Administration Senna/Docusate Sodium 2 tab 12/17/19 21:00 12/28/19 20:29 Senokot S PO 2 tab BID LEEANN Administration Sodium Bicarbonate 650 mg 12/07/19 04:46 12/07/19 04:59 Bicarbonate, Sodium PER TUBE 650 mg .PER PROTOCOL PRN Administration ENTERAL TUBE OCCLUSION Sodium Chloride 10 ml 12/01/19 17:34 12/25/19 16:49 Flush - Normal Saline IVF 10 ml PRN PRN Administration Saline Flush Tamsulosin HCl 0.4 mg 12/19/19 21:00 12/28/19 20:29 Flomax PO 0.4 mg BID LEEANN Administration - Exam General Appearance: NAD, awake alert ENT: moist mucosa Heart: RRR, no murmur, no gallops, no rubs Respiratory: CTAB, no wheezes, no rales, no ronchi Gastrointestinal: soft, non-tender, non-distended, normal bowel sounds Skin - other findings: chronic vasculitis rash on extremities Psychiatric: normal affect, normal behavior, A&O x 3 Hosp A/P - Plan Hosp A/P (1) MSSA bacteremia Code(s): R78.81 - BACTEREMIA Status: Acute (2) Sepsis Code(s): A41.9 - SEPSIS, UNSPECIFIED ORGANISM Status: Resolved Qualifiers: Sepsis type: methicillin susceptible Staphylococcus aureus Sepsis acute organ dysfunction status: with acute organ dysfunction Severe sepsis acute organ dysfunction type: acute renal failure Severe sepsis shock status: unspecified (3) Acute renal failure Status: Acute Qualifiers: Acute renal failure type: with acute tubular necrosis Qualified Code(s): N17.0 - Acute kidney failure with tubular necrosis (4) Acute on chronic systolic heart failure Code(s): I50.23 - ACUTE ON CHRONIC SYSTOLIC (CONGESTIVE) HEART FAILURE Status : Resolved (5) Acute respiratory failure Code(s): J96.00 - ACUTE RESPIRATORY FAILURE, UNSP W HYPOXIA OR HYPERCAPNIA Status: Resolved Qualifiers: Respiratory failure complication: hypoxia and hypercapnia Qualified Code(s) : J96.01 - Acute respiratory failure with hypoxia; J96.02 - Acute respiratory failure with hypercapnia (6) Atrial fibrillation with RVR Code(s): I48.91 - UNSPECIFIED ATRIAL FIBRILLATION Status: Chronic (7) Diabetes mellitus type 2 in obese Code(s): E11.69 - TYPE 2 DIABETES MELLITUS WITH OTHER SPECIFIED COMPLICATION; E66.9 - OBESITY, UNSPECIFIED Status: Chronic (8) Hypertension Code(s): I10 - ESSENTIAL (PRIMARY) HYPERTENSION Status: Chronic Qualifiers: Hypertension type: essential hypertension Qualified Code(s): I10 - Essential (primary) hypertension (9) NICM (nonischemic cardiomyopathy) Code(s): I42.8 - OTHER CARDIOMYOPATHIES Status: Chronic (10) BRANDON (obstructive sleep apnea) Code(s): G47.33 - OBSTRUCTIVE SLEEP APNEA (ADULT) (PEDIATRIC) Status: Chronic (11) UTI (urinary tract infection) Status: Acute Qualifiers: Urinary tract infection type: acute cystitis Hematuria presence: with hematuria Qualified Code(s): N30.01 - Acute cystitis with hematuria (12) Urinary retention Code(s): R33.9 - RETENTION OF URINE, UNSPECIFIED Status: Resolved (13) Obesity (BMI 30-39.9) Code(s): E66.9 - OBESITY, UNSPECIFIED Status: Chronic (14) Anemia, normocytic normochromic Code(s): D64.9 - ANEMIA, UNSPECIFIED Status: Chronic is on ancef after HD for bacteremia, finished levaquin for pseudomonas in urine Per Dr. Echavarria needs 42 days abx, started Nov 27, 2019 On HD mon/wed/frid, needs outpt HD chair. had urinary retention which has resolved, may insert esquivel if retention is > 500mls. obesity with bmi of 39 on amiodarone, lantus, nebs, coreg. prognosis guarded s/p explantation of aicd due to bacteremia, no obvious veg on CELIA per prior notes. is beginning to ambulate now, to mobilize more as tolerated. will need placement/rehab is severely deconditioned, counselled patient to mobilize, encourage po intake. is starting to eat better now right calf pain, U/S neg for DVT rehab approved, d/c today
[2019-12-29] MEDS: Phenazopyridine HCl 97.5 MG TABLET PO SCH ×2 (10:38→14:44)
[2019-12-29 11:02] LABS: #Basophils 0.1 thou/uL (0.0-0.2); #Eosinphils 0.7 thou/uL (0.0-0.7); #Lymphocytes 1.2 thou/uL (1.20-3.40); #Monocytes 0.9 thou/uL (0.11-0.59); #Neutrophils 8.4 thou/uL (1.40-6.50); %Basophils 0.5 % (0.0-1.0); %Eosinophils 6.1 % (0.0-10.0); %Lymphocytes 10.4 % (21.0-51.0); %Monocytes 7.7 % (0.0-10.0); %Neutrophils 75.3 % (42.0-75.0); Hemoglobin 8.3 g/dL (14.0-18.0); Mean Corpuscular Hemoglobin 32.1 pg (27.0-31.0); Mean Corpuscular Volume 94.4 fL (78.0-98.0); Mean Platelet Volume 6.3 fL (7.4-10.4); Platelet Count 409 thou/uL (130-400); RBC Distribution Width 15.7 % (11.5-14.5); Red Blood Cell (RBC) Count 2.59 mill/uL (4.70-6.10); White Blood Cell (WBC) Count 11.1 thou/uL (4.8-10.8)
[2019-12-29 11:19] LABS: Anion Gap 19 mmol/L (10-20); BUN (Urea Nitrogen) 48 mg/dL (8.4-25.7); Calc. Creatinine Clearance 22 mL/min (70-130); Calcium 8.3 mg/dL (7.8-10.44); Carbon Dioxide 22 mmol/L (22-29); Chloride 93 mmol/L (98-107); Estimated GFR-MDRD 9; Glucose 167 mg/dL (70-105); Potassium 3.7 mmol/L (3.5-5.1); Sodium 130 mmol/L (136-145)
--- NOTE | 2019-12-29 11:26 | PRG ---
DATE OF SERVICE: 12/29/2019 SUBJECTIVE: A 54-year-old male, being seen for end-stage renal disease. The patient denied nausea, vomiting, or chest pain. OBJECTIVE: CONSTITUTIONAL: The patient is awake and alert. VITAL SIGNS: Afebrile. Pulse 75, breathing 16, blood pressure was 106/72. GENERAL APPEARANCE AND MENTAL STATUS: Fair. HEAD/NECK: Normocephalic. Atraumatic. EYES: EOMI. No deformity. EARS: Clear. No ulcers. NOSE: Intact. No lesions. MOUTH: Clear. No discharge. THROAT: Clear. No exudate. LUNGS: Clear. No crackles. CARDIAC: S1, S2. No rub. ABDOMEN: Benign. Bowel sounds positive. GENITALIA/RECTUM: Powell absent. BACK/EXTREMITIES: Edema 0+. NEUROLOGICAL: Alert and motor intact. SKIN: LYMPHATICS: LABORATORY DATA: Reviewed. ASSESSMENT AND PLAN: 1. Stage 6 chronic kidney disease. Plan dialysis. 2. Hypertension, stable. 3. Anemia, stable. 4. Medication based on GFR, appropriate. Job ID: [id number]
[2019-12-29 14:36] VITALS: BP 119/80; TEMP 97.8
[2019-12-29] MEDS: Carvedilol 3.125 MG TAB PO SCH (14:43)
[2019-12-29] MEDS: Senokot S 8.6-50 MG TAB PO SCH (14:43)
[2019-12-29] MEDS: Saccharomyces boulardii 250 MG CAP PO SCH (14:44)
[2019-12-29] MEDS: Furosemide 80 MG TAB PO SCH (14:44)
[2019-12-29] MEDS: Famotidine 20 MG TAB PER TUBE SCH (14:44)
[2019-12-29] MEDS: Oxybutynin 5 MG TAB PO SCH (14:44)
[2019-12-29] MEDS: Amiodarone 200 MG TAB PO SCH (14:44)
[2019-12-29] MEDS: Tamsulosin HCl 0.4 MG CAP PO SCH (14:44)
[2019-12-29] MEDS: EPOETIN ALFA-EPBX (ESRD) 10,000 UNIT/ML VIAL IVP SCH (14:45)
[2019-12-29] MEDS: HumaLOG 300 UNITS/3 ML VIAL SC PRN (14:53)
[2019-12-29] MEDS: CEFAZOLIN 3 GM in Sodium Chloride 0.9% 100 ML IVPB SCH (15:04)
[2019-12-29] MEDS ORDERED: Heparin 10,000 UNITS/ 10 ML VIAL ONE (15:57)
[2019-12-29] MEDS ORDERED: Atorvastatin Calcium 40 MG TAB PO SCH (21:00)
--- NOTE | 2019-12-30 08:56 | DIS ---
DATE OF ADMISSION: 11/26/2019 DATE OF DISCHARGE: 12/29/2019 PRIMARY CARE PHYSICIAN: Sisi Naylor. REASON FOR ADMISSION: Severe sepsis with altered mental status and diabetic ketoacidosis. DIAGNOSES AT DISCHARGE: 1. Methicillin-sensitive Staph aureus bacteremia, possibly from the defibrillator leads, were then removed. 2. Severe sepsis, resolved. 3. Acute tubular necrosis, now with end-stage renal disease requiring dialysis. 4. Acute on chronic systolic congestive heart failure. 5. Acute respiratory failure with hypoxia, resolved. 6. Atrial fibrillation with rapid ventricular rate. 7. Diabetes mellitus type 2, insulin dependent. 8. Hypertension. 9. Nonischemic cardiomyopathy. 10. Obstructive sleep apnea. 11. Urinary tract infection. 12. Urinary retention, resolved. 13. Obesity. 14. Anemia of chronic disease. PROCEDURES: 1. Right subclavian vein triple-lumen catheter placement with replacement after this directed into the internal jugular vein. 2. Placement of right femoral triple-lumen Trialysis catheter. 3. Bronchoscopy with lavage of retained secretions for persistent cough. 4. Transesophageal echocardiogram showing no masses present within the heart or on the valves, no obvious vegetations on the leads of the defibrillator. 5. Right internal jugular cuffed tunneled hemodialysis catheter and left internal jugular central line placement. 6. Right lower extremity ultrasound showing no DVT. 7. Dual-chamber implantable cardioverter/defibrillator system extraction. CONSULTATIONS: 1. Pulmonology, Dr. Ruelas. 2. Cardiology, Dr. Krishnamurthy and Dr. Villagomez. 3. General Surgery, Dr. Downing. 4. Infectious Disease, Dr. Echavarria. 5. CV surgery, Dr. Butterfield. 6. Nephrology, Dr. Swan and Dr. Cummins. SUMMARY OF HOSPITAL COURSE: The patient had a very long hospital course greater than a month long. For full details, please look at the progress notes throughout the hospital stay. Briefly, this is a 54-year-old white male with a known history of diabetes, coronary artery disease, cardiomyopathy with systolic congestive heart failure and an AICD placed previously, atrial fibrillation status post ablation, who had a syncopal episode in his bathroom and was lying there immobile for several hours. He was brought in by EMS. He was found to be in septic shock that responded to IV fluids. He was also put on broad-spectrum antibiotics. The patient eventually grew back methicillin sensitive Staph aureus from his blood. He also had a urinary tract infection. His antibiotics were tailored to these by Dr. Echavarria. He finished off a course of Levaquin for the urinary tract infection and he was put on Ancef. A search was made for source for the methicillin sensitive Staph aureus. Eventually, it was determined that it was possibly from the AICD leads and AICD was removed. Dr. Echavarria did determine the patient needed to be on IV Ancef for 42 days starting on 11/27. As a result, he will need to take the antibiotics until 01/07. The patient's diabetes was brought under control. His body was supportive; however, he did develop acute tubular necrosis from the sepsis and eventually, had to be placed on dialysis. The patient had dialysis access placed. He has been doing dialysis with good result. He has been improved markedly, still requiring some physical therapy to help with improving his mobilizations, so that he can get eventually transitioned back and forth to the dialysis chair for outpatient dialysis in the future. So he is being sent to rehabilitation. DISCHARGE MANAGEMENT: Discharged to an inpatient rehabilitation. ACTIVITY: As tolerated. DIET: Fluid restricted renal diet with extra chops. No straws. Physical and occupational therapy. His IV therapy instructions were for central line care. FOLLOWUP: Follow up with Dr. Krishnamurthy and Dr. Cummins's as an outpatient. DISCHARGE MEDICATIONS: 1. Acetaminophen as needed. 2. Amiodarone 400 mg daily. 3. Atorvastatin 40 mg at night. 4. Dulcolax as needed. 5. Carvedilol 3.125 mg twice a day. 6. Ancef 3 g IV piggyback Mondays, Wednesdays, and Fridays after dialysis. 7. Epoetin 54783 units three times a week. 8. Famotidine 20 mg daily. 9. Furosemide 80 mg daily. 10. Lantus insulin 25 units twice a day. 11. DuoNeb as needed. 12. Azo-Standard daily. 13. Xarelto 15 mg daily. 14. Florastor 250 mg daily. 15. Senokot-S 2 tablets twice a day. 16. Tamsulosin 0.4 mg twice a day. TIME SPENT: Arranging the details of this discharge took 40 minute. Job ID: [id number]
[2019-12-30] MEDS ORDERED: Rivaroxaban 15 MG TAB PO SCH (17:00)
== END 2019-12-29 16:12 | DRG 260 ==
LOC: ERS 02:17 → ERHOLD 04:29 → CCU 10:38 → IMCU/EMU 12-13 20:02 → T4-B 12-21 20:11
PROVIDERS: ADMIT Hospitalist; ATTEND Emergency Medicine
PROC: 0BH17EZ Insertion of Endotracheal Airway into Trachea, Via Natural or Artificial Opening (ICD-10-PCS; principal; 2019-11-26)
PROC: 5A1955Z Respiratory Ventilation, Greater than 96 Consecutive Hours (ICD-10-PCS; 2019-11-26)
PROC: 05HM33Z Insertion of Infusion Device into Right Internal Jugular Vein, Percutaneous Approach (ICD-10-PCS; 2019-11-26)
PROC: 05PYX3Z Removal of Infusion Device from Upper Vein, External Approach (ICD-10-PCS; 2019-11-26)
PROC: 02HV33Z Insertion of Infusion Device into Superior Vena Cava, Percutaneous Approach (ICD-10-PCS; 2019-11-26)
PROC: 04HL33Z Insertion of Infusion Device into Left Femoral Artery, Percutaneous Approach (ICD-10-PCS; 2019-11-29)
PROC: 5A1D70Z Performance of Urinary Filtration, Intermittent, Less than 6 Hours Per Day (ICD-10-PCS; 2019-12-01)
PROC: 0B9L8ZX Drainage of Left Lung, Via Natural or Artificial Opening Endoscopic, Diagnostic (ICD-10-PCS; 2019-12-02)
PROC: 0JH63XZ Insertion of Tunneled Vascular Access Device into Chest Subcutaneous Tissue and Fascia, Percutaneous Approach (ICD-10-PCS; 2019-12-06)
PROC: 02HV33Z Insertion of Infusion Device into Superior Vena Cava, Percutaneous Approach (ICD-10-PCS; 2019-12-06)
PROC: B518ZZA Fluoroscopy of Superior Vena Cava, Guidance (ICD-10-PCS; 2019-12-06)
PROC: B547ZZA Ultrasonography of Left Subclavian Vein, Guidance (ICD-10-PCS; 2019-12-06)
PROC: B24BZZ4 Ultrasonography of Heart with Aorta, Transesophageal (ICD-10-PCS; 2019-12-07)
PROC: 02PA0MZ Removal of Cardiac Lead from Heart, Open Approach (ICD-10-PCS; 2019-12-17)
PROC: 0JPT0PZ Removal of Cardiac Rhythm Related Device from Trunk Subcutaneous Tissue and Fascia, Open Approach (ICD-10-PCS; 2019-12-17)
DX: T82.7XXA Infection and inflammatory reaction due to other cardiac and vascular devices, implants and grafts, initial encounter (principal); A41.01 Sepsis due to Methicillin susceptible Staphylococcus aureus; R65.21 Severe sepsis with septic shock; E11.10 Type 2 diabetes mellitus with ketoacidosis without coma; I50.23 Acute on chronic systolic (congestive) heart failure; N17.0 Acute kidney failure with tubular necrosis; J96.21 Acute and chronic respiratory failure with hypoxia; J96.22 Acute and chronic respiratory failure with hypercapnia; N18.6 End stage renal disease; I21.A1 Myocardial infarction type 2; M62.82 Rhabdomyolysis; E87.2 Acidosis; I47.1 Supraventricular tachycardia; I42.8 Other cardiomyopathies; I48.20 Chronic atrial fibrillation, unspecified; T82.524A Displacement of infusion catheter, initial encounter; I13.2 Hypertensive heart and chronic kidney disease with heart failure and with stage 5 chronic kidney disease, or end stage renal disease; E87.1 Hypo-osmolality and hyponatremia; N39.0 Urinary tract infection, site not specified; I25.10 Atherosclerotic heart disease of native coronary artery without angina pectoris; E78.5 Hyperlipidemia, unspecified; Z95.810 Presence of automatic (implantable) cardiac defibrillator; Z79.4 Long term (current) use of insulin; Z95.5 Presence of coronary angioplasty implant and graft; Z79.01 Long term (current) use of anticoagulants; Z79.899 Other long term (current) drug therapy; E66.01 Morbid (severe) obesity due to excess calories; M10.9 Gout, unspecified; G47.33 Obstructive sleep apnea (adult) (pediatric); E11.22 Type 2 diabetes mellitus with diabetic chronic kidney disease; Z68.37 Body mass index [BMI] 37.0-37.9, adult; Y83.8 Other surgical procedures as the cause of abnormal reaction of the patient, or of later complication, without mention of misadventure at the time of the procedure; I48.0 Paroxysmal atrial fibrillation; D63.1 Anemia in chronic kidney disease; E11.69 Type 2 diabetes mellitus with other specified complication; E87.5 Hyperkalemia; E88.81 Metabolic syndrome and other insulin resistance; E78.1 Pure hyperglyceridemia; E83.39 Other disorders of phosphorus metabolism; R23.3 Spontaneous ecchymoses; B96.5 Pseudomonas (aeruginosa) (mallei) (pseudomallei) as the cause of diseases classified elsewhere; I77.6 Arteritis, unspecified; R33.9 Retention of urine, unspecified
CPT/HCPCS: 36415; 36416; 36430; 51702; 71045; 74018; 80048; 80053; 81001; 81003; 81015; 82010; 82140; 82533; 82550; 82553; 82728; 82805; 83540; 83550; 83605; 83735; 83880; 83930; 84100; 84443; 84484; 85014; 85018; 85025; 86580; 86704; 86706; 86850; 86900; 86901; 87040; 87070; 87077; 87086; 87149; 87186; 87205; 87340; 87804; 90935; 93005; 93306; 93312; 93970; 94002; 94003; 94640; 94660; 96361; 96365; 96366; 96367; 99292; C1752; C1769; G0257; G0365; J0282; J0690; J0692; J1160; J1580; J1642; J1644; J1720; J1815; J1885; J2060; J2250; J2270; J2700; J2704; J2997; J3010; J3370; J3475; J3480; J3490; J7070; J7620; J7626; P9016; P9045; P9047; Q5105; S0020; S0028

== ENCOUNTER 2020-05-10 06:55 | Day surgery (SDC) | payer MEDICARE ==
[2020-05-09 09:05] VITALS: BMI 33.2
[2020-05-10 09:08] VITALS: BP 128/86; TEMP 98.2
--- NOTE | 2020-05-10 10:40 | SPC ---
LEFT UPPER EXTREMITY FISTULOGRAM WITH FLUOROSCOPY: EXPOSURE: 2.8 minutes, 41,926 mGy*^m2. HISTORY: Nonmaturing fistula. FINDINGS: Successful left upper extremity fistulogram. There is appropriate outflow via the basilic vein. The c entral venous system demonstrates a variant. There appears to be a patent vein that crosses midline and opacifies the junction of the right subclavian vein and superior vena cava. The left brachiocepha lic vein has a small focus of mild narrowing just beyond its anastomosis with the left subclavian vein. Multiple attempts were made to allow for reflux. There is reflux of contrast into the proximal aspect of the cephalic vein. The anastomosis of the cephalic vein with EF arterial system was difficult to adequately assess despite multiple projections being obtained. There does not appear to be any delay in filling of contrast via the cephalic outflow track. Contrast does reflux into the arterial system and there does not appear to be any stenosis at the anastomosis of the basilic vein a nd the arterial inflow. IMPRESSION: 1. Patent basilic vein outflow track. Small focus of narrowing in the left brachiocephalic vein just before the anastomosis with the subclavian vein. There is a second patent vein which may represent a venous anomaly that crosses midline and enters the venous system at the junction of the right subcl stephanie vein and superior vena cava. No evidence of significant stenosis of the central venous system. 2. There appears be reflux of contrast in the proximal aspect of the cephalic venous outflow. Anastom osis of the cephalic venous outflow in the arterial system is difficult despite multiple projections being obtained. With regards to the arterial inflow there does not appear to be significa nt stenosis. There is no significant stenosis at the end anastomosis of the basilic vein in the supplying artery. Transcribed Date/Time: 05/10/2020 11:11 AM
[2020-05-10] MEDS ORDERED: Heparin 1,000 UNITS/ML VIAL ONE (14:42)
[2020-05-10] MEDS ORDERED: Iopamidol 300 61% 100 ML VIAL FS ONE (16:14)
[2020-05-10] MEDS ORDERED: Iopamidol 300 61% 50 ML VIAL FS ONE (16:14)
== END 2020-05-10 09:35 | disposition home or self-care (01) ==
LOC: SPEC 06:55
PROVIDERS: ATTEND Specialist
PROC: B51W1ZZ Fluoroscopy of Dialysis Shunt/Fistula using Low Osmolar Contrast (ICD-10-PCS; principal; 2020-05-10)
DX: I13.2 Hypertensive heart and chronic kidney disease with heart failure and with stage 5 chronic kidney disease, or end stage renal disease (principal); E11.22 Type 2 diabetes mellitus with diabetic chronic kidney disease; N18.6 End stage renal disease; I50.20 Unspecified systolic (congestive) heart failure; G47.33 Obstructive sleep apnea (adult) (pediatric); E78.5 Hyperlipidemia, unspecified; I48.91 Unspecified atrial fibrillation; N40.0 Benign prostatic hyperplasia without lower urinary tract symptoms; E66.9 Obesity, unspecified; Z68.33 Body mass index [BMI] 33.0-33.9, adult; Z79.01 Long term (current) use of anticoagulants; Z79.4 Long term (current) use of insulin; Z79.899 Other long term (current) drug therapy; Z99.2 Dependence on renal dialysis; Z95.810 Presence of automatic (implantable) cardiac defibrillator
CPT/HCPCS: 36901; Q9967

== ENCOUNTER 2020-12-08 08:16 | Outpatient (CLI) | payer MEDICARE ==
[2020-12-08 17:37] LABS: #Basophils 0.1 10x3/uL (0.0-0.2); #Eosinphils 0.2 10x3/uL (0.0-0.5); #Monocytes 0.8 10x3/uL (0.0-1.1); #Neutrophils 7.8 10x3/uL (1.5-8.4); %Basophils 0.7 % (0.0-2.0); %Eosinophils 1.5 % (0.0-6.0); %Lymphocytes 21.8 % (18.0-47.0); %Monocytes 6.8 % (0.0-10.0); %Neutrophils 68.7 % (40.0-75.0); Hemoglobin 12.6 g/dL (14.0-18.0); Mean Corpuscular HGB CONC 34.9 G/DL (32.0-36.0); Mean Corpuscular Hemoglobin 33.8 PG (27.0-33.0); Mean Corpuscular Volume 96.8 fl (80.0-100.0); Mean Platelet Volume 9.7 fl (7.4-10.4); Platelet Count 307 10x3/uL (130-400); RBC Distribution Width 13.9 % (11.5-14.5); Red Blood Cell (RBC) Count 3.73 10x6/uL (4.40-5.80); White Blood Cell (WBC) Count 11.4 10x3/uL (4.5-11.0)
[2020-12-08 18:45] LABS: Anion Gap 27 mmol/L (10-20); BUN (Urea Nitrogen) 54 mg/dL (8.4-25.7); Calc. Creatinine Clearance 0 mL/min (70-130); Calcium 8.1 mg/dL (7.8-10.44); Carbon Dioxide 20 mmol/L (22-29); Chloride 92 mmol/L (98-107); Glucose 262 mg/dL (70-105); Potassium 3.8 mmol/L (3.5-5.1); Sodium 135 mmol/L (136-145)
[2020-12-09 04:20] LABS: SARS-CoV-2 PCR by NAA Not Detected (NotDetected)
--- NOTE | 2020-12-12 11:39 | EKG ---
Test Reason : Blood Pressure : / mmHG Vent. Rate : 084 BPM Atrial Rate : 084 BPM P-R Int : 178 ms QRS Dur : 114 ms QT Int : 406 ms P-R-T Axes : 029 085 058 degrees QTc Int : 479 ms Normal sinus rhythm Non-specific intra-ventricular conduction delay Abnormal ECG Confirmed by DARREL MOYA ([id number]) on 12/12/2020 11:38:37 AM Referred By: KEARA Confirmed By:DARREL MOYA
== END 2020-12-08 08:17 | disposition home or self-care (01) ==
LOC: LABBT 08:16
PROVIDERS: ATTEND Specialist
DX: Z01.818 Encounter for other preprocedural examination (principal); Z20.822 Contact with and (suspected) exposure to COVID-19; N18.6 End stage renal disease; T82.590A Other mechanical complication of surgically created arteriovenous fistula, initial encounter
CPT/HCPCS: 80048; 85025; U0003; U0005; 87635; 93005; 93010

== ENCOUNTER 2020-12-13 10:01 | Day surgery (SDC) | payer MEDICARE ==
[2020-12-11 11:26] VITALS: BMI 34.0
[~2020-12-13 10:01] MED LIST changes: +Bupivacaine HCl 0.5%/Epinephrine 1:200,000/PF 30 ml Vial ONE; -ISOVUE-370 76%-LOCM 1 ML ONE; +Lidocaine 1% PF 5 ML VIAL ONE; +Metoclopramide HCl 10 MG/2 ML VIAL ONE; +Ondansetron PF 4 MG/2 ML Vial ONE; +PROPOFOL 200 MG/20 ML VIAL ONE
[2020-12-13] MEDS ORDERED: Propofol 500 MG/50 ML VIAL ONE (11:11)
[2020-12-13] MEDS ORDERED: Midazolam HCl 2 mg/2 ml Vial ONE (11:11)
[2020-12-13] MEDS ORDERED: Fentanyl 100 MCG/2 ML VIAL ONE ×2 (11:11→11:33)
[2020-12-13] MEDS ORDERED: Bupivacaine 0.25% HCL 30 ML VIAL ONE (11:13)
[2020-12-13] MEDS ORDERED: Heparin 5,000 UNITS/ML VIAL ONE (11:13)
[2020-12-13] MEDS ORDERED: Protamine Sulfate 50 MG/5 ML VIAL ONE (11:13)
[2020-12-13] MEDS ORDERED: XYLOCAINE 2%-EPI 1:100,000 20 ML VIAL ONE (11:13)
[2020-12-13] MEDS ORDERED: Propofol 1,000 MG/100 ML VIAL IV ONE (11:51)
[2020-12-13] MEDS ORDERED: Famotidine/PF 20 mg/2ml Vial ONE (11:51)
[2020-12-13] MEDS ORDERED: Heparin 1,000 UNITS/ML VIAL ONE ×2 (15:20→15:21)
[2020-12-13] MEDS ORDERED: Sodium Chloride 0.9% 10 ML ONE (15:21)
[2020-12-13] MEDS ORDERED: HYDROcodone/Acetaminophen 5/325 mg Tablet ONE (15:21)
--- NOTE | 2020-12-13 17:57 | OP ---
DATE OF PROCEDURE: 12/13/2020 PREOPERATIVE DIAGNOSES: End-stage renal disease, in need of basilic vein transposition fistula. POSTOPERATIVE DIAGNOSES: End-stage renal disease, in need of basilic vein transposition fistula. PROCEDURE PERFORMED: Left arm basilic vein transposition fistula. ANESTHESIA: Regional, TIVA, LMA. DESCRIPTION OF PROCEDURE: The patient was taken to the operating room, where under regional anesthesia and intravenous sedation, left upper extremity was prepared with ChloraPrep and draped in routine fashion. Incision was made from the left axilla to proximal volar forearm, carried down through skin and subcutaneous tissue, dissecting the basilic vein free from surrounding tissue, dividing branch between 4-0 silk ties and clips, mobilizing it, marking it with a marker to prevent torsion. The stump of the cephalic vein was also used for length. Basilic vein origin clamped, divided, flushed with heparinized saline solution and then tunneled with a Delores-Wick tunneler in a new tunnel in the anterior upper arm toward the cephalic vein, which had been ligated on the upper arm side with 2-0 silk tie, divided, and end to end vein anastomosis created with continuous suture of 6-0 Prolene after spatulating both ends. The patient had been given 6000 units of heparin intravenously prior and adequate time allowed to circulate. The vein did distend nicely with heparinized saline solution. When vascular control was released, there was good flow in the fistula. Hemostasis gained with cautery and 6-0 Prolene and clips. The patient was given protamine by Anesthesia intravenously. Subcutaneous tissue was approximated with 3-0 Monocryl, skin with nathen. Surgicel left in the harvest bed. Sterile dressing was applied. Job ID: [id number]
== END 2020-12-13 15:40 | disposition home or self-care (01) ==
LOC: SDC 10:01
PROVIDERS: ATTEND Specialist
PROC: 05SC0ZZ Reposition Left Basilic Vein, Open Approach (ICD-10-PCS; principal; 2020-12-13)
DX: I12.0 Hypertensive chronic kidney disease with stage 5 chronic kidney disease or end stage renal disease (principal); N18.6 End stage renal disease; G47.33 Obstructive sleep apnea (adult) (pediatric); M10.9 Gout, unspecified; E66.9 Obesity, unspecified; Z68.34 Body mass index [BMI] 34.0-34.9, adult; Z79.01 Long term (current) use of anticoagulants; Z79.4 Long term (current) use of insulin; Z79.899 Other long term (current) drug therapy; Z95.810 Presence of automatic (implantable) cardiac defibrillator; Z99.2 Dependence on renal dialysis
CPT/HCPCS: 36416; J0690; J1644; J2250; J2405; J2704; J2720; J2765; J3010; S0020; S0028

== ENCOUNTER 2021-03-20 11:40 | Emergency (ER) | payer MEDICARE ==
[2021-03-20 12:39] LABS: #Basophils 0.1 thou/uL (0.0-0.2); #Eosinphils 0.3 thou/uL (0.0-0.7); #Lymphocytes 1.7 thou/uL (1.20-3.40); #Monocytes 0.7 thou/uL (0.11-0.59); #Neutrophils 6.3 thou/uL (1.40-6.50); %Basophils 0.7 % (0.0-1.0); %Eosinophils 3.8 % (0.0-10.0); %Lymphocytes 18.5 % (21.0-51.0); Hemoglobin 12.2 g/dL (14.0-18.0); Mean Corpuscular HGB CONC 33.9 g/dL (32.0-36.0); Mean Corpuscular Hemoglobin 33.1 pg (27.0-31.0); Mean Corpuscular Volume 97.7 fL (78.0-98.0); Platelet Count 245 thou/uL (130-400); RBC Distribution Width 12.5 % (11.5-14.5); Red Blood Cell (RBC) Count 3.69 mill/uL (4.70-6.10); White Blood Cell (WBC) Count 9.1 thou/uL (4.8-10.8)
[2021-03-20 12:42] LABS: Bilirubin Small (Negative); Blood, Urine Large (Negative); Glucose, Urine (Dipstick) Negative (Negative); Ketone, Urine 15 mg/dL (Negative); Leukocyte Moderate (Negative); Nitrite Positive (Negative); Protein, Urine (Dipstick) 100 mg/dL (Neg-Trace); Specific Gravity, Urine 1.025 (1.005-1.030)
[2021-03-20 12:47] LABS: Clarity Hazy (Clear)
[2021-03-20 12:50] LABS: Bacteria/HPF 3+ HPF (None Seen); RBC/HPF Greater than 50 HPF (0-3); WBC/HPF 21-50 HPF (0-3)
[2021-03-20 12:55] LABS: INR-International Normal Ratio 1.2; PTT 31.1 sec (22.9-36.1); Prothrombin Time 15.2 sec (12.0-14.7)
[2021-03-20 14:10] LABS: Albumin 4.4 g/dL (3.5-5.0)
[2021-03-20 14:11] LABS: Chloride 95 mmol/L (98-107); Potassium 4.1 mmol/L (3.5-5.1); Sodium 137 mmol/L (136-145)
[2021-03-20 14:12] LABS: Calcium 8.5 mg/dL (7.8-10.44); Glucose 213 mg/dL (70-105)
[2021-03-20 14:13] LABS: Globulin 3.8 g/dL (2.4-3.5); Protein, Total 8.2 g/dL (6.0-8.3)
[2021-03-20 14:14] LABS: Anion Gap 17 mmol/L (10-20); Bilirubin, Total 0.8 mg/dL (0.2-1.2); Carbon Dioxide 29 mmol/L (22-29)
[2021-03-20 14:15] LABS: Alkaline Phosphatase 100 U/L (40-110)
[2021-03-20 14:16] LABS: Calc. Creatinine Clearance 0 mL/min (70-130)
[2021-03-20 14:17] LABS: BUN (Urea Nitrogen) 30 mg/dL (8.4-25.7)
[2021-03-20 14:18] LABS: ALT (SGPT) 13 U/L (8-55); AST (SGOT) 13 U/L (5-34)
== END 2021-03-20 15:26 | disposition home or self-care (01) ==
LOC: ERS 11:40
DX: N30.01 Acute cystitis with hematuria (principal); I10 Essential (primary) hypertension; E11.9 Type 2 diabetes mellitus without complications; Z79.899 Other long term (current) drug therapy
CPT/HCPCS: 36415; 80053; 81003; 81015; 85025; 85610; 85730; 99283

== ENCOUNTER 2021-10-12 13:23 | Outpatient (CLI) | payer MEDICARE ==
[2021-10-12 14:42] LABS: #Basophils 0.1 10x3/uL (0.0-0.2); #Eosinphils 0.4 10x3/uL (0.0-0.5); #Monocytes 0.8 10x3/uL (0.0-1.1); %Basophils 0.9 % (0.0-2.0); %Eosinophils 3.3 % (0.0-6.0); %Lymphocytes 21.1 % (18.0-47.0); %Monocytes 7.4 % (0.0-10.0); %Neutrophils 66.6 % (40.0-75.0); Hemoglobin 10.5 g/dL (13.5-17.5); Mean Corpuscular HGB CONC 34.9 g/dL (32.0-36.0); Mean Corpuscular Hemoglobin 34.3 pg (27.0-33.0); Mean Corpuscular Volume 98.4 fl (81.2-95.1); Mean Platelet Volume 9.2 fl (7.4-10.4); Platelet Count 253 10x3/uL (150-450); RBC Distribution Width 12.7 % (11.5-14.5); Red Blood Cell (RBC) Count 3.06 10x6/uL (4.32-5.72); White Blood Cell (WBC) Count 10.5 10x3/uL (3.5-10.5)
[2021-10-12 14:56] LABS: ALT (SGPT) 12 U/L (8-55); AST (SGOT) 12 U/L (5-34); Albumin 4.4 g/dL (3.5-5.0); Alkaline Phosphatase 112 U/L (40-110); Anion Gap 21 mmol/L (10-20); BUN (Urea Nitrogen) 65 mg/dL (8.4-25.7); Bilirubin, Total 0.7 mg/dL (0.2-1.2); Calc. Creatinine Clearance 0 mL/min (70-130); Calcium 6.7 mg/dL (7.8-10.44); Carbon Dioxide 21 mmol/L (22-29); Chloride 95 mmol/L (98-107); Glucose 245 mg/dL (70-105); Protein, Total 7.4 g/dL (6.0-8.3); Sodium 133 mmol/L (136-145)
[2021-10-12 23:23] LABS: SARS-CoV-2 PCR by NAA Not Detected (NotDetected)
== END 2021-10-12 13:24 | disposition home or self-care (01) ==
LOC: LABBT 13:23
PROVIDERS: ATTEND Internal Medicine Cardiovascular Disease
DX: Z01.812 Encounter for preprocedural laboratory examination (principal); Z20.822 Contact with and (suspected) exposure to COVID-19
CPT/HCPCS: 80053; 85025; U0003; U0005

== ENCOUNTER 2021-10-15 07:15 | Day surgery (SDC) | payer MEDICARE ==
[2021-10-09 15:04] VITALS: BMI 35.4
[2021-10-15] MEDS ORDERED: Iopamidol 370 76% 100 ML VIAL ONE (09:25)
[2021-10-15] MEDS ORDERED: Lidocaine 1% (PF) 30 ML VIAL ONE (10:26)
[2021-10-15] MEDS ORDERED: Heparin 10,000 UNITS/ 10 ML VIAL ONE (10:26)
[2021-10-15] MEDS ORDERED: Fentanyl 100 MCG/2 ML VIAL ONE (10:47)
[2021-10-15] MEDS ORDERED: Midazolam HCl 2 mg/2 ml Vial ONE (10:47)
== END 2021-10-15 14:25 | disposition home or self-care (01) ==
LOC: SDC 07:15
PROVIDERS: ATTEND Internal Medicine Cardiovascular Disease
PROC: 4A023N7 Measurement of Cardiac Sampling and Pressure, Left Heart, Percutaneous Approach (ICD-10-PCS; principal; 2021-10-15)
PROC: B2111ZZ Fluoroscopy of Multiple Coronary Arteries using Low Osmolar Contrast (ICD-10-PCS; 2021-10-15)
DX: I25.10 Atherosclerotic heart disease of native coronary artery without angina pectoris (principal); I12.0 Hypertensive chronic kidney disease with stage 5 chronic kidney disease or end stage renal disease; E11.22 Type 2 diabetes mellitus with diabetic chronic kidney disease; N18.6 End stage renal disease; I48.0 Paroxysmal atrial fibrillation; G47.33 Obstructive sleep apnea (adult) (pediatric); I42.8 Other cardiomyopathies; Z87.891 Personal history of nicotine dependence; Z79.01 Long term (current) use of anticoagulants; Z79.4 Long term (current) use of insulin; Z79.899 Other long term (current) drug therapy; Z99.2 Dependence on renal dialysis
CPT/HCPCS: 36416; 93458; 93571; 99152; J0153; J1644; J2001; J2250; J3010; Q9967

== ENCOUNTER 2022-08-13 10:46 | Emergency (ER) | payer MEDICARE ==
[2022-08-13 11:49] LABS: #Eosinphils 0.3 thou/uL (0.0-0.7); #Lymphocytes 1.4 thou/uL (1.20-3.40); #Monocytes 0.5 thou/uL (0.11-0.59); #Neutrophils 6.3 thou/uL (1.40-6.50); %Basophils 0.6 % (0.0-1.0); %Eosinophils 3.7 % (0.0-10.0); %Lymphocytes 16.7 % (21.0-51.0); %Monocytes 5.2 % (0.0-10.0); %Neutrophils 73.8 % (42.0-75.0); Hemoglobin 12.8 g/dL (14.0-18.0); Mean Corpuscular HGB CONC 33.9 g/dL (32.0-36.0); Mean Corpuscular Hemoglobin 33.9 pg (27.0-31.0); Mean Platelet Volume 7.1 fL (7.4-10.4); Platelet Count 283 thou/uL (130-400); RBC Distribution Width 12.7 % (11.5-14.5); Red Blood Cell (RBC) Count 3.77 mill/uL (4.70-6.10); White Blood Cell (WBC) Count 8.6 thou/uL (4.8-10.8)
[2022-08-13 12:10] LABS: ALT (SGPT) 15 U/L (8-55); AST (SGOT) 16 U/L (5-34); Alkaline Phosphatase 151 U/L (40-110); Anion Gap 20 mmol/L (10-20); BUN (Urea Nitrogen) 18 mg/dL (8.4-25.7); Bilirubin, Total 1.1 mg/dL (0.2-1.2); Calc. Creatinine Clearance 0 mL/min (70-130); Calcium 9.7 mg/dL (7.8-10.44); Carbon Dioxide 27 mmol/L (22-29); Chloride 91 mmol/L (98-107); Estimated GFR 11; Globulin 4.3 g/dL (2.4-3.5); Glucose 396 mg/dL (70-105); Potassium 4.1 mmol/L (3.5-5.1); Protein, Total 9.3 g/dL (6.0-8.3); Sodium 134 mmol/L (136-145)
[2022-08-13 12:28] LABS: Clarity Turbid (Clear); Specific Gravity, Urine 1.021 (1.002-1.036); pH, Urine 6.4 (5.0-9.0)
[2022-08-13 12:29] LABS: Bacteria/HPF 2+ HPF (None Seen); Bilirubin Unable to Interpret (Negative); Blood, Urine Unable to Interpret (Negative); Glucose, Urine (Dipstick) Unable to Interpret mg/dL (Negative); Ketone, Urine Unable to Interpret mg/dL (Negative); Leukocyte Unable to Interpret Leu/uL (Negative); Nitrite Unable to Interpret (Negative); Protein, Urine (Dipstick) Unable to Interpret mg/dL (Neg-Trace); RBC/HPF Greater than 50 HPF (0-3); Squamous Epithelial 0-3 HPF (0-3); Urobilinogen UNABLE TO INTERPRET mg/dL (Less than 2); WBC/HPF Greater than 50 HPF (0-3)
[2022-08-13] MEDS ORDERED: NOREPINEPHRINE 8 MG/250 ML-D5W 250 ML ONE (12:31)
== END 2022-08-13 13:47 | disposition home or self-care (01) ==
LOC: ERS 10:46
DX: N39.0 Urinary tract infection, site not specified (principal); R31.9 Hematuria, unspecified; E11.9 Type 2 diabetes mellitus without complications; I11.0 Hypertensive heart disease with heart failure; I50.9 Heart failure, unspecified
CPT/HCPCS: 36415; 80053; 81003; 81015; 85025; 99283

== ENCOUNTER 2022-09-30 22:47 | Inpatient (IN) | payer MEDICARE, OTHER ==
[2022-09-30] MEDS ORDERED: HYDROcodone/Acetaminophen 5/325 mg Tablet ONE (23:58)
[2022-10-01] MEDS ORDERED: Dextrose 5% in Water 1,000 ML IV PRN (03:21)
[2022-10-01] MEDS ORDERED: Dextrose 50% Abboject 50 ML SYRINGE SLOW IVP PRN (03:21)
[2022-10-01] MEDS ORDERED: Ondansetron PF 4 MG/2 ML Vial IVP PRN (03:21)
[2022-10-01] MEDS ORDERED: hydrALAZINE 20 MG/ML VIAL SLOW IVP PRN (03:21)
[2022-10-01] MEDS ORDERED: TETANUS, DIPHTHERIA TOX,ADULT (TDVAX) 0.5 ML VIAL IM ONE (03:21)
[2022-10-01] MEDS ORDERED: Cyclobenzaprine 10 MG TAB PO PRN (03:30)
[2022-10-01] MEDS ORDERED: Acetaminophen 325 MG TAB PO SCH (03:30)
[2022-10-01] MEDS ORDERED: Morphine 4 MG/ML VIAL SLOW IVP PRN (03:31)
[2022-10-01 05:37] VITALS: BMI 35.2
[2022-10-01 06:10] LABS: #Basophils 0.1 thou/uL (0.0-0.2); #Eosinphils 0.2 thou/uL (0.0-0.7); #Lymphocytes 1.6 thou/uL (1.20-3.40); #Monocytes 0.7 thou/uL (0.11-0.59); #Neutrophils 4.8 thou/uL (1.40-6.50); %Basophils 0.8 % (0.0-1.0); %Eosinophils 2.8 % (0.0-10.0); %Lymphocytes 21.7 % (21.0-51.0); %Neutrophils 65.7 % (42.0-75.0); Hemoglobin 10.3 g/dL (14.0-18.0); Mean Corpuscular HGB CONC 33.9 g/dL (32.0-36.0); Mean Corpuscular Hemoglobin 33.7 pg (27.0-31.0); Mean Corpuscular Volume 99.5 fl (78.0-98.0); Mean Platelet Volume 7.1 fL (7.4-10.4); Platelet Count 226 10x3/uL (130-400); RBC Distribution Width 12.6 % (11.5-14.5); Red Blood Cell (RBC) Count 3.06 mill/uL (4.70-6.10); White Blood Cell (WBC) Count 7.3 10x3/uL (4.8-10.8)
[2022-10-01 06:39] LABS: Anion Gap 15 mmol/L (10-20); BUN (Urea Nitrogen) 39 mg/dL (8.4-25.7); Calc. Creatinine Clearance 13 mL/min (70-130); Calcium 7.2 mg/dL (7.8-10.44); Carbon Dioxide 27 mmol/L (22-29); Chloride 88 mmol/L (98-107); Estimated GFR 6; Glucose 279 mg/dL (70-105); Magnesium 1.9 mg/dL (1.6-2.6); Phosphorus 5.2 mg/dL (2.3-4.7); Potassium 3.2 mmol/L (3.5-5.1); Sodium 127 mmol/L (136-145)
[2022-10-01] MEDS: Insulin Regular 300 UNITS/3 ML VIAL SC PRN ×2 (06:50→11:38)
[2022-10-01] MEDS: Acetaminophen/Codeine 30-300mg Tablet PO SCH ×3 (07:07→21:36)
[2022-10-01] MEDS ORDERED: Potassium Chloride 40 MEQ in Premix Bag 1 BAG IVPB SCH (07:30)
[2022-10-01] MEDS ORDERED: Potassium Chloride 20 MEQ in Premix Bag 1 BAG IVPB SCH (07:45)
[2022-10-01] MEDS ORDERED: Famotidine/PF 20 mg/2ml Vial SLOW IVP SCH (09:00)
[2022-10-01] MEDS ORDERED: Amiodarone 200 MG TAB PO SCH (09:00)
[2022-10-01] MEDS: Carvedilol 3.125 MG TAB PO SCH ×2 (10:02→21:36)
[2022-10-01] MEDS: Tamsulosin HCl 0.4 MG CAP PO SCH ×2 (10:02→21:36)
[2022-10-01] MEDS ORDERED: Heparin 10,000 UNITS/ 10 ML VIAL ONE (13:39)
[2022-10-01 13:57] LABS: HBSAg Index 0.29 S/CO (0-0.99); Hep B Core Total Ab Non-Reactive (NonReactive); Hep B Core Total Index 0.08 S/CO (0-0.79); Hep B Surf Ag Non-Reactive S/CO (NonReactive); Hep C IgG Ab Non-Reactive (NonReactive); Hep C Index 0.15 S/CO (0-0.79)
[2022-10-01 14:12] LABS: HBSAB Concentration 554.17 mIU/mL; Hep B Surf AB Reactive (NonReactive)
[2022-10-01] MEDS ORDERED: Atorvastatin Calcium 40 MG TAB PO SCH (21:00)
[2022-10-01 21:40] VITALS: BP 129/54; TEMP 97.8
[2022-10-04] MEDS ORDERED: FLU VACC QS2022-23(6MOS UP)/PF 60 MCG/0.5 ML SYRINGE IM ONE (09:00)
== END 2022-10-01 21:45 | disposition home or self-care (01) | DRG 562 ==
LOC: ERS 22:47 → SURG A 10-01 03:26
PROVIDERS: ADMIT Surgery; ATTEND Surgery
DX: S82.001A Unspecified fracture of right patella, initial encounter for closed fracture (principal); N18.6 End stage renal disease; E87.1 Hypo-osmolality and hyponatremia; I13.2 Hypertensive heart and chronic kidney disease with heart failure and with stage 5 chronic kidney disease, or end stage renal disease; Z20.822 Contact with and (suspected) exposure to COVID-19; W18.30XA Fall on same level, unspecified, initial encounter; D63.1 Anemia in chronic kidney disease; E11.22 Type 2 diabetes mellitus with diabetic chronic kidney disease; E87.6 Hypokalemia; E83.42 Hypomagnesemia; E11.65 Type 2 diabetes mellitus with hyperglycemia; E83.39 Other disorders of phosphorus metabolism; I50.9 Heart failure, unspecified; N40.0 Benign prostatic hyperplasia without lower urinary tract symptoms; Z79.4 Long term (current) use of insulin; Z79.01 Long term (current) use of anticoagulants; Z79.899 Other long term (current) drug therapy; Z99.2 Dependence on renal dialysis
CPT/HCPCS: 36415; 36416; 72192; 80048; 83735; 84100; 85025; 86704; 87340; J1644; S0028

== ENCOUNTER 2023-08-27 08:27 | Emergency (ER) | payer MEDICARE ==
[2023-08-27 09:33] LABS: #Basophils 0.1 thou/uL (0.0-0.2); #Eosinphils 0.2 thou/uL (0.0-0.7); #Monocytes 0.6 thou/uL (0.11-0.59); #Neutrophils 5.2 thou/uL (1.40-6.50); %Basophils 0.7 % (0.0-1.0); %Eosinophils 2.8 % (0.0-10.0); %Lymphocytes 21.2 % (21.0-51.0); %Monocytes 7.2 % (0.0-10.0); %Neutrophils 67.8 % (42.0-75.0); Hematocrit 34.4 % (42.0-52.0); Hemoglobin 11.9 g/dL (14.0-18.0); Mean Corpuscular HGB CONC 34.6 g/dL (32.0-36.0); Mean Corpuscular Hemoglobin 33.7 pg (27.0-31.0); Mean Corpuscular Volume 97.5 fl (78.0-98.0); Mean Platelet Volume 9.6 fL (7.4-10.4); Platelet Count 287 10x3/uL (130-400); RBC Distribution Width 13.6 % (11.5-14.5); Red Blood Cell (RBC) Count 3.53 mill/uL (4.70-6.10); White Blood Cell (WBC) Count 7.6 10x3/uL (4.8-10.8)
[2023-08-27 09:55] LABS: ALT (SGPT) 12 U/L (8-55); AST (SGOT) 9 U/L (5-34); Albumin 4.7 g/dL (3.5-5.0); Alkaline Phosphatase 150 U/L (40-110); Anion Gap 14 mmol/L (10-20); BUN (Urea Nitrogen) 39 mg/dL (8.4-25.7); Bilirubin, Total 0.5 mg/dL (0.2-1.2); Calc. Creatinine Clearance 0 mL/min (70-130); Calcium 8.9 mg/dL (7.8-10.44); Carbon Dioxide 32 mmol/L (22-29); Chloride 89 mmol/L (98-107); Estimated GFR 7; Globulin 3.4 g/dL (2.4-3.5); Lipase 31 U/L (8-78); Potassium 4.1 mmol/L (3.5-5.1); Protein, Total 8.1 g/dL (6.0-8.3); Sodium 131 mmol/L (136-145)
[2023-08-27 10:06] LABS: Glucose 417 mg/dL (70-105)
[2023-08-27 10:29] LABS: Bilirubin Negative (Negative); Blood, Urine Moderate (Negative); Glucose, Urine (Dipstick) 500 mg/dL (Negative); Ketone, Urine Negative (Negative); Leukocyte Moderate (Negative); Nitrite Negative (Negative); Protein, Urine (Dipstick) 100 mg/dL (Neg-Trace); Specific Gravity, Urine 1.015 (1.005-1.030); Urobilinogen 0.2 mg/dL (Less than 2); pH, Urine 6.5 (5.0-9.0)
[2023-08-27 10:36] LABS: Clarity Cloudy (Clear)
[2023-08-27 10:41] LABS: RBC/HPF 0-3 HPF (0-3)
[2023-08-27 10:42] LABS: Bacteria/HPF 2+ HPF (None Seen); CAUTI Indications for Culture Pelvic or flank pain; Renal Epithelial 0-3 HPF (None Seen); Squamous Epithelial 0-3 HPF (0-3); WBC/HPF Greater than 50 HPF (0-3)
[2023-08-27 10:43] LABS: Yeast-Hyphae 3+ HPF (None Seen)
[2023-08-27 10:44] LABS: Urine Culture Reflex Yes Yes
[2023-08-27] MEDS ORDERED: Acetaminophen 500 MG TAB ONE (11:29)
[2023-08-27] MEDS ORDERED: cefTRIAXone (ROCEPHIN) 500 MG VIAL ONE (11:29)
== END 2023-08-27 12:27 | disposition home or self-care (01) ==
LOC: ERS 08:27
DX: N39.0 Urinary tract infection, site not specified (principal); G89.29 Other chronic pain; M54.50 Low back pain, unspecified; I13.2 Hypertensive heart and chronic kidney disease with heart failure and with stage 5 chronic kidney disease, or end stage renal disease; E11.22 Type 2 diabetes mellitus with diabetic chronic kidney disease; N18.6 End stage renal disease; I50.9 Heart failure, unspecified; E11.9 Type 2 diabetes mellitus without complications; Z99.2 Dependence on renal dialysis; Z79.01 Long term (current) use of anticoagulants; Z79.4 Long term (current) use of insulin; Z79.899 Other long term (current) drug therapy
CPT/HCPCS: 80053; 81001; 83690; 85025; 87086; 96365; J0696

== ENCOUNTER 2023-10-20 14:41 | Emergency (ER) | payer MEDICARE, OTHER ==
[2023-10-20 17:31] LABS: SARS-CoV-2 NAA Rapid Test Not Detected (NotDetected)
== END 2023-10-20 17:40 | disposition home or self-care (01) ==
LOC: ERS 14:41
DX: J06.9 Acute upper respiratory infection, unspecified (principal); E11.9 Type 2 diabetes mellitus without complications; I11.0 Hypertensive heart disease with heart failure; I50.9 Heart failure, unspecified; E78.00 Pure hypercholesterolemia, unspecified; Z79.899 Other long term (current) drug therapy; Z79.01 Long term (current) use of anticoagulants; Z79.4 Long term (current) use of insulin; Z20.822 Contact with and (suspected) exposure to COVID-19
CPT/HCPCS: 0240U; 71045